=== PATIENT | female | born 1935 | race Caucasian/White ===

== ENCOUNTER 2016-08-11 12:59 | Inpatient (IN) ==
[2016-08-11] MEDS ORDERED: CEFTAROLINE 600 MG in SODIUM CHLORIDE 0.9% 100 ML IV STA (14:16)
--- NOTE | 2016-08-11 14:19 | EKG Report ---
Stationary ECG Study [facility] ER Test Date: 08/11/2016 1:33:33 PM Pat Name: BETTYE SOLOMON Department: Room: Gender: F [employer]: Ping Carlson : 1935 Requested by: John Wilkins Order Number: [id number] Reading MD: SALOMÓN BARNARD Intervals [place] Rate: 73 P: -9 SC: 181 QRS: 42 QRSD: 76 T: 37 QT: 433 QTc: 459 Interpretive Statements SINUS RHYTHM SEPTAL INFARCT, AGE UNDETERMINED Electronically Signed On 08-11-16 17:33:45 CDT by SALOMÓN BARNARD [email or web address]
[2016-08-11 14:42] LABS: Basophils # 0.1 10*3/uL (0.0-0.2); Basophils % 0.7 % (0.0-0.8); Eosinophils # 0.1 10*3/uL (0.0-0.87); Eosinophils % 1.3 % (0.00-10.9); Hematocrit 37.1 VOL% (35.7-47.0); Hemoglobin 12.4 GM/DL (12.0-16.0); Immature Granulocytes % 0.4 %; Immature Granulocytes Absolute 0.03 #; Lymphocytes # 2.4 10*3/uL (1.4-4.0); Lymphocytes % 35.7 % (21.3-54.2); Mean Corpuscular HGB Conc 33.4 GM/DL (32-36); Mean Corpuscular Hemoglobin 29 PG (27-34); Mean Corpuscular Volume 87.1 FL (87-102); Mean Platelet Volume 9.4 FL (9.6-12.0); Monocytes # 0.5 10*3/uL (0.11-0.8); Monocytes % 7.3 % (1.7-12.7); Neutrophils # 3.7 10*3/uL (1.4-7.4); Neutrophils % 54.6 % (38.7-73.9); Platelet Count 164 T/CUMM (130-400); Red Blood Count 4.26 MC/CUMM (3.8-5.5); Red Cell Distribution Width 15.9 % (9.3-17.3); White Blood Count 6.8 T/CUMM (4-12)
--- NOTE | 2016-08-11 14:47 | XRay Report ---
Portable chest Date: 08/11/2016 Clinical history: Shortness of breath Comparison: 07/11/2016 Technique: Portable AP sitting chest Findings: The heart is minimally enlarged with calcification in the aortic knob. Progressive diffuse parenchymal findings with possible small pleural effusions. Increased right hilar density. Osteopenia with degenerative changes. Impression: Cardiomegaly with progressive mild to moderate CHF/pneumonitis with small pleural effusions. Increased right hilar density and follow-up is recommended to document clearing and exclude additional underlying pathology. Osteopenia. PROCEDURE INTERPRETED AT [facility] DEPARTMENT OF RADIOLOGY Final Report Signed by: Dr. Sara Hernandez
[2016-08-11 15:04] LABS: Alanine Aminotransferase 18 U/L (13-56); Alkaline Phosphatase 110 U/L (45-117); Aspartate Amino Transferase 16 U/L (0-37); Blood Urea Nitrogen 27 MG/DL (7-18); Calcium 8.1 MG/DL (8.5-10.1); Glucose 90 MG/DL (74-106); Magnesium 2.1 MG/DL (1.8-2.4); Potassium 4.1 MMOL/L (3.5-5.1); Sodium 143 MMOL/L (136-145); Total Protein 6.2 G/DL (6.4-8.3); Troponin I Only < 0.015 NG/ML (0.00-0.045)
[2016-08-11] MEDS ORDERED: ONDANSETRON 4 MG/2 ML VIAL IV PRN (15:38)
[2016-08-11] MEDS ORDERED: GLUCAGON 1 MG VIAL IM PRN (15:38)
[2016-08-11] MEDS ORDERED: DEXTROSE 50% 25 GM/50 ML VIAL IV PRN (15:38)
[2016-08-11] MEDS ORDERED: MORPHINE 2 MG/1 ML SYRINGE IV PRN (15:38)
--- NOTE | 2016-08-11 15:38 | Emergency Department Note ---
John Paul Arias Brooke, am scribing for, and in the presence of, Edenilson Peck MD 14 :15. Cisco Arias Doug C, MD, personally performed the services described in this documentation, ascribed by Joan Coker in my presence, and it is both accurate and complete 538 . Arrival - Arrival Chief Complaint: Shortness of Breath Stated Complaint: SOB ED Nursing Triage Note: SOB, ONSET YESTERDAY, BILAT LOWER EXT PAIN/SWELLING Mode of Arrival: Wheelchair Limitations: No Limitations Source: Patient, Family, RN Notes Reviewed Time Seen by Provider: 08/11/16 14:10 - History of Present Illness HPI Narrative: Patient's 80-year-old white female presents emergency room complaining of increased pain and swelling of her left lower extremity started 2 days ago. Patient states she has been feeling very tired and weak and having some shortness of breath as well. By states she had some wheezing and cough earlier today. Patient states she has had some chills today but she has not measured any fever. She denies any nausea, vomiting or diarrhea. She has had cellulitis in this lower extremity in the past. This appears to be returning. Onset (ago): day(s) (2) Allergies/Adverse Reactions: Allergies Allergy/AdvReac Type Severity Reaction Status Date / Time ofloxacin [From Floxin] Allergy Unknown/Unable Verified 08/11/16 13:39 to obtain Sulfa (Sulfonamide Allergy ANAPHYLAXIS Verified 08/11/16 13:39 Antibiotics) tape AdvReac Swelling Uncoded 08/11/16 13:39 of Lip/Tongue/Throat Home Medications: Home Medications Medication Instructions Recorded Confirmed Type Allopurinol [Zyloprim] 100 mg PO QAM 07/10/14 08/11/16 History Aspirin EC Tab 81 mg PO QAM 07/10/14 08/11/16 History Insulin Detemir [Levemir FlexPen] 45 unit SUBCUT BEDTIME #0 07/10/14 08/11/16 History Labetalol Tab [Trandate Tab] 100 mg PO BID 07/10/14 08/11/16 History Levothyroxine Tab [Synthroid Tab] 50 mcg PO QAM 07/10/14 08/11/16 History Memantine [Namenda] 10 mg PO BID 07/10/14 08/11/16 History Warfarin Sodium 2.5 mg PO SUTUTH 07/10/14 08/11/16 History Warfarin [Coumadin] 5 mg PO MOWEFRSA 07/10/14 08/11/16 History cloNIDine TAB [Catapres Tab] 0.1 mg PO BID 07/10/14 08/11/16 History Pregabalin [Lyrica] 50 mg PO BEDTIME 03/24/15 08/11/16 History Atorvastatin [Lipitor] 10 mg PO QPM 09/22/15 08/11/16 History Cyanocobalamin Inj [Vitamin B12 1,000 mcg SUBCUT Q30D 09/22/15 08/11/16 History Inj] Furosemide 40 mg PO BID 09/22/15 08/11/16 History Meclizine [Antivert] 25 mg PO QPM PRN 09/22/15 08/11/16 History Omeprazole [Prilosec] 20 mg PO QAM 09/22/15 08/11/16 History Potassium Chloride [K-Tab ER] 20 meq PO BID W/MEALS 09/22/15 08/11/16 History Insulin Aspart [NovoLOG FlexPen] 10 unit SUBCUT TID W/MEALS 10/11/15 08/11/16 History Linagliptin [Tradjenta] 5 mg PO QAM 10/11/15 08/11/16 History Solifenacin Succinate [Vesicare] 10 mg PO QAM 10/11/15 08/11/16 History Methenamine Hippurate 1 gm PO BID 07/01/16 08/11/16 History Montelukast Tab [Singulair Tab] 10 mg PO QPM 07/01/16 08/11/16 History Acetaminophen Tab [Tylenol Tab] 650 mg PO Q6H PRN #0 tablet 07/12/16 08/11/16 Rx Albuterol Neb [Proventil Neb] 2.5 mg RESP TX RT Q4H PRN #0 07/12/16 08/11/16 Rx Alum/Mag/Simeth Max Str Liquid 30 ml PO Q4H PRN #0 07/12/16 08/11/16 Rx [Mylanta Max Strength Liquid] Amoxicillin Cap/Tab 500 mg PO Q8HR #30 capsule 07/12/16 08/11/16 Rx Review of System - Review of System 12 point system: reviewed and no additional remarkable complaints except as stated - Review of System Constitutional: Present: chills. Absent: fever Respiratory: Present: other (shortness of breath). Absent: respiratory distress (shortness of breath. Painful inspirations) Cardiovascular: Present: edema (bilateral lower extremity) Musculoskeletal: Present: leg pain (bilateral) Skin: Present: other (ecchymosis to right 2nd and 3rd toes. Erythematous bilateral lower extremities). Absent: rash Medical,Surgical,& Family Hx - Medical History Cardio: History of: CHF, CAD, Hypertension, PVD (blood clots in legs in past) Psychological: History of: Anxiety Disorders Neurology: History of: Migraine, 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 ) No history of: Seizures HEENT: History of: Eye Problem (PRESCRIPTION), Dental Problems (NO TEETH AND STATES DENTURES DONOT FIT) No history of: Ear Problem, Glaucoma, Oral Cancer Endocrine: History of: Diabetes Mellitus (IDDM), Dyslipidemia, Thyroid Disorder No history of: Diabetes Mellitus (NIDDM), Endocrine Cancer Rheumatology: History of;: Rheumatological Problems (KNEE PAINS,HX RIGHT KNEE REPLACEMENT) Respiratory: History of: Asthma, Bronchitis, COPD, Obstructive Sleep Apnea ( uses cpap at home), Pulmonary Embolism, Pneumonia, Respiratory Problems (uses oxygen at home at night) Renal: History of: Renal (Kidney) Cancer (previous right nephrectomy from cancer ), Renal Failure (stage 3) Genitourinary: History of: Bladder Problem (neurogenic bladder), Problems ( renal cell carcinoma) Gastrointestinal: History of: GERD Musculoskeletal: History of: Osteoporosis, Musculoskeletal Problems (arhtritis) Hematology: History of: Anemia, Blood Transfusion Reaction (chills), Clotting Problems (ON BLOOD THINNERS (HX DVT RLE)) Reproductive: History of: Breast Cancer (14 years ago,PARTIAL RIGHT MASTECTOMY) Other: History of: Anesthesia Reactions (stopped breathing with knee surgery), Cancer (breast and renal cell cancer), Skin Problems (BRUISES EASILY(FROM COUMADIN)) - Surgical History Cardiac Surgeries: Sugical HX of: Cardiac Catheterization Thoracic Surgeries: Surgical HX of;: Kidney (Renal Surgery) (right kidney removal) Patient denies;: Organ Transplant HEENT Surgeries: Surgical HX of: Eye Surgery (cataract removalS) Patient denies: Thyroid Surgery, Tonsilectomy & Adenoidectomy Abdominal Surgeries: Surgical HX of: Abdominal Surgery, Appendectomy, Cholecystectomy, EGD Patient denies: Colonoscopy, Hernia Repair Reproductive Surgeries: Surgical HX of;: Breast Surgery, Gynecologic Surgery, Hysterectomy, Tubal Ligation Orthopedic Surgeries: Surgical HX of;: Total Knee Replacement (right knee replacement) - Family History Family History: Reports;: Family Cancer (daddy), Family Diabetes (MOM,BRO), Family Hypertension (mom and dad,BRO), Family Stroke (dad) Denies;: Family Anesthesia Reaction, Family Heart Disease, Family Psychiatric Problems - Social History Smoking Status: Smoker, status unknown Exam Vital Signs: Vital Signs Temperature 98.1 F 08/11/16 13:36 Pulse Rate 74 08/11/16 13:36 Respiratory Rate 22 08/11/16 14:15 Blood Pressure 171/63 08/11/16 13:36 O2 Sat by Pulse Oximetry 95 08/11/16 13:36 - General General appearance: alert, in no apparent distress, obese - Head Head exam: Present: atraumatic, normocephalic - Eye Eye exam: Present: normal appearance, PERRL, EOMI - ENT ENT exam: Present: normal exam, normal oropharynx - Neck Neck exam: Present: normal inspection - Chest Chest inspection: Present: normal inspection, symmetric chest wall rise - Respiratory Respiratory exam: Present: normal lung sounds bilaterally - Cardiovascular Cardiovascular exam: Present: regular rate, normal rhythm, normal heart sounds - Abdominal Exam Abdominal exam: Present: soft, normal bowel sounds. Absent: distention, tenderness - Extremities Exam Extremities exam: Present: calf tenderness (Please note have painful swelling and erythema to the left anterior calf.). Absent: normal inspection - Back Exam Back exam: Present: normal inspection - Neurological Exam Neurological exam: Present: alert, oriented X3, CN II-XII intact. Absent: motor sensory deficit - Psychiatric Psychiatric exam: Present: normal affect, normal mood - Skin Skin exam: Present: warm, dry, intact, other (Induration and erythema to bilateral lower extremities. Edema to left calf.) Course Course Narrative: Patient's clinical history, laboratory and radiographic findings were discussed with Dr. Hiram Pereyra who will admit the patient for management of her cellulitis. Results - Labs CBC & BMP: 08/11/16 14:27 08/11/16 14:27 Lab Results: I have reviewed the patients labs Labs: Laboratory Tests 08/11/16 14:27 MPV 9.4 L - EKG EKG results: interpreted by ERMD, sinus rhythm (73 bpm), no acute changes - Diagnostic Findings Procedure: Chest x-ray: report reviewed by me (Cardiomegaly with progressive mild to moderate CHF/pneumonitits with small plwural effusions. Increased right hilar density and follow-up is recommended to document clearing and exclude additional underlying pathology. Osteopenia.) Disposition Clinical Impression: Lower extremity cellulitis Case discussed with: patient, patient's family Disposition: Still a Patient Condition: Stable Time of Disposition: 15:38
[2016-08-11 15:40] LABS: Apearance,Urine CLEAR (Clear); Bilirubin,Urine Negative (Negative); Blood, Urine Small mg/dL (Negative); Glucose,Urine (UA) Negative (Negative); Ketones,Urine Negative (Negative); Nitrite,Urine Negative (Negative); Protein,Urine Negative; RBC,Urine 1 /HPF (0-4); Urine Color Straw (Yellow); Urine Specific Gravity 1.008 (1.001-1.035); Urine Urobilinogen < 2.0 EU/DL (0.2-1.0); WBC,Urine 1 /HPF (0-6)
[2016-08-11] MEDS ORDERED: ALBUTEROL 2.5 MG/3 ML NEB RESP TX PRN (15:42)
[2016-08-11] MEDS ORDERED: ALUMINUM/MAGNES/SIMETH MAX STR 30 ML UDCUP PO PRN (15:42)
[2016-08-11] MEDS ORDERED: ACETAMINOPHEN 325 MG TABLET PO PRN (15:42)
[2016-08-11] MEDS ORDERED: MECLIZINE 25 MG TABLET PO PRN (15:42)
[2016-08-11] MEDS ORDERED: CEFTAROLINE 600 MG VIAL IV ONE (15:49)
[2016-08-11] MEDS ORDERED: ENOXAPARIN 40 MG/0.4 ML SYRINGE SUBCUT SCH (16:00)
[2016-08-11] MEDS ORDERED: ACETAMINOPHEN 325 MG TABLET ONE (16:54)
[2016-08-11] MEDS: ACETAMINOPHEN 325 MG TABLET PO PRN (16:55)
[2016-08-11] MEDS: POTASSIUM CHLORIDE 20 MEQ TABLET PO SCH (17:38)
[2016-08-11] MEDS: INSULIN LISPRO 100 UNIT/ML SUBCUT SCH ×3 (17:39→20:17)
[2016-08-11] MEDS: WARFARIN 5 MG TABLET PO SCH (17:39)
[2016-08-11] MEDS: CEFTAROLINE 600 MG in SODIUM CHLORIDE 0.9% 100 ML IV SCH (18:23)
[2016-08-11] MEDS: INSULIN GLARGINE 100 UNIT/ML SUBCUT SCH (20:14)
[2016-08-11] MEDS: DOCUSATE SODIUM 100 MG CAPSULE PO SCH (20:15)
[2016-08-11] MEDS: FUROSEMIDE 40 MG TABLET PO SCH (20:15)
[2016-08-11] MEDS: cloNIDine 0.1 MG TABLET PO SCH (20:15)
[2016-08-11] MEDS: LABETALOL 200 MG TABLET PO SCH (20:15)
[2016-08-11] MEDS: MEMANTINE 10 MG TABLET PO SCH (20:15)
[2016-08-11] MEDS: PREGABALIN 50 MG CAPSULE PO SCH (20:15)
[2016-08-11] MEDS: ATORVASTATIN 20 MG TABLET PO SCH (20:15)
[2016-08-11] MEDS: MONTELUKAST 10 MG TABLET PO SCH (20:15)
[2016-08-11] MEDS: METHENAMINE HIPPURATE 1 GM TABLET PO SCH (20:16)
--- NOTE | 2016-08-11 20:36 | Family Practice History&Phys ---
Assessment and Plan (1) Lower extremity cellulitis Status: Acute Assessment and plan: 519 7: Patient is in bed with antibiotics and place. We are going to consider wound care for tomorrow. Current Visit: Yes (2) Dyspnea Status: Acute Assessment and plan: 08/11/2016: No significant resting dyspnea at this time I will give periodic oxygen and needed Current Visit: No History of Present Illness Chief complaint: Bilateral lower cellulitis History of present illness: Ms. Junior is a 80 year old female With a history of past cellulitis in her legs comes in tonight with redness and swelling in bilateral legs. She has a history of peripheral vascular disease as well as insulin-dependent diabetes mellitus and what appears to be lower extremity erythema/cellulitis. She does also have a history of hypercholesterolemia, hypothyroidism hyper and hypertension. She is alert and oriented but her legs are hurting her significantly. There is 1+ edema bilaterally as well. We are going to admit her put on some antibiotics which is already been done. Monitor closely her kidney function and if necessary will get wound care management. She is not having any fever at this time she admits that she has had chills this past couple of days. She does have chronic mild shortness of breath Home Medications Medication Instructions Recorded Confirmed Type Allopurinol [Zyloprim] 100 mg PO QAM 07/10/14 08/11/16 History Aspirin EC Tab 81 mg PO QAM 07/10/14 08/11/16 History Insulin Detemir [Levemir FlexPen] 45 unit SUBCUT BEDTIME #0 07/10/14 08/11/16 History Labetalol Tab [Trandate Tab] 100 mg PO BID 07/10/14 08/11/16 History Levothyroxine Tab [Synthroid Tab] 50 mcg PO QAM 07/10/14 08/11/16 History Memantine [Namenda] 10 mg PO BID 07/10/14 08/11/16 History Warfarin Sodium 2.5 mg PO SUTUTH 07/10/14 08/11/16 History Warfarin [Coumadin] 5 mg PO MOWEFRSA 07/10/14 08/11/16 History cloNIDine TAB [Catapres Tab] 0.1 mg PO BID 07/10/14 08/11/16 History Pregabalin [Lyrica] 50 mg PO BEDTIME 03/24/15 08/11/16 History Atorvastatin [Lipitor] 10 mg PO QPM 09/22/15 08/11/16 History Cyanocobalamin Inj [Vitamin B12 1,000 mcg SUBCUT Q30D 09/22/15 08/11/16 History Inj] Furosemide 40 mg PO BID 09/22/15 08/11/16 History Meclizine [Antivert] 25 mg PO QPM PRN 09/22/15 08/11/16 History Omeprazole [Prilosec] 20 mg PO QAM 09/22/15 08/11/16 History Potassium Chloride [K-Tab ER] 20 meq PO BID W/MEALS 09/22/15 08/11/16 History Insulin Aspart [NovoLOG FlexPen] 10 unit SUBCUT TID W/MEALS 10/11/15 08/11/16 History Linagliptin [Tradjenta] 5 mg PO QAM 10/11/15 08/11/16 History Solifenacin Succinate [Vesicare] 10 mg PO QAM 10/11/15 08/11/16 History Methenamine Hippurate 1 gm PO BID 07/01/16 08/11/16 History Montelukast Tab [Singulair Tab] 10 mg PO QPM 07/01/16 08/11/16 History Acetaminophen Tab [Tylenol Tab] 650 mg PO Q6H PRN #0 tablet 07/12/16 08/11/16 Rx Albuterol Neb [Proventil Neb] 2.5 mg RESP TX RT Q4H PRN #0 07/12/16 08/11/16 Rx Alum/Mag/Simeth Max Str Liquid 30 ml PO Q4H PRN #0 07/12/16 08/11/16 Rx [Mylanta Max Strength Liquid] Amoxicillin Cap/Tab 500 mg PO Q8HR #30 capsule 07/12/16 08/11/16 Rx Allergies Allergy/AdvReac Type Severity Reaction Status Date / Time ofloxacin [From Floxin] Allergy Unknown/Unable Verified 08/11/16 13:39 to obtain Sulfa (Sulfonamide Allergy ANAPHYLAXIS Verified 08/11/16 13:39 Antibiotics) tape AdvReac Swelling Uncoded 08/11/16 13:39 of Lip/Tongue/Throat 12 point system: reviewed and no additional remarkable complaints except as stated (Except that mentioned in the history and physical.) - EENT Eyes: Absent: blurry vision Ears: Absent: ear pain Nose, mouth and throat: Absent: headache(s) - Cardiovascular Cardiovascular: Present: dyspnea (Very mild/occasional). Absent: chest pain at rest - Respiratory Respiratory: Present: wheezing - Gastrointestinal Gastrointestinal: Absent: constipation - Genitourinary Genitourinary: Absent: difficulty urinating Medical,Surgical,& Family Hx - Medical History Cardio: History of: CHF, CAD, Hypertension, PVD (blood clots in legs in past) Psychological: History of: Anxiety Disorders Neurology: History of: Migraine, 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 ) No history of: Seizures HEENT: History of: Eye Problem, Dental Problems (NO TEETH AND STATES DENTURES DONOT FIT) No history of: Ear Problem, Glaucoma, Oral Cancer Endocrine: History of: Diabetes Mellitus (IDDM), Dyslipidemia, Thyroid Disorder No history of: Diabetes Mellitus (NIDDM), Endocrine Cancer Rheumatology: History of;: Rheumatological Problems (KNEE PAINS,HX RIGHT KNEE REPLACEMENT) Respiratory: History of: Asthma, Bronchitis, COPD, Obstructive Sleep Apnea ( uses cpap at home), Pulmonary Embolism, Pneumonia, Respiratory Problems (uses oxygen at home at night) Renal: History of: Renal (Kidney) Cancer (previous right nephrectomy from cancer ), Renal Failure (stage 3) Genitourinary: History of: Bladder Problem (neurogenic bladder), Problems ( renal cell carcinoma) Gastrointestinal: History of: GERD Musculoskeletal: History of: Osteoporosis, Musculoskeletal Problems (arhtritis) Hematology: History of: Anemia, Blood Transfusion Reaction (chills), Clotting Problems (ON BLOOD THINNERS (HX DVT RLE)) Reproductive: History of: Breast Cancer (14 years ago,PARTIAL RIGHT MASTECTOMY) Other: History of: Anesthesia Reactions (stopped breathing with knee surgery), Cancer (breast and renal cell cancer), Skin Problems (BRUISES EASILY(FROM COUMADIN)) - Surgical History Cardiac Surgeries: Sugical HX of: Cardiac Catheterization Thoracic Surgeries: Surgical HX of;: Kidney (Renal Surgery) (right kidney removal) Patient denies;: Organ Transplant HEENT Surgeries: Surgical HX of: Eye Surgery (cataract removalS) Patient denies: Thyroid Surgery, Tonsilectomy & Adenoidectomy Abdominal Surgeries: Surgical HX of: Abdominal Surgery, Appendectomy, Cholecystectomy, EGD Patient denies: Colonoscopy, Hernia Repair Reproductive Surgeries: Surgical HX of;: Breast Surgery, Gynecologic Surgery, Hysterectomy, Tubal Ligation Orthopedic Surgeries: Surgical HX of;: Total Knee Replacement (right knee replacement) - Family History Family History: Reports;: Family Cancer (daddy), Family Diabetes (MOM,BRO), Family Hypertension (mom and dad,BRO), Family Stroke (dad) Denies;: Family Anesthesia Reaction, Family Heart Disease, Family Psychiatric Problems - Social History Smoking Status: Never smoker Frequency of Alcohol Use: None Exam - Constitutional Vitals: Period Temp Pulse Resp BP Sys/Duffy Pulse Ox Last 24 Hr 96.5 F 74 20 153/72 97 Exam: Generally moderately obese female. She is very alert and oriented answers all questions appropriately is very pleasant HEENT pupils are equally reactive neck is supple trachea midline no appreciated thyromegaly Cardiovascular rate is regular there is 10 systolic ejection murmur Lungs are clear bilaterally except for a few basal rales Abdomen soft nondistended nontender extremities as noted above some cellulitis as well as some mild weeping associated with this. Results - Labs CBC & BMP: 08/11/16 14:27 08/11/16 14:27
[2016-08-12] MEDS: CEFTAROLINE 600 MG in SODIUM CHLORIDE 0.9% 100 ML IV SCH ×2 (03:41→15:44)
[2016-08-12 04:24] LABS: Basophils # 0.1 10*3/uL (0.0-0.2); Basophils % 0.9 % (0.0-0.8); Eosinophils # 0.1 10*3/uL (0.0-0.87); Eosinophils % 2.1 % (0.00-10.9); Hematocrit 37.5 VOL% (35.7-47.0); Hemoglobin 12.2 GM/DL (12.0-16.0); Immature Granulocytes % 0.3 %; Immature Granulocytes Absolute 0.02 #; Lymphocytes # 2.2 10*3/uL (1.4-4.0); Lymphocytes % 34.7 % (21.3-54.2); Mean Corpuscular HGB Conc 32.5 GM/DL (32-36); Mean Corpuscular Hemoglobin 28 PG (27-34); Mean Corpuscular Volume 87.4 FL (87-102); Monocytes # 0.5 10*3/uL (0.11-0.8); Monocytes % 8.4 % (1.7-12.7); Neutrophils # 3.4 10*3/uL (1.4-7.4); Neutrophils % 53.6 % (38.7-73.9); Platelet Count 153 T/CUMM (130-400); Red Blood Count 4.29 MC/CUMM (3.8-5.5); Red Cell Distribution Width 15.8 % (9.3-17.3); White Blood Count 6.3 T/CUMM (4-12)
[2016-08-12 04:53] LABS: Calcium 7.7 MG/DL (8.5-10.1); Osmolality,Calculated 291.7 MOS/KG (273-304)
--- NOTE | 2016-08-12 09:01 | Family Practice Progress Note ---
Family Practice - PN: Subj Interval history: Patient seen this morning. She is doing a little better her legs look a little better. Still complains of them hurting considerably/burning. Patient is already on Lyrica. We will continue to monitor this. No fever chills nausea vomiting diarrhea or other constitutional symptoms at this time Exam (Progress Note) - Constitutional Vitals: Period Temp Pulse Resp BP Sys/Duffy Pulse Ox Last 24 Hr 96.5 F-97.7 F 67-83 18-20 153-167/70-86 93-97 Exam: Generally moderately obese female. She is very alert and oriented answers all questions appropriately is very pleasant HEENT pupils are equally reactive neck is supple trachea midline no appreciated thyromegaly Cardiovascular rate is regular there is 10 systolic ejection murmur Lungs are clear bilaterally except for a few basal rales Abdomen soft nondistended nontender extremities as noted above some cellulitis that seems to be improving some Results - Labs CBC & BMP: 08/12/16 03:45 08/12/16 03:45 Assessment and Plan (1) Lower extremity cellulitis Status: Acute Assessment and plan: 519 7: Patient is in bed with antibiotics and place. We are going to consider wound care for tomorrow. 08/12/2016. She continues on antibiotics and we have her legs elevated. They do seem to be improving some Current Visit: Yes (2) Dyspnea Status: Acute Assessment and plan: 08/11/2016: No significant resting dyspnea at this time I will give periodic oxygen and needed Current Visit: No
[2016-08-12] MEDS: DOCUSATE SODIUM 100 MG CAPSULE PO SCH ×2 (09:49→20:58)
[2016-08-12] MEDS: sitaGLIPtin 25 MG TABLET PO SCH (09:49)
[2016-08-12] MEDS: SOLIFENACIN 5 MG TABLET PO SCH (09:49)
[2016-08-12] MEDS: FUROSEMIDE 40 MG TABLET PO SCH ×2 (09:49→20:57)
[2016-08-12] MEDS: cloNIDine 0.1 MG TABLET PO SCH ×2 (09:49→20:56)
[2016-08-12] MEDS: POTASSIUM CHLORIDE 20 MEQ TABLET PO SCH ×2 (09:50→17:53)
[2016-08-12] MEDS: INSULIN LISPRO 100 UNIT/ML SUBCUT SCH ×7 (09:50→21:03)
[2016-08-12] MEDS: METHENAMINE HIPPURATE 1 GM TABLET PO SCH ×2 (09:50→21:08)
[2016-08-12] MEDS: ALLOPURINOL 100 MG TABLET PO SCH (09:50)
[2016-08-12] MEDS: LABETALOL 200 MG TABLET PO SCH ×2 (09:50→20:56)
[2016-08-12] MEDS: PANTOPRAZOLE 40 MG TABLET PO SCH (09:50)
[2016-08-12] MEDS: LEVOTHYROXINE 50 MCG TABLET PO SCH (09:50)
[2016-08-12] MEDS: MEMANTINE 10 MG TABLET PO SCH ×2 (09:50→20:56)
[2016-08-12] MEDS: ASPIRIN EC 81 MG TABLET PO SCH (09:50)
[2016-08-12 09:52] LABS: INR 1.8; PT Patient Result 20.1 SECS
[2016-08-12] MEDS: WARFARIN 5 MG TABLET PO SCH (17:54)
[2016-08-12] MEDS: ATORVASTATIN 20 MG TABLET PO SCH (20:57)
[2016-08-12] MEDS: PREGABALIN 50 MG CAPSULE PO SCH (20:58)
[2016-08-12] MEDS: MONTELUKAST 10 MG TABLET PO SCH (20:58)
[2016-08-12] MEDS: INSULIN GLARGINE 100 UNIT/ML SUBCUT SCH (21:01)
[2016-08-13] MEDS: CEFTAROLINE 600 MG in SODIUM CHLORIDE 0.9% 100 ML IV SCH ×2 (04:58→16:07)
[2016-08-13] MEDS: INSULIN LISPRO 100 UNIT/ML SUBCUT SCH ×7 (06:38→21:41)
[2016-08-13] MEDS ORDERED: FUROSEMIDE 20 MG TABLET ONE (08:24)
[2016-08-13] MEDS: ACETAMINOPHEN 325 MG TABLET PO PRN (08:41)
[2016-08-13] MEDS: SOLIFENACIN 5 MG TABLET PO SCH (08:41)
[2016-08-13] MEDS: sitaGLIPtin 25 MG TABLET PO SCH (08:42)
[2016-08-13] MEDS: POTASSIUM CHLORIDE 20 MEQ TABLET PO SCH ×2 (08:42→18:53)
[2016-08-13] MEDS: ALLOPURINOL 100 MG TABLET PO SCH (08:43)
[2016-08-13] MEDS: LEVOTHYROXINE 50 MCG TABLET PO SCH (08:43)
[2016-08-13] MEDS: PANTOPRAZOLE 40 MG TABLET PO SCH (08:43)
[2016-08-13] MEDS: LABETALOL 200 MG TABLET PO SCH ×2 (08:43→20:00)
[2016-08-13] MEDS: cloNIDine 0.1 MG TABLET PO SCH ×2 (08:43→20:00)
[2016-08-13] MEDS: ASPIRIN EC 81 MG TABLET PO SCH (08:43)
[2016-08-13] MEDS: DOCUSATE SODIUM 100 MG CAPSULE PO SCH ×2 (08:44→20:00)
[2016-08-13] MEDS: FUROSEMIDE 40 MG TABLET PO SCH ×2 (08:44→20:00)
[2016-08-13] MEDS: MEMANTINE 10 MG TABLET PO SCH ×2 (08:44→20:00)
[2016-08-13] MEDS: METHENAMINE HIPPURATE 1 GM TABLET PO SCH ×2 (08:47→20:00)
--- NOTE | 2016-08-13 09:19 | Family Practice Progress Note ---
Family Practice - PN: Subj Interval history: Patient seen this morning she is up sitting in the bed eating. Still complaining of leg burning and stinging. The cellulitis has improved somewhat there is some still a little bit of weeping and redness and the lower extremities bilaterally however it is worse on the left. She was told to keep them elevated and she is not having any difficulty with breathing at this moment. Exam (Progress Note) - Constitutional Vitals: Period Temp Pulse Resp BP Sys/Duffy Pulse Ox Last 24 Hr 97.4 F-99 F 63-83 18-20 139-172/72-84 93-118 Exam: Generally moderately obese female. She is very alert and oriented answers all questions appropriately is very pleasant HEENT pupils are equally reactive neck is supple trachea midline no appreciated thyromegaly Cardiovascular rate is regular there is 10 systolic ejection murmur Lungs are clear bilaterally except for a few basal rales Abdomen soft nondistended nontender extremities as noted above some cellulitis that seems to be improving some. There is still some slight weeping Results - Labs CBC & BMP: 08/12/16 03:45 08/12/16 03:45 Assessment and Plan (1) Lower extremity cellulitis Status: Acute Assessment and plan: 519 7: Patient is in bed with antibiotics and place. We are going to consider wound care for tomorrow. 08/12/2016. She continues on antibiotics and we have her legs elevated. They do seem to be improving some Current Visit: Yes (2) Dyspnea Status: Acute Assessment and plan: 08/11/2016: No significant resting dyspnea at this time I will give periodic oxygen and needed Current Visit: No
[2016-08-13] MEDS: WARFARIN 2.5 MG TABLET PO SCH (18:53)
[2016-08-13] MEDS: MONTELUKAST 10 MG TABLET PO SCH (20:00)
[2016-08-13] MEDS: PREGABALIN 50 MG CAPSULE PO SCH (20:00)
[2016-08-13] MEDS: ATORVASTATIN 20 MG TABLET PO SCH (20:00)
[2016-08-13] MEDS: INSULIN GLARGINE 100 UNIT/ML SUBCUT SCH (21:40)
[2016-08-14] MEDS: CEFTAROLINE 600 MG in SODIUM CHLORIDE 0.9% 100 ML IV SCH ×2 (03:21→21:11)
--- NOTE | 2016-08-14 07:20 | Family Practice Progress Note ---
Family Practice - PN: Subj Interval history: Patient states she had a good night and her left calf is feeling some better. Certainly the erythema is reduced though it sieve grader tender and warm to the touch. 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 Patient is complaining of some irritation under her abdominal fold. Exam (Progress Note) - Constitutional Vitals: Period Temp Pulse Resp BP Sys/Duffy Pulse Ox Last 24 Hr 97.7 F-98.4 F 61-73 18-20 107-159/58-83 92-96 Exam: Objective well-developed white female is awake alert and able give good history. Cardiovascular: Heart rates regular without murmurs or gallops. Respiratory: The lungs clear to auscultation bilaterally. Abdomen: The abdomen soft and nontender to palpation. Patient is noted to have yeast dermatitis in the fold of her panniculus. Extremities: Erythema of the left anterior calf has improved but is still warm to the touch and tender. Results - Labs CBC & BMP: 08/12/16 03:45 08/12/16 03:45 Lab Results: I have reviewed the past 24 hour labs Assessment and Plan (1) Cellulitis of left lower extremity Status: Acute Assessment and plan: 08/14/2016: I am going to consult Dr. Mike for his thoughts about her recurring cellulitis. Current Visit: Yes
[2016-08-14] MEDS: INSULIN LISPRO 100 UNIT/ML SUBCUT SCH ×7 (10:03→21:58)
[2016-08-14] MEDS: DOCUSATE SODIUM 100 MG CAPSULE PO SCH ×2 (10:30→21:12)
[2016-08-14] MEDS: POTASSIUM CHLORIDE 20 MEQ TABLET PO SCH ×2 (10:30→17:46)
[2016-08-14] MEDS: NYSTATIN POWDER 15 GM BOTTLE TOP SCH ×2 (10:30→21:13)
[2016-08-14] MEDS: sitaGLIPtin 25 MG TABLET PO SCH (10:31)
[2016-08-14] MEDS: METHENAMINE HIPPURATE 1 GM TABLET PO SCH ×2 (10:31→21:12)
[2016-08-14] MEDS: FUROSEMIDE 40 MG TABLET PO SCH ×2 (10:31→21:12)
[2016-08-14] MEDS: MEMANTINE 10 MG TABLET PO SCH ×2 (10:31→21:13)
[2016-08-14] MEDS: PANTOPRAZOLE 40 MG TABLET PO SCH (10:31)
[2016-08-14] MEDS: cloNIDine 0.1 MG TABLET PO SCH ×2 (10:31→21:12)
[2016-08-14] MEDS: ASPIRIN EC 81 MG TABLET PO SCH (10:31)
[2016-08-14] MEDS: SOLIFENACIN 5 MG TABLET PO SCH (10:37)
[2016-08-14] MEDS: LEVOTHYROXINE 50 MCG TABLET PO SCH (10:37)
[2016-08-14] MEDS: ALLOPURINOL 100 MG TABLET PO SCH (10:37)
[2016-08-14] MEDS: LABETALOL 200 MG TABLET PO SCH ×2 (10:38→21:13)
--- NOTE | 2016-08-14 12:23 | General Surgery Consult Note ---
Assessment and Plan - Time spent with patient Time spent with patient: Greater than 30 minutes (1) Chronic venous stasis dermatitis of both lower extremities Status: Acute Assessment and plan: Chronic bilateral lower extremity venous stasis dermatitis. This seems to be responding well to IV antibiotics and bedrest. She needs good skin hygiene, and would likely benefit from some lubrication as well as light compression. However do not think she will tolerate this well especially on the left, as she is recovering from cellulitis & also has Postphlebitic changes and is quite tender there. She needs to avoid sitting with legs in a dependent position, and I discussed all this with the patient in great detail. Current Visit: Yes (2) Cellulitis of left lower extremity Status: Acute Assessment and plan: Cellulitis seems to be responding. Continue antibiotics and bedrest. OK to walk with PT but avoid sitting with legs dependent. We may attempt light compression to see if she will tolerate this. 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 Current Visit: Yes (4) care home (current) use of anticoagulants Status: Acute Current Visit: Yes (5) Morbid obesity Status: Chronic Current Visit: No (6) Postphlebitic syndrome Status: Acute Assessment and plan: Again, she's not likely to tolerate compression well, however this would be first-line therapy for her. We discussed it at length, and if she's willing we could try light wraps while she's here, then progress to Jobst Sensi foot socks to both protect her feet and help control her dependent edema. Current Visit: No (7) Diabetic peripheral neuropathy Status: Acute Assessment and plan: She has bilateral diabetic peripheral neuropathy of the feet with loss of protective sensation and preulcerative callous. She wears shoes that are appropriate for her risk category. She is currently taking Lyrica. Once her legs have been decompressed we could add Jobst Sensi foot socks if she will tolerate them. Current Visit: Yes History of Present Illness Chief complaint: Bilateral lower extremity cellulitis History of present illness: Ms. Junior is a 80 year old female Home Medications Medication Instructions Recorded Confirmed Type Allopurinol [Zyloprim] 100 mg PO QAM 07/10/14 08/11/16 History Aspirin EC Tab 81 mg PO QAM 07/10/14 08/11/16 History Insulin Detemir [Levemir FlexPen] 45 unit SUBCUT BEDTIME #0 07/10/14 08/11/16 History Labetalol Tab [Trandate Tab] 100 mg PO BID 07/10/14 08/11/16 History Levothyroxine Tab [Synthroid Tab] 50 mcg PO QAM 07/10/14 08/11/16 History Memantine [Namenda] 10 mg PO BID 07/10/14 08/11/16 History Warfarin Sodium 2.5 mg PO SUTUTH 07/10/14 08/11/16 History Warfarin [Coumadin] 5 mg PO MOWEFRSA 07/10/14 08/11/16 History cloNIDine TAB [Catapres Tab] 0.1 mg PO BID 07/10/14 08/11/16 History Pregabalin [Lyrica] 50 mg PO BEDTIME 03/24/15 08/11/16 History Atorvastatin [Lipitor] 10 mg PO QPM 09/22/15 08/11/16 History Cyanocobalamin Inj [Vitamin B12 1,000 mcg SUBCUT Q30D 09/22/15 08/11/16 History Inj] Furosemide 40 mg PO BID 09/22/15 08/11/16 History Meclizine [Antivert] 25 mg PO QPM PRN 09/22/15 08/11/16 History Omeprazole [Prilosec] 20 mg PO QAM 09/22/15 08/11/16 History Potassium Chloride [K-Tab ER] 20 meq PO BID W/MEALS 09/22/15 08/11/16 History Insulin Aspart [NovoLOG FlexPen] 10 unit SUBCUT TID W/MEALS 10/11/15 08/11/16 History Linagliptin [Tradjenta] 5 mg PO QAM 10/11/15 08/11/16 History Solifenacin Succinate [Vesicare] 10 mg PO QAM 10/11/15 08/11/16 History Methenamine Hippurate 1 gm PO BID 07/01/16 08/11/16 History Montelukast Tab [Singulair Tab] 10 mg PO QPM 07/01/16 08/11/16 History Acetaminophen Tab [Tylenol Tab] 650 mg PO Q6H PRN #0 tablet 07/12/16 08/11/16 Rx Albuterol Neb [Proventil Neb] 2.5 mg RESP TX RT Q4H PRN #0 07/12/16 08/11/16 Rx Alum/Mag/Simeth Max Str Liquid 30 ml PO Q4H PRN #0 07/12/16 08/11/16 Rx [Mylanta Max Strength Liquid] Amoxicillin Cap/Tab 500 mg PO Q8HR #30 capsule 07/12/16 08/11/16 Rx Allergies Allergy/AdvReac Type Severity Reaction Status Date / Time ofloxacin [From Floxin] Allergy Unknown/Unable Verified 08/11/16 13:39 to obtain Sulfa (Sulfonamide Allergy ANAPHYLAXIS Verified 08/11/16 13:39 Antibiotics) tape AdvReac Swelling Uncoded 08/11/16 13:39 of Lip/Tongue/Throat Medical,Surgical,& Family Hx - Medical History Cardio: History of: CHF, CAD, Hypertension, PVD (blood clots in legs in past) Psychological: History of: Anxiety Disorders Neurology: History of: Migraine, 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 ) No history of: Seizures HEENT: History of: Eye Problem, Dental Problems (NO TEETH AND STATES DENTURES DONOT FIT) No history of: Ear Problem, Glaucoma, Oral Cancer Endocrine: History of: Diabetes Mellitus (IDDM), Dyslipidemia, Thyroid Disorder No history of: Diabetes Mellitus (NIDDM), Endocrine Cancer Rheumatology: History of;: Rheumatological Problems (KNEE PAINS,HX RIGHT KNEE REPLACEMENT) Respiratory: History of: Asthma, Bronchitis, COPD, Obstructive Sleep Apnea ( uses cpap at home), Pulmonary Embolism, Pneumonia, Respiratory Problems (uses oxygen at home at night) Renal: History of: Renal (Kidney) Cancer (previous right nephrectomy from cancer ), Renal Failure (stage 3) Genitourinary: History of: Bladder Problem (neurogenic bladder), Problems ( renal cell carcinoma) Gastrointestinal: History of: GERD Musculoskeletal: History of: Osteoporosis, Musculoskeletal Problems (arhtritis) Hematology: History of: Anemia, Blood Transfusion Reaction (chills), Clotting Problems (ON BLOOD THINNERS (HX DVT RLE)) Reproductive: History of: Breast Cancer (14 years ago,PARTIAL RIGHT MASTECTOMY) Other: History of: Anesthesia Reactions (stopped breathing with knee surgery), Cancer (breast and renal cell cancer), Skin Problems (BRUISES EASILY(FROM COUMADIN)) - Surgical History Cardiac Surgeries: Sugical HX of: Cardiac Catheterization Thoracic Surgeries: Surgical HX of;: Kidney (Renal Surgery) (right kidney removal) Patient denies;: Organ Transplant HEENT Surgeries: Surgical HX of: Eye Surgery (cataract removalS) Patient denies: Thyroid Surgery, Tonsilectomy & Adenoidectomy Abdominal Surgeries: Surgical HX of: Abdominal Surgery, Appendectomy, Cholecystectomy, EGD Patient denies: Colonoscopy, Hernia Repair Reproductive Surgeries: Surgical HX of;: Breast Surgery, Gynecologic Surgery, Hysterectomy, Tubal Ligation Orthopedic Surgeries: Surgical HX of;: Total Knee Replacement (right knee replacement) - Family History Family History: Reports;: Family Cancer (daddy), Family Diabetes (MOM,BRO), Family Hypertension (mom and dad,BRO), Family Stroke (dad) Denies;: Family Anesthesia Reaction, Family Heart Disease, Family Psychiatric Problems - Social History Smoking Status: Never smoker Frequency of Alcohol Use: None Exam - Constitutional Vitals: Period Temp Pulse Resp BP Sys/Duffy Pulse Ox Last 24 Hr 98 F-98.4 F 61-70 18-20 107-151/58-83 92-96 General appearance: no acute distress, morbidly obese, other (Patient alert and oriented; she is cooperative with the exam and complains of minimal discomfort bilateral lower extremities. She says this is much better since admission.) - Head Head exam: Present: normocephalic - Eye Eye exam: Present: EOMI Pupils: Present: TEOFILO - ENT Mouth exam: Present: normal voice, dry mucosa - Neck Neck exam: Present: trachea midline. Absent: lymphadenopathy - Respiratory Respiratory exam: Absent: rales, wheezes - Cardiovascular Cardiovascular exam: Present: RRR - GI/Abdominal GI/Abdominal exam: Present: soft, other (Multiple abdominal wall and right lateral flank incisional hernias present. None of these appear to be incarcerated.). Absent: distended, guarding - Extremities Exam Extremities exam: Present: other (Bilateral lower extremities trace edema left greater than right. Left lower extremity with moderate induration medial aspect , and clearing erythema without focal area of redness. She does have some soft point tenderness with blanching at the mid medial aspect of the left calf, this does not appear to be any localized fluctuance. She has fairly extensive chronic venous stasis changes bilaterally, again left greater than right. She has palpable pulses DP and PT sites. Good capillary refill of the toes and 2 seconds. She has very minimal bilateral fifth metatarsal head calluses, but I see no other lesions, no ulcerations, no ischemic or pressure changes of either foot. ) - Neurological Exam Neurological exam: Present: other (She has decreased sharp/dull sensation and proprioception on right and left feet in all cardinal areas tested. She has mild preulcerative callouses over bilateral 5th metatarsal heads. No history of callous. She wears shoes appropriate for her risk category. ) - Skin Skin exam: Present: other (Excoriative skin changes about the pannus and groin areas.) Results - Labs CBC & BMP: 08/12/16 03:45 08/12/16 03:45
[2016-08-14] MEDS: WARFARIN 5 MG TABLET PO SCH (17:46)
[2016-08-14] MEDS: MONTELUKAST 10 MG TABLET PO SCH (21:12)
[2016-08-14] MEDS: ATORVASTATIN 20 MG TABLET PO SCH (21:12)
[2016-08-14] MEDS: PREGABALIN 50 MG CAPSULE PO SCH (21:12)
[2016-08-14] MEDS: INSULIN GLARGINE 100 UNIT/ML SUBCUT SCH (21:58)
--- NOTE | 2016-08-15 07:24 | Family Practice Progress Note ---
Family Practice - PN: Subj Interval history: Patient states she is doing some better and her left lower extremity is less painful and swollen this morning. She has not had any fever chills her blood sugars are well controlled. Exam (Progress Note) - Constitutional Vitals: Period Temp Pulse Resp BP Sys/Duffy Pulse Ox Last 24 Hr 96 F-98.5 F 62-68 18-20 106-139/53-80 92-96 Exam: Objective well-developed white female is awake alert and able give good history. Cardiovascular: Heart rates regular without murmurs or gallops. Respiratory: The lungs clear to auscultation bilaterally. Abdomen: The abdomen soft and nontender to palpation. Extremities: Patient's edema and erythema are both improved. She still has tenderness. Results - Labs CBC & BMP: 08/12/16 03:45 08/12/16 03:45 Lab Results: I have reviewed the past 24 hour labs Assessment and Plan (1) Cellulitis of left lower extremity Status: Acute Assessment and plan: 08/14/2016: I am going to consult Dr. Mike for his thoughts about her recurring cellulitis. 08/15/2016: Dr. Falcon's been consulted. Current Visit: Yes
[2016-08-15] MEDS: INSULIN LISPRO 100 UNIT/ML SUBCUT SCH ×7 (08:16→21:18)
[2016-08-15] MEDS: SOLIFENACIN 5 MG TABLET PO SCH (08:17)
[2016-08-15] MEDS: ALLOPURINOL 100 MG TABLET PO SCH (08:17)
[2016-08-15] MEDS: LABETALOL 200 MG TABLET PO SCH ×2 (08:17→21:10)
[2016-08-15] MEDS: LEVOTHYROXINE 50 MCG TABLET PO SCH (08:17)
[2016-08-15] MEDS: ASPIRIN EC 81 MG TABLET PO SCH (08:17)
[2016-08-15] MEDS: PANTOPRAZOLE 40 MG TABLET PO SCH (08:17)
[2016-08-15] MEDS: POTASSIUM CHLORIDE 20 MEQ TABLET PO SCH ×2 (08:17→17:21)
[2016-08-15] MEDS: METHENAMINE HIPPURATE 1 GM TABLET PO SCH ×2 (08:17→21:09)
[2016-08-15] MEDS: sitaGLIPtin 25 MG TABLET PO SCH (08:17)
[2016-08-15] MEDS: FUROSEMIDE 40 MG TABLET PO SCH ×2 (08:18→21:10)
[2016-08-15] MEDS: DOCUSATE SODIUM 100 MG CAPSULE PO SCH ×2 (08:18→21:10)
[2016-08-15] MEDS: NYSTATIN POWDER 15 GM BOTTLE TOP SCH ×2 (08:18→21:18)
[2016-08-15] MEDS: cloNIDine 0.1 MG TABLET PO SCH ×2 (08:18→21:09)
[2016-08-15] MEDS: CEFTAROLINE 600 MG in SODIUM CHLORIDE 0.9% 100 ML IV SCH ×2 (08:19→21:09)
[2016-08-15] MEDS: MEMANTINE 10 MG TABLET PO SCH ×2 (08:23→21:10)
[2016-08-15] MEDS ORDERED: SKIN HEALING OINT (AQUAPHOR) 50 GM TUBE TOP PRN (09:26)
--- NOTE | 2016-08-15 09:29 | General Surgery Progress Note ---
Assessment and Plan - Time spent with patient Time spent with patient: Less than 30 minutes (1) Chronic venous stasis dermatitis of both lower extremities Status: Acute Assessment and plan: 08/15/2016 The stasis changes of the lower extremities looking good shape. The left lower extremity has greater stasis changes and on the right and I see no obvious ulcerations or blistering at this time. I have spoken to the patient about the importance of not sitting with legs hanging down for long periods of time and the importance of ambulation and compression. We will try some compression on the legs as light as possible see if we can keep things under control. understand that she may not be very cooperative and in having compression on the legs but this is only way that we can keep her from coming back in the keep things under control. She needs to have continued good moisturizing of the lower extremities in addition to the compression. Current Visit: Yes Subjective Patient reports: Present: feels better, tolerating a regular diet, bowel movement, afebrile Exam - Constitutional Vitals: Period Temp Pulse Resp BP Sys/Duffy Pulse Ox Last 24 Hr 96 F-98.5 F 62-68 18-20 106-136/53-63 92-96 General appearance: no acute distress - Head Head exam: Present: normal inspection - Neck Neck exam: Present: normal inspection - Respiratory Respiratory exam: Present: rales - Cardiovascular Cardiovascular exam: Present: RRR - Extremities Exam Extremities exam: Present: other (The stasis changes of the left lower extremity look a lot better there is no obvious blistering and I see no unusual erythematous changes.) - Back Exam Back exam: Present: normal inspection - Neurological Exam Neurological exam: Present: alert, oriented X3, CN II-XII intact - Skin Skin exam: Present: normal color, warm, dry Results - Labs CBC & BMP: 08/12/16 03:45 08/12/16 03:45 Lab Results: I have reviewed the past 24 hour labs
[2016-08-15] MEDS: WARFARIN 2.5 MG TABLET PO SCH (17:21)
[2016-08-15] MEDS: INSULIN GLARGINE 100 UNIT/ML SUBCUT SCH (21:09)
[2016-08-15] MEDS: ATORVASTATIN 20 MG TABLET PO SCH (21:09)
[2016-08-15] MEDS: PREGABALIN 50 MG CAPSULE PO SCH (21:10)
[2016-08-15] MEDS: MONTELUKAST 10 MG TABLET PO SCH (21:10)
[2016-08-16 06:28] LABS: Basophils # 0.1 10*3/uL (0.0-0.2); Basophils % 0.9 % (0.0-0.8); Eosinophils # 0.2 10*3/uL (0.0-0.87); Eosinophils % 2.5 % (0.00-10.9); Hematocrit 42.2 VOL% (35.7-47.0); Hemoglobin 13.7 GM/DL (12.0-16.0); Immature Granulocytes % 0.6 %; Immature Granulocytes Absolute 0.04 #; Lymphocytes # 1.9 10*3/uL (1.4-4.0); Lymphocytes % 27.6 % (21.3-54.2); Mean Corpuscular HGB Conc 32.5 GM/DL (32-36); Mean Corpuscular Hemoglobin 29 PG (27-34); Mean Corpuscular Volume 88.5 FL (87-102); Monocytes # 0.6 10*3/uL (0.11-0.8); Monocytes % 9.2 % (1.7-12.7); Neutrophils % 59.2 % (38.7-73.9); Platelet Count 172 T/CUMM (130-400); Red Blood Count 4.77 MC/CUMM (3.8-5.5); Red Cell Distribution Width 15.6 % (9.3-17.3); White Blood Count 6.7 T/CUMM (4-12)
[2016-08-16 06:52] LABS: Calcium 8.5 MG/DL (8.5-10.1); Osmolality,Calculated 294.3 MOS/KG (273-304)
--- NOTE | 2016-08-16 07:56 | Family Practice Progress Note ---
Family Practice - PN: Subj Interval history: Patient states her legs are feeling better. She has a compression wrap to both calves and understands these need to be continued. She states her leg pain is certainly improved. Certainly not as tender as she was 2 days ago. I told would probably continue antibiotics another day and she can go home tomorrow. Exam (Progress Note) - Constitutional Vitals: Period Temp Pulse Resp BP Sys/Duffy Pulse Ox Last 24 Hr 97.6 F-98.7 F 63-79 16-20 125-137/59-70 92-95 Exam: Objective well-developed white female is awake alert and able give good history. Cardiovascular: Heart rates regular without murmurs or gallops. Respiratory: The lungs clear to auscultation bilaterally. Abdomen: The abdomen soft and nontender to palpation. Extremities: Patient's edema and erythema are both improved. her tenderness has improved. Results - Labs CBC & BMP: 08/16/16 05:52 08/16/16 05:52 Lab Results: I have reviewed the past 24 hour labs Assessment and Plan (1) Cellulitis of left lower extremity Status: Acute Assessment and plan: 08/14/2016: I am going to consult Dr. Mike for his thoughts about her recurring cellulitis. 08/15/2016: Dr. Falcon's been consulted. 08/16/2016: Patient is improving, probably home tomorrow. Current Visit: Yes
[2016-08-16] MEDS: INSULIN LISPRO 100 UNIT/ML SUBCUT SCH ×7 (08:30→21:11)
--- NOTE | 2016-08-16 09:25 | General Surgery Progress Note ---
Assessment and Plan - Time spent with patient Time spent with patient: Less than 30 minutes (1) Chronic venous stasis dermatitis of both lower extremities Status: Acute Assessment and plan: 08/15/2016 The stasis changes of the lower extremities looking good shape. The left lower extremity has greater stasis changes and on the right and I see no obvious ulcerations or blistering at this time. I have spoken to the patient about the importance of not sitting with legs hanging down for long periods of time and the importance of ambulation and compression. We will try some compression on the legs as light as possible see if we can keep things under control. understand that she may not be very cooperative and in having compression on the legs but this is only way that we can keep her from coming back in the keep things under control. She needs to have continued good moisturizing of the lower extremities in addition to the compression. 08/16/2016. Patient is doing better today we do have a compressive wrap in place that could be easily managed at home. We have encouraged her the importance of not sitting hanging leg stand for long periods of time to be ambulating or keep them elevated as much as possible. I would continue present level of care and using a cotton sock and Stephane wrap to control the edema for now see if this will be the best way to control process. Current Visit: Yes Subjective Patient reports: Present: no new complaints, tolerating a regular diet, afebrile Exam - Constitutional Vitals: Period Temp Pulse Resp BP Sys/Duffy Pulse Ox Last 24 Hr 97.6 F-98.6 F 63-73 16-20 125-134/59-70 92-95 General appearance: mild distress - Head Head exam: Present: normal inspection - ENT ENT exam: Present: normal exam - Neck Neck exam: Present: normal inspection - Respiratory Respiratory exam: Present: rales - Cardiovascular Cardiovascular exam: Present: RRR - GI/Abdominal GI/Abdominal exam: Present: normal bowel sounds, soft - Extremities Exam Extremities exam: Present: other (Dressings are in place and the edema of the lower extremities slightly better at this time.) - Back Exam Back exam: Present: normal inspection - Neurological Exam Neurological exam: Present: alert, oriented X3, CN II-XII intact - Skin Skin exam: Present: normal color, warm, dry Results - Labs CBC & BMP: 08/16/16 05:52 08/16/16 05:52 Lab Results: I have reviewed the past 24 hour labs
[2016-08-16] MEDS: MEMANTINE 10 MG TABLET PO SCH ×2 (11:30→21:09)
[2016-08-16] MEDS: METHENAMINE HIPPURATE 1 GM TABLET PO SCH ×2 (11:30→21:07)
[2016-08-16] MEDS: PANTOPRAZOLE 40 MG TABLET PO SCH (11:30)
[2016-08-16] MEDS: sitaGLIPtin 25 MG TABLET PO SCH (11:30)
[2016-08-16] MEDS: SOLIFENACIN 5 MG TABLET PO SCH (11:30)
[2016-08-16] MEDS: LEVOTHYROXINE 50 MCG TABLET PO SCH (11:30)
[2016-08-16] MEDS: ASPIRIN EC 81 MG TABLET PO SCH (11:30)
[2016-08-16] MEDS: LABETALOL 200 MG TABLET PO SCH ×2 (11:30→21:07)
[2016-08-16] MEDS: ALLOPURINOL 100 MG TABLET PO SCH (11:30)
[2016-08-16] MEDS: cloNIDine 0.1 MG TABLET PO SCH ×2 (11:31→21:08)
[2016-08-16] MEDS: DOCUSATE SODIUM 100 MG CAPSULE PO SCH ×2 (11:31→21:10)
[2016-08-16] MEDS: FUROSEMIDE 40 MG TABLET PO SCH ×2 (11:31→21:10)
[2016-08-16] MEDS: POTASSIUM CHLORIDE 20 MEQ TABLET PO SCH ×2 (11:31→18:06)
[2016-08-16] MEDS: CEFTAROLINE 600 MG in SODIUM CHLORIDE 0.9% 100 ML IV SCH (11:35)
[2016-08-16] MEDS: NYSTATIN POWDER 15 GM BOTTLE TOP SCH ×2 (12:00→21:21)
[2016-08-16] MEDS: WARFARIN 5 MG TABLET PO SCH (18:06)
[2016-08-16] MEDS: PREGABALIN 50 MG CAPSULE PO SCH (21:08)
[2016-08-16] MEDS: ATORVASTATIN 20 MG TABLET PO SCH (21:09)
[2016-08-16] MEDS: MONTELUKAST 10 MG TABLET PO SCH (21:09)
[2016-08-16] MEDS: INSULIN GLARGINE 100 UNIT/ML SUBCUT SCH (21:10)
[2016-08-17] MEDS ORDERED: CEFTAROLINE 300 MG in SODIUM CHLORIDE 0.9% 100 ML IV SCH
[2016-08-17 07:02] LABS: INR 2.9; PT Patient Result 33.2 SECS
[2016-08-17] MEDS ORDERED: sitaGLIPtin 25 MG TABLET PO SCH (09:00)
[2016-08-17] MEDS: INSULIN LISPRO 100 UNIT/ML SUBCUT SCH ×4 (09:27→12:50)
[2016-08-17] MEDS: METHENAMINE HIPPURATE 1 GM TABLET PO SCH (09:30)
[2016-08-17] MEDS: SOLIFENACIN 5 MG TABLET PO SCH (09:30)
[2016-08-17] MEDS: POTASSIUM CHLORIDE 20 MEQ TABLET PO SCH (09:30)
[2016-08-17] MEDS: LABETALOL 200 MG TABLET PO SCH (09:31)
[2016-08-17] MEDS: FUROSEMIDE 40 MG TABLET PO SCH (09:31)
[2016-08-17] MEDS: LEVOTHYROXINE 50 MCG TABLET PO SCH (09:34)
[2016-08-17] MEDS: NYSTATIN POWDER 15 GM BOTTLE TOP SCH (09:34)
[2016-08-17] MEDS: MEMANTINE 10 MG TABLET PO SCH (09:34)
[2016-08-17] MEDS: ALLOPURINOL 100 MG TABLET PO SCH (09:34)
[2016-08-17] MEDS: cloNIDine 0.1 MG TABLET PO SCH (09:34)
[2016-08-17] MEDS: PANTOPRAZOLE 40 MG TABLET PO SCH (09:34)
[2016-08-17] MEDS: DOCUSATE SODIUM 100 MG CAPSULE PO SCH (09:34)
[2016-08-17] MEDS: ASPIRIN EC 81 MG TABLET PO SCH (09:34)
--- NOTE | 2016-08-17 12:15 | Discharge Summary ---
Hospital Course - Hospital Course Hospital Course: Patient's 80-year-old white female was admitted to the emergency room with increased pain and swelling of her left calf. Patient was found to have cellulitis. She has chronic venous stasis dermatitis with certainly provokes exacerbations of cellulitis. Patient was admitted my services and started on Teflaro. Her blood cultures remained negative through 5 days. She was seen in consultation by Dr. Falcon and compression stockings were added. Patient's improved and her pain is markedly improved. She will be discharged home today on oral antibiotics and office follow-up. Diagnosis - Discharge Diagnosis (1) Cellulitis of left lower extremity Status: Acute Discharge Plan - Discharge Data Disposition: Disch To Home/Self Care Condition at Discharge: Stable Discharge Diet: advance to your usual diet Activity: resume usual activities as tolerated Hygiene: no restrictions Weight Bearing at Discharge: full weight bearing Contact your physician if you experience:: fever over 101 - Discharge Medications New Acetaminophen Tab [Tylenol Tab] 650 mg PO Q6H PRN tablet PRN Reason: Fever > 100.4 Or Headache Albuterol Neb [Proventil Neb] 2.5 mg RESP TX RT Q4H PRN PRN Reason: Shortness Of Breath/Wheezing Allopurinol [Zyloprim] 100 mg PO QAM tablet Alum/Mag/Simeth Max Str Liquid [Mylanta Max Strength Liquid] 30 ml PO Q4H PRN PRN Reason: Dyspepsia Atorvastatin [Lipitor] 10 mg PO BEDTIME tablet cephALEXin [Keflex] 500 mg PO Q6HR #40 capsule cloNIDine TAB [Catapres Tab] 0.1 mg PO BID tablet Furosemide Tab [Lasix Tab] 40 mg PO BID tablet Labetalol Tab [Trandate Tab] 100 mg PO BID tablet Levothyroxine Tab [Synthroid Tab] 50 mcg PO QAM tablet Memantine [Namenda] 10 mg PO BID tablet Methenamine Hippurate [Hiprex] 1 gm PO BID tablet Montelukast Tab [Singulair Tab] 10 mg PO BEDTIME tablet Nystatin Powder [Mycostatin Powder] 1 applic TOP BID #100 applic Pregabalin [Lyrica] 50 mg PO BEDTIME capsule sitaGLIPtin [Januvia] 25 mg PO QAM tablet Skin Healing Oint (Aquaphor) [Aquaphor] 1 applic TOP PRN PRN applic PRN Reason: Dry Skin Solifenacin [Vesicare] 10 mg PO QAM tablet Warfarin [Coumadin] 2.5 mg PO SUTUTH tablet Warfarin [Coumadin] 5 mg PO MOWEFRSA tablet Aspirin EC Tab 81 mg PO QAM tablet Meclizine [Antivert] 25 mg PO QPM PRN tablet PRN Reason: Dizziness Potassium Chloride Cap/Tab [K Dur] 20 meq PO BID W/MEALS tablet Continue Insulin Detemir [Levemir FlexPen] 45 unit SUBCUT BEDTIME #0 Cyanocobalamin Inj [Vitamin B12 Inj] 1,000 mcg SUBCUT Q30D Omeprazole [Prilosec] 20 mg PO QAM Insulin Aspart [NovoLOG FlexPen] 10 unit SUBCUT TID W/MEALS Acetaminophen Tab [Tylenol Tab] 650 mg PO Q6H PRN #0 tablet PRN Reason: Fever > 100.4 Or Headache Discontinued cloNIDine TAB [Catapres Tab] 0.1 mg PO BID Warfarin Sodium 2.5 mg PO SUTUTH Warfarin [Coumadin] 5 mg PO MOWEFRSA Memantine [Namenda] 10 mg PO BID Levothyroxine Tab [Synthroid Tab] 50 mcg PO QAM Labetalol Tab [Trandate Tab] 100 mg PO BID Allopurinol [Zyloprim] 100 mg PO QAM Aspirin EC Tab 81 mg PO QAM Pregabalin [Lyrica] 50 mg PO BEDTIME Meclizine [Antivert] 25 mg PO QPM PRN PRN Reason: Dizziness Atorvastatin [Lipitor] 10 mg PO QPM Potassium Chloride [K-Tab ER] 20 meq PO BID W/MEALS Furosemide 40 mg PO BID Linagliptin [Tradjenta] 5 mg PO QAM Solifenacin Succinate [Vesicare] 10 mg PO QAM Methenamine Hippurate 1 gm PO BID Montelukast Tab [Singulair Tab] 10 mg PO QPM Albuterol Neb [Proventil Neb] 2.5 mg RESP TX RT Q4H PRN #0 PRN Reason: Shortness Of Breath/Wheezing Alum/Mag/Simeth Max Str Liquid [Mylanta Max Strength Liquid] 30 ml PO Q4H PRN #0 PRN Reason: Dyspepsia Amoxicillin Cap/Tab 500 mg PO Q8HR #30 capsule - Follow Up or Referral Follow Up: Edenilson Peck MD [Emergency Provider] - 1 Month - Forms/Instructions Exam - Constitutional Vitals: Period Temp Pulse Resp BP Sys/Duffy Pulse Ox Last 24 Hr 97.6 F-98.7 F 62-79 18-20 121-157/56-70 92-99 Exam: Objective well-developed white female is awake alert and able give good history. Cardiovascular: Heart rates regular without murmurs or gallops. Respiratory: The lungs clear to auscultation bilaterally. Abdomen: The abdomen soft and nontender to palpation. Extremities: Patient's edema and erythema are both improved. She is not having any difficulty with her compression bandaging. Discharge Results Labs on day of discharge: Labs from last 24 hours 08/17/16 08/16/16 08/16/16 04:00 19:32 15:42 INR 2.9 PT Patient/Control Mix 33.2 D POC Glucose 190 H 144 H 08/16/16 08/16/16 11:11 07:25 INR PT Patient/Control Mix POC Glucose 255 H 160 H Blood sugars are well controlled. DS: Provider Date of admission: 08/11/16 15:38 Primary care physician: . No PCP Attending physician on admission: Edenilson Peck MD Consults: 08/11/16 15:38 Consult to Case Mgmt/Social Srvs [CONS] Routine Reason for Case Mgmt/Social Srvs: Discharge Planning 08/14/16 07:17 Consult to Physical Therapy [CONS] Routine Reason for Physical Therapy: Evaluate and Treat 08/14/16 07:21 Consult to Physician [CONS] Routine Comment: Consulting Provider: Nemesio Falcon Person Notified: xi Date Notified: 08/14/16 Time Notified: 08:31 Discharging clinician: Edenilson Peck MD Expected date of discharge: 08/17/16
--- NOTE | 2016-08-17 12:28 | General Surgery Progress Note ---
Assessment and Plan (1) Chronic venous stasis dermatitis of both lower extremities Status: Acute Assessment and plan: 08/15/2016 The stasis changes of the lower extremities looking good shape. The left lower extremity has greater stasis changes and on the right and I see no obvious ulcerations or blistering at this time. I have spoken to the patient about the importance of not sitting with legs hanging down for long periods of time and the importance of ambulation and compression. We will try some compression on the legs as light as possible see if we can keep things under control. understand that she may not be very cooperative and in having compression on the legs but this is only way that we can keep her from coming back in the keep things under control. She needs to have continued good moisturizing of the lower extremities in addition to the compression. 08/16/2016. Patient is doing better today we do have a compressive wrap in place that could be easily managed at home. We have encouraged her the importance of not sitting hanging leg stand for long periods of time to be ambulating or keep them elevated as much as possible. I would continue present level of care and using a cotton sock and Stephane wrap to control the edema for now see if this will be the best way to control process. 08/17/2016. Swelling lower extremities much improved and the dermatitis from the stasis disease also is improved. She has her stockings and Stephane in place and I think this will help control the edema if she does not sit for long periods of time pain in the legs down. She is being discharged and will be glad to see her at any time. Current Visit: Yes Subjective Patient reports: Present: feels better, bowel movement, afebrile Exam - Constitutional Vitals: Period Temp Pulse Resp BP Sys/Duffy Pulse Ox Last 24 Hr 97.6 F-98.5 F 61-79 18-20 122-157/54-70 92-95 General appearance: mild distress - Head Head exam: Present: normal inspection - Neck Neck exam: Present: normal inspection - Respiratory Respiratory exam: Present: rales - Cardiovascular Cardiovascular exam: Present: RRR - GI/Abdominal GI/Abdominal exam: Present: normal bowel sounds, soft - Extremities Exam Extremities exam: Present: edema (Swelling is improved) - Back Exam Back exam: Present: normal inspection - Neurological Exam Neurological exam: Present: alert, oriented X3, CN II-XII intact - Skin Skin exam: Present: normal color, warm, dry Results - Labs CBC & BMP: 08/16/16 05:52 08/16/16 05:52 Lab Results: I have reviewed the past 24 hour labs Specialty Discharge - Follow Up or Referrals Follow up with: Edenilson Peck MD [Emergency Provider] - 1 Month
[2016-08-17 20:26] VITALS: BP 132/62
== END 2016-08-17 14:30 | disposition home health service (06) | DRG 603 ==
LOC: N.ED 12:59 → N.EDINP 15:38 → N.2E 16:17
PROVIDERS: ADMIT Family Medicine; ATTEND Family Medicine

== ENCOUNTER 2016-09-11 18:37 | Inpatient (IN) ==
[2016-09-11] MEDS ORDERED: ASPIRIN 325 MG TABLET PO STA (19:15)
[2016-09-11] MEDS ORDERED: ONDANSETRON ODT 4 MG TABLET PO STA (19:15)
[2016-09-11] MEDS ORDERED: methylPREDNISolone SOD SUC 125 MG/2 ML VIAL IV STA (19:15)
[2016-09-11] MEDS ORDERED: FUROSEMIDE 100 MG/10 ML VIAL IV STA (19:15)
--- NOTE | 2016-09-11 19:24 | Emergency Department Note ---
Radha Arias Hilary, am scribing for, and in the presence of, Nemesio Carter MD 19:19. Raul Arias Robert M, MD, personally performed the services described in this documentation, ascribed by Evette Garcia in my presence, and it is both accurate and complete 923 . Arrival - Arrival Chief Complaint: Shortness of Breath Stated Complaint: C/O SOB AND LOW HEART RATE FOR IAN 1.5 WEEKS ED Nursing Triage Note: C/O SOB AND LOW HEART RATE WITH ONSET 1.5 WEEKS AGO Mode of Arrival: Stretcher Limitations: No Limitations Source: Patient, RN Notes Reviewed - History of Present Illness HPI Narrative: Pt is a 80 y/o white female brought into the ED via EMS with c/o SOB which onset 1.5 weeks ago. Pt reports that she has been very SOB that worsens with exertion and today she felt weak like she was going to pass out. She confirms cough, SOB, fever, pain in between her shoulder blades and swollen feet. No other complaints or problems stated in the ED. Onset (ago): week(s) Consistency: constant Severity: moderate Severity scale (1-10): 3 Date of Last Menstrual Period: HYST Allergies/Adverse Reactions: Allergies Allergy/AdvReac Type Severity Reaction Status Date / Time ofloxacin [From Floxin] Allergy Unknown/Unable Verified 08/11/16 13:39 to obtain Sulfa (Sulfonamide Allergy ANAPHYLAXIS Verified 08/11/16 13:39 Antibiotics) tape AdvReac Swelling Uncoded 08/11/16 13:39 of Lip/Tongue/Throat Home Medications: Home Medications Medication Instructions Recorded Confirmed Type Insulin Detemir [Levemir FlexPen] 45 unit SUBCUT BEDTIME #0 07/10/14 08/11/16 History Cyanocobalamin Inj [Vitamin B12 1,000 mcg SUBCUT Q30D 09/22/15 08/11/16 History Inj] Omeprazole [Prilosec] 20 mg PO QAM 09/22/15 08/11/16 History Insulin Aspart [NovoLOG FlexPen] 10 unit SUBCUT TID W/MEALS 10/11/15 08/11/16 History Acetaminophen Tab [Tylenol Tab] 650 mg PO Q6H PRN #0 tablet 07/12/16 08/11/16 Rx Acetaminophen Tab [Tylenol Tab] 650 mg PO Q6H PRN tablet 08/17/16 Rx Albuterol Neb [Proventil Neb] 2.5 mg RESP TX RT Q4H PRN 08/17/16 Rx Allopurinol [Zyloprim] 100 mg PO QAM tablet 08/17/16 Rx Alum/Mag/Simeth Max Str Liquid 30 ml PO Q4H PRN 08/17/16 Rx [Mylanta Max Strength Liquid] Aspirin EC Tab 81 mg PO QAM tablet 08/17/16 Rx Atorvastatin [Lipitor] 10 mg PO BEDTIME tablet 08/17/16 Rx Furosemide Tab [Lasix Tab] 40 mg PO BID tablet 08/17/16 Rx Labetalol Tab [Trandate Tab] 100 mg PO BID tablet 08/17/16 Rx Levothyroxine Tab [Synthroid Tab] 50 mcg PO QAM tablet 08/17/16 Rx Meclizine [Antivert] 25 mg PO QPM PRN tablet 08/17/16 Rx Memantine [Namenda] 10 mg PO BID tablet 08/17/16 Rx Methenamine Hippurate [Hiprex] 1 gm PO BID tablet 08/17/16 Rx Montelukast Tab [Singulair Tab] 10 mg PO BEDTIME tablet 08/17/16 Rx Nystatin Powder [Mycostatin Powder] 1 applic TOP BID #100 applic 08/17/16 Rx Potassium Chloride Cap/Tab [K Dur] 20 meq PO BID W/MEALS tablet 08/17/16 Rx Pregabalin [Lyrica] 50 mg PO BEDTIME capsule 08/17/16 Rx Skin Healing Oint (Aquaphor) 1 applic TOP PRN PRN applic 08/17/16 Rx [Aquaphor] Solifenacin [Vesicare] 10 mg PO QAM tablet 08/17/16 Rx Warfarin [Coumadin] 2.5 mg PO SUTUTH tablet 08/17/16 Rx Warfarin [Coumadin] 5 mg PO MOWEFRSA tablet 08/17/16 Rx cephALEXin [Keflex] 500 mg PO Q6HR #40 capsule 08/17/16 Rx cloNIDine TAB [Catapres Tab] 0.1 mg PO BID tablet 08/17/16 Rx sitaGLIPtin [Januvia] 25 mg PO QAM tablet 08/17/16 Rx Review of System - Review of System 12 point system: reviewed and no additional remarkable complaints except as stated - Review of System Constitutional: Present: fever (subjective), weakness Respiratory: Present: cough, respiratory distress (SOB) Musculoskeletal: Present: other (in between shoulder blade pain) Neurological: Present: weakness Medical,Surgical,& Family Hx - Medical History Cardio: History of: CHF, CAD, Hypertension, PVD (blood clots in legs in past) Psychological: History of: Anxiety Disorders Neurology: History of: Migraine, 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 ) No history of: Seizures HEENT: History of: Eye Problem, Dental Problems (NO TEETH AND STATES DENTURES DONOT FIT) No history of: Ear Problem, Glaucoma, Oral Cancer Endocrine: History of: Diabetes Mellitus (IDDM), Diabetes Mellitus (NIDDM), Dyslipidemia, Thyroid Disorder No history of: Endocrine Cancer Rheumatology: History of;: Rheumatological Problems (KNEE PAINS,HX RIGHT KNEE REPLACEMENT) Respiratory: History of: Asthma, Bronchitis, COPD, Obstructive Sleep Apnea ( uses cpap at home), Pulmonary Embolism, Pneumonia, Respiratory Problems (uses oxygen at home at night) Renal: History of: Renal (Kidney) Cancer (REMISSION), Renal Failure (stage 3) Genitourinary: History of: Bladder Problem (neurogenic bladder), Problems ( renal cell carcinoma) Gastrointestinal: History of: GERD Musculoskeletal: History of: Osteoporosis, Musculoskeletal Problems (arhtritis) Hematology: History of: Anemia, Blood Transfusion Reaction (chills), Clotting Problems (ON BLOOD THINNERS (HX DVT RLE)) Reproductive: History of: Breast Cancer (REMISSION) Other: History of: Anesthesia Reactions (stopped breathing with knee surgery), Cancer (breast and renal cell cancer), Skin Problems (BRUISES EASILY(FROM COUMADIN)) - Surgical History Cardiac Surgeries: Sugical HX of: Cardiac Catheterization Thoracic Surgeries: Surgical HX of;: Kidney (Renal Surgery) (right kidney removal) Patient denies;: Organ Transplant HEENT Surgeries: Surgical HX of: Eye Surgery (cataract removalS) Patient denies: Thyroid Surgery, Tonsilectomy & Adenoidectomy Abdominal Surgeries: Surgical HX of: Abdominal Surgery, Appendectomy, Cholecystectomy, EGD Patient denies: Colonoscopy, Hernia Repair Reproductive Surgeries: Surgical HX of;: Breast Surgery, Gynecologic Surgery, Hysterectomy, Tubal Ligation Orthopedic Surgeries: Surgical HX of;: Total Knee Replacement (right knee replacement) - Family History Family History: Reports;: Family Cancer, Family Diabetes, Family Heart Disease, Family Hypertension, Family Stroke (dad) Denies;: Family Anesthesia Reaction, Family Psychiatric Problems - Social History Smoking Status: Never smoker Frequency of Alcohol Use: None Type of Drug Use: None Exam Vital Signs: Vital Signs Temperature 98.4 F 09/11/16 18:40 Pulse Rate 42 L 09/11/16 20:13 Respiratory Rate 17 09/11/16 20:13 Blood Pressure 196/81 09/11/16 18:40 O2 Sat by Pulse Oximetry 100 09/11/16 20:13 - General General appearance: alert, in no apparent distress - Head Head exam: Present: atraumatic, normocephalic - Eye Eye exam: Present: normal appearance, PERRL, EOMI - ENT ENT exam: Present: mucous membranes moist, TM's normal bilaterally. Absent: mucous membranes dry - Neck Neck exam: Present: full ROM, trachea midline. Absent: tenderness - Chest Chest inspection: Present: symmetric chest wall rise. Absent: tenderness - Respiratory Respiratory exam: Present: rhonchi (bilaterally), wheezes (bilaterally) - Cardiovascular Cardiovascular exam: Present: regular rate, normal rhythm, normal heart sounds. Absent: murmur, rubs, gallop - Abdominal Exam Abdominal exam: Present: soft, normal bowel sounds. Absent: distention, tenderness - Extremities Exam Extremities exam: Present: full ROM. Absent: tenderness - Back Exam Back exam: Present: full ROM. Absent: tenderness - Neurological Exam Neurological exam: Present: alert, oriented X3, CN II-XII intact. Absent: motor sensory deficit - Psychiatric Psychiatric exam: Present: normal affect, normal mood - Skin Skin exam: Present: warm, dry, intact, normal color. Absent: rash Results - Labs CBC & BMP: 09/11/16 18:59 09/11/16 18:59 Lab Results: I have reviewed the patients labs Labs: Lab Results WBC 10.1 T/CUMM (4-12) 09/11/16 18:59 RBC 4.15 MC/CUMM (3.8-5.5) 09/11/16 18:59 Hgb 12.1 GM/DL (12.0-16.0) 09/11/16 18:59 Hct 37.3 VOL% (35.7-47.0) 06/19/17 18:59 MCV 89.9 FL (87-102) 09/11/16 18:59 MCH 29 PG (27-34) 09/11/16 18:59 MCHC 32.4 GM/DL (32-36) 09/11/16 18:59 RDW 15.1 % (9.3-17.3) 09/11/16 18:59 Plt Count 194 T/CUMM (130-400) 09/11/16 18:59 MPV 10.2 FL (9.6-12.0) 09/11/16 18:59 Neut % (Auto) 65.9 % (38.7-73.9) 09/11/16 18:59 Lymph % (Auto) 26.1 % (21.3-54.2) 09/11/16 18:59 Hancock % (Auto) 6.3 % (1.7-12.7) 09/11/16 18:59 Eos % (Auto) 0.7 % (0.00-10.9) 09/11/16 18:59 Baso % (Auto) 0.7 % (0.0-0.8) 09/11/16 18:59 Neut # (Auto) 6.7 10*3/uL (1.4-7.4) 09/11/16 18:59 Lymph # (Auto) 2.6 10*3/uL (1.4-4.0) 09/11/16 18:59 Hancock # (Auto) 0.6 10*3/uL (0.11-0.8) 09/11/16 18:59 Eos # (Auto) 0.1 10*3/uL (0.0-0.87) 09/11/16 18:59 Baso # (Auto) 0.1 10*3/uL (0.0-0.2) 09/11/16 18:59 Immature Gran % 0.3 % 09/11/16 18:59 Nucleated RBC % 0.0 /100WBC 09/11/16 18:59 Immature Gran # 0.03 # 09/11/16 18:59 Nucleated RBCs # 0.00 10*3/uL 09/11/16 18:59 Sodium 139 MMOL/L (136-145) 09/11/16 18:59 Potassium 5.8 MMOL/L (3.5-5.1) H 09/11/16 18:59 Chloride 113 MMOL/L (98-107) H 09/11/16 18:59 Carbon Dioxide 15 MMOL/L (21-32) L 09/11/16 18:59 Anion Gap 16.8 MMOL/L (5.0-15.0) H 09/11/16 18:59 BUN 52 MG/DL (7-18) H 09/11/16 18:59 Creatinine 1.90 MG/DL (0.55-1.02) H 09/11/16 18:59 GFR Calculation 29 ML/MIN 09/11/16 18:59 BUN/Creatinine Ratio 27.00 RATIO (6.00-20.00) H 09/11/16 18:59 Glucose 99 MG/DL (74-106) 09/11/16 18:59 Calculated Osmolality 290.5 MOS/KG (273-304) 09/11/16 18:59 Calcium 7.8 MG/DL (8.5-10.1) L 09/11/16 18:59 Magnesium 2.1 MG/DL (1.8-2.4) 09/11/16 18:59 Total Bilirubin 0.70 MG/DL (0.2-1.0) 09/11/16 18:59 AST 41 U/L (0-37) H 09/11/16 18:59 ALT 29 U/L (13-56) 09/11/16 18:59 Alkaline Phosphatase 147 U/L (45-117) H 09/11/16 18:59 Troponin I < 0.015 NG/ML (0.00-0.045) 09/11/16 18:59 Total Protein 6.3 G/DL (6.4-8.3) L 09/11/16 18:59 Albumin 3.0 G/DL (3.4-5.0) L 09/11/16 18:59 Globulin 3.3 G/DL (2.3-3.5) 09/11/16 18:59 Albumin/Globulin Ratio 0.9 RATIO (1.1-2.2) L 09/11/16 18:59 Urine Color Straw (Yellow) 09/11/16 18:59 Urine Appearance Clear (Clear) 09/11/16 18:59 Urine pH 5.0 (4.5-8.0) 09/11/16 18:59 Ur Specific Morrow 1.005 (1.001-1.035) 09/11/16 18:59 Urine Protein Negative MG/DL 09/11/16 18:59 Urine Glucose (UA) Negative mg/dL (Negative) 09/11/16 18:59 Urine Ketones Negative mg/dL (Negative) 09/11/16 18:59 Urine Blood Negative mg/dL (Negative) 09/11/16 18:59 Urine Nitrate Negative (Negative) 09/11/16 18:59 Urine Bilirubin Negative mg/dL (Negative) 09/11/16 18:59 Urine Urobilinogen < 2.0 EU/DL (0.2-1.0) H 09/11/16 18:59 Urine Leukocytes Negative Bryn/ul (Negative) 09/11/16 18:59 Ur Squamous Epith Cells Occasional /HPF (0-10) 09/11/16 18:59 Urine Mucus Occasional /LPF (Occasional) 09/11/16 18:59 Ur Culture Indicated? Not indicated 09/11/16 18:59 Urine Opiates Screen Negative (Negative) 09/11/16 18:59 Ur Barbiturates Screen Negative (Negative) 09/11/16 18:59 Ur Phencyclidine Scrn Negative (Negative) 09/11/16 18:59 U Amphetamine/Methamph Negative (Negative) 09/11/16 18:59 U Benzodiazepines Scrn Negative (Negative) 09/11/16 18:59 U Cocaine Metab Screen Negative (Negative) 09/11/16 18:59 U Cannabinoids Screen Negative (Negative) 09/11/16 18:59 - EKG EKG results: interpreted by TAJ (Sinus bradycardia) - Diagnostic Findings Procedure: Chest x-ray: report reviewed by me (Uncompensated failure) Disposition Clinical Impression: Congestive heart failure, Weakness, Hypertension, Bradycardia possibly due to Trandate Case discussed with: patient, patient's family Disposition: Still a Patient Condition: Stable Time of Disposition: 21:36
[2016-09-11 19:25] LABS: Basophils # 0.1 10*3/uL (0.0-0.2); Basophils % 0.7 % (0.0-0.8); Eosinophils # 0.1 10*3/uL (0.0-0.87); Eosinophils % 0.7 % (0.00-10.9); Hematocrit 37.3 VOL% (35.7-47.0); Hemoglobin 12.1 GM/DL (12.0-16.0); Immature Granulocytes % 0.3 %; Immature Granulocytes Absolute 0.03 #; Lymphocytes # 2.6 10*3/uL (1.4-4.0); Lymphocytes % 26.1 % (21.3-54.2); Mean Corpuscular HGB Conc 32.4 GM/DL (32-36); Mean Corpuscular Hemoglobin 29 PG (27-34); Mean Corpuscular Volume 89.9 FL (87-102); Mean Platelet Volume 10.2 FL (9.6-12.0); Monocytes # 0.6 10*3/uL (0.11-0.8); Monocytes % 6.3 % (1.7-12.7); Neutrophils # 6.7 10*3/uL (1.4-7.4); Neutrophils % 65.9 % (38.7-73.9); Platelet Count 194 T/CUMM (130-400); Red Blood Count 4.15 MC/CUMM (3.8-5.5); Red Cell Distribution Width 15.1 % (9.3-17.3); White Blood Count 10.1 T/CUMM (4-12)
[2016-09-11] MEDS ORDERED: ONDANSETRON ODT 4 MG TABLET PO ONE (19:27)
[2016-09-11] MEDS ORDERED: ASPIRIN 325 MG TABLET ONE (19:27)
[2016-09-11] MEDS ORDERED: FUROSEMIDE 40 MG/4 ML VIAL ONE (19:27)
[2016-09-11] MEDS ORDERED: methylPREDNISolone SOD SUC 125 MG/2 ML VIAL ONE (19:28)
[2016-09-11] MEDS: ALBUTEROL 2.5 MG/3 ML NEB RESP TX SCH ×2 (19:33→19:35)
--- NOTE | 2016-09-11 19:44 | XRay Report ---
XR chest 1V portable Indication: Shortness of breath. Chest one view: Comparison 08/11/2016. Continued pulmonary vascular congestion noted centrally, with increased reticular markings are in the periphery. All of this is accentuated by morbid obesity. Heart size is upper limits of normal. Mediastinal contours otherwise unremarkable. Impression: CHF decompensation similar to the previous exam. PROCEDURE INTERPRETED AT [facility] DEPARTMENT OF RADIOLOGY Final Report Signed by: Damien Xie M.D.
[2016-09-11 20:04] LABS: Alanine Aminotransferase 29 U/L (13-56); Alkaline Phosphatase 147 U/L (45-117); Aspartate Amino Transferase 41 U/L (0-37); Blood Urea Nitrogen 52 MG/DL (7-18); Calcium 7.8 MG/DL (8.5-10.1); Glucose 99 MG/DL (74-106); Magnesium 2.1 MG/DL (1.8-2.4); Osmolality,Calculated 290.5 MOS/KG (273-304); Potassium 5.8 MMOL/L (3.5-5.1); Sodium 139 MMOL/L (136-145); Total Protein 6.3 G/DL (6.4-8.3); Troponin I Only < 0.015 NG/ML (0.00-0.045)
[2016-09-11 20:20] LABS: Apearance,Urine CLEAR (Clear); Bilirubin,Urine Negative (Negative); Blood, Urine Negative (Negative); Glucose,Urine (UA) Negative (Negative); Ketones,Urine Negative (Negative); Mucus,Urine Occasional /LPF (Occasional); Nitrite,Urine Negative (Negative); Protein,Urine Negative; Squamous Epithelial Cell,Urine Occasional /HPF (0-10); Urine Color Straw (Yellow); Urine Specific Gravity 1.005 (1.001-1.035); Urine Urobilinogen < 2.0 EU/DL (0.2-1.0)
[2016-09-11 20:32] LABS: Barbiturates Screen,Urine Negative (Negative); Benzodiazepines Screen,Urine Negative (Negative); Cannabinoid Screen,Urine Negative (Negative); Opiate Screen,Urine Negative (Negative); Phencyclidine Screen,Urine Negative (Negative)
[2016-09-11] MEDS ORDERED: ACETAMINOPHEN 325 MG TABLET PO PRN (21:39)
[2016-09-11] MEDS ORDERED: MORPHINE 2 MG/1 ML SYRINGE IV PRN (21:39)
[2016-09-11] MEDS ORDERED: ONDANSETRON 4 MG/2 ML VIAL IV PRN (21:39)
[2016-09-12] MEDS: BUMETANIDE 1 MG/4 ML VIAL IV SCH ×3 (00:26→23:55)
--- NOTE | 2016-09-12 04:24 | EKG Report ---
Stationary ECG Study 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
[2016-09-12] MEDS ORDERED: ALBUTEROL 2.5 MG/3 ML NEB RESP TX PRN (07:42)
[2016-09-12] MEDS ORDERED: MECLIZINE 25 MG TABLET PO PRN (07:42)
[2016-09-12] MEDS ORDERED: ALUMINUM/MAGNES/SIMETH MAX STR 30 ML UDCUP PO PRN (07:42)
--- NOTE | 2016-09-12 07:48 | Family Practice History&Phys ---
Assessment and Plan (1) Bradycardia Status: Acute Assessment and plan: 09/12/2016: Cardiology will be consulted. Patient's potassium was 5.8 so her potassium will be held and a repeat BMP is pending for this morning. Current Visit: Yes (2) Mobitz type 2 second degree AV block Status: Acute Assessment and plan: 09/12/2016: Cardiology has been consulted. Current Visit: Yes History of Present Illness Chief complaint: Dyspnea on exertion History of present illness: Ms. Junior is a 80 year old female Patient 80-year-old white female presents emergency room complaining of increasing dyspnea with exertion and fatigue. Patient states just walking across the room makes her terribly winded and she becomes diaphoretic and feels like she may pass out. Patient states she noted some pain between her shoulders when these episodes occur. She has no nausea or vomiting with it but states she gets terribly short of breath. She has no neck shoulder arm discomfort. Patient states this been going on now for the better part of 2 weeks. Home Medications Medication Instructions Recorded Confirmed Type Insulin Detemir [Levemir FlexPen] 45 unit SUBCUT BEDTIME #0 07/10/14 09/11/16 History Cyanocobalamin Inj [Vitamin B12 1,000 mcg SUBCUT Q30D 09/22/15 09/11/16 History Inj] Omeprazole [Prilosec] 20 mg PO QAM 09/22/15 09/11/16 History Insulin Aspart [NovoLOG FlexPen] 10 unit SUBCUT TID W/MEALS 10/11/15 09/11/16 History Albuterol Neb [Proventil Neb] 2.5 mg RESP TX RT Q4H PRN 08/17/16 09/11/16 Rx Allopurinol [Zyloprim] 100 mg PO QAM tablet 08/17/16 09/11/16 Rx Alum/Mag/Simeth Max Str Liquid 30 ml PO Q4H PRN 08/17/16 09/11/16 Rx [Mylanta Max Strength Liquid] Aspirin EC Tab 81 mg PO QAM tablet 08/17/16 09/11/16 Rx Atorvastatin [Lipitor] 10 mg PO BEDTIME tablet 08/17/16 09/11/16 Rx Labetalol Tab [Trandate Tab] 100 mg PO BID tablet 08/17/16 09/11/16 Rx Levothyroxine Tab [Synthroid Tab] 50 mcg PO QAM tablet 08/17/16 09/11/16 Rx Meclizine [Antivert] 25 mg PO QPM PRN tablet 08/17/16 09/11/16 Rx Memantine [Namenda] 10 mg PO BID tablet 08/17/16 09/11/16 Rx Methenamine Hippurate [Hiprex] 1 gm PO BID tablet 08/17/16 09/11/16 Rx Montelukast Tab [Singulair Tab] 10 mg PO BEDTIME tablet 08/17/16 09/11/16 Rx Pregabalin [Lyrica] 50 mg PO BEDTIME capsule 08/17/16 09/11/16 Rx Solifenacin [Vesicare] 10 mg PO QAM tablet 08/17/16 09/11/16 Rx cloNIDine TAB [Catapres Tab] 0.1 mg PO BID tablet 08/17/16 09/11/16 Rx Acetaminophen Tab [Tylenol Tab] 1,000 mg PO Q6H PRN 09/11/16 09/11/16 History Furosemide Tab [Lasix Tab] 80 mg PO BID 09/11/16 09/11/16 History Linagliptin [Tradjenta] 5 mg PO DAILY 09/11/16 09/11/16 History Potassium Chloride Cap/Tab [K Dur] 20 meq PO DAILY 09/11/16 09/11/16 History Warfarin [Coumadin] 2.5 mg PO MOWEFR 09/11/16 09/11/16 History Warfarin [Coumadin] 5 mg PO SUTUTH 09/11/16 09/11/16 History Allergies Allergy/AdvReac Type Severity Reaction Status Date / Time ofloxacin [From Floxin] Allergy Unknown/Unable Verified 08/11/16 13:39 to obtain Sulfa (Sulfonamide Allergy ANAPHYLAXIS Verified 08/11/16 13:39 Antibiotics) tape AdvReac Swelling Uncoded 08/11/16 13:39 of Lip/Tongue/Throat - Constitutional Constitutional: Present: fatigue. Absent: chills, fever(s) - EENT Eyes: Absent: blurry vision, loss of vision Ears: Absent: decreased hearing, ear pain Nose, mouth and throat: Absent: hoarseness, nasal congestion, sinus pressure, sore throat - Cardiovascular Cardiovascular: Present: diaphoresis, dyspnea on exertion, lightheadedness. Absent: chest pain at rest, chest pain with activity, orthopnea, palpitations, PND - Respiratory Respiratory: Present: dyspnea on exertion. Absent: cough, wheezing - Gastrointestinal Gastrointestinal: Absent: abdominal pain, diarrhea, dysphagia, hematochezia, melena, nausea, vomiting - Genitourinary Genitourinary: Absent: difficulty urinating, urinary frequency, urinary hesitancy - Musculoskeletal Musculoskeletal: Absent: arthralgias, back pain - Neurological Neurological: Absent: confusion, focal weakness, numbness, paresthesias - Psychiatric Psychiatric: Absent: anxiety, confusion, depression - Endocrine Endocrine: Absent: fatigue, polydipsia, polyphagia - Hematologic/Lymphatic Hematologic/Lymphatic: Absent: easy bleeding, easy bruising Medical,Surgical,& Family Hx - Medical History Cardio: History of: CHF, CAD, Hypertension, PVD (blood clots in legs in past) Psychological: History of: Anxiety Disorders Neurology: History of: Migraine, 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 ) No history of: Seizures HEENT: History of: Eye Problem, Dental Problems (NO TEETH AND STATES DENTURES DONOT FIT) No history of: Ear Problem, Glaucoma, Oral Cancer Endocrine: History of: Diabetes Mellitus (IDDM), Diabetes Mellitus (NIDDM), Dyslipidemia, Thyroid Disorder No history of: Endocrine Cancer Rheumatology: History of;: Rheumatological Problems (KNEE PAINS,HX RIGHT KNEE REPLACEMENT) Respiratory: History of: Asthma, Bronchitis, COPD, Obstructive Sleep Apnea ( uses cpap at home), Pulmonary Embolism, Pneumonia, Respiratory Problems (uses oxygen at home at night) Renal: History of: Renal (Kidney) Cancer (REMISSION), Renal Failure (stage 3) Genitourinary: History of: Bladder Problem (neurogenic bladder), Problems ( renal cell carcinoma) Gastrointestinal: History of: GERD Musculoskeletal: History of: Osteoporosis, Musculoskeletal Problems (arhtritis) Hematology: History of: Anemia, Blood Transfusion Reaction (chills), Clotting Problems (ON BLOOD THINNERS (HX DVT RLE)) Reproductive: History of: Breast Cancer (REMISSION) Other: History of: Anesthesia Reactions (stopped breathing with knee surgery), Cancer (breast and renal cell cancer), Skin Problems (BRUISES EASILY(FROM COUMADIN)) - Surgical History Cardiac Surgeries: Sugical HX of: Cardiac Catheterization Thoracic Surgeries: Surgical HX of;: Kidney (Renal Surgery) (right kidney removal) Patient denies;: Organ Transplant HEENT Surgeries: Surgical HX of: Eye Surgery (cataract removalS) Patient denies: Thyroid Surgery, Tonsilectomy & Adenoidectomy Abdominal Surgeries: Surgical HX of: Abdominal Surgery, Appendectomy, Cholecystectomy, EGD Patient denies: Colonoscopy, Hernia Repair Reproductive Surgeries: Surgical HX of;: Breast Surgery, Gynecologic Surgery, Hysterectomy, Tubal Ligation Orthopedic Surgeries: Surgical HX of;: Total Knee Replacement (right knee replacement) - Family History Family History: Reports;: Family Cancer, Family Diabetes, Family Heart Disease, Family Hypertension, Family Stroke (dad) Denies;: Family Anesthesia Reaction, Family Psychiatric Problems - Social History Smoking Status: Never smoker Frequency of Alcohol Use: None Type of Drug Use: None Exam - Constitutional Vitals: Period Temp Pulse Resp BP Sys/Duffy Pulse Ox Last 24 Hr 97.4 F-98.4 F 38-46 17-30 106-196/44-107 95-100 Exam: General: Objective patient is a well-developed obese white female in no acute distress. HEENT: Pupils equal and reactive to light. Patent nares and airway Neck: No meningismus, adenopathy, thyromegaly. There are no auscultated carotid bruits. Cardiovascular: Patient is noted to have bradycardic rhythm. No murmurs or gallops Chest: Clear to auscultation without rales rhonchi wheezes. Abdomen: Soft nontender to palpation No masses, rebound, guarding or tenderness. Neuro: Cranial nerves intact and DTRs and strength symmetric in all extremities. Dermatologic: No evidence of abnormal lesions or masses. Musculoskeletal: There is no joint swelling or tenderness or deformity. Extremities: No calf swelling or tenderness. Results - Labs CBC & BMP: 09/11/16 18:59 09/11/16 18:59 Lab Results: I have reviewed the past 24 hour labs - Impressions Type II second-degree AV block is noted - Diagnostic Findings Procedure: Chest x-ray: report reviewed by me (Patient is noted to have cephalization of flow but no cardiomegaly.)
[2016-09-12 07:55] LABS: Calcium 8.1 MG/DL (8.5-10.1); Osmolality,Calculated 305.1 MOS/KG (273-304)
[2016-09-12] MEDS ORDERED: WARFARIN 5 MG TABLET PO SCH ×3 (08:00→18:00)
[2016-09-12] MEDS ORDERED: CYANOCOBALAMIN 1000 MCG/1 ML VIAL SUBCUT SCH (08:00)
[2016-09-12] MEDS: PANTOPRAZOLE 40 MG TABLET PO SCH ×2 (08:41→08:45)
[2016-09-12] MEDS: ASPIRIN EC 81 MG TABLET PO SCH (08:44)
[2016-09-12] MEDS: SOLIFENACIN 5 MG TABLET PO SCH (08:45)
[2016-09-12] MEDS: METHENAMINE HIPPURATE 1 GM TABLET PO SCH ×2 (08:45→21:32)
[2016-09-12] MEDS: DOCUSATE SODIUM 100 MG CAPSULE PO SCH ×2 (08:45→21:32)
[2016-09-12] MEDS: sitaGLIPtin 25 MG TABLET PO SCH (08:45)
[2016-09-12] MEDS: INSULIN LISPRO 100 UNIT/ML SUBCUT SCH ×3 (08:45→18:08)
[2016-09-12] MEDS: MEMANTINE 10 MG TABLET PO SCH ×2 (08:45→21:33)
[2016-09-12] MEDS: ALLOPURINOL 100 MG TABLET PO SCH (08:45)
[2016-09-12] MEDS: LEVOTHYROXINE 50 MCG TABLET PO SCH (08:45)
[2016-09-12 08:50] LABS: INR 2.3
[2016-09-12 08:51] LABS: PT Patient Result 25.2 SECS
[2016-09-12] MEDS ORDERED: cloNIDine 0.1 MG TABLET PO SCH (09:00)
--- NOTE | 2016-09-12 09:02 | Cardiology Consult Note ---
<Madeleine Resendiz E - Last Filed: 09/12/16 09:02> Assessment and Plan - Time spent with patient Time spent with patient: Greater than 30 minutes (Due to assessment, plan, and documentation.) (1) Bradycardia Status: Acute Assessment and plan: hold clonidine and all trixie blocking agents. We will continue to monitor. At some point she may require pacemaker placement if she continues to be symptomatic. Will further discuss with Dr. Duggan and await his recommendations. Current Visit: Yes (2) Dyspnea Status: Acute Assessment and plan: we will check d-dimer. BNP has been ordered. Will recheck an echocardiogram. Current Visit: No (3) Coronary artery disease Status: Chronic Assessment and plan: prior history of mild nonobstructive coronary artery disease. She was previously seen by Dr. Reno and underwent left heart catheterization on April 29, 2008 which revealed elevated left-sided filling pressures with LVEDP 27 mmHg, nonsignificant coronary artery disease including 30-40% smooth discrete ostial left main stenosis, 30% ostial RCA stenosis with 30% mild RCA stenosis. We will continue to cycle cardiac biomarkers and rule out KS. Current Visit: Yes (4) Hypertension Status: Chronic Assessment and plan: currently well controlled. We have held her clonidine to see if her bradycardia will improve. We will continue to monitor and adjust medications accordingly throughout her stay. Current Visit: Yes Qualifiers: Hypertension type: essential hypertension Qualified Code(s): I10 - Essential (primary) hypertension (5) History of DVT (deep vein thrombosis) Status: Chronic Current Visit: No (6) residential (current) use of anticoagulants Status: Chronic Current Visit: No (7) Hyperlipidemia Status: Chronic Current Visit: Yes (8) COPD (chronic obstructive pulmonary disease) Status: Chronic Current Visit: Yes (9) Obstructive sleep apnea Status: Chronic Current Visit: Yes (10) Morbid obesity Status: Chronic Current Visit: No History of Present Illness - Data of Consult Patient: new to practice (remotely seen by Dr. 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 Edenilson Peck Ms. Junior is a 80 year old female with extensive medical history including mild nonobstructive coronary artery disease, hypertension, CHF, peripheral vascular disease, hyperlipidemia, GERD, DVT now on chronic anticoagulation, diabetes, COPD, obstructive sleep apnea, renal and breast cancer. She was previously seen by Dr. Reno and underwent left heart catheterization on April 29, 2008 which revealed elevated left-sided filling pressures with LVEDP 27 mmHg, nonsignificant coronary artery disease including 30-40% smooth discrete ostial left main stenosis, 30% ostial RCA stenosis with 30% mild RCA stenosis. Most recent echocardiogram on file (08/14/14) revealed mild LVH with diastolic dysfunction, EF 65%, mild aortic stenosis, mild to moderate TR, and pulmonary hypertension. Ms. Junior was recently discharged from the hospital on 08/17/2016 after being treated for lower extremity cellulitis. She returned last night with complaints of dyspnea on exertion and easy fatigability for the past 2 weeks. She reports feeling like she could not take a deep breath and can hardly walk due to pain in her lower extremities and dyspnea. She tells me that she was recently at an adult daycare center and had dyspnea on exertion upon walking short distances along with leg pain and 1 of the workers at the center told her that her lips appeared a little blue. Several days after that incident, someone with home health came to her home to provide her with physical therapy and checked her heart rate prior to treatment and noted that it was 38. After waiting 10-15 minutes and recheck in the heart rate it remained around 38 bpm. Ms. Junior was instructed that she needed to go to the emergency room for further evaluation. She also reports symptoms of dizziness and lightheadedness. She is very deconditioned and requires the use of a walker for ambulation. She also reports nighttime dyspnea even when wearing her CPAP. She reports she will occasionally wake up feeling as though she is smothering and aching in between her shoulder blades and have to take off her CPAP. She also reports occasionally having an ache in between her shoulders when she has to use her arms to eat or perform activities such as coloring. She denies chest pain at rest or on exertion or palpitations. INR is therapeutic at 2.3. Her creatinine is elevated at 2.2 with GFR 24. She does have history of a right nephrectomy due to renal carcinoma in the past. Initial troponin was negative. We will continue to cycle cardiac biomarkers to rule out KS. Will check a d-dimer and lower extremity venous Dopplers due to her history of DVT. Will hold off for her clonidine in case it is contributing to her bradycardia. We will check an echocardiogram to see if her heart function or valvular abnormalities have worsened. Assessment/plan: 1. Bradycardia -hold clonidine and all trixie blocking agents. We will continue to monitor. At some point she may require pacemaker placement if she continues to be symptomatic. Will further discuss with Dr. Duggan and await his recommendations. 2. Dyspnea on exertion -we will check d-dimer. BNP has been ordered. Will recheck an echocardiogram. 3. Coronary artery disease -prior history of mild nonobstructive coronary artery disease. She was previously seen by Dr. Reno and underwent left heart catheterization on April 29, 2008 which revealed elevated left-sided filling pressures with LVEDP 27 mmHg, nonsignificant coronary artery disease including 30-40% smooth discrete ostial left main stenosis, 30% ostial RCA stenosis with 30% mild RCA stenosis. We will continue to cycle cardiac biomarkers to rule out KS. 4. Hypertension -currently well controlled. We have held her clonidine to see if her bradycardia will improve. We will continue to monitor and adjust medications accordingly throughout her stay. 5. History of DVT -will check lower extremity venous Dopplers to rule out recurrent DVT. 6. Chronic anticoagulation -continue Coumadin and monitor INR. Currently therapeutic. 7. Hyperlipidemia -continue lipid-lowering agent. 8. COPD -O2 as needed. She has breathing treatments ordered as needed. 9. Obstructive sleep apnea -continue CPAP while sleeping and O2 as needed. 10. Morbid obesity -chronic. CC: Edenilson Peck MD - Home Medications and Allergies Home Medications: Home Medications Medication Instructions Recorded Confirmed Type Insulin Detemir [Levemir FlexPen] 45 unit SUBCUT BEDTIME #0 07/10/14 09/11/16 History Cyanocobalamin Inj [Vitamin B12 1,000 mcg SUBCUT Q30D 09/22/15 09/11/16 History Inj] Omeprazole [Prilosec] 20 mg PO QAM 09/22/15 09/11/16 History Insulin Aspart [NovoLOG FlexPen] 10 unit SUBCUT TID W/MEALS 10/11/15 09/11/16 History Albuterol Neb [Proventil Neb] 2.5 mg RESP TX RT Q4H PRN 08/17/16 09/11/16 Rx Allopurinol [Zyloprim] 100 mg PO QAM tablet 08/17/16 09/11/16 Rx Alum/Mag/Simeth Max Str Liquid 30 ml PO Q4H PRN 08/17/16 09/11/16 Rx [Mylanta Max Strength Liquid] Aspirin EC Tab 81 mg PO QAM tablet 08/17/16 09/11/16 Rx Atorvastatin [Lipitor] 10 mg PO BEDTIME tablet 08/17/16 09/11/16 Rx Labetalol Tab [Trandate Tab] 100 mg PO BID tablet 08/17/16 09/11/16 Rx Levothyroxine Tab [Synthroid Tab] 50 mcg PO QAM tablet 08/17/16 09/11/16 Rx Meclizine [Antivert] 25 mg PO QPM PRN tablet 08/17/16 09/11/16 Rx Memantine [Namenda] 10 mg PO BID tablet 08/17/16 09/11/16 Rx Methenamine Hippurate [Hiprex] 1 gm PO BID tablet 08/17/16 09/11/16 Rx Montelukast Tab [Singulair Tab] 10 mg PO BEDTIME tablet 08/17/16 09/11/16 Rx Pregabalin [Lyrica] 50 mg PO BEDTIME capsule 08/17/16 09/11/16 Rx Solifenacin [Vesicare] 10 mg PO QAM tablet 08/17/16 09/11/16 Rx cloNIDine TAB [Catapres Tab] 0.1 mg PO BID tablet 08/17/16 09/11/16 Rx Acetaminophen Tab [Tylenol Tab] 1,000 mg PO Q6H PRN 09/11/16 09/11/16 History Furosemide Tab [Lasix Tab] 80 mg PO BID 09/11/16 09/11/16 History Linagliptin [Tradjenta] 5 mg PO DAILY 09/11/16 09/11/16 History Potassium Chloride Cap/Tab [K Dur] 20 meq PO DAILY 09/11/16 09/11/16 History Warfarin [Coumadin] 2.5 mg PO MOWEFR 09/11/16 09/11/16 History Warfarin [Coumadin] 5 mg PO SUTUTH 09/11/16 09/11/16 History Allergies/Adverse Reactions: Allergies Allergy/AdvReac Type Severity Reaction Status Date / Time ofloxacin [From Floxin] Allergy Unknown/Unable Verified 08/11/16 13:39 to obtain Sulfa (Sulfonamide Allergy ANAPHYLAXIS Verified 08/11/16 13:39 Antibiotics) tape AdvReac Swelling Uncoded 08/11/16 13:39 of Lip/Tongue/Throat Review of systems: - Constitutional: Present: Fatigue, as per HPI. Absent: anorexia, chills, daytime sleepiness, excessive sweating, fever(s), frequent falls, headache(s), increased appetite, lethargy, malaise, night sweats, stops breathing during sleep, weakness, weight gain, weight loss. - EENT Eyes: Present: As per HPI. Absent: blurry vision, diplopia, loss of vision Ears: Present: As per HPI. Absent: decreased hearing, ear discharge, ear pain Nose, mouth and throat: Present: Dysphagia often requiring esophageal dilation, as per HPI. Absent: epistaxis, headache(s), hoarseness, lip swelling, nasal congestion, neck mass, neck pain, sinus pressure, sore throat, throat swelling, tongue swelling, vertigo - Cardiovascular: Present: Upper back pain, dyspnea, dyspnea on exertion, edema , lightheadedness, as per HPI. Absent: chest pain at rest, chest pain with activity, claudication, diaphoresis, radiating jaw, neck or arm pain, orthopnea , palpitations, PND - Respiratory: Present: dyspnea, dyspnea on exertion, as per HPI. Absent: cough , hemoptysis, wheezing, snoring, pain on inspiration - Gastrointestinal: Present: As per HPI. Absent: abdominal pain, bloating, change in bowel habits, constipation, diarrhea, heartburn, hematemesis, loose stools, nausea, vomiting - Genitourinary: Present: Neurogenic bladder, urinary incontinence, as per HPI. Absent: difficulty urinating, dysuria, flank pain, hematuria, nocturia, urinary frequency, - Musculoskeletal: Present: back pain, As per HPI. Absent: arthralgias, joint swelling, limited range of motion, muscle cramps, muscle weakness, myalgias - Neurological: Present: abnormal gait, dizziness, As per HPI. Absent: abnormal speech, behavioral changes, confusion, convulsions, disequilibrium, focal weakness, frequent falls, headache(s), memory loss, numbness, paresthesias , radicular pain, syncope, tremor(s) - Psychiatric: Present: As per HPI. Absent: anxiety, confusion, depression, panic attacks - Endocrine: Present: fatigue, As per HPI. Absent: cold intolerance, heat intolerance, polydipsia, polyphagia - Hematologic/Lymphatic: Present: easy bleeding, easy bruising, As per HPI. Absent: lymphadenopathy Medical,Surgical,& Family Hx - Medical History Cardio: History of: CHF, CAD, Hypertension, PVD (blood clots in legs in past) Psychological: History of: Anxiety Disorders Neurology: History of: Migraine, 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 ) No history of: Seizures HEENT: History of: Eye Problem, Dental Problems (NO TEETH AND STATES DENTURES DONOT FIT) No history of: Ear Problem, Glaucoma, Oral Cancer Endocrine: History of: Diabetes Mellitus (IDDM), Diabetes Mellitus (NIDDM), Dyslipidemia, Thyroid Disorder No history of: Endocrine Cancer Rheumatology: History of;: Rheumatological Problems (KNEE PAINS,HX RIGHT KNEE REPLACEMENT) Respiratory: History of: Asthma, Bronchitis, COPD, Obstructive Sleep Apnea ( uses cpap at home), Pulmonary Embolism, Pneumonia, Respiratory Problems (uses oxygen at home at night) Renal: History of: Renal (Kidney) Cancer (REMISSION), Renal Failure (stage 3) Genitourinary: History of: Bladder Problem (neurogenic bladder), Problems ( renal cell carcinoma) Gastrointestinal: History of: GERD Musculoskeletal: History of: Osteoporosis, Musculoskeletal Problems (arhtritis) Hematology: History of: Anemia, Blood Transfusion Reaction (chills), Clotting Problems (ON BLOOD THINNERS (HX DVT RLE)) Reproductive: History of: Breast Cancer (REMISSION) Other: History of: Anesthesia Reactions (stopped breathing with knee surgery), Cancer (breast and renal cell cancer), Skin Problems (BRUISES EASILY(FROM COUMADIN)) - Surgical History Cardiac Surgeries: Sugical HX of: Cardiac Catheterization Thoracic Surgeries: Surgical HX of;: Kidney (Renal Surgery) (right kidney removal) Patient denies;: Organ Transplant HEENT Surgeries: Surgical HX of: Eye Surgery (cataract removalS) Patient denies: Thyroid Surgery, Tonsilectomy & Adenoidectomy Abdominal Surgeries: Surgical HX of: Abdominal Surgery, Appendectomy, Cholecystectomy, EGD Patient denies: Colonoscopy, Hernia Repair Reproductive Surgeries: Surgical HX of;: Breast Surgery, Gynecologic Surgery, Hysterectomy, Tubal Ligation Orthopedic Surgeries: Surgical HX of;: Total Knee Replacement (right knee replacement) - Family History Family History: Reports;: Family Cancer, Family Diabetes, Family Heart Disease, Family Hypertension, Family Stroke (dad) Denies;: Family Anesthesia Reaction, Family Psychiatric Problems - Social History Smoking Status: Never smoker Frequency of Alcohol Use: None Type of Drug Use: None Marital Status: Functional capacity: uses cane/walker Physical Examination Vital Signs Temp Pulse Resp BP Pulse Ox 98.4 F 41 L 24 196/81 96 09/11/16 18:40 09/11/16 18:40 09/11/16 18:40 09/11/16 18:40 09/11/16 18:40 Other: General appearance: Pleasant and cooperative. Normal weight, mild conversational dyspnea. - Head Head exam: Present: normal inspection, normocephalic, atraumatic. Absent: hematoma, laceration - Eye Eye exam: Present: EOMI. Absent: conjunctival injection, nystagmus, periorbital swelling, scleral icterus, laceration to eyelids Pupils: Present: PERRL. Absent: constricted, dilated, fixed, irregular, unequal - ENT ENT exam: Present: Edentulous, normal external ear exam - Neck Neck exam: Present: normal inspection. Absent: lymphadenopathy, meningismus, tenderness, thyromegaly - Respiratory Respiratory exam: Present: clear to auscultation bilaterally. Absent: accessory muscle use, chest wall tenderness - Cardiovascular Cardiovascular exam: Present: regular rate and rhythm. Systolic murmur. Absent : rubs - GI/Abdominal GI/Abdominal exam: Present: normal bowel sounds, soft. Absent: distended, firm , guarding, hernia, mass, tenderness, rebound. - Extremities Exam Extremities exam: Present: normal inspection, normal capillary refill. Upper extremity pulses 2+. Lower extremity pulses present but diminished. Trace pretibial edema. Absent: calf tenderness, -Musculoskeletal Exam Musculoskeletal: Present: No Fluid Collection, No Pain, Normal Range of Motion - Back Exam Back exam: Present: normal inspection. Absent: muscle spasm, vertebral tenderness - Neurological Exam Neurological exam: Present: alert, oriented X3, grossly intact without resting or essential tremor - Psychiatric Psychiatric exam: Present: normal affect, normal mood - Skin Skin exam: Present: normal color, warm, dry, intact. Absent: cyanosis, diaphoretic, rash, urticaria Result/EKG - Labs CBC & BMP: 09/11/16 18:59 09/12/16 07:21 Lab Results: I have reviewed the past 24 hour labs Labs: Laboratory Results - last 24 hr 09/11/16 09/11/16 09/11/16 18:59 18:59 18:59 WBC 10.1 RBC 4.15 Hgb 12.1 Hct 37.3 MCV 89.9 MCH 29 MCHC 32.4 RDW 15.1 Plt Count 194 MPV 10.2 Neut % (Auto) 65.9 Lymph % (Auto) 26.1 [place] % (Auto) 6.3 Eos % (Auto) 0.7 Baso % (Auto) 0.7 Neut # (Auto) 6.7 Lymph # (Auto) 2.6 [place] # (Auto) 0.6 Eos # (Auto) 0.1 Baso # (Auto) 0.1 Immature Gran % 0.3 Nucleated RBC % 0.0 Immature Gran # 0.03 Nucleated RBCs # 0.00 Sodium 139 Potassium 5.8 H Chloride 113 H Carbon Dioxide 15 L Anion Gap 16.8 H BUN 52 H Creatinine 1.90 H GFR Calculation 29 BUN/Creatinine Ratio 27.00 H Glucose 99 POC Glucose Calculated Osmolality 290.5 Calcium 7.8 L Magnesium 2.1 Total Bilirubin 0.70 AST 41 H ALT 29 Alkaline Phosphatase 147 H Troponin I < 0.015 Total Protein 6.3 L Albumin 3.0 L Globulin 3.3 Albumin/Globulin Ratio 0.9 L Urine Color Straw Urine Appearance Clear Urine pH 5.0 Ur Specific [place] 1.005 Urine Protein Negative Urine Glucose (UA) Negative Urine Ketones Negative Urine Blood Negative Urine Nitrate Negative Urine Bilirubin Negative Urine Urobilinogen < 2.0 H Urine Leukocytes Negative Ur Squamous Epith Cells Occasional Urine Mucus Occasional Ur Culture Indicated? Not indicated Urine Opiates Screen Ur Barbiturates Screen Ur Phencyclidine Scrn U Amphetamine/Methamph U Benzodiazepines Scrn U Cocaine Metab Screen U Cannabinoids Screen 09/11/16 09/12/16 09/12/16 18:59 07:21 08:04 WBC RBC Hgb Hct MCV MCH MCHC RDW Plt Count MPV Neut % (Auto) Lymph % (Auto) [place] % (Auto) Eos % (Auto) Baso % (Auto) Neut # (Auto) Lymph # (Auto) [place] # (Auto) Eos # (Auto) Baso # (Auto) Immature Gran % Nucleated RBC % Immature Gran # Nucleated RBCs # Sodium 142 Potassium 5.0 Chloride 108 H Carbon Dioxide 25 Anion Gap 14.0 BUN 57 H Creatinine 2.20 H GFR Calculation 24 BUN/Creatinine Ratio 25.00 H Glucose 216 H POC Glucose 218 H Calculated Osmolality 305.1 H Calcium 8.1 L Magnesium Total Bilirubin AST ALT Alkaline Phosphatase Troponin I Total Protein Albumin Globulin Albumin/Globulin Ratio Urine Color Urine Appearance Urine pH Ur Specific [place] Urine Protein Urine Glucose (UA) Urine Ketones Urine Blood Urine Nitrate Urine Bilirubin Urine Urobilinogen Urine Leukocytes Ur Squamous Epith Cells Urine Mucus Ur Culture Indicated? Urine Opiates Screen Negative Ur Barbiturates Screen Negative Ur Phencyclidine Scrn Negative U Amphetamine/Methamph Negative U Benzodiazepines Scrn Negative U Cocaine Metab Screen Negative U Cannabinoids Screen Negative - EKG EKG results: interpreted by me EKG shows: bradycardia (With first-degree AV block), sinus rhythm <Staci Duggan - Last Filed: 09/12/16 16:59> Assessment and Plan (1) Hypertension Status: Chronic Current Visit: Yes Qualifiers: Hypertension type: essential hypertension Qualified Code(s): I10 - Essential (primary) hypertension (2) residential (current) use of anticoagulants Status: Chronic Current Visit: No (3) Diabetic peripheral neuropathy Status: Acute Current Visit: No (4) Mobitz type 2 second degree AV block Status: Acute Assessment and plan: Plan for permanent dual-chamber pacemaker if AV block is not resolved with cessation of clonidine and labetalol. She has renal insufficiency and has been on significant doses of these 2 medications. I discussed with the patient will recommend left subclavian approach. Current Visit: Yes (5) Coronary artery disease Status: Chronic Current Visit: Yes (6) Hyperlipidemia Status: Chronic Current Visit: Yes (7) COPD (chronic obstructive pulmonary disease) Status: Chronic Current Visit: Yes (8) Obstructive sleep apnea Status: Chronic Current Visit: Yes History of Present Illness - Consult Narrative History of present illness: Ms. Junior is a 80 year old female who presents with the above history. She is on a significant dose of labetalol twice a day but has 2-1 AV block. I recommended that we hold her beta-luciana and clonidine If she does not have rather significant improvement in the short-term she likely benefit from dual- chamber pacemaker. She has been cath in the past by Dr. Reno with the findings as above. She denies any chest pain at this time. I discussed with Ms. Resendiz. I will hold the patient n.p.o. tonight and see if she has resolution of her AV block if not I think by tomorrow morning we should proceed with pacemaker placement after these medications have had time to wear off. I discussed this with the patient and her daughter at the bedside. I do not think she needs her has an indication at this time for left heart catheterization. She is very limited in her exercise tolerance she had a spell at the daycare while walking with a walker. I think bradycardia is symptomatic. CC: Edenilson Peck MD Review of systems: Single episode of near syncope as described above in the HPI. She is also been generally fatigued which may represent bradycardia. She does not routinely check her blood pressure and heart rate at home. Mender the above review of systems as documented by Ms. Resendiz Medical,Surgical,& Family Hx - Medical History Respiratory: History of: Respiratory Problems (uses oxygen at home at night. Recurrent DVTs) Hematology: History of: Clotting Problems - Social History Lives With:: Children Physical Examination Vital Signs Temp Pulse Resp BP Pulse Ox 98.4 F 41 L 24 196/81 96 09/11/16 18:40 09/11/16 18:40 09/11/16 18:40 09/11/16 18:40 09/11/16 18:40 Other: The patient is morbidly obese and appears chronically ill largely sedentary. She has a slight pallor cardiovascular exam is significant for prominent bradycardia with distant tones no rub or gallop can be heard she has a murmur of aortic sclerosis. PMI is not well localized. She has doughy edema in her lower extremities she has no lymphedema in her upper extremities. She states that she is ambidextrous but primarily uses her right hand to wreit but she equally uses her left hand. Result/EKG - Labs CBC & BMP: 09/11/16 18:59 09/12/16 07:21 Labs: Laboratory Results - last 24 hr 09/11/16 09/11/16 09/11/16 18:59 18:59 18:59 WBC 10.1 RBC 4.15 Hgb 12.1 Hct 37.3 MCV 89.9 MCH 29 MCHC 32.4 RDW 15.1 Plt Count 194 MPV 10.2 Neut % (Auto) 65.9 Lymph % (Auto) 26.1 [place] % (Auto) 6.3 Eos % (Auto) 0.7 Baso % (Auto) 0.7 Neut # (Auto) 6.7 Lymph # (Auto) 2.6 [place] # (Auto) 0.6 Eos # (Auto) 0.1 Baso # (Auto) 0.1 Immature Gran % 0.3 Nucleated RBC % 0.0 Immature Gran # 0.03 Nucleated RBCs # 0.00 INR PT Patient/Control Mix D-Dimer, Quantitative Sodium 139 Potassium 5.8 H Chloride 113 H Carbon Dioxide 15 L Anion Gap 16.8 H BUN 52 H Creatinine 1.90 H GFR Calculation 29 BUN/Creatinine Ratio 27.00 H Glucose 99 POC Glucose Calculated Osmolality 290.5 Calcium 7.8 L Magnesium 2.1 Total Bilirubin 0.70 AST 41 H ALT 29 Alkaline Phosphatase 147 H Total Creatine Kinase CK-MB (CK-2) Troponin I < 0.015 B-Natriuretic Peptide Total Protein 6.3 L Albumin 3.0 L Globulin 3.3 Albumin/Globulin Ratio 0.9 L Urine Color Straw Urine Appearance Clear Urine pH 5.0 Ur Specific [place] 1.005 Urine Protein Negative Urine Glucose (UA) Negative Urine Ketones Negative Urine Blood Negative Urine Nitrate Negative Urine Bilirubin Negative Urine Urobilinogen < 2.0 H Urine Leukocytes Negative Ur Squamous Epith Cells Occasional Urine Mucus Occasional Ur Culture Indicated? Not indicated Urine Opiates Screen Ur Barbiturates Screen Ur Phencyclidine Scrn U Amphetamine/Methamph U Benzodiazepines Scrn U Cocaine Metab Screen U Cannabinoids Screen 09/11/16 09/12/16 09/12/16 18:59 07:21 08:04 WBC RBC Hgb Hct MCV MCH MCHC RDW Plt Count MPV Neut % (Auto) Lymph % (Auto) [place] % (Auto) Eos % (Auto) Baso % (Auto) Neut # (Auto) Lymph # (Auto) [place] # (Auto) Eos # (Auto) Baso # (Auto) Immature Gran % Nucleated RBC % Immature Gran # Nucleated RBCs # INR PT Patient/Control Mix D-Dimer, Quantitative Sodium 142 Potassium 5.0 Chloride 108 H Carbon Dioxide 25 Anion Gap 14.0 BUN 57 H Creatinine 2.20 H GFR Calculation 24 BUN/Creatinine Ratio 25.00 H Glucose 216 H POC Glucose 218 H Calculated Osmolality 305.1 H Calcium 8.1 L Magnesium Total Bilirubin AST ALT Alkaline Phosphatase Total Creatine Kinase CK-MB (CK-2) Troponin I B-Natriuretic Peptide Total Protein Albumin Globulin Albumin/Globulin Ratio Urine Color Urine Appearance Urine pH Ur Specific [place] Urine Protein Urine Glucose (UA) Urine Ketones Urine Blood Urine Nitrate Urine Bilirubin Urine Urobilinogen Urine Leukocytes Ur Squamous Epith Cells Urine Mucus Ur Culture Indicated? Urine Opiates Screen Negative Ur Barbiturates Screen Negative Ur Phencyclidine Scrn Negative U Amphetamine/Methamph Negative U Benzodiazepines Scrn Negative U Cocaine Metab Screen Negative U Cannabinoids Screen Negative 09/12/16 09/12/16 09/12/16 08:10 08:10 08:10 WBC RBC Hgb Hct MCV MCH MCHC RDW Plt Count MPV Neut % (Auto) Lymph % (Auto) [place] % (Auto) Eos % (Auto) Baso % (Auto) Neut # (Auto) Lymph # (Auto) [place] # (Auto) Eos # (Auto) Baso # (Auto) Immature Gran % Nucleated RBC % Immature Gran # Nucleated RBCs # INR 2.3 PT Patient/Control Mix 25.2 D D-Dimer, Quantitative Sodium Potassium Chloride Carbon Dioxide Anion Gap BUN Creatinine GFR Calculation BUN/Creatinine Ratio Glucose POC Glucose Calculated Osmolality Calcium Magnesium Total Bilirubin AST ALT Alkaline Phosphatase Total Creatine Kinase 117 CK-MB (CK-2) 2.4 Troponin I < 0.015 B-Natriuretic Peptide 856 H Total Protein Albumin Globulin Albumin/Globulin Ratio Urine Color Urine Appearance Urine pH Ur Specific [place] Urine Protein Urine Glucose (UA) Urine Ketones Urine Blood Urine Nitrate Urine Bilirubin Urine Urobilinogen Urine Leukocytes Ur Squamous Epith Cells Urine Mucus Ur Culture Indicated? Urine Opiates Screen Ur Barbiturates Screen Ur Phencyclidine Scrn U Amphetamine/Methamph U Benzodiazepines Scrn U Cocaine Metab Screen U Cannabinoids Screen 09/12/16 09/12/16 09/12/16 08:10 11:33 14:18 WBC RBC Hgb Hct MCV MCH MCHC RDW Plt Count MPV Neut % (Auto) Lymph % (Auto) [place] % (Auto) Eos % (Auto) Baso % (Auto) Neut # (Auto) Lymph # (Auto) [place] # (Auto) Eos # (Auto) Baso # (Auto) Immature Gran % Nucleated RBC % Immature Gran # Nucleated RBCs # INR PT Patient/Control Mix D-Dimer, Quantitative <= 0.5 Sodium Potassium Chloride Carbon Dioxide Anion Gap BUN Creatinine GFR Calculation BUN/Creatinine Ratio Glucose POC Glucose 258 H Calculated Osmolality Calcium Magnesium Total Bilirubin AST ALT Alkaline Phosphatase Total Creatine Kinase 101 CK-MB (CK-2) 2.3 Troponin I < 0.015 B-Natriuretic Peptide Total Protein Albumin Globulin Albumin/Globulin Ratio Urine Color Urine Appearance Urine pH Ur Specific [place] Urine Protein Urine Glucose (UA) Urine Ketones Urine Blood Urine Nitrate Urine Bilirubin Urine Urobilinogen Urine Leukocytes Ur Squamous Epith Cells Urine Mucus Ur Culture Indicated? Urine Opiates Screen Ur Barbiturates Screen Ur Phencyclidine Scrn U Amphetamine/Methamph U Benzodiazepines Scrn U Cocaine Metab Screen U Cannabinoids Screen 09/12/16 15:59 WBC RBC Hgb Hct MCV MCH MCHC RDW Plt Count MPV Neut % (Auto) Lymph % (Auto) [place] % (Auto) Eos % (Auto) Baso % (Auto) Neut # (Auto) Lymph # (Auto) [place] # (Auto) Eos # (Auto) Baso # (Auto) Immature Gran % Nucleated RBC % Immature Gran # Nucleated RBCs # INR PT Patient/Control Mix D-Dimer, Quantitative Sodium Potassium Chloride Carbon Dioxide Anion Gap BUN Creatinine GFR Calculation BUN/Creatinine Ratio Glucose POC Glucose 190 H Calculated Osmolality Calcium Magnesium Total Bilirubin AST ALT Alkaline Phosphatase Total Creatine Kinase CK-MB (CK-2) Troponin I B-Natriuretic Peptide Total Protein Albumin Globulin Albumin/Globulin Ratio Urine Color Urine Appearance Urine pH Ur Specific [place] Urine Protein Urine Glucose (UA) Urine Ketones Urine Blood Urine Nitrate Urine Bilirubin Urine Urobilinogen Urine Leukocytes Ur Squamous Epith Cells Urine Mucus Ur Culture Indicated? Urine Opiates Screen Ur Barbiturates Screen Ur Phencyclidine Scrn U Amphetamine/Methamph U Benzodiazepines Scrn U Cocaine Metab Screen U Cannabinoids Screen - EKG EKG results: interpreted by me (Sinus rhythm with 2-1 AV block.)
[2016-09-12 09:06] LABS: Troponin I Only < 0.015 NG/ML (0.00-0.045)
--- NOTE | 2016-09-12 10:43 | Ultrasound Report ---
Venous Doppler ultrasound bilateral lower extremities Indication: Shortness of breath Comparison: None available Findings: No evidence of echogenic, noncompressible thrombus seen in the visualized veins of the extremities. Color Doppler venous waveform pattern is within normal limits. Impression: No evidence of deep venous thrombosis. Ultrasound images stored and captured. PROCEDURE INTERPRETED AT [facility] DEPARTMENT OF RADIOLOGY Final Report Signed by: Dr. Juan Nettles
[2016-09-12 15:10] LABS: Troponin I Only < 0.015 NG/ML (0.00-0.045)
--- NOTE | 2016-09-12 17:27 | ECHO Report ---
Nay Junior Exam Date: 09/12/2016 14:59 Referring Physician: Technologist: Carline Nicole Age: 80 Ht (in): 65 Wt (lb): 208 Gender: F Exam Location: [facility] Echo Indications: bradycardia, dyspnea, HTN, CAD, COPD, MAHAD, Hx.DVT, hyperlipidemia BP: 121 / 50 HR: 41 Rhythm: bradycardia Technical Quality: average IMPRESSIONS Ejection fraction 55% with no regional wall motion abnormality. Normal diastolic parameters Tricuspid regurgitation velocities suggest a RVSP of 59 mmHg plus the right atrial pressure. Mild mitral regurgitation with moderate mitral annular calcification. Mild aortic stenosis with a mean gradient of 19 and area estimated 1.5 cm MEASUREMENTS (Male / Female) Normal Values 2D ECHO LV Diastolic Diameter PLAX 3.8 cm 4.2 - 5.9 / 3.9 - 5.3 cm LV Systolic Diameter PLAX 2.5 cm LV Fractional Shortening PLAX 33.4 % IVS Diastolic Thickness 1.2 cm 0.6 - 1.0 / 0.6 - 0.9 cm LVPW Diastolic Thickness 1.5 cm 0.6 - 1.0 / 0.6 - 0.9 cm RV Internal Dim ED PLAX 3.5 cm Aortic Root Diameter 2.4 cm LA Systolic Diameter LX 3.9 cm 3.0 - 4.0 / 2.7 - 3.8 cm DOPPLER TR Peak Velocity 385.0 cm/s TR Peak Gradient 59.3 mmHg FINDINGS Left Ventricle Normal left ventricular cavity size. Mild concentric left ventricular hypertrophy with normal diastolic parameters. Left ventricular ejection fraction is estimated at 55 %. Right Ventricle Normal right ventricular size. Right Atrium Normal right atrial size. Left Atrium Normal left atrial size. Mitral Valve Mild mitral regurgitation with moderate mitral annular calcification Aortic Valve Mild aortic valve stenosis, mean gradient 19 mmHg, MUNA 1.5 cm. Peak velocity across the valve is 2.8 cm per sec which corresponds a peak gradient of 33 and a mean gradient of 19. VTI 69.7 LVOT VTI is 34.1 Tricuspid Valve Morphologically normal tricuspid valve. Moderate tricuspid valve regurgitation. Tricuspid regurgitation velocities suggest a RVSP of 59 mmHg plus the right atrial pressure. Pulmonic Valve Morphologically normal pulmonic valve. Trace - mild pulmonary valve regurgitation. Pericardium No pericardial effusion. Aorta Normal size aortic root and proximal ascending aorta. Staci Duggan (Electronically Signed) Final Date: 12 September 2016 17:26
[2016-09-12] MEDS: PREGABALIN 50 MG CAPSULE PO SCH (21:33)
[2016-09-12] MEDS: INSULIN GLARGINE 100 UNIT/ML SUBCUT SCH (21:33)
[2016-09-12] MEDS: ATORVASTATIN 20 MG TABLET PO SCH (21:33)
[2016-09-12] MEDS: MONTELUKAST 10 MG TABLET PO SCH (21:33)
[2016-09-12 21:49] LABS: Troponin I Only < 0.015 NG/ML (0.00-0.045)
[2016-09-13 04:14] LABS: Basophils % 0.1 % (0.0-0.8); Hematocrit 35.4 VOL% (35.7-47.0); Hemoglobin 11.4 GM/DL (12.0-16.0); Immature Granulocytes % 0.6 %; Immature Granulocytes Absolute 0.08 #; Lymphocytes # 1.8 10*3/uL (1.4-4.0); Lymphocytes % 13.1 % (21.3-54.2); Mean Corpuscular HGB Conc 32.2 GM/DL (32-36); Mean Corpuscular Hemoglobin 28 PG (27-34); Mean Corpuscular Volume 88.3 FL (87-102); Mean Platelet Volume 10.5 FL (9.6-12.0); Monocytes # 0.8 10*3/uL (0.11-0.8); Monocytes % 5.4 % (1.7-12.7); Neutrophils # 11.2 10*3/uL (1.4-7.4); Neutrophils % 80.8 % (38.7-73.9); Platelet Count 200 T/CUMM (130-400); Red Blood Count 4.01 MC/CUMM (3.8-5.5); White Blood Count 13.8 T/CUMM (4-12)
[2016-09-13 04:28] LABS: INR 2.3
[2016-09-13 04:40] LABS: PT Patient Result 25.2 SECS
[2016-09-13 04:45] LABS: Calcium 8.1 MG/DL (8.5-10.1); Magnesium 2.3 MG/DL (1.8-2.4); Osmolality,Calculated 305.3 MOS/KG (273-304); Potassium 4.6 MMOL/L (3.5-5.1)
--- NOTE | 2016-09-13 07:36 | Cardiology Progress Note ---
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 Current Visit: Yes (5) Coronary artery disease Status: Chronic Current Visit: Yes (6) Hyperlipidemia Status: Chronic Current Visit: Yes (7) COPD (chronic obstructive pulmonary disease) Status: Chronic Current Visit: Yes (8) Obstructive sleep apnea Status: Chronic Current Visit: Yes (9) Pulmonary hypertension Status: Acute Current Visit: Yes (10) Aortic stenosis Status: Acute Current Visit: Yes (11) Obesity Status: Chronic Current Visit: Yes (12) Osteoarthritis Status: Chronic Current Visit: Yes Cardiology - PN: Subj Interval history: Ms. Junior has an increased improvement in her heart rate. Her 2-1 AV block has temporarily at least resolved. She is asking about cough and what is causing her cough. She has had some scant sputum production that she states is intermittently bloody. She says sometimes is bright red and sometimes it is dark. She continues to be short of breath. She has pulmonary hypertension mild aortic stenosis with a right ventricular systolic pressure estimated be 59 mmHg plus the right atrial pressure. She has renal insufficiency and her AV trixie blocking agents have been stopped her heart rate has come up. She still has bradycardia that may be contributing to her shortness of breath but I think this is primarily her pulmonary hypertension. I think given her renal insufficiency we should be patient and wait to see if her heart rate improves before proceeding with pacemaker. I discussed this with her. Continue to monitor on telemetry. I will repeat her chest x-ray I suspect her sputum production due to the chronicity of it is not an acute process. She is appropriately anticoagulated with an INR of 2.3 which may be contributing. I will repeat her chest x-ray. Exam (Progress Note) - Constitutional Vitals: Period Temp Pulse Resp BP Sys/Duffy Pulse Ox Last 24 Hr 96.9 F-98.0 F 41-57 18-22 121-164/50-71 94-99 General appearance: morbidly obese - Eye Eye exam: Present: EOMI Pupils: Present: TEOFILO - Respiratory Respiratory exam: Present: clear to auscultation bilaterally (Very poor inspiratory effort) - Cardiovascular Cardiovascular exam: Present: regular rate and rhythm (She has a 2/6 murmur of aortic stenosis that appears to be mild with preserved second heart sound and a 3/6 murmur of tricuspid regurgitation. Has bradycardia at about 55 bpm. Telemetry shows no AV block) - GI/Abdominal GI/Abdominal exam: Present: normal bowel sounds - Neurological Exam Neurological exam: Present: alert, oriented X3 - Psychiatric Psychiatric exam: Present: normal affect, normal mood - Skin Skin exam: Present: normal color, warm, dry Result/EKG - Labs CBC & BMP: 09/13/16 04:07 09/13/16 04:07 Labs: Laboratory Results - last 24 hr 09/12/16 09/12/16 09/12/16 07:21 08:04 08:10 WBC RBC Hgb Hct MCV MCH MCHC RDW Plt Count MPV Neut % (Auto) Lymph % (Auto) [place] % (Auto) Eos % (Auto) Baso % (Auto) Neut # (Auto) Lymph # (Auto) [place] # (Auto) Eos # (Auto) Baso # (Auto) Immature Gran % Nucleated RBC % Immature Gran # Nucleated RBCs # INR PT Patient/Control Mix D-Dimer, Quantitative Sodium 142 Potassium 5.0 Chloride 108 H Carbon Dioxide 25 Anion Gap 14.0 BUN 57 H Creatinine 2.20 H GFR Calculation 24 BUN/Creatinine Ratio 25.00 H Glucose 216 H POC Glucose 218 H Calculated Osmolality 305.1 H Calcium 8.1 L Magnesium Total Creatine Kinase CK-MB (CK-2) Troponin I B-Natriuretic Peptide 856 H 09/12/16 09/12/16 09/12/16 08:10 08:10 08:10 WBC RBC Hgb Hct MCV MCH MCHC RDW Plt Count MPV Neut % (Auto) Lymph % (Auto) [place] % (Auto) Eos % (Auto) Baso % (Auto) Neut # (Auto) Lymph # (Auto) [place] # (Auto) Eos # (Auto) Baso # (Auto) Immature Gran % Nucleated RBC % Immature Gran # Nucleated RBCs # INR 2.3 PT Patient/Control Mix 25.2 D D-Dimer, Quantitative <= 0.5 Sodium Potassium Chloride Carbon Dioxide Anion Gap BUN Creatinine GFR Calculation BUN/Creatinine Ratio Glucose POC Glucose Calculated Osmolality Calcium Magnesium Total Creatine Kinase 117 CK-MB (CK-2) 2.4 Troponin I < 0.015 B-Natriuretic Peptide 09/12/16 09/12/16 09/12/16 11:33 14:18 15:59 WBC RBC Hgb Hct MCV MCH MCHC RDW Plt Count MPV Neut % (Auto) Lymph % (Auto) [place] % (Auto) Eos % (Auto) Baso % (Auto) Neut # (Auto) Lymph # (Auto) [place] # (Auto) Eos # (Auto) Baso # (Auto) Immature Gran % Nucleated RBC % Immature Gran # Nucleated RBCs # INR PT Patient/Control Mix D-Dimer, Quantitative Sodium Potassium Chloride Carbon Dioxide Anion Gap BUN Creatinine GFR Calculation BUN/Creatinine Ratio Glucose POC Glucose 258 H 190 H Calculated Osmolality Calcium Magnesium Total Creatine Kinase 101 CK-MB (CK-2) 2.3 Troponin I < 0.015 B-Natriuretic Peptide 09/12/16 09/12/16 09/13/16 20:08 21:06 04:07 WBC 13.8 H D RBC 4.01 Hgb 11.4 L Hct 35.4 L MCV 88.3 MCH 28 MCHC 32.2 RDW 15.0 Plt Count 200 MPV 10.5 Neut % (Auto) 80.8 H Lymph % (Auto) 13.1 L [place] % (Auto) 5.4 Eos % (Auto) 0.0 Baso % (Auto) 0.1 Neut # (Auto) 11.2 H Lymph # (Auto) 1.8 [place] # (Auto) 0.8 Eos # (Auto) 0.0 Baso # (Auto) 0.0 Immature Gran % 0.6 Nucleated RBC % 0.0 Immature Gran # 0.08 Nucleated RBCs # 0.00 INR PT Patient/Control Mix D-Dimer, Quantitative Sodium Potassium Chloride Carbon Dioxide Anion Gap BUN Creatinine GFR Calculation BUN/Creatinine Ratio Glucose POC Glucose 247 H Calculated Osmolality Calcium Magnesium Total Creatine Kinase 102 CK-MB (CK-2) 2.3 Troponin I < 0.015 B-Natriuretic Peptide 09/13/16 09/13/16 04:07 04:07 WBC RBC Hgb Hct MCV MCH MCHC RDW Plt Count MPV Neut % (Auto) Lymph % (Auto) [place] % (Auto) Eos % (Auto) Baso % (Auto) Neut # (Auto) Lymph # (Auto) [place] # (Auto) Eos # (Auto) Baso # (Auto) Immature Gran % Nucleated RBC % Immature Gran # Nucleated RBCs # INR 2.3 PT Patient/Control Mix 25.2 D-Dimer, Quantitative Sodium 141 Potassium 4.6 Chloride 108 H Carbon Dioxide 25 Anion Gap 12.6 BUN 69 H D Creatinine 2.30 H GFR Calculation 22 BUN/Creatinine Ratio 30.00 H Glucose 181 H POC Glucose Calculated Osmolality 305.3 H Calcium 8.1 L Magnesium 2.3 Total Creatine Kinase CK-MB (CK-2) Troponin I B-Natriuretic Peptide
[2016-09-13] MEDS ORDERED: WARFARIN 2.5 MG TABLET PO SCH ×2 (07:42→18:00)
--- NOTE | 2016-09-13 07:45 | Family Practice Progress Note ---
Family Practice - PN: Subj Interval history: Patient states she is feeling some better this morning but still has persistent cough. Her heart rate has come up and I do not see type II second-degree AV block on the monitor this morning. Dr. Cross has already ordered repeat chest x -ray on her this morning. Exam (Progress Note) - Constitutional Vitals: Period Temp Pulse Resp BP Sys/Duffy Pulse Ox Last 24 Hr 96.9 F-98.0 F 41-72 18-22 116-164/50-75 94-99 Exam: Objectively well-developed obese white female no acute distress. She is able to give good history. Cardiovascular: Heart rates regular silhouette is still bit bradycardic. There is no murmurs or gallops. Respiratory: Lungs clear to auscultation bilaterally. Abdomen: Abdomen soft and nontender to palpation. Results - Labs CBC & BMP: 09/13/16 04:07 09/13/16 04:07 Lab Results: I have reviewed the past 24 hour labs Assessment and Plan (1) Bradycardia Status: Acute Assessment and plan: 09/12/2016: Cardiology will be consulted. Patient's potassium was 5.8 so her potassium will be held and a repeat BMP is pending for this morning. 09/13/2016: Patient's heart rate has improved. Current Visit: Yes (2) Mobitz type 2 second degree AV block Status: Resolved Assessment and plan: 09/12/2016: Cardiology has been consulted. 09/13/2016: This has resolved. Current Visit: Yes
--- NOTE | 2016-09-13 07:45 | EKG Report ---
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
--- NOTE | 2016-09-13 08:26 | XRay Report ---
XR chest 2V Indication: Hemoptysis Comparison: Chest x-ray dated September 11, 2016 Technique: Frontal and lateral views of the chest. Findings: Continued mild cardiomegaly. Mildly improved bilateral pulmonary opacification with mild residual remaining within the bilateral perihilar regions suggesting improved pulmonary edema or pneumonia. There is continued prominence of pulmonary interstitial markings . There is small bilateral pleural fluid. Visualized osseous and surrounding soft tissue structures appear grossly unchanged. IMPRESSION: As above. PROCEDURE INTERPRETED AT [facility] DEPARTMENT OF RADIOLOGY Final Report Signed by: Dr Yogi Sanford
[2016-09-13] MEDS: LEVOTHYROXINE 50 MCG TABLET PO SCH (09:19)
[2016-09-13] MEDS: PANTOPRAZOLE 40 MG TABLET PO SCH ×2 (09:19→09:36)
[2016-09-13] MEDS: ALLOPURINOL 100 MG TABLET PO SCH (09:19)
[2016-09-13] MEDS: SOLIFENACIN 5 MG TABLET PO SCH (09:19)
[2016-09-13] MEDS: METHENAMINE HIPPURATE 1 GM TABLET PO SCH ×2 (09:19→21:26)
[2016-09-13] MEDS: DOCUSATE SODIUM 100 MG CAPSULE PO SCH ×2 (09:19→21:26)
[2016-09-13] MEDS: sitaGLIPtin 25 MG TABLET PO SCH (09:19)
[2016-09-13] MEDS: ASPIRIN EC 81 MG TABLET PO SCH (09:20)
[2016-09-13] MEDS: MEMANTINE 10 MG TABLET PO SCH ×2 (09:20→21:26)
[2016-09-13] MEDS: INSULIN LISPRO 100 UNIT/ML SUBCUT SCH ×3 (09:21→17:30)
[2016-09-13] MEDS: BUMETANIDE 1 MG/4 ML VIAL IV SCH (12:26)
--- NOTE | 2016-09-13 12:30 | Physician Query Form ---
CLICK EDIT DOCUMENT TO SELECT QUERY ANSWER --> OK --> SIGN Chelo Hess RN Clinical Range Manager W) [phone] (f) [phone] [email or web address] PROVIDERS: Make your selection(s) from the choices in EACH section by typing an "x" and enter comments in the comment section. Please use your independent medical judgment in providing your response. This request does not imply that any particular answer is desired or expected. CLINICAL INDICATORS: (Providers should not edit this section) Based on documentation of "renal insufficiency", creatinine on admission of 1.90 and increased to 2.30 with a GFR of 22.Pt. has documented chronic renal failure stage 3. Creatinine level monitored with daily lab. Clarify which of the following most accurately represents the patient's renal status: ( ) Acute kidney injury (non-traumatic) ( ) Acute renal failure ( ) Acute renal failure with underlying Chronic Kidney Disease (CKD) - please provide stage below ( x) CKD - please provide stage below ( ) Other, please specify: ( ) Clinically unable to determine Chronic Kidney Disease Stages Source: National Kidney Disease Foundation ( ) Stage I (eGFR > or = 90) ( ) Stage II (eGFR 60 - 89) (x ) Stage III (eGFR 30 - 59) ( ) Stage IV (eGFR 15 - 29) ( ) Stage V (eGFR < 15 or dialysis) COMMENTS: PLEASE ALSO DOCUMENT RESPONSE IN PROGRESS NOTES AND/OR DISCHARGE SUMMARY Use of terms such as suspected, likely, or probable (associated with a specific diagnosis that is being evaluated, monitored, or treated as if it exists) are acceptable and can be restated in the discharge summary if not ruled out. MTDD
[2016-09-13] MEDS: MONTELUKAST 10 MG TABLET PO SCH (21:26)
[2016-09-13] MEDS: INSULIN GLARGINE 100 UNIT/ML SUBCUT SCH (21:26)
[2016-09-13] MEDS: ATORVASTATIN 20 MG TABLET PO SCH (21:26)
[2016-09-13] MEDS: PREGABALIN 50 MG CAPSULE PO SCH (21:26)
[2016-09-14] MEDS: BUMETANIDE 1 MG/4 ML VIAL IV SCH ×3 (00:27→23:50)
[2016-09-14 05:39] LABS: Basophils # 0.1 10*3/uL (0.0-0.2); Basophils % 0.5 % (0.0-0.8); Eosinophils # 0.1 10*3/uL (0.0-0.87); Hemoglobin 13.2 GM/DL (12.0-16.0); Immature Granulocytes % 0.3 %; Immature Granulocytes Absolute 0.03 #; Lymphocytes # 2.7 10*3/uL (1.4-4.0); Lymphocytes % 25.2 % (21.3-54.2); Mean Corpuscular Hemoglobin 29 PG (27-34); Mean Corpuscular Volume 87.5 FL (87-102); Mean Platelet Volume 10.1 FL (9.6-12.0); Monocytes # 0.9 10*3/uL (0.11-0.8); Monocytes % 8.8 % (1.7-12.7); Neutrophils # 6.7 10*3/uL (1.4-7.4); Neutrophils % 64.2 % (38.7-73.9); Platelet Count 243 T/CUMM (130-400); Red Blood Count 4.57 MC/CUMM (3.8-5.5); Red Cell Distribution Width 15.3 % (9.3-17.3); White Blood Count 10.5 T/CUMM (4-12)
[2016-09-14 05:57] LABS: Calcium 8.5 MG/DL (8.5-10.1); Magnesium 2.3 MG/DL (1.8-2.4); Osmolality,Calculated 306.7 MOS/KG (273-304)
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
[2016-09-14] MEDS: sitaGLIPtin 25 MG TABLET PO SCH (08:27)
[2016-09-14] MEDS: DOCUSATE SODIUM 100 MG CAPSULE PO SCH ×2 (08:27→20:51)
[2016-09-14] MEDS: ALLOPURINOL 100 MG TABLET PO SCH (08:27)
[2016-09-14] MEDS: METHENAMINE HIPPURATE 1 GM TABLET PO SCH ×2 (08:27→20:51)
[2016-09-14] MEDS: SOLIFENACIN 5 MG TABLET PO SCH (08:27)
[2016-09-14] MEDS: MEMANTINE 10 MG TABLET PO SCH ×2 (08:27→20:51)
[2016-09-14] MEDS: PANTOPRAZOLE 40 MG TABLET PO SCH (08:28)
[2016-09-14] MEDS: LEVOTHYROXINE 50 MCG TABLET PO SCH (08:28)
[2016-09-14] MEDS: ASPIRIN EC 81 MG TABLET PO SCH (08:28)
[2016-09-14] MEDS: INSULIN LISPRO 100 UNIT/ML SUBCUT SCH ×3 (08:45→16:01)
[2016-09-14] MEDS ORDERED: amLODIPine 5 MG TABLET PO SCH (09:00)
--- NOTE | 2016-09-14 09:03 | Pulmonology Consult Note ---
Assessment and Plan (1) Morbid obesity Status: Chronic Assessment and plan: Lumbar obesity may be playing a part in her pulmonary hypertension. She may have obesity hypoventilation syndrome. Will check ABGs. Current Visit: No (2) Postphlebitic syndrome Status: Acute Assessment and plan: She is on long-term anticoagulants with Coumadin. INR was 2.3 during this admission. This may add to her risk of hemoptysis Current Visit: No (3) Hemoptysis Status: Acute Assessment and plan: Likely multifactorial but she is on anticoagulants. 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 She is coughing up some sticky sputum and probably has at least a superimposed bronchitis which may be hemorrhagic. I will obtain a noncontrast chest CT and plan bronchoscopy. Current Visit: No (4) Obstructive sleep apnea Status: Chronic Assessment and plan: Patient to use CPAP at night. Current Visit: Yes (5) Pulmonary hypertension Status: Acute Assessment and plan: Her pulmonary hypertension is a little worse now than it was last year. Estimated peak pulmonary artery pressure on echocardiogram went from 42-55 and a little over a year. This may be due to obesity, sleep apnea, left-sided heart disease although it does not appear to be severe. Certainly could have primary pulmonary hypertension. Will consider adding Revatio. Current Visit: Yes (6) Aortic stenosis Status: Acute Assessment and plan: This appears to be relatively mild. Current Visit: Yes History of Present Illness Chief complaint: Hemoptysis History of present illness: Ms. Junior is a 80 year old female was admitted a couple of days ago for cough congestion shortness of breath. She has had persistent hemoptysis off and on for about 9 months. A bronchoscope her last year with findings of a gram- negative pneumonia. She has had several admissions for pneumonia. She said she only had fever 1 of those times. She has a history of a previous lumpectomy from the right breast with radiation therapy. 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 She has never been a smoker. She has been told once in her life that she had asthma. She is on albuterol nebulizer at. She has been treated for congestive heart failure. She has pulmonary hypertension noted on her echo. Estimated peak pulmonary artery pressure is 55. An echo done about a year ago showed it to be 42 so it is a little worse. She is on long-term anticoagulants because of deep vein thrombosis several years back. She is also had a right nephrectomy for renal cell carcinoma. Home Medications Medication Instructions Recorded Confirmed Type Insulin Detemir [Levemir FlexPen] 45 unit SUBCUT BEDTIME #0 07/10/14 09/11/16 History Cyanocobalamin Inj [Vitamin B12 1,000 mcg SUBCUT Q30D 09/22/15 09/11/16 History Inj] Omeprazole [Prilosec] 20 mg PO QAM 09/22/15 09/11/16 History Insulin Aspart [NovoLOG FlexPen] 10 unit SUBCUT TID W/MEALS 10/11/15 09/11/16 History Albuterol Neb [Proventil Neb] 2.5 mg RESP TX RT Q4H PRN 08/17/16 09/11/16 Rx Allopurinol [Zyloprim] 100 mg PO QAM tablet 08/17/16 09/11/16 Rx Alum/Mag/Simeth Max Str Liquid 30 ml PO Q4H PRN 08/17/16 09/11/16 Rx [Mylanta Max Strength Liquid] Aspirin EC Tab 81 mg PO QAM tablet 08/17/16 09/11/16 Rx Atorvastatin [Lipitor] 10 mg PO BEDTIME tablet 08/17/16 09/11/16 Rx Labetalol Tab [Trandate Tab] 100 mg PO BID tablet 08/17/16 09/11/16 Rx Levothyroxine Tab [Synthroid Tab] 50 mcg PO QAM tablet 08/17/16 09/11/16 Rx Meclizine [Antivert] 25 mg PO QPM PRN tablet 08/17/16 09/11/16 Rx Memantine [Namenda] 10 mg PO BID tablet 08/17/16 09/11/16 Rx Methenamine Hippurate [Hiprex] 1 gm PO BID tablet 08/17/16 09/11/16 Rx Montelukast Tab [Singulair Tab] 10 mg PO BEDTIME tablet 08/17/16 09/11/16 Rx Pregabalin [Lyrica] 50 mg PO BEDTIME capsule 08/17/16 09/11/16 Rx Solifenacin [Vesicare] 10 mg PO QAM tablet 08/17/16 09/11/16 Rx cloNIDine TAB [Catapres Tab] 0.1 mg PO BID tablet 08/17/16 09/11/16 Rx Acetaminophen Tab [Tylenol Tab] 1,000 mg PO Q6H PRN 09/11/16 09/11/16 History Furosemide Tab [Lasix Tab] 80 mg PO BID 09/11/16 09/11/16 History Linagliptin [Tradjenta] 5 mg PO DAILY 09/11/16 09/11/16 History Potassium Chloride Cap/Tab [K Dur] 20 meq PO DAILY 09/11/16 09/11/16 History Warfarin [Coumadin] 2.5 mg PO MOWEFR 09/11/16 09/11/16 History Warfarin [Coumadin] 5 mg PO SUTUTH 09/11/16 09/11/16 History Allergies Allergy/AdvReac Type Severity Reaction Status Date / Time ofloxacin [From Floxin] Allergy Unknown/Unable Verified 08/11/16 13:39 to obtain Sulfa (Sulfonamide Allergy ANAPHYLAXIS Verified 08/11/16 13:39 Antibiotics) tape AdvReac Swelling Uncoded 08/11/16 13:39 of Lip/Tongue/Throat 12 point system: reviewed and no additional remarkable complaints except as stated - Constitutional Constitutional: Present: fatigue - Cardiovascular Cardiovascular: Present: diaphoresis, dyspnea, dyspnea on exertion, lightheadedness - Respiratory Respiratory: Present: cough, dyspnea, hemoptysis, dyspnea on exertion - Hematologic/Lymphatic Hematologic/Lymphatic: Present: easy bleeding (Chronically on Coumadin) Exam (Pulmonay) H&P - Constitutional Vitals: Period Temp Pulse Resp BP Sys/Duffy Pulse Ox Last 24 Hr 97.2 F-98.2 F 57-91 16-20 134-184/59-83 95-98 Exam: Vital signs are normal. Patient alert and oriented. Pupils react to light. Throat is clear. Neck supple no bruits. Chest reveals some scattered expiratory rhonchi and some basilar crackles. Heart is of normal rate and rhythm. Abdomen soft nontender no masses. Bowel sounds present. Remedies she has a trace of edema calves nontender. Medical,Surgical,& Family Hx - Medical History Cardio: History of: CHF, CAD, Hypertension, PVD (blood clots in legs in past) Psychological: History of: Anxiety Disorders Neurology: History of: Migraine, 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 ) No history of: Seizures HEENT: History of: Eye Problem, Dental Problems (NO TEETH AND STATES DENTURES DONOT FIT) No history of: Ear Problem, Glaucoma, Oral Cancer Endocrine: History of: Diabetes Mellitus (IDDM), Diabetes Mellitus (NIDDM), Dyslipidemia, Thyroid Disorder No history of: Endocrine Cancer Rheumatology: History of;: Rheumatological Problems (KNEE PAINS,HX RIGHT KNEE REPLACEMENT) Respiratory: History of: Asthma, Bronchitis, COPD, Obstructive Sleep Apnea ( uses cpap at home), Pulmonary Embolism, Pneumonia, Respiratory Problems (uses oxygen at home at night. Recurrent DVTs) Renal: History of: Renal (Kidney) Cancer (REMISSION), Renal Failure (stage 3) Genitourinary: History of: Bladder Problem (neurogenic bladder), Problems ( renal cell carcinoma) Gastrointestinal: History of: GERD Musculoskeletal: History of: Osteoporosis, Musculoskeletal Problems (arhtritis) Hematology: History of: Anemia, Blood Transfusion Reaction (chills), Clotting Problems Reproductive: History of: Breast Cancer (REMISSION) Other: History of: Anesthesia Reactions (stopped breathing with knee surgery), Cancer (breast and renal cell cancer), Skin Problems (BRUISES EASILY(FROM COUMADIN)) - Surgical History Cardiac Surgeries: Sugical HX of: Cardiac Catheterization Thoracic Surgeries: Surgical HX of;: Kidney (Renal Surgery) (right kidney removal) Patient denies;: Organ Transplant HEENT Surgeries: Surgical HX of: Eye Surgery (cataract removalS) Patient denies: Thyroid Surgery, Tonsilectomy & Adenoidectomy Abdominal Surgeries: Surgical HX of: Abdominal Surgery, Appendectomy, Cholecystectomy, EGD Patient denies: Colonoscopy, Hernia Repair Reproductive Surgeries: Surgical HX of;: Breast Surgery, Gynecologic Surgery, Hysterectomy, Tubal Ligation Orthopedic Surgeries: Surgical HX of;: Total Knee Replacement (right knee replacement) - Family History Family History: Reports;: Family Cancer, Family Diabetes, Family Heart Disease, Family Hypertension, Family Stroke (dad) Denies;: Family Anesthesia Reaction, Family Psychiatric Problems - Social History Smoking Status: Never smoker Frequency of Alcohol Use: None Type of Drug Use: None Results - Labs CBC & BMP: 09/14/16 05:03 09/14/16 05:03 Lab Results: I have reviewed the past 24 hour labs - Diagnostic Findings Procedure: Chest x-ray: image reviewed by me (Patchy infiltrate at the right base. Much of this is chronic and probably due to radiation fibrosis. Heart shadow slightly enlarged.)
[2016-09-14 09:46] LABS: Apearance,Urine CLEAR (Clear); Bilirubin,Urine Negative (Negative); Blood, Urine Negative (Negative); Glucose,Urine (UA) Negative (Negative); Ketones,Urine Negative (Negative); Nitrite,Urine Negative (Negative); Protein,Urine Negative; RBC,Urine <1 /HPF (0-4); Squamous Epithelial Cell,Urine Occasional /HPF (0-10); Urine Color Straw (Yellow); Urine Specific Gravity 1.006 (1.001-1.035); Urine Urobilinogen < 2.0 EU/DL (0.2-1.0); WBC,Urine 1 /HPF (0-6)
--- NOTE | 2016-09-14 10:06 | Cardiology Progress Note ---
<Madeleine Resendiz E - Last Filed: 09/14/16 10:07> Assessment and Plan - Time spent with patient Time spent with patient: Less than 30 minutes (1) Bradycardia Status: Acute Assessment and plan: See plan of care listed below. Current Visit: Yes (2) Dyspnea Status: Acute Assessment and plan: See plan of care listed below. Current Visit: No (3) Coronary artery disease Status: Chronic Assessment and plan: See plan of care listed below. Current Visit: Yes (4) Hypertension Status: Chronic Assessment and plan: See plan of care listed below. Current Visit: Yes Qualifiers: Hypertension type: essential hypertension Qualified Code(s): I10 - Essential (primary) hypertension (5) History of DVT (deep vein thrombosis) Status: Chronic Assessment and plan: See plan of care listed below. 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 Current Visit: No (7) Hyperlipidemia Status: Chronic Assessment and plan: See plan of care listed below. Current Visit: Yes (8) COPD (chronic obstructive pulmonary disease) Status: Chronic Assessment and plan: See plan of care listed below. Current Visit: Yes (9) Obstructive sleep apnea Status: Chronic Assessment and plan: See plan of care listed below. Current Visit: Yes (10) Morbid obesity Status: Chronic Assessment and plan: See plan of care listed below. Current Visit: No Cardiology - PN: Subj Interval history: Cel[place]: seen in the remote past by Dr. 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 Edenilson Peck SUMMARY: Ms. Junior is a 80 year old female with extensive medical history including mild nonobstructive coronary artery disease, hypertension, CHF , peripheral vascular disease, hyperlipidemia, GERD, DVT now on chronic anticoagulation, diabetes, COPD, obstructive sleep apnea, renal and breast cancer who presented to the hospital with complaints of dyspnea on exertion and easy fatigability for the past 2 weeks. She was on a significant dose of labetalol twice a day but has 2-1 AV block. It was recommended that we hold her beta-luciana and clonidine. If she does not have rather significant improvement in the short-term she likely benefit from dual-chamber pacemaker. Assessment/plan: 1. Bradycardia -hold clonidine and all trixie blocking agents. We will continue to monitor. At some point she may require pacemaker placement if she continues to be symptomatic. 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 Will further discuss with Dr. Duggan and await his recommendations. 2. Dyspnea on exertion - Likely related to her pulmonary hypertension. She has been concerned with a cough and sputum production. She has had recurrent pneumonia in the past. Pulmonology has been consulted to see her. 3. Coronary artery disease - prior history of mild nonobstructive coronary artery disease. She was previously seen by Dr. Reno and underwent left heart catheterization on April 29, 2008 which revealed elevated left-sided filling pressures with LVEDP 27 mmHg, nonsignificant coronary artery disease including 30-40% smooth discrete ostial left main stenosis, 30% ostial RCA stenosis with 30% mild RCA stenosis. She was ruled out for PA. 4. Hypertension - We will continue to monitor and adjust medications accordingly throughout her stay. 5. History of DVT - will check lower extremity venous Dopplers to rule out recurrent DVT. 6. Chronic anticoagulation - continue Coumadin and monitor INR. Currently therapeutic. 7. Hyperlipidemia - continue lipid-lowering agent. 8. COPD - O2 as needed. She has breathing treatments ordered as needed. 9. Obstructive sleep apnea - continue CPAP while sleeping and O2 as needed. 10. Morbid obesity - chronic. Exam (Progress Note) - Constitutional Vitals: Period Temp Pulse Resp BP Sys/Duffy Pulse Ox Last 24 Hr 97.2 F-98.2 F 57-91 16-20 134-184/59-83 95-98 Exam: General appearance: Pleasant and cooperative. Normal weight, mild conversational dyspnea. - Head Head exam: Present: normal inspection, normocephalic, atraumatic. Absent: hematoma, laceration - Eye Eye exam: Present: EOMI. Absent: conjunctival injection, nystagmus, periorbital swelling, scleral icterus, laceration to eyelids Pupils: Present: PERRL. Absent: constricted, dilated, fixed, irregular, unequal - ENT ENT exam: Present: Edentulous, normal external ear exam - Neck Neck exam: Present: normal inspection. Absent: lymphadenopathy, meningismus, tenderness, thyromegaly - Respiratory Respiratory exam: Present: clear to auscultation bilaterally with poor inspiratory effort. Absent: accessory muscle use, chest wall tenderness - Cardiovascular Cardiovascular exam: Present: regular rate and rhythm. Systolic murmur consistent with aortic stenosis. Absent: rubs - GI/Abdominal GI/Abdominal exam: Present: normal bowel sounds, soft. Absent: distended, firm , guarding, hernia, mass, tenderness, rebound. - Extremities Exam Extremities exam: Present: normal inspection, normal capillary refill. Upper extremity pulses 2+. Lower extremity pulses present but diminished. Trace pretibial edema. Absent: calf tenderness -Musculoskeletal Exam Musculoskeletal: Present: No Fluid Collection, No Pain, Normal Range of Motion - Back Exam Back exam: Present: normal inspection. Absent: muscle spasm, vertebral tenderness - Neurological Exam Neurological exam: Present: alert, oriented X3, grossly intact without resting or essential tremor - Psychiatric Psychiatric exam: Present: normal affect, normal mood - Skin Skin exam: Present: normal color, warm, dry, intact. Absent: cyanosis, diaphoretic, rash, urticaria Result/EKG - Labs CBC & BMP: 09/14/16 05:03 09/14/16 05:03 Lab Results: I have reviewed the past 24 hour labs Labs: Laboratory Results - last 24 hr 09/13/16 09/13/16 09/13/16 11:19 16:49 21:07 WBC RBC Hgb Hct MCV MCH MCHC RDW Plt Count MPV Neut % (Auto) Lymph % (Auto) [place] % (Auto) Eos % (Auto) Baso % (Auto) Neut # (Auto) Lymph # (Auto) [place] # (Auto) Eos # (Auto) Baso # (Auto) Immature Gran % Nucleated RBC % Immature Gran # Nucleated RBCs # Sodium Potassium Chloride Carbon Dioxide Anion Gap BUN Creatinine GFR Calculation BUN/Creatinine Ratio Glucose POC Glucose 169 H 74 167 H Calculated Osmolality Calcium Magnesium Urine Color Urine Appearance Urine pH Ur Specific [place] Urine Protein Urine Glucose (UA) Urine Ketones Urine Blood Urine Nitrate Urine Bilirubin Urine Urobilinogen Urine Leukocytes Urine RBC Urine WBC Ur Squamous Epith Cells Ur Culture Indicated? 09/14/16 09/14/16 09/14/16 05:03 05:03 07:29 WBC 10.5 RBC 4.57 Hgb 13.2 Hct 40.0 MCV 87.5 MCH 29 MCHC 33.0 RDW 15.3 Plt Count 243 D MPV 10.1 Neut % (Auto) 64.2 Lymph % (Auto) 25.2 [place] % (Auto) 8.8 Eos % (Auto) 1.0 Baso % (Auto) 0.5 Neut # (Auto) 6.7 Lymph # (Auto) 2.7 [place] # (Auto) 0.9 H Eos # (Auto) 0.1 Baso # (Auto) 0.1 Immature Gran % 0.3 Nucleated RBC % 0.0 Immature Gran # 0.03 Nucleated RBCs # 0.00 Sodium 145 Potassium 4.0 Chloride 108 H Carbon Dioxide 28 Anion Gap 13.0 BUN 64 H Creatinine 2.00 H GFR Calculation 28 BUN/Creatinine Ratio 32.00 H Glucose 120 H POC Glucose 113 H Calculated Osmolality 306.7 H Calcium 8.5 Magnesium 2.3 Urine Color Urine Appearance Urine pH Ur Specific [place] Urine Protein Urine Glucose (UA) Urine Ketones Urine Blood Urine Nitrate Urine Bilirubin Urine Urobilinogen Urine Leukocytes Urine RBC Urine WBC Ur Squamous Epith Cells Ur Culture Indicated? 09/14/16 09:10 WBC RBC Hgb Hct MCV MCH MCHC RDW Plt Count MPV Neut % (Auto) Lymph % (Auto) [place] % (Auto) Eos % (Auto) Baso % (Auto) Neut # (Auto) Lymph # (Auto) [place] # (Auto) Eos # (Auto) Baso # (Auto) Immature Gran % Nucleated RBC % Immature Gran # Nucleated RBCs # Sodium Potassium Chloride Carbon Dioxide Anion Gap BUN Creatinine GFR Calculation BUN/Creatinine Ratio Glucose POC Glucose Calculated Osmolality Calcium Magnesium Urine Color Straw Urine Appearance Clear Urine pH 6.0 Ur Specific [place] 1.006 Urine Protein Negative Urine Glucose (UA) Negative Urine Ketones Negative Urine Blood Negative Urine Nitrate Negative Urine Bilirubin Negative Urine Urobilinogen < 2.0 H Urine Leukocytes Negative Urine RBC <1 Urine WBC 1 Ur Squamous Epith Cells Occasional Ur Culture Indicated? 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: Chronic Current Visit: No (3) Diabetic peripheral neuropathy Status: Acute Current Visit: No (4) Mobitz type 2 second degree AV block Status: Resolved Assessment and plan: No more high degree AV block Current Visit: Yes (5) Coronary artery disease Status: Chronic Current Visit: Yes (6) Hyperlipidemia Status: Chronic Current Visit: Yes (7) COPD (chronic obstructive pulmonary disease) Status: Chronic Current Visit: Yes (8) Obstructive sleep apnea Status: Chronic Current Visit: Yes (9) Pulmonary hypertension Status: Acute Current Visit: Yes (10) Aortic stenosis Status: Chronic Current Visit: Yes Qualifiers: Cardiac valve disease etiology: nonrheumatic Qualified Code(s): I35.0 - Nonrheumatic aortic (valve) stenosis (11) Obesity Status: Chronic Current Visit: Yes (12) Osteoarthritis Status: Chronic Current Visit: Yes Cardiology - PN: Subj Interval history: Ms. Lee still complains of shortness of breath. This is been a chronic problem is not acute. She has had improvement in her heart rate. She continues to have first-degree AV block and occasionally has an APC but heart rates up in the 60s. CT scan of the chest today shows bilateral pleural effusion is slightly worse on the right. Formal report is pending. Her blood pressure remains extremely elevated and I have discontinued her labetalol and will continue to increase her amlodipine. She may need an additional agent if she cannot be control of these. I think her dyspnea is multifactorial but increase her heart rate does not seem to have changed much. She is extremely sedentary she is morbidly obese with a BMI of 41 she has some pulmonary hypertension had a left ventricular end-diastolic pressure of 27 mmHg. Exam (Progress Note) - Constitutional Vitals: Period Temp Pulse Resp BP Sys/Duffy Pulse Ox Last 24 Hr 97.4 F-98.2 F 60-91 16-20 134-185/59-83 95-98 Exam: Morbidly obese. Her lungs are clear with poor inspiratory effort I cannot appreciate any dullness at the bases but her exam is suboptimal cardiovascular is regular without gallop or rub she has a soft murmur of aortic sclerosis it is a 3 out of 6 second heart sound is preserved. Abdominal exam is obese extremities have trivial if any edema. She is alert and oriented. Result/EKG - Labs CBC & BMP: 09/14/16 05:03 09/14/16 05:03 Labs: Laboratory Results - last 24 hr 09/13/16 09/13/16 09/14/16 16:49 21:07 05:03 WBC 10.5 RBC 4.57 Hgb 13.2 Hct 40.0 MCV 87.5 MCH 29 MCHC 33.0 RDW 15.3 Plt Count 243 D MPV 10.1 Neut % (Auto) 64.2 Lymph % (Auto) 25.2 [place] % (Auto) 8.8 Eos % (Auto) 1.0 Baso % (Auto) 0.5 Neut # (Auto) 6.7 Lymph # (Auto) 2.7 [place] # (Auto) 0.9 H Eos # (Auto) 0.1 Baso # (Auto) 0.1 Immature Gran % 0.3 Nucleated RBC % 0.0 Immature Gran # 0.03 Nucleated RBCs # 0.00 INR PT Patient/Control Mix Circ Anticoag PTT ABG pH ABG pCO2 ABG pO2 ABG HCO3 ABG Total CO2 ABG O2 Saturation ABG Base Excess FiO2 Sodium Potassium Chloride Carbon Dioxide Anion Gap BUN Creatinine GFR Calculation BUN/Creatinine Ratio Glucose POC Glucose 74 167 H Calculated Osmolality Calcium Magnesium Urine Color Urine Appearance Urine pH Ur Specific [place] Urine Protein Urine Glucose (UA) Urine Ketones Urine Blood Urine Nitrate Urine Bilirubin Urine Urobilinogen Urine Leukocytes Urine RBC Urine WBC Ur Squamous Epith Cells Ur Culture Indicated? 09/14/16 09/14/16 09/14/16 05:03 07:29 09:10 WBC RBC Hgb Hct MCV MCH MCHC RDW Plt Count MPV Neut % (Auto) Lymph % (Auto) [place] % (Auto) Eos % (Auto) Baso % (Auto) Neut # (Auto) Lymph # (Auto) [place] # (Auto) Eos # (Auto) Baso # (Auto) Immature Gran % Nucleated RBC % Immature Gran # Nucleated RBCs # INR PT Patient/Control Mix Circ Anticoag PTT ABG pH ABG pCO2 ABG pO2 ABG HCO3 ABG Total CO2 ABG O2 Saturation ABG Base Excess FiO2 Sodium 145 Potassium 4.0 Chloride 108 H Carbon Dioxide 28 Anion Gap 13.0 BUN 64 H Creatinine 2.00 H GFR Calculation 28 BUN/Creatinine Ratio 32.00 H Glucose 120 H POC Glucose 113 H Calculated Osmolality 306.7 H Calcium 8.5 Magnesium 2.3 Urine Color Straw Urine Appearance Clear Urine pH 6.0 Ur Specific [place] 1.006 Urine Protein Negative Urine Glucose (UA) Negative Urine Ketones Negative Urine Blood Negative Urine Nitrate Negative Urine Bilirubin Negative Urine Urobilinogen < 2.0 H Urine Leukocytes Negative Urine RBC <1 Urine WBC 1 Ur Squamous Epith Cells Occasional Ur Culture Indicated? Not indicated 09/14/16 09/14/16 09/14/16 10:11 11:15 12:02 WBC RBC Hgb Hct MCV MCH MCHC RDW Plt Count MPV Neut % (Auto) Lymph % (Auto) [place] % (Auto) Eos % (Auto) Baso % (Auto) Neut # (Auto) Lymph # (Auto) [place] # (Auto) Eos # (Auto) Baso # (Auto) Immature Gran % Nucleated RBC % Immature Gran # Nucleated RBCs # INR 2.9 PT Patient/Control Mix 32.5 D Circ Anticoag PTT 36.8 ABG pH 7.427 ABG pCO2 43.5 ABG pO2 82.3 ABG HCO3 27.8 H ABG Total CO2 25.1 ABG O2 Saturation 96.1 ABG Base Excess 3.8 H FiO2 21.00 Sodium Potassium Chloride Carbon Dioxide Anion Gap BUN Creatinine GFR Calculation BUN/Creatinine Ratio Glucose POC Glucose 122 H Calculated Osmolality Calcium Magnesium Urine Color Urine Appearance Urine pH Ur Specific [place] Urine Protein Urine Glucose (UA) Urine Ketones Urine Blood Urine Nitrate Urine Bilirubin Urine Urobilinogen Urine Leukocytes Urine RBC Urine WBC Ur Squamous Epith Cells Ur Culture Indicated? - EKG EKG results: interpreted by me, sinus rhythm
[2016-09-14 10:29] LABS: INR 2.9; Partial Thromboplastin Time 36.8 SECS (0-40)
[2016-09-14 11:09] LABS: PT Patient Result 32.5 SECS
[2016-09-14 12:20] LABS: ABG Base Excess 3.8 MMOL/L (-2.5-2.5); ABG HCO3 27.8 MMOL/L (20-26); ABG Oxygen Saturation 96.1 % (95-100); ABG PCO2 43.5 MM HG (35-48); ABG PH 7.427 (7.35-7.45); ABG PO2 82.3 MM HG (80-95); ABG TCO2 25.1 MMOL/L (23-27); Allen Test Positive
[2016-09-14] MEDS ORDERED: amLODIPine 5 MG TABLET PO ONE (14:08)
--- NOTE | 2016-09-14 14:33 | CT Report ---
CT chest wo con Indication: Hemoptysis. Recurrent pneumonia. History of breast and kidney cancer. CT CHEST WITHOUT CONTRAST DLP: 557 mGy*cm. One or more of the following dose reduction techniques was used: Automated exposure control, adjustment of the mA and/or kV according the patient size, or use of iterative reconstruction techniques. Comparison: 07/13/2014 Technique: Axial noncontrast CT images of the chest were obtained. Findings: Normal heart size. Severe mitral and aortic valve calcifications noted. Diffuse calcified atheromatous disease is present. Bovine arch. Subcentimeter mediastinal lymph nodes are not pathologically enlarged. No axillary or bulky hilar lymphadenopathy identified, although lack of IV contrast limits evaluation of hilar structures significantly. Small right and tiny left pleural effusions are present. There are some degree of atelectasis. Pleural-based thickening at the lateral left lung base noted. There is some pleural scarring with traction bronchiectasis anterior right upper lobe in a pattern of fibrosis suggesting prior radiation therapy. Elsewhere the lungs, patchy areas of groundglass opacity are present, but no focal mass or significant consolidation is shown. No cavitary lesions demonstrated. The central airways widely patent. Patient is osteoporotic with degenerative changes of the thoracic spine throughout. No acute compression fractures demonstrated. T11 is slightly flattened with an anterior configuration. Unenhanced views of the upper abdomen show calcified atheromatous disease and a calcified granuloma in the liver. Upper abdomen is otherwise unremarkable. Impression: 1. Small right and tiny left pleural effusions with atelectasis. Areas of interstitial scarring of the lungs, especially right upper lobe with fibrotic change, likely post ration therapy. Nonspecific areas of groundglass opacity noted as well. No focal mass or consolidation. 2. Severe calcifications of the mitral and aortic valves. Calcified atheromatous disease and bovine arch. 3. Anterior compression fracture of T11, chronic and mild. PROCEDURE INTERPRETED AT [facility] DEPARTMENT OF RADIOLOGY Final Report Signed by: Damien Xie M.D.
--- NOTE | 2016-09-14 15:07 | EKG Report ---
Stationary ECG Study [facility] Test Date: 09/14/2016 3:06:48 PM Pat Name: BETTYE SOLOMON Department: Room: 275 Gender: F Hog Ribber: : 1935 Requested by: Guzman Castorena Order Number: [id number] Reading MD: REKHA JARRETT Intervals [place] Rate: 58 P: 999 MS: 0 QRS: 69 QRSD: 84 T: 53 QT: 372 QTc: 368 Interpretive Statements SINUS RHYTHM WITH 2ND DEGREE AV BLOCK, MOBITZ TYPE I Electronically Signed On 09-14-16 15:48:53 CDT by REKHA JARRETT [email or web address]
[2016-09-14] MEDS: MONTELUKAST 10 MG TABLET PO SCH (20:51)
[2016-09-14] MEDS: INSULIN GLARGINE 100 UNIT/ML SUBCUT SCH (20:51)
[2016-09-14] MEDS: PREGABALIN 50 MG CAPSULE PO SCH (20:51)
[2016-09-14] MEDS: ATORVASTATIN 20 MG TABLET PO SCH (20:51)
[2016-09-15 05:31] LABS: Basophils # 0.1 10*3/uL (0.0-0.2); Basophils % 0.5 % (0.0-0.8); Eosinophils # 0.1 10*3/uL (0.0-0.87); Eosinophils % 1.2 % (0.00-10.9); Hematocrit 40.4 VOL% (35.7-47.0); Hemoglobin 13.2 GM/DL (12.0-16.0); Immature Granulocytes % 0.5 %; Immature Granulocytes Absolute 0.05 #; Lymphocytes # 2.7 10*3/uL (1.4-4.0); Lymphocytes % 26.9 % (21.3-54.2); Mean Corpuscular HGB Conc 32.7 GM/DL (32-36); Mean Corpuscular Hemoglobin 29 PG (27-34); Mean Corpuscular Volume 87.3 FL (87-102); Mean Platelet Volume 9.8 FL (9.6-12.0); Monocytes # 0.9 10*3/uL (0.11-0.8); Monocytes % 9.2 % (1.7-12.7); Neutrophils # 6.3 10*3/uL (1.4-7.4); Neutrophils % 61.7 % (38.7-73.9); Platelet Count 232 T/CUMM (130-400); Red Blood Count 4.63 MC/CUMM (3.8-5.5); Red Cell Distribution Width 14.8 % (9.3-17.3); White Blood Count 10.1 T/CUMM (4-12)
[2016-09-15 06:00] LABS: Calcium 8.6 MG/DL (8.5-10.1); Osmolality,Calculated 297.8 MOS/KG (273-304); Potassium 3.7 MMOL/L (3.5-5.1)
[2016-09-15] MEDS ORDERED: MIDAZOLAM 2 MG/2 ML VIAL ONE (06:58)
[2016-09-15] MEDS ORDERED: PROMETHAZINE 25 MG/1 ML VIAL IM ONE (07:00)
--- NOTE | 2016-09-15 07:11 | Pulmonology Progress Note ---
Pulmonary - PN: Subj Interval history: This 80-year-old white female has shortness of breath. She has had persistent hemoptysis over several months. She takes anticoagulants. She has had previous radiation to the right chest wall for breast cancer. CT scan yesterday shows modest pleural effusions bilaterally. There are some groundglass changes in the left upper lobe that would be most consistent with pulmonary edema but could be some hemorrhage. There is scarring in the right upper lobe that certainly does not appear to be severe but is probably due to previous radiation. Patient is set up for bronchoscopy today. Need to find the site of the bleeding. It may be just a combination of congestive heart failure and anticoagulants. Exam (Progress Note) - Constitutional Vitals: Period Temp Pulse Resp BP Sys/Duffy Pulse Ox Last 24 Hr 96.1 F-98.7 F 60-74 16-20 105-190/51-83 90-97 Exam: Patient is obese. Vital signs normal. Pupils react to light. Throat is clear. Neck supple no bruits. Chest shows some dullness in the bases and minimal crackles at the right base. Heart normal rate and rhythm grade 1/6 systolic murmur at right base. Abdomen soft obese unable to palpate abdominal organs. Extremities no clubbing cyanosis , trace edema. Calves nontender. Results - Labs CBC & BMP: 09/15/16 04:57 09/15/16 04:57 Lab Results: I have reviewed the past 24 hour labs - Diagnostic Findings Procedure: CT - chest: image reviewed by me (Bilateral pleural effusions. Scarring right upper lobe. Groundglass changes left upper lobe) Assessment and Plan (1) Morbid obesity Status: Chronic Assessment and plan: Morbid obesity may be playing a part in her pulmonary hypertension. She may have obesity hypoventilation syndrome. Will check ABGs. 09/15/2016 again needs to work on weight loss. Her PCO2 is only 43 so she does not frankly fit the mold for obesity hypoventilation syndrome. However she does have morbid obesity Current Visit: No (2) Postphlebitic syndrome Status: Acute Assessment and plan: She is on long-term anticoagulants with Coumadin. INR was 2.3 during this admission. This may add to her risk of hemoptysis 09/15/2016 on long-term anticoagulants. After bronchoscopy may want to change her anticoagulants. Would suggest Eliquis 2.5 mg twice daily long-term. Current Visit: No (3) Hemoptysis Status: Acute Assessment and plan: Likely multifactorial but she is on anticoagulants. 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 She is coughing up some sticky sputum and probably has at least a superimposed bronchitis which may be hemorrhagic. I will obtain a noncontrast chest CT and plan bronchoscopy. 09/15/2016 for bronchoscopy today. She reports on CT scan. Current Visit: No (4) Obstructive sleep apnea Status: Chronic Assessment and plan: Patient to use CPAP at night. Current Visit: Yes (5) Pulmonary hypertension Status: Acute Assessment and plan: Her pulmonary hypertension is a little worse now than it was last year. Estimated peak pulmonary artery pressure on echocardiogram went from 42-55 and a little over a year. This may be due to obesity, sleep apnea, left-sided heart disease although it does not appear to be severe. Certainly could have primary pulmonary hypertension. Will consider adding Revatio. 09/15/2016 likely multifactorial. Current Visit: Yes (6) Aortic stenosis Status: Chronic Assessment and plan: This appears to be relatively mild. Current Visit: Yes Qualifiers: Cardiac valve disease etiology: nonrheumatic Qualified Code(s): I35.0 - Nonrheumatic aortic (valve) stenosis
--- NOTE | 2016-09-15 07:24 | Family Practice Progress Note ---
Family Practice - PN: Subj Interval history: Patient states she had a decent night and she has not perceived any palpitations. She states her left chest is not hurting much when she is having more hemoptysis. She is scheduled for a FOB this morning. Her urinalysis came back negative and she states she did not have any urinary incontinence last night. Her blood pressures up since stopping her clonidine. Creatinine is down to 1.5 this morning. Exam (Progress Note) - Constitutional Vitals: Period Temp Pulse Resp BP Sys/Duffy Pulse Ox Last 24 Hr 96.1 F-98.7 F 60-74 15-20 105-190/51-85 90-100 Exam: Objectively well-developed obese white female no acute distress. She is able to give good history. Cardiovascular: Heart rates regular silhouette is still bit bradycardic. There is no murmurs or gallops. Respiratory: Lungs clear to auscultation bilaterally. Abdomen: Abdomen soft and nontender to palpation. Results - Labs CBC & BMP: 09/15/16 04:57 09/15/16 04:57 Lab Results: I have reviewed the past 24 hour labs Assessment and Plan (1) Bradycardia Status: Acute Assessment and plan: 09/12/2016: Cardiology will be consulted. Patient's potassium was 5.8 so her potassium will be held and a repeat BMP is pending for this morning. 09/13/2016: Patient's heart rate has improved. 09/14/2016: Heart rates improved with second-degree AV block persist. 09/14/2016: Type I second-degree AV block persists. Patient's heart rate is much improved. Current Visit: Yes (2) Mobitz type 2 second degree AV block Status: Resolved Assessment and plan: 09/12/2016: Cardiology has been consulted. 09/13/2016: This has resolved. 09/14/2016: There is some persistence 09/15/2016: This appears to have resolved Current Visit: Yes (3) Hemoptysis Status: Acute Assessment and plan: 09/14/2016: Will consult pulmonary. 09/15/2016: Patient scheduled for bronchoscopy this morning. Current Visit: No
[2016-09-15] MEDS ORDERED: LIDOCAINE 1% 20 ML VIAL MISC INJ ONE (07:30)
[2016-09-15] MEDS ORDERED: MIDAZOLAM 2 MG/2 ML VIAL IV ONE (07:30)
--- NOTE | 2016-09-15 07:53 | Operative Note ---
Date of procedure: 09/15/16 (Fiberoptic bronchoscopy with bronchial washing) Pre-op diagnosis: Hemoptysis Post-op diagnosis: same (Chronic bronchitis, increased submucosal vascularity due to congestive heart failure) Procedure: The patient was given intramuscular preoperative medication on the silva. She was transported to bronchoscopy suite. After an appropriate timeout to be sure we were dealing with Nay Junior, the patient was given 2 mg of Versed intravenously after having nebulized Xylocaine. 3 L of nasal oxygen was placed in the right naris. The fiberoptic bronchoscope was introduced via the left naris. The vocal cords were identified and noted to function normally with phonation. There was some mild laryngeal edema. There were increased secretions in the hypopharynx. After further topical anesthesia the trachea was entered and was free of lesions. The emi was slightly widened. There were increased secretions bilaterally. The distal mainstem bronchi on both sides were erythematous and showed increased submucosal vascularity consistent with congestive heart failure. This was relatively mild however. There were no abnormalities noted otherwise. There were no endobronchial lesions. There was no active bleeding. Saline irrigation was undertaken bilaterally. Cultures and cytology were requested. The fiberoptic bronchoscope was removed. Basically her hemoptysis appears to be due to chronic bronchitis and congestive heart failure in a patient on anticoagulants. I would recommend changing from Coumadin to half dose Eliquis. That would be 2.5 mg twice daily. Anesthesia: conscious sedation Surgeon / Physician: Milo Astudillo Estimated blood loss: none Specimens: other (Bronchial washings for cultures and cytology) Condition: stable Disposition: floor Results - Labs CBC & BMP: 09/15/16 04:57 09/15/16 04:57 Discharge Plan - Discharge Medications No Action Insulin Detemir [Levemir FlexPen] 45 unit SUBCUT BEDTIME #0 Cyanocobalamin Inj [Vitamin B12 Inj] 1,000 mcg SUBCUT Q30D Omeprazole [Prilosec] 20 mg PO QAM Insulin Aspart [NovoLOG FlexPen] 10 unit SUBCUT TID W/MEALS Albuterol Neb [Proventil Neb] 2.5 mg RESP TX RT Q4H PRN PRN Reason: Shortness Of Breath/Wheezing Allopurinol [Zyloprim] 100 mg PO QAM tablet Alum/Mag/Simeth Max Str Liquid [Mylanta Max Strength Liquid] 30 ml PO Q4H PRN PRN Reason: Dyspepsia Atorvastatin [Lipitor] 10 mg PO BEDTIME tablet cloNIDine TAB [Catapres Tab] 0.1 mg PO BID tablet Labetalol Tab [Trandate Tab] 100 mg PO BID tablet Levothyroxine Tab [Synthroid Tab] 50 mcg PO QAM tablet Memantine [Namenda] 10 mg PO BID tablet Methenamine Hippurate [Hiprex] 1 gm PO BID tablet Montelukast Tab [Singulair Tab] 10 mg PO BEDTIME tablet Pregabalin [Lyrica] 50 mg PO BEDTIME capsule Solifenacin [Vesicare] 10 mg PO QAM tablet Warfarin [Coumadin] 2.5 mg PO MOWEFR Warfarin [Coumadin] 5 mg PO SUTUTH Potassium Chloride Cap/Tab [K Dur] 20 meq PO DAILY Furosemide Tab [Lasix Tab] 80 mg PO BID Aspirin EC Tab 81 mg PO QAM tablet Meclizine [Antivert] 25 mg PO QPM PRN tablet PRN Reason: Dizziness Acetaminophen Tab [Tylenol Tab] 1,000 mg PO Q6H PRN PRN Reason: Fever > 100.4 Or Headache Linagliptin [Tradjenta] 5 mg PO DAILY - Follow Up or Referral - Forms/Instructions
[2016-09-15] MEDS: INSULIN LISPRO 100 UNIT/ML SUBCUT SCH ×3 (08:22→17:09)
--- NOTE | 2016-09-15 09:32 | Cardiology Progress Note ---
Assessment and Plan - Time spent with patient Time spent with patient: Less than 30 minutes (1) Bradycardia Status: Acute Assessment and plan: See plan of care listed below. Current Visit: Yes (2) Dyspnea Status: Acute Assessment and plan: See plan of care listed below. Current Visit: No (3) Coronary artery disease Status: Chronic Assessment and plan: See plan of care listed below. Current Visit: Yes (4) Hypertension Status: Chronic Assessment and plan: See plan of care listed below. Current Visit: Yes Qualifiers: Hypertension type: essential hypertension Qualified Code(s): I10 - Essential (primary) hypertension (5) History of DVT (deep vein thrombosis) Status: Chronic Assessment and plan: See plan of care listed below. Current Visit: No (6) [facility] (current) use of anticoagulants Status: Chronic Assessment and plan: See plan of care listed below. Current Visit: No (7) Hyperlipidemia Status: Chronic Assessment and plan: See plan of care listed below. Current Visit: Yes (8) COPD (chronic obstructive pulmonary disease) Status: Chronic Assessment and plan: See plan of care listed below. Current Visit: Yes (9) Obstructive sleep apnea Status: Chronic Assessment and plan: See plan of care listed below. Current Visit: Yes (10) Morbid obesity Status: Chronic Assessment and plan: See plan of care listed below. 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 Edenilson Peck SUMMARY: Ms. Junior is a 80 year old female with extensive medical history including mild nonobstructive coronary artery disease, hypertension, CHF , peripheral vascular disease, hyperlipidemia, GERD, DVT now on chronic anticoagulation, diabetes, COPD, obstructive sleep apnea, renal and breast cancer who presented to the hospital with complaints of dyspnea on exertion and easy fatigability for the past 2 weeks. She was on a significant dose of labetalol twice a day but has 2-1 AV block. It was recommended that we hold her beta-luciana and clonidine. If she does not have rather significant improvement in the short-term she likely benefit from dual-chamber pacemaker. She underwent fiberoptic bronchoscopy with bronchial washing by Dr. Astudillo this morning. It is felt her hemoptysis is due to chronic bronchitis and congestive heart failure. It was recommended her Coumadin be changed to half dose Eliquis. Will further discuss with Dr. Duggan and await his recommendations prior to changing this medication. Ms. Junior is fairly drowsy upon exam and has not long been returned to her room. Her blood pressure was a little elevated this morning but she has not yet received her morning dose of blood pressure medications. Her Norvasc was increased to 10mg and she has also been started on Diovan. Creatinine is down to 1.5 today. Assessment/plan: 1. Bradycardia -hold clonidine and all trixie blocking agents. We will continue to monitor. At some point she may require pacemaker placement if she continues to be symptomatic. Her heart rate has improved with cessation of trixie blocking agents but she continues to have some second-degree AV block per food tester. Will further discuss with Dr. Duggan and await his recommendations. 2. Dyspnea on exertion - Likely related to her pulmonary hypertension. We appreciate pulmonology's assistance. She undwerwent fiberoptic bronchoscopy with Dr. Astudillo this morning. 3. Coronary artery disease - prior history of mild nonobstructive coronary artery disease. She was previously seen by Dr. Reno and underwent left heart catheterization on April 29, 2008 which revealed elevated left-sided filling pressures with LVEDP 27 mmHg, nonsignificant coronary artery disease including 30-40% smooth discrete ostial left main stenosis, 30% ostial RCA stenosis with 30% mild RCA stenosis. She was ruled out for [place]. 4. Hypertension - We will continue to monitor and adjust medications accordingly throughout her stay. 5. History of DVT - will check lower extremity venous Dopplers to rule out recurrent DVT. 6. Chronic anticoagulation - Pulmonology recommends changing her to low dose Eliquis. Will further discuss with Dr. Duggan and await his recommendations. 7. Hyperlipidemia - continue lipid-lowering agent. 8. COPD - O2 as needed. She has breathing treatments ordered as needed. 9. Obstructive sleep apnea - continue CPAP while sleeping and O2 as needed. 10. Morbid obesity - chronic. Exam (Progress Note) - Constitutional Vitals: Period Temp Pulse Resp BP Sys/Duffy Pulse Ox Last 24 Hr 96.1 F-98.7 F 60-89 12-20 105-190/51-110 90-100 Exam: General appearance: Pleasant and cooperative. Obese, mild conversational dyspnea. - Head Head exam: Present: normal inspection, normocephalic, atraumatic. Absent: hematoma, laceration - Eye Eye exam: Present: EOMI. Absent: conjunctival injection, nystagmus, periorbital swelling, scleral icterus, laceration to eyelids Pupils: Present: PERRL. Absent: constricted, dilated, fixed, irregular, unequal - ENT ENT exam: Present: Edentulous, normal external ear exam - Neck Neck exam: Present: normal inspection. Absent: lymphadenopathy, meningismus, tenderness, thyromegaly - Respiratory Respiratory exam: Present: clear to auscultation bilaterally with poor inspiratory effort. Absent: accessory muscle use, chest wall tenderness - Cardiovascular Cardiovascular exam: Present: regular rate and rhythm. Systolic murmur consistent with aortic sclerosis. Absent: rubs - GI/Abdominal GI/Abdominal exam: Present: normal bowel sounds, soft. Absent: distended, firm , guarding, hernia, mass, tenderness, rebound. - Extremities Exam Extremities exam: Present: normal inspection, normal capillary refill. Upper extremity pulses 2+. Lower extremity pulses present but diminished. Trace pretibial edema. Absent: calf tenderness -Musculoskeletal Exam Musculoskeletal: Present: No Fluid Collection, No Pain, Normal Range of Motion - Neurological Exam Neurological exam: Present: drowsy but easily arousable to verbal stimuli, oriented X3, grossly intact without resting or essential tremor - Psychiatric Psychiatric exam: Present: normal affect, normal mood - Skin Skin exam: Present: normal color, warm, dry, intact. Absent: cyanosis, diaphoretic, rash, urticaria Result/EKG - Labs CBC & BMP: 09/15/16 04:57 09/15/16 04:57 Lab Results: I have reviewed the past 24 hour labs Labs: Laboratory Results - last 24 hr 09/14/16 09/14/16 09/14/16 09:10 10:11 11:15 WBC RBC Hgb Hct MCV MCH MCHC RDW Plt Count MPV Neut % (Auto) Lymph % (Auto) [place] % (Auto) Eos % (Auto) Baso % (Auto) Neut # (Auto) Lymph # (Auto) [place] # (Auto) Eos # (Auto) Baso # (Auto) Immature Gran % Nucleated RBC % Immature Gran # Nucleated RBCs # INR 2.9 PT Patient/Control Mix 32.5 D Circ Anticoag PTT 36.8 ABG pH ABG pCO2 ABG pO2 ABG HCO3 ABG Total CO2 ABG O2 Saturation ABG Base Excess FiO2 Sodium Potassium Chloride Carbon Dioxide Anion Gap BUN Creatinine GFR Calculation BUN/Creatinine Ratio Glucose POC Glucose 122 H Calculated Osmolality Calcium Magnesium Urine Color Straw Urine Appearance Clear Urine pH 6.0 Ur Specific [place] 1.006 Urine Protein Negative Urine Glucose (UA) Negative Urine Ketones Negative Urine Blood Negative Urine Nitrate Negative Urine Bilirubin Negative Urine Urobilinogen < 2.0 H Urine Leukocytes Negative Urine RBC <1 Urine WBC 1 Ur Squamous Epith Cells Occasional Ur Culture Indicated? Not indicated 09/14/16 09/14/16 09/14/16 12:02 15:54 19:58 WBC RBC Hgb Hct MCV MCH MCHC RDW Plt Count MPV Neut % (Auto) Lymph % (Auto) [place] % (Auto) Eos % (Auto) Baso % (Auto) Neut # (Auto) Lymph # (Auto) [place] # (Auto) Eos # (Auto) Baso # (Auto) Immature Gran % Nucleated RBC % Immature Gran # Nucleated RBCs # INR PT Patient/Control Mix Circ Anticoag PTT ABG pH 7.427 ABG pCO2 43.5 ABG pO2 82.3 ABG HCO3 27.8 H ABG Total CO2 25.1 ABG O2 Saturation 96.1 ABG Base Excess 3.8 H FiO2 21.00 Sodium Potassium Chloride Carbon Dioxide Anion Gap BUN Creatinine GFR Calculation BUN/Creatinine Ratio Glucose POC Glucose 89 221 H Calculated Osmolality Calcium Magnesium Urine Color Urine Appearance Urine pH Ur Specific [place] Urine Protein Urine Glucose (UA) Urine Ketones Urine Blood Urine Nitrate Urine Bilirubin Urine Urobilinogen Urine Leukocytes Urine RBC Urine WBC Ur Squamous Epith Cells Ur Culture Indicated? 09/15/16 09/15/16 09/15/16 04:57 04:57 08:07 WBC 10.1 RBC 4.63 Hgb 13.2 Hct 40.4 MCV 87.3 MCH 29 MCHC 32.7 RDW 14.8 Plt Count 232 MPV 9.8 Neut % (Auto) 61.7 Lymph % (Auto) 26.9 [place] % (Auto) 9.2 Eos % (Auto) 1.2 Baso % (Auto) 0.5 Neut # (Auto) 6.3 Lymph # (Auto) 2.7 [place] # (Auto) 0.9 H Eos # (Auto) 0.1 Baso # (Auto) 0.1 Immature Gran % 0.5 Nucleated RBC % 0.0 Immature Gran # 0.05 Nucleated RBCs # 0.00 INR PT Patient/Control Mix Circ Anticoag PTT ABG pH ABG pCO2 ABG pO2 ABG HCO3 ABG Total CO2 ABG O2 Saturation ABG Base Excess FiO2 Sodium 144 Potassium 3.7 Chloride 105 Carbon Dioxide 31 Anion Gap 11.7 BUN 42 H D Creatinine 1.50 H GFR Calculation 40 BUN/Creatinine Ratio 28.00 H Glucose 113 H POC Glucose 186 H Calculated Osmolality 297.8 Calcium 8.6 Magnesium 2.0 Urine Color Urine Appearance Urine pH Ur Specific [place] Urine Protein Urine Glucose (UA) Urine Ketones Urine Blood Urine Nitrate Urine Bilirubin Urine Urobilinogen Urine Leukocytes Urine RBC Urine WBC Ur Squamous Epith Cells Ur Culture Indicated? - EKG EKG results: interpreted by me, sinus rhythm
[2016-09-15] MEDS: MEMANTINE 10 MG TABLET PO SCH ×2 (10:24→20:52)
[2016-09-15] MEDS: sitaGLIPtin 25 MG TABLET PO SCH (10:24)
[2016-09-15] MEDS: METHENAMINE HIPPURATE 1 GM TABLET PO SCH ×2 (10:24→20:52)
[2016-09-15] MEDS: DOCUSATE SODIUM 100 MG CAPSULE PO SCH ×2 (10:24→20:51)
[2016-09-15] MEDS: VALSARTAN 160 MG TABLET PO SCH (10:24)
[2016-09-15] MEDS: ASPIRIN EC 81 MG TABLET PO SCH (10:24)
[2016-09-15] MEDS: ALLOPURINOL 100 MG TABLET PO SCH (10:25)
[2016-09-15] MEDS: LEVOTHYROXINE 50 MCG TABLET PO SCH (10:25)
[2016-09-15] MEDS: SOLIFENACIN 5 MG TABLET PO SCH (10:25)
[2016-09-15] MEDS: PANTOPRAZOLE 40 MG TABLET PO SCH (10:25)
[2016-09-15] MEDS: amLODIPine 10 MG TABLET PO SCH (10:25)
[2016-09-15] MEDS: DESITIN 4OZ/NYSTATIN 15 GRAM MIXTURE PASTE TOP SCH ×2 (10:25→20:54)
--- NOTE | 2016-09-15 11:42 | Physician Query Form ---
CLICK EDIT DOCUMENT TO SELECT QUERY ANSWER --> OK --> SIGN Chelo Hess RN Clinical Waybill Clerk W) [phone] (f) [phone] [email or web address] PROVIDERS: Make your selection(s) from the choices in EACH section by typing an "x" and enter comments in the comment section. Please use your independent medical judgment in providing your response. This request does not imply that any particular answer is desired or expected. CLINICAL INDICATORS: (Providers should not edit this section) Based on documentation of "CHF", [id number], Echo showed EF of 55%. Pt. treated with IV Bumex. Please provide further specificity regarding CHF. ACUITY: ( ) Acute x ) Chronic ( ) Acute on Chronic ( ) Clinicallly unable to determine TYPE: ( ) Systolic (HFrEF - heart failure with reduced systolic function/EF) ( x) Diastolic (HFpEF - heart failure with preserved systolic function/EF) ( ) Combined Systolic/Diastolic ( ) Other, please specify: ( ) Clinically unable to determine ( ) The patient does NOT have CHF COMMENTS: PLEASE ALSO DOCUMENT RESPONSE IN PROGRESS NOTES AND/OR DISCHARGE SUMMARY Use of terms such as suspected, likely, or probable (associated with a specific diagnosis that is being evaluated, monitored, or treated as if it exists) are acceptable and can be restated in the discharge summary if not ruled out. MTDD
--- NOTE | 2016-09-15 11:46 | EKG Report ---
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
[2016-09-15] MEDS: BUMETANIDE 1 MG/4 ML VIAL IV SCH ×2 (13:52→23:34)
[2016-09-15] MEDS: APIXABAN 2.5 MG TABLET PO SCH ×2 (13:53→20:51)
[2016-09-15] MEDS ORDERED: TUBERCULIN SKIN TEST 0.1 ML SYRINGE INTRADERM ONE (15:30)
[2016-09-15] MEDS: ATORVASTATIN 20 MG TABLET PO SCH (20:51)
[2016-09-15] MEDS: PREGABALIN 50 MG CAPSULE PO SCH (20:52)
[2016-09-15] MEDS: INSULIN GLARGINE 100 UNIT/ML SUBCUT SCH (20:52)
[2016-09-15] MEDS: MONTELUKAST 10 MG TABLET PO SCH (20:52)
[2016-09-16 04:54] LABS: Basophils # 0.1 10*3/uL (0.0-0.2); Basophils % 0.5 % (0.0-0.8); Eosinophils # 0.2 10*3/uL (0.0-0.87); Eosinophils % 2.2 % (0.00-10.9); Hematocrit 41.3 VOL% (35.7-47.0); Hemoglobin 13.6 GM/DL (12.0-16.0); Immature Granulocytes % 0.6 %; Immature Granulocytes Absolute 0.06 #; Lymphocytes % 28.3 % (21.3-54.2); Mean Corpuscular HGB Conc 32.9 GM/DL (32-36); Mean Corpuscular Hemoglobin 29 PG (27-34); Mean Corpuscular Volume 87.1 FL (87-102); Monocytes # 0.8 10*3/uL (0.11-0.8); Neutrophils # 6.3 10*3/uL (1.4-7.4); Neutrophils % 60.4 % (38.7-73.9); Platelet Count 239 T/CUMM (130-400); Red Blood Count 4.74 MC/CUMM (3.8-5.5); Red Cell Distribution Width 14.5 % (9.3-17.3); White Blood Count 10.4 T/CUMM (4-12)
[2016-09-16 05:20] LABS: Magnesium 1.9 MG/DL (1.8-2.4); Osmolality,Calculated 299.8 MOS/KG (273-304); Potassium 3.8 MMOL/L (3.5-5.1)
--- NOTE | 2016-09-16 07:18 | Family Practice Progress Note ---
Family Practice - PN: Subj Interval history: Patient states she had a fairly good night and she denies any chest pain or abdominal pain this morning. Patient states she has not coughed up any blood this morning. Fiberoptic bronchoscopy yesterday showed some changes of bronchitis between that and her blood thinners and pulmonary hypertension is probably because of her hemoptysis. Patient states she is very upset this morning because they are going to take away her Medicaid because she has a $ 8000 burial policy that is considered an asset. She can barely squeaked by with the money she is getting now and I do not know how she would make it without it. Her heart rate is running around 70 bpm and I think she can probably do without a pacemaker at this time. Her blood pressure is presently well controlled. Will continue to see if we can find her swing bed. Exam (Progress Note) - Constitutional Vitals: Period Temp Pulse Resp BP Sys/Duffy Pulse Ox Last 24 Hr 97.0 F-98.7 F 54-89 12-20 108-189/60-110 93-100 Exam: Objectively well-developed obese white female no acute distress. She is able to give good history and is obviously upset this morning Cardiovascular: Heart rates is irregular but she is less bradycardic. There is no murmurs or gallops. Respiratory: Lungs clear to auscultation bilaterally. Abdomen: Abdomen soft and nontender to palpation. Results - Labs CBC & BMP: 09/16/16 04:05 09/16/16 04:05 Lab Results: I have reviewed the past 24 hour labs Assessment and Plan (1) Bradycardia Status: Acute Assessment and plan: 09/12/2016: Cardiology will be consulted. Patient's potassium was 5.8 so her potassium will be held and a repeat BMP is pending for this morning. 09/13/2016: Patient's heart rate has improved. 09/14/2016: Heart rates improved with second-degree AV block persist. 09/15/2016: Type I second-degree AV block persists. Patient's heart rate is much improved. 09/16/2016: Patient's heart rate is much improved. Current Visit: Yes (2) Mobitz type 2 second degree AV block Status: Resolved Assessment and plan: 09/12/2016: Cardiology has been consulted. 09/13/2016: This has resolved. 09/14/2016: There is some persistence 09/15/2016: This appears to have resolved 09/16/2016: This has resolved Current Visit: Yes (3) Hemoptysis Status: Acute Assessment and plan: 09/14/2016: Will consult pulmonary. 09/15/2016: Patient scheduled for bronchoscopy this morning. 09/16/2016: FOB showed no endobronchial lesion. Patient has been switched to Eliquis but she is worried about being able to afford it Current Visit: No
[2016-09-16] MEDS: METHENAMINE HIPPURATE 1 GM TABLET PO SCH ×2 (08:13→20:55)
[2016-09-16] MEDS: INSULIN LISPRO 100 UNIT/ML SUBCUT SCH ×3 (08:13→16:17)
[2016-09-16] MEDS: ALLOPURINOL 100 MG TABLET PO SCH (08:13)
[2016-09-16] MEDS: VALSARTAN 160 MG TABLET PO SCH (08:13)
[2016-09-16] MEDS: SOLIFENACIN 5 MG TABLET PO SCH (08:13)
[2016-09-16] MEDS: DOCUSATE SODIUM 100 MG CAPSULE PO SCH ×2 (08:14→20:56)
[2016-09-16] MEDS: sitaGLIPtin 25 MG TABLET PO SCH (08:14)
[2016-09-16] MEDS: DESITIN 4OZ/NYSTATIN 15 GRAM MIXTURE PASTE TOP SCH ×2 (08:14→20:56)
[2016-09-16] MEDS: ASPIRIN EC 81 MG TABLET PO SCH (08:14)
[2016-09-16] MEDS: APIXABAN 2.5 MG TABLET PO SCH ×2 (08:14→20:55)
[2016-09-16] MEDS: MEMANTINE 10 MG TABLET PO SCH ×2 (08:14→20:56)
[2016-09-16] MEDS: PANTOPRAZOLE 40 MG TABLET PO SCH (08:14)
[2016-09-16] MEDS: LEVOTHYROXINE 50 MCG TABLET PO SCH (08:14)
[2016-09-16] MEDS: amLODIPine 10 MG TABLET PO SCH (08:15)
--- NOTE | 2016-09-16 09:38 | Cardiology Progress Note ---
Assessment and Plan (1) Hypertension Status: Chronic Assessment and plan: as per HPI Current Visit: Yes Qualifiers: Hypertension type: essential hypertension Qualified Code(s): I10 - Essential (primary) hypertension (2) long-term (current) use of anticoagulants Status: Chronic Current Visit: No (3) Diabetic peripheral neuropathy Status: Acute Current Visit: No (4) Mobitz type 2 second degree AV block Status: Resolved Assessment and plan: No more high degree AV block Current Visit: Yes (5) Coronary artery disease Status: Chronic Current Visit: Yes (6) Hyperlipidemia Status: Chronic Current Visit: Yes (7) COPD (chronic obstructive pulmonary disease) Status: Chronic Current Visit: Yes (8) Obstructive sleep apnea Status: Chronic Current Visit: Yes (9) Pulmonary hypertension Status: Acute Current Visit: Yes (10) Aortic stenosis Status: Chronic Current Visit: Yes Qualifiers: Cardiac valve disease etiology: nonrheumatic Qualified Code(s): I35.0 - Nonrheumatic aortic (valve) stenosis (11) Obesity Status: Chronic Current Visit: Yes (12) Osteoarthritis Status: Chronic Current Visit: Yes Cardiology - PN: Subj Interval history: Patient states that she is feeling much better. Her breathing is better her cough is less. She has had no more high degree AV block. Her blood pressure is uncontrolled I will increase her ARB. She is making slow but sure progress. Exam (Progress Note) - Constitutional Vitals: Period Temp Pulse Resp BP Sys/Duffy Pulse Ox Last 24 Hr 97.0 F-98.7 F 54-74 16-20 145-189/60-78 94-99 General appearance: morbidly obese - Eye Eye exam: Present: EOMI Pupils: Present: TEOFILO - Respiratory Respiratory exam: Present: clear to auscultation bilaterally. Absent: wheezes - Cardiovascular Cardiovascular exam: Present: regular rate and rhythm - GI/Abdominal GI/Abdominal exam: Present: normal bowel sounds - Extremities Exam Extremities exam: Present: normal inspection - Neurological Exam Neurological exam: Present: alert, oriented X3 - Psychiatric Psychiatric exam: Present: normal affect, normal mood - Skin Skin exam: Present: normal color, warm, dry Result/EKG - Labs CBC & BMP: 09/16/16 04:05 09/16/16 04:05 Labs: Laboratory Results - last 24 hr 09/15/16 09/15/16 09/15/16 11:05 16:43 19:24 WBC RBC Hgb Hct MCV MCH MCHC RDW Plt Count MPV Neut % (Auto) Lymph % (Auto) [place] % (Auto) Eos % (Auto) Baso % (Auto) Neut # (Auto) Lymph # (Auto) [place] # (Auto) Eos # (Auto) Baso # (Auto) Immature Gran % Nucleated RBC % Immature Gran # Nucleated RBCs # Sodium Potassium Chloride Carbon Dioxide Anion Gap BUN Creatinine GFR Calculation BUN/Creatinine Ratio Glucose POC Glucose 65 L 214 H 216 H Calculated Osmolality Calcium Magnesium 09/16/16 09/16/16 09/16/16 04:05 04:05 07:10 WBC 10.4 RBC 4.74 Hgb 13.6 Hct 41.3 MCV 87.1 MCH 29 MCHC 32.9 RDW 14.5 Plt Count 239 MPV 10.0 Neut % (Auto) 60.4 Lymph % (Auto) 28.3 [place] % (Auto) 8.0 Eos % (Auto) 2.2 Baso % (Auto) 0.5 Neut # (Auto) 6.3 Lymph # (Auto) 3.0 [place] # (Auto) 0.8 Eos # (Auto) 0.2 Baso # (Auto) 0.1 Immature Gran % 0.6 Nucleated RBC % 0.0 Immature Gran # 0.06 Nucleated RBCs # 0.00 Sodium 144 Potassium 3.8 Chloride 104 Carbon Dioxide 31 Anion Gap 12.8 BUN 40 H Creatinine 1.70 H GFR Calculation 35 BUN/Creatinine Ratio 23.00 H Glucose 163 H POC Glucose 175 H Calculated Osmolality 299.8 Calcium 8.0 L Magnesium 1.9
[2016-09-16] MEDS ORDERED: VALSARTAN 160 MG TABLET PO ONE (10:00)
--- NOTE | 2016-09-16 10:32 | Pulmonology Progress Note ---
Pulmonary - PN: Subj Interval history: Patient is an 80-year-old white lady that came in with shortness of breath and hemoptysis. 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 Patient is also been treated for mild heart failure. She did have a negative bronchoscope. She does have gram- negative rods growing on her washings. She says she is feeling better with less shortness of breath. She says her hemoptysis has cleared and her cough is better. Overall she says she is doing better. Exam (Progress Note) - Constitutional Vitals: Period Temp Pulse Resp BP Sys/Duffy Pulse Ox Last 24 Hr 97.0 F-98.7 F 54-74 16-20 145-189/60-78 94-99 General appearance: no acute distress (She looks comfortable sitting up in a chair), over weight - Head Head exam: Present: normal inspection, normocephalic - Eye Eye exam: Present: EOMI. Absent: scleral icterus - ENT ENT exam: Present: normal exam - Neck Neck exam: Present: normal inspection. Absent: lymphadenopathy, thyromegaly - Respiratory Respiratory exam: Present: decreased breath sounds (She has some mild dullness in the bases.), rales (She does have some crackles in the bases.). Absent: accessory muscle use, wheezes - Cardiovascular Cardiovascular exam: Present: regular rate and rhythm, systolic murmur (She does have a soft systolic murmur.). Absent: carotid bruit, gallop, JVD - GI/Abdominal GI/Abdominal exam: Present: normal bowel sounds, soft. Absent: distended, organomegaly, tenderness - Extremities Exam Extremities exam: Absent: calf tenderness, edema - Neurological Exam Neurological exam: Present: alert, oriented X3, CN II-XII intact. Absent: motor sensory deficit - Psychiatric Psychiatric exam: Present: normal affect - Skin Skin exam: Present: warm, dry Results - Labs CBC & BMP: 09/16/16 04:05 09/16/16 04:05 Assessment and Plan (1) Morbid obesity Status: Chronic Assessment and plan: The patient is overweight with a BMI of 40. She seems to be breathing okay at present. Current Visit: No (2) Postphlebitic syndrome Status: Acute Assessment and plan: The patient is chronically on anticoagulation. Current Visit: No (3) Hemoptysis Status: Acute Assessment and plan: Her hemoptysis is better and she feels like her breathing is better. Current Visit: No (4) Right lower lobe pneumonia Status: Acute Assessment and plan: The patient has gram-negative rods growing from the washings and will continue antibiotics. Current Visit: No (5) Diabetes Status: Chronic Assessment and plan: Her glucose is 175 today. Current Visit: No Qualifiers: Diabetes mellitus type: type 2 Diabetes mellitus complication status: with kidney complications Diabetes mellitus complication detail: with chronic kidney disease Diabetes mellitus long term care administrator insulin use: with long term care administrator use Chronic kidney disease stage: stage 3 (moderate) Qualified Code(s): E11.22 - Type 2 diabetes mellitus with diabetic chronic kidney disease; N18.3 - Chronic kidney disease, stage 3 (moderate); Z79.4 - skilled nursing (current) use of insulin (6) Obstructive sleep apnea Status: Chronic Assessment and plan: The patient is using CPAP at night. Current Visit: Yes (7) Pulmonary hypertension Status: Acute Assessment and plan: The patient has moderate pulmonary hypertension which is probably secondary pulmonary hypertension. Current Visit: Yes (8) Aortic stenosis Status: Chronic Assessment and plan: The patient has had some mild heart failure that is better. Current Visit: Yes Qualifiers: Cardiac valve disease etiology: nonrheumatic Qualified Code(s): I35.0 - Nonrheumatic aortic (valve) stenosis
[2016-09-16] MEDS: BUMETANIDE 1 MG/4 ML VIAL IV SCH ×2 (12:18→23:51)
[2016-09-16] MEDS: cefTRIAXone 1,000 MG in SODIUM CHLORIDE 0.9% 100 ML IV SCH (12:18)
[2016-09-16] MEDS: INSULIN GLARGINE 100 UNIT/ML SUBCUT SCH (20:54)
[2016-09-16] MEDS: ATORVASTATIN 20 MG TABLET PO SCH (20:55)
[2016-09-16] MEDS: PREGABALIN 50 MG CAPSULE PO SCH (20:55)
[2016-09-16] MEDS: MONTELUKAST 10 MG TABLET PO SCH (20:55)
[2016-09-17 03:30] LABS: Basophils # 0.1 10*3/uL (0.0-0.2); Basophils % 0.5 % (0.0-0.8); Eosinophils # 0.3 10*3/uL (0.0-0.87); Eosinophils % 2.1 % (0.00-10.9); Hematocrit 40.3 VOL% (35.7-47.0); Hemoglobin 13.2 GM/DL (12.0-16.0); Immature Granulocytes % 0.5 %; Immature Granulocytes Absolute 0.07 #; Lymphocytes # 3.4 10*3/uL (1.4-4.0); Lymphocytes % 26.5 % (21.3-54.2); Mean Corpuscular HGB Conc 32.8 GM/DL (32-36); Mean Corpuscular Hemoglobin 29 PG (27-34); Mean Corpuscular Volume 87.4 FL (87-102); Monocytes # 1.1 10*3/uL (0.11-0.8); Monocytes % 8.6 % (1.7-12.7); Neutrophils # 7.9 10*3/uL (1.4-7.4); Neutrophils % 61.8 % (38.7-73.9); Platelet Count 240 T/CUMM (130-400); Red Blood Count 4.61 MC/CUMM (3.8-5.5); Red Cell Distribution Width 14.6 % (9.3-17.3); White Blood Count 12.7 T/CUMM (4-12)
[2016-09-17 04:07] LABS: Calcium 8.2 MG/DL (8.5-10.1); Magnesium 1.9 MG/DL (1.8-2.4); Potassium 3.4 MMOL/L (3.5-5.1)
--- NOTE | 2016-09-17 07:38 | Family Practice Progress Note ---
Family Practice - PN: Subj Interval history: Patient states she is doing fairly well this morning and not having any chest pain. He still has cough with states she has not coughed up any blood this morning. She did have gram-negative rods on her bronchial washing. ID and sensitivity of this is yet pending. She told me she sat up in the chair most all day yesterday and is slowly regaining her strength. She is bradycardic this morning. Exam (Progress Note) - Constitutional Vitals: Period Temp Pulse Resp BP Sys/Duffy Pulse Ox Last 24 Hr 98 F-98.7 F 45-55 16-20 134-170/55-72 92-97 Exam: Objectively well-developed obese white female no acute distress. She is able to give good history and states she had a good night. Cardiovascular: Heart rates is irregular but she is less bradycardic. There is no murmurs or gallops. Respiratory: Lungs clear to auscultation bilaterally. Abdomen: Abdomen soft and nontender to palpation. Results - Labs CBC & BMP: 09/17/16 03:06 09/17/16 03:06 Lab Results: I have reviewed the past 24 hour labs Assessment and Plan (1) Bradycardia Status: Acute Assessment and plan: 09/12/2016: Cardiology will be consulted. Patient's potassium was 5.8 so her potassium will be held and a repeat BMP is pending for this morning. 09/13/2016: Patient's heart rate has improved. 09/14/2016: Heart rates improved with second-degree AV block persist. 09/15/2016: Type I second-degree AV block persists. Patient's heart rate is much improved. 09/16/2016: Patient's heart rate is much improved. 09/17/2016: Type II second-degree AV block has resolved. Current Visit: Yes (2) Mobitz type 2 second degree AV block Status: Resolved Assessment and plan: 09/12/2016: Cardiology has been consulted. 09/13/2016: This has resolved. 09/14/2016: There is some persistence 09/15/2016: This appears to have resolved 09/16/2016: This has resolved 09/17/2016: This has resolved Current Visit: Yes (3) Hemoptysis Status: Acute Assessment and plan: 09/14/2016: Will consult pulmonary. 09/15/2016: Patient scheduled for bronchoscopy this morning. 09/16/2016: FOB showed no endobronchial lesion. Patient has been switched to Eliquis but she is worried about being able to afford it 09/17/2016: Patient states she has not had any further hemoptysis Current Visit: No
[2016-09-17] MEDS ORDERED: POTASSIUM CHLORIDE 20 MEQ TABLET PO ONE (07:42)
--- NOTE | 2016-09-17 07:55 | EKG Report ---
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
[2016-09-17] MEDS: amLODIPine 10 MG TABLET PO SCH (08:48)
[2016-09-17] MEDS: MEMANTINE 10 MG TABLET PO SCH ×2 (08:48→20:34)
[2016-09-17] MEDS: SOLIFENACIN 5 MG TABLET PO SCH (08:48)
[2016-09-17] MEDS: DOCUSATE SODIUM 100 MG CAPSULE PO SCH ×2 (08:48→20:34)
[2016-09-17] MEDS: METHENAMINE HIPPURATE 1 GM TABLET PO SCH ×2 (08:48→20:34)
[2016-09-17] MEDS: sitaGLIPtin 25 MG TABLET PO SCH (08:48)
[2016-09-17] MEDS: LEVOTHYROXINE 50 MCG TABLET PO SCH (08:48)
[2016-09-17] MEDS: ASPIRIN EC 81 MG TABLET PO SCH (08:48)
[2016-09-17] MEDS: MAGNESIUM OXIDE 400 MG TABLET PO SCH ×2 (08:48→20:34)
[2016-09-17] MEDS: VALSARTAN 160 MG TABLET PO SCH (08:49)
[2016-09-17] MEDS: ALLOPURINOL 100 MG TABLET PO SCH (08:49)
[2016-09-17] MEDS: INSULIN LISPRO 100 UNIT/ML SUBCUT SCH ×3 (08:49→16:41)
[2016-09-17] MEDS: PANTOPRAZOLE 40 MG TABLET PO SCH (08:49)
[2016-09-17] MEDS: DESITIN 4OZ/NYSTATIN 15 GRAM MIXTURE PASTE TOP SCH ×2 (08:49→20:35)
[2016-09-17] MEDS: POTASSIUM CHLORIDE 20 MEQ TABLET PO SCH ×2 (08:49→20:34)
--- NOTE | 2016-09-17 09:10 | Pulmonology Progress Note ---
Pulmonary - PN: Subj Interval history: Patient is an 80-year-old white lady that came in with shortness of breath and hemoptysis. 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 Patient is also been treated for mild heart failure. She did have a negative bronchoscope. She does have gram- negative rods growing on her washings. She says she did not sleep that well but her breathing is doing okay. She still has some cough but no hemoptysis. She is not complaining of more shortness of breath. She does have a bradycardia and is looking at getting a pacemaker soon. Otherwise she seems to be tolerating everything fairly well. Exam (Progress Note) - Constitutional Vitals: Period Temp Pulse Resp BP Sys/Duffy Pulse Ox Last 24 Hr 98 F-98.7 F 45-55 16-20 134-190/55-79 92-98 Exam: General appearance: no acute distress (She looks comfortable lying in bed.), over weight - Head Head exam: Present: normal inspection, normocephalic - Eye Eye exam: Present: EOMI. Absent: scleral icterus - ENT ENT exam: Present: normal exam - Neck Neck exam: Present: normal inspection. Absent: lymphadenopathy, thyromegaly - Respiratory Respiratory exam: Present: The patient has fairly good breath sounds bilaterally but does have some crackles in the bases. She is not wheezing any now. - Cardiovascular Cardiovascular exam: Present: She has a fairly slow regular rhythm with a soft murmur. - GI/Abdominal GI/Abdominal exam: Present: normal bowel sounds, soft. Absent: distended, organomegaly, tenderness - Extremities Exam Extremities exam: Her legs have some chronic swelling but are nontender. - Neurological Exam Neurological exam: Present: alert, oriented X3, CN II-XII intact. Absent: motor sensory deficit - Psychiatric Psychiatric exam: Present: normal affect - Skin Skin exam: Present: warm, dry Results - Labs CBC & BMP: 09/17/16 03:06 09/17/16 03:06 Assessment and Plan (1) Morbid obesity Status: Chronic Assessment and plan: The patient is overweight with a BMI of 40. She seems to be breathing okay at present. Current Visit: No (2) Postphlebitic syndrome Status: Acute Assessment and plan: The patient is chronically on anticoagulation. Current Visit: No (3) Hemoptysis Status: Acute Assessment and plan: Her hemoptysis is better and she feels like her breathing is better. She still has some cough but no blood now. Current Visit: No (4) Right lower lobe pneumonia Status: Acute Assessment and plan: The patient has gram-negative rods growing from the washings and will continue antibiotics. The sensitivities are still pending. Current Visit: No (5) Diabetes Status: Chronic Assessment and plan: Her glucose is 197 today. Current Visit: No Qualifiers: Diabetes mellitus type: type 2 Diabetes mellitus complication status: with kidney complications Diabetes mellitus complication detail: with chronic kidney disease Diabetes mellitus assisted insulin use: with terminal operations supervisor use Chronic kidney disease stage: stage 3 (moderate) Qualified Code(s): E11.22 - Type 2 diabetes mellitus with diabetic chronic kidney disease; N18.3 - Chronic kidney disease, stage 3 (moderate); Z79.4 - group home (current) use of insulin (6) Obstructive sleep apnea Status: Chronic Assessment and plan: The patient is using CPAP at night. Current Visit: Yes (7) Pulmonary hypertension Status: Acute Assessment and plan: The patient has moderate pulmonary hypertension which is probably secondary pulmonary hypertension. Current Visit: Yes (8) Aortic stenosis Status: Chronic Assessment and plan: The patient has had some mild heart failure that is better. Current Visit: Yes Qualifiers: Cardiac valve disease etiology: nonrheumatic Qualified Code(s): I35.0 - Nonrheumatic aortic (valve) stenosis (9) Bradycardia Status: Acute Assessment and plan: The patient's heart rate is on the slow side and she may ultimately need a pacemaker. Current Visit: Yes
--- NOTE | 2016-09-17 09:54 | Cardiology Progress Note ---
Assessment and Plan - Time spent with patient Time spent with patient: Greater than 30 minutes (Examination discussion of procedure chart review and orders) (1) Hypertension Status: Chronic Assessment and plan: as per HPI Current Visit: Yes Qualifiers: Hypertension type: essential hypertension Qualified Code(s): I10 - Essential (primary) hypertension (2) [facility] (current) use of anticoagulants Status: Chronic Current Visit: No (3) Diabetic peripheral neuropathy Status: Acute Current Visit: No (4) Mobitz type 2 second degree AV block Status: Resolved Assessment and plan: As per HPI. Proceed with dual-chamber pacemaker placement tomorrow. Culture positive sputum is noted. Current Visit: Yes (5) Coronary artery disease Status: Chronic Current Visit: Yes (6) Hyperlipidemia Status: Chronic Current Visit: Yes (7) COPD (chronic obstructive pulmonary disease) Status: Chronic Current Visit: Yes (8) Obstructive sleep apnea Status: Chronic Current Visit: Yes (9) Pulmonary hypertension Status: Acute Current Visit: Yes (10) Aortic stenosis Status: Chronic Current Visit: Yes Qualifiers: Cardiac valve disease etiology: nonrheumatic Qualified Code(s): I35.0 - Nonrheumatic aortic (valve) stenosis (11) Obesity Status: Chronic Current Visit: Yes (12) Osteoarthritis Status: Chronic Current Visit: Yes (13) Hypokalemia Status: Acute Assessment and plan: Oral repletion Current Visit: Yes Cardiology - PN: Subj Interval history: The patient complains of being extremely weak this morning. She went back into Mobitz type II second-degree heart block or 2-1 AV block. Her blood pressure is good. We have given her ample opportunity to be off AV trixie blocking agents and I think this is not a reversible cause. She had syncope 2 I discussed with her about risk benefits and options I recommended dual-chamber pacemaker placement. She has been hemodynamically stable at this time I recommended we proceed in the morning and she is agreeable. If she is posted for 9:00 tomorrow morning. Orders have been put in the computer. Exam (Progress Note) - Constitutional Vitals: Period Temp Pulse Resp BP Sys/Duffy Pulse Ox Last 24 Hr 98 F-98.7 F 45-55 16-20 134-190/55-79 92-98 General appearance: morbidly obese - Head Head exam: Present: normal inspection - Eye Eye exam: Present: EOMI Pupils: Present: TEOFILO - Respiratory Respiratory exam: Present: clear to auscultation bilaterally - Cardiovascular Cardiovascular exam: Present: bradycardia (Heart rates about 50 when I listen to her.) - GI/Abdominal GI/Abdominal exam: Present: normal bowel sounds - Extremities Exam Extremities exam: Present: normal inspection - Back Exam Back exam: Present: normal inspection - Neurological Exam Neurological exam: Present: alert, oriented X3 - Psychiatric Psychiatric exam: Present: depressed, flat affect - Skin Skin exam: Present: normal color, warm, dry Result/EKG - Labs CBC & BMP: 09/17/16 03:06 09/17/16 03:06 Labs: Laboratory Results - last 24 hr 09/16/16 09/16/16 09/16/16 11:15 15:37 19:45 WBC RBC Hgb Hct MCV MCH MCHC RDW Plt Count MPV Neut % (Auto) Lymph % (Auto) [place] % (Auto) Eos % (Auto) Baso % (Auto) Neut # (Auto) Lymph # (Auto) [place] # (Auto) Eos # (Auto) Baso # (Auto) Immature Gran % Nucleated RBC % Immature Gran # Nucleated RBCs # Sodium Potassium Chloride Carbon Dioxide Anion Gap BUN Creatinine GFR Calculation BUN/Creatinine Ratio Glucose POC Glucose 163 H 227 H 138 H Calculated Osmolality Calcium Magnesium 09/17/16 09/17/16 09/17/16 03:06 03:06 07:16 WBC 12.7 H RBC 4.61 Hgb 13.2 Hct 40.3 MCV 87.4 MCH 29 MCHC 32.8 RDW 14.6 Plt Count 240 MPV 10.0 Neut % (Auto) 61.8 Lymph % (Auto) 26.5 [place] % (Auto) 8.6 Eos % (Auto) 2.1 Baso % (Auto) 0.5 Neut # (Auto) 7.9 H Lymph # (Auto) 3.4 [place] # (Auto) 1.1 H Eos # (Auto) 0.3 Baso # (Auto) 0.1 Immature Gran % 0.5 Nucleated RBC % 0.0 Immature Gran # 0.07 Nucleated RBCs # 0.00 Sodium 143 Potassium 3.4 L Chloride 104 Carbon Dioxide 31 Anion Gap 11.4 BUN 52 H D Creatinine 2.00 H GFR Calculation 28 BUN/Creatinine Ratio 26.00 H Glucose 197 H POC Glucose 224 H Calculated Osmolality 303.0 Calcium 8.2 L Magnesium 1.9 - EKG EKG results: interpreted by me (Sinus rhythm with 2 1 AV block)
[2016-09-17] MEDS: cefTRIAXone 1,000 MG in SODIUM CHLORIDE 0.9% 100 ML IV SCH (11:59)
[2016-09-17] MEDS: BUMETANIDE 1 MG/4 ML VIAL IV SCH ×2 (11:59→23:47)
[2016-09-17] MEDS ORDERED: POLYETHYLENE GLYCOL POWDER 17 GM PACK PO PRN (12:59)
[2016-09-17] MEDS: INSULIN GLARGINE 100 UNIT/ML SUBCUT SCH (20:32)
[2016-09-17] MEDS: PREGABALIN 50 MG CAPSULE PO SCH (20:34)
[2016-09-17] MEDS: ATORVASTATIN 20 MG TABLET PO SCH (20:34)
[2016-09-17] MEDS: MONTELUKAST 10 MG TABLET PO SCH (20:38)
[2016-09-18] MEDS ORDERED: SODIUM CHLORIDE 0.9% 1,000 ML IV SCH (04:00)
[2016-09-18 05:18] LABS: Basophils # 0.1 10*3/uL (0.0-0.2); Basophils % 0.6 % (0.0-0.8); Eosinophils # 0.3 10*3/uL (0.0-0.87); Eosinophils % 2.4 % (0.00-10.9); Hematocrit 40.2 VOL% (35.7-47.0); Hemoglobin 13.2 GM/DL (12.0-16.0); Immature Granulocytes % 0.6 %; Immature Granulocytes Absolute 0.07 #; Lymphocytes # 3.2 10*3/uL (1.4-4.0); Lymphocytes % 29.8 % (21.3-54.2); Mean Corpuscular HGB Conc 32.8 GM/DL (32-36); Mean Corpuscular Hemoglobin 29 PG (27-34); Mean Corpuscular Volume 87.4 FL (87-102); Monocytes % 9.1 % (1.7-12.7); Neutrophils # 6.2 10*3/uL (1.4-7.4); Neutrophils % 57.5 % (38.7-73.9); Platelet Count 213 T/CUMM (130-400); Red Cell Distribution Width 14.4 % (9.3-17.3); White Blood Count 10.8 T/CUMM (4-12)
[2016-09-18 05:48] LABS: Calcium 8.2 MG/DL (8.5-10.1); Magnesium 2.2 MG/DL (1.8-2.4); Potassium 4.1 MMOL/L (3.5-5.1)
[2016-09-18 05:49] LABS: Calcium 8.3 MG/DL (8.5-10.1); Osmolality,Calculated 302.8 MOS/KG (273-304); Potassium 4.2 MMOL/L (3.5-5.1)
--- NOTE | 2016-09-18 06:41 | History and Physical Update ---
Sedation H&P Update - Dictation Physical: refer to scanned H&P - Physical Exam Mental Status: alert and oriented Heart: other (severe bradycardia) Lung: clear to auscultation Abdomen: within normal limits Vitals: other (bradycardia and hypertension) - Sedation Plan for Sedation: minimal Patient Consent: Procedure disscussed with patient and patinet has consented., Risks and benefits were discussed with patient,including infection,, bleeding, injury to surrounding structures, seizure, temporary nerve, Patient understands and accepts potential risks/benefits and agrees to, proceed. ASA Class: III Airway Assessment: Class IV: Only hard palate visible
--- NOTE | 2016-09-18 06:57 | EKG Report ---
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
[2016-09-18] MEDS ORDERED: diphenhydrAMINE CAP 25 MG CAPSULE PO ONE (07:30)
[2016-09-18] MEDS ORDERED: DIAZEPAM 5 MG TABLET PO ONE (07:30)
[2016-09-18] MEDS: amLODIPine 10 MG TABLET PO SCH ×2 (07:39→10:59)
[2016-09-18] MEDS: VALSARTAN 160 MG TABLET PO SCH ×2 (07:39→10:57)
--- NOTE | 2016-09-18 07:40 | Family Practice Progress Note ---
Family Practice - PN: Subj Interval history: Patient states she is still feeling very weak and her heart rates been dropping into the 40s. She is scheduled for pacemaker today. She did not have any chest pain this morning states she did not cough up any blood last night. Patient did have gram-negative bacteria in her bronchial washings and is on appropriate antibiotic therapy for this. Exam (Progress Note) - Constitutional Vitals: Period Temp Pulse Resp BP Sys/Duffy Pulse Ox Last 24 Hr 98 F-98.7 F 44-52 18-24 135-190/56-79 94-98 Exam: Objectively well-developed obese white female no acute distress. She is able to give good history and states she had a good night. Cardiovascular: Heart rates is irregular but she is still bradycardic. There is no murmurs or gallops. Respiratory: Lungs clear to auscultation bilaterally. Abdomen: Abdomen soft and nontender to palpation. Results - Labs CBC & BMP: 09/18/16 04:28 09/18/16 04:28 Lab Results: I have reviewed the past 24 hour labs Assessment and Plan (1) Bradycardia Status: Acute Assessment and plan: 09/12/2016: Cardiology will be consulted. Patient's potassium was 5.8 so her potassium will be held and a repeat BMP is pending for this morning. 09/13/2016: Patient's heart rate has improved. 09/14/2016: Heart rates improved with second-degree AV block persist. 09/15/2016: Type I second-degree AV block persists. Patient's heart rate is much improved. 09/16/2016: Patient's heart rate is much improved. 09/17/2016: Type II second-degree AV block has resolved. 09/18/2016: Type II second-degree AV block has resolved but she continues to be bradycardic. She is scheduled for permanent pacemaker placed Current Visit: Yes (2) Mobitz type 2 second degree AV block Status: Resolved Assessment and plan: 09/12/2016: Cardiology has been consulted. 09/13/2016: This has resolved. 09/14/2016: There is some persistence 09/15/2016: This appears to have resolved 09/16/2016: This has resolved 09/17/2016: This has resolved Current Visit: Yes (3) Hemoptysis Status: Resolved Assessment and plan: 09/14/2016: Will consult pulmonary. 09/15/2016: Patient scheduled for bronchoscopy this morning. 09/16/2016: FOB showed no endobronchial lesion. Patient has been switched to Eliquis but she is worried about being able to afford it 09/17/2016: Patient states she has not had any further hemoptysis Current Visit: No
--- NOTE | 2016-09-18 07:44 | Pulmonology Progress Note ---
Pulmonary - PN: Subj Interval history: This 80-year-old white female has shortness of breath. She has had persistent hemoptysis over several months. She takes anticoagulants. She has had previous radiation to the right chest wall for breast cancer. CT scan yesterday shows modest pleural effusions bilaterally. There are some groundglass changes in the left upper lobe that would be most consistent with pulmonary edema but could be some hemorrhage. There is scarring in the right upper lobe that certainly does not appear to be severe but is probably due to previous radiation. Patient is set up for bronchoscopy today. Need to find the site of the bleeding. It may be just a combination of congestive heart failure and anticoagulants. 09/18/2016 patient has not had any more hemoptysis since bronchoscopy Sunday. She grew out Serratia from bronchial washings. It is sensitive to Rocephin. Her anticoagulants have been changed to Eliquis 2.5 mg twice daily. She is getting a pacemaker today. I think her wheezing is multifactorial. She has had recurrent bronchitis. Also has some congestive heart failure and has pulmonary hypertension. Exam (Progress Note) - Constitutional Vitals: Period Temp Pulse Resp BP Sys/Duffy Pulse Ox Last 24 Hr 98 F-98.7 F 44-52 18-24 135-190/56-79 94-98 Exam: Patient is obese. Vital signs normal. Pupils react to light. Throat is clear. Neck supple no bruits. Chest shows some dullness in the bases and minimal crackles at the right base. I do not hear any wheezing. Heart normal rate and rhythm grade 1/6 systolic murmur at right base. Abdomen soft obese unable to palpate abdominal organs. Extremities no clubbing cyanosis , trace edema. Calves nontender. Results - Labs CBC & BMP: 09/18/16 04:28 09/18/16 04:28 Lab Results: I have reviewed the past 24 hour labs Assessment and Plan (1) Morbid obesity Status: Chronic Assessment and plan: Morbid obesity may be playing a part in her pulmonary hypertension. She may have obesity hypoventilation syndrome. Will check ABGs. 09/15/2016 again needs to work on weight loss. Her PCO2 is only 43 so she does not frankly fit the mold for obesity hypoventilation syndrome. However she does have morbid obesity 09/18/2016 this is a big part of her dyspnea on exertion. Current Visit: No (2) Postphlebitic syndrome Status: Acute Assessment and plan: She is on long-term anticoagulants with Coumadin. INR was 2.3 during this admission. This may add to her risk of hemoptysis 09/15/2016 on long-term anticoagulants. After bronchoscopy may want to change her anticoagulants. Would suggest Eliquis 2.5 mg twice daily long-term. 09/18/2016 patient now on low-dose Eliquis. Current Visit: No (3) Hemoptysis Status: Resolved Assessment and plan: Likely multifactorial but she is on anticoagulants. 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 She is coughing up some sticky sputum and probably has at least a superimposed bronchitis which may be hemorrhagic. I will obtain a noncontrast chest CT and plan bronchoscopy. 09/15/2016 for bronchoscopy today. She reports on CT scan. 09/18/2016 this has resolved. I think she had hemorrhagic bronchitis associated with the Serratia. Also pulmonary venous hypertension leading to increased risk of bleeding. Current Visit: No (4) Obstructive sleep apnea Status: Chronic Assessment and plan: Patient to use CPAP at night. Current Visit: Yes (5) Pulmonary hypertension Status: Acute Assessment and plan: Her pulmonary hypertension is a little worse now than it was last year. Estimated peak pulmonary artery pressure on echocardiogram went from 42-55 and a little over a year. This may be due to obesity, sleep apnea, left-sided heart disease although it does not appear to be severe. Certainly could have primary pulmonary hypertension. Will consider adding Revatio. 09/15/2016 likely multifactorial. 09/18/2016 continuing current combination therapy. Current Visit: Yes (6) Aortic stenosis Status: Chronic Assessment and plan: This appears to be relatively mild. Current Visit: Yes Qualifiers: Cardiac valve disease etiology: nonrheumatic Qualified Code(s): I35.0 - Nonrheumatic aortic (valve) stenosis
[2016-09-18] MEDS ORDERED: HEPARIN/NACL 0.9% 2 UNITS/ML 500 ML IV ONE (07:48)
[2016-09-18] MEDS ORDERED: LIDOCAINE 1% 20 ML VIAL ONE (07:48)
[2016-09-18] MEDS ORDERED: MIDAZOLAM 2 MG/2 ML VIAL ONE (07:54)
[2016-09-18] MEDS ORDERED: fentaNYL 100 MCG/2 ML VIAL ONE (07:55)
[2016-09-18] MEDS ORDERED: ceFAZolin 1,000 MG VIAL ONE (07:55)
[2016-09-18] MEDS ORDERED: ceFAZolin 1,000 MG VIAL IRRIG ONE (08:00)
[2016-09-18] MEDS ORDERED: TISSUE ADHESIVE 1 EACH APPLICATOR TOP ONE (09:04)
--- NOTE | 2016-09-18 09:20 | Cardiology Progress Note ---
Cardiology - PN: Subj Interval history: Cardiology note 80-year-old woman with bronchitis and intermittent Mobitz type II heart block. No temperature. Bronchial washings grew out Serratia last week. Blood pressure 146/76. O2 sat 94% Regular rhythm with systolic ejection upper right sternal border. Decreased breath sounds few basilar rhonchi Mild leg edema Impression Mild CAD by heart cath Morbid obesity Obstructive sleep apnea Chronic anticoagulation History DVT Lower extremity cellulitis August 17, 2016 Hypertension Intermittent Mobitz type II heart block History of breast cancer status post recent therapy Serratia on bronchial washings Echo Doppler showed ejection fraction 55% with mild aortic stenosis mean gradient 19, 1+ MR, and severe TR, PA pressure 60 Plan Dual-chamber pacemaker today Pulmonary toilet Exam (Progress Note) - Constitutional Vitals: Period Temp Pulse Resp BP Sys/Duffy Pulse Ox Last 24 Hr 98 F-98.7 F 44-52 18-24 135-179/56-75 94-98 Result/EKG - Labs CBC & BMP: 09/18/16 04:28 09/18/16 04:28 Labs: Laboratory Results - last 24 hr 09/17/16 09/17/16 09/17/16 11:41 16:04 19:58 WBC RBC Hgb Hct MCV MCH MCHC RDW Plt Count MPV Neut % (Auto) Lymph % (Auto) [place]roy[place] % (Auto) Eos % (Auto) Baso % (Auto) Neut # (Auto) Lymph # (Auto) [place] # (Auto) Eos # (Auto) Baso # (Auto) Immature Gran % Nucleated RBC % Immature Gran # Nucleated RBCs # Sodium Potassium Chloride Carbon Dioxide Anion Gap BUN Creatinine GFR Calculation BUN/Creatinine Ratio Glucose POC Glucose 118 H 165 H 201 H Calculated Osmolality Calcium Magnesium 09/18/16 09/18/16 09/18/16 04:28 04:28 04:28 WBC 10.8 RBC 4.60 Hgb 13.2 Hct 40.2 MCV 87.4 MCH 29 MCHC 32.8 RDW 14.4 Plt Count 213 MPV 10.0 Neut % (Auto) 57.5 Lymph % (Auto) 29.8 Arroyo % (Auto) 9.1 Eos % (Auto) 2.4 Baso % (Auto) 0.6 Neut # (Auto) 6.2 Lymph # (Auto) 3.2 [place]royo # (Auto) 1.0 H Eos # (Auto) 0.3 Baso # (Auto) 0.1 Immature Gran % 0.6 Nucleated RBC % 0.0 Immature Gran # 0.07 Nucleated RBCs # 0.00 Sodium 143 144 Potassium 4.1 4.2 Chloride 104 105 Carbon Dioxide 29 30 Anion Gap 14.1 13.2 BUN 49 H 51 H Creatinine 1.90 H 1.90 H GFR Calculation 30 30 BUN/Creatinine Ratio 25.00 H 26.00 H Glucose 146 H 147 H POC Glucose Calculated Osmolality 300.0 302.8 Calcium 8.2 L 8.3 L Magnesium 2.2 09/18/16 07:07 WBC RBC Hgb Hct MCV MCH MCHC RDW Plt Count MPV Neut % (Auto) Lymph % (Auto) Arroyo % (Auto) Eos % (Auto) Baso % (Auto) Neut # (Auto) Lymph # (Auto) [place]royo # (Auto) Eos # (Auto) Baso # (Auto) Immature Gran % Nucleated RBC % Immature Gran # Nucleated RBCs # Sodium Potassium Chloride Carbon Dioxide Anion Gap BUN Creatinine GFR Calculation BUN/Creatinine Ratio Glucose POC Glucose 173 H Calculated Osmolality Calcium Magnesium
--- NOTE | 2016-09-18 09:21 | Cardiology Operative Report ---
Date of Procedure:: 09/18/16 Pre-op diagnosis: Symptomatic Mobitz type II second-degree heart block, nonreversible Post-op diagnosis: same Procedure: Procedures: 1. Dual-chamber pacemaker placement for Mobitz type II second-degree AV block, symptomatic with no identifiable reversible cause After signed informed consent was taken from the patient and antibiotics given timeout recorded in the patient was prepped and draped in a: 1% lidocaine was infiltrated in the skin and subcutaneous tissue overlying the left subclavian vein. A venogram was performed. Seldinger technique was utilized with a micropuncture needle to obtain access to the left subclavian vein. The micropuncture wire then through the micropuncture sheath was upsized to an 035 J -wire. Additional lidocaine was given and a #11 blade was used to make the pocket. Electrocautery was used for hemostasis and dissection to the pectoralis fascial. Once the pectoralis fascial was reached blunt dissection inferiorly was used to make a pocket. Anabolic sponge was placed in the pocket. At this time blunt dissection superiorly to pull the 035 J-wire back into the pocket was performed. Now a second access more laterally was obtained with Seldinger technique from the pocket utilizing the micropuncture wire sheath and 035 J-wire as described above. At this time a 7 Albanian peel-away sheath was placed over the more medial wire and the ventricular lead was advanced through this sheath into the apex of the right ventricle and actively fixed. The lead was interrogated and tested for 10 V output to ensure no diaphragmatic stimulation. Slack was good and the sheath was peeled away. At this time an 2-0 Ethibond was used to secure the lead to the pectoralis fascial over the anchor sleeve. The stylette was removed and slight was demonstrated to be good. At this time attention was turned to the atrial lead. A 7 Albanian sheath was placed over the remaining 035 J-wire and the atrial lead was advanced into the inferior vena cava straight stylet was exchanged for a J stylette and the right reach with a J stylette it was actively fixed the stylette was removed. The lead was connected for interrogation. Numbers were all acceptable there was no diaphragmatic stimulation with 10 V. Sheath was peeled away the lead was then sewn to the pectoralis fascia over the suture sleeve in the same fashion. Finally a pursestring suture was placed around both leads. The anabolic sponge that had been previously placed in the pocket was removed. The rocket was flushed with antibiotics solution ensure hemostasis. The ventricular and atrial leads were then attached to the generator device as the serial numbers were called to the [employer] quality assurance representative. Sponge and instrument count were demonstrated to be correct AV sequential pacing was noted on the monitor the and at the device was placed in the pocket and sewn to the pectoralis fascial with 2-0 Ethibond. The sponge and instrument count were again verified to be correct the deep tissue layers were closed with 3-0 Vicryl followed by running 4-0 Vicryl in a subcuticular stitch. Dermabond was applied followed by a row of Steri-Strips and Mepilex dressing. The patient awakened from conscious sedation administered during the case without difficulty. Total IV conscious sedation: Versed: 2 mg Fentanyl: 50 mcg Implants: Device: [employer] advisory MRI DR HENRY [id number] serial number [id number] Right Atrial lead: [employer] model #5076-52 Serial number [id number] Impedance: 689 ohms P waves: 4.9 mV Threshold: 0.3 V Right Ventricular lead: [employer] model #5076-58 serial number [id number] Impedance 1311 ohms R waves 15.2 mV Threshold: 0.9 v Surgeon / Physician: Staci Duggan Estimated blood loss: none Specimens: other (Bronchial washings for cultures and cytology) Condition: stable Disposition: floor
--- NOTE | 2016-09-18 09:50 | XRay Report ---
Exam: XR chest 1V portable Date: 09/18/2016 9:18 AM Indication: Cardiac leads placement Comparison: 09/13/2016 Technical: AP portable Findings: Cardiac pacing device and placement left-sided approach with atrial ventricular leads present. No pneumothorax. ASVD is present. Underlying mild scarring present in the perihilar regions. Mediastinum is otherwise intact. Arthritic changes of the shoulders present. Impression: 1. Interval placement of a left-sided cardiac pacing device with atrial ventricular leads without pneumothorax. 2. Improved aeration in the basilar regions bilaterally with decreased fluid and some underlying mild scarring in the perihilar regions. PROCEDURE INTERPRETED AT [facility] DEPARTMENT OF RADIOLOGY Final Report Signed by: Dr. Wang Houser
[2016-09-18] MEDS: SOLIFENACIN 5 MG TABLET PO SCH (10:55)
[2016-09-18] MEDS: METHENAMINE HIPPURATE 1 GM TABLET PO SCH ×2 (10:55→21:57)
[2016-09-18] MEDS: LEVOTHYROXINE 50 MCG TABLET PO SCH (10:56)
[2016-09-18] MEDS: POTASSIUM CHLORIDE 20 MEQ TABLET PO SCH ×2 (10:56→21:55)
[2016-09-18] MEDS: ASPIRIN EC 81 MG TABLET PO SCH (10:56)
[2016-09-18] MEDS: ALLOPURINOL 100 MG TABLET PO SCH (10:56)
[2016-09-18] MEDS: DOCUSATE SODIUM 100 MG CAPSULE PO SCH ×2 (10:56→21:56)
[2016-09-18] MEDS: MAGNESIUM OXIDE 400 MG TABLET PO SCH ×2 (10:56→21:56)
[2016-09-18] MEDS: PANTOPRAZOLE 40 MG TABLET PO SCH (10:56)
[2016-09-18] MEDS: sitaGLIPtin 25 MG TABLET PO SCH (10:56)
[2016-09-18] MEDS: INSULIN LISPRO 100 UNIT/ML SUBCUT SCH ×3 (10:57→17:06)
[2016-09-18] MEDS: MEMANTINE 10 MG TABLET PO SCH ×2 (11:00→21:55)
--- NOTE | 2016-09-18 11:30 | Case Mgmt Physician Query Form ---
TB Signs and Symptoms Screening ([place]) INSTRUCTIONS: To be completed annually on residents/staff with a significant Tuberculin Skin Test (TST) upon admission/hire or a prior significant TST. To be completed on all staff at hire. Please respond to each listed symptom with an (X) in either the "YES" or "NO" box. Do you currently have any of the following symptoms: YES NO (x ) ( ) A cough If yes, is it: ( ) Productive ( ) Non- productive (x ) ( ) Hemoptysis (spitting up blood) (x ) ( ) Chest pains ( ) (x ) Weight Loss ( ) (x ) Fever ( ) ( x) Night Sweats ( ) (x ) Weakness ( ) (x ) Loss of Appetite ( ) (x ) Difficulty Breathing If you answered YES" to any of the above questions, how long have symptoms been present? Comments: If you have any questions, please contact me. thank you, John Maloney RN Case Manager O:[phone] P: [phone] F: [phone] [email or web address]
[2016-09-18] MEDS: BUMETANIDE 1 MG/4 ML VIAL IV SCH (12:02)
[2016-09-18] MEDS: DESITIN 4OZ/NYSTATIN 15 GRAM MIXTURE PASTE TOP SCH ×2 (12:02→21:57)
[2016-09-18] MEDS: cefTRIAXone 1,000 MG in SODIUM CHLORIDE 0.9% 100 ML IV SCH (12:02)
--- NOTE | 2016-09-18 12:15 | Pathology Report from [facility] ---
[facility] ACCESSION # : [id number] PATIENT NAME : Nay Junior ORDERING DR : KELLEY SIMONS MD CLINICAL HX: Shortness of Breath, Hemoptysis POST-OP DX: Same SPECIMEN INFO: Washing,Bronchial,RODNEY - 10 mls greyish white, cloudy CLASS: II CLASS COMMENTS: Reactive pulmonary cells, inflammationCELL BLOCK: Same CLASS LEGEND: CLASS 0 Material inadequate for diagnosis because of (see comment) CLASS I Absence of atypical or abnormal cells CLASS II Atypical Cytology but no evidence of malignancy CLASS III Cytology suggestive of but not conclusive for malignancy CLASS IV Cytology strongly suggestive of malignancy CLASS V Cytology conclusive for malignancy COLLECTED DATE: 09/15/2016 [facility] REPORT DATE: 09/18/2016 ELECTRONICALLY SIGNED BY: Kailyn Almeida M.D. 09/18/2016 - 9:22:55 MTDD
[2016-09-18] MEDS: PREGABALIN 50 MG CAPSULE PO SCH (21:56)
[2016-09-18] MEDS: INSULIN GLARGINE 100 UNIT/ML SUBCUT SCH (21:56)
[2016-09-18] MEDS: MONTELUKAST 10 MG TABLET PO SCH (21:56)
[2016-09-18] MEDS: ATORVASTATIN 20 MG TABLET PO SCH (22:00)
[2016-09-19] MEDS: BUMETANIDE 1 MG/4 ML VIAL IV SCH ×2 (01:14→11:24)
[2016-09-19 05:49] LABS: Basophils # 0.1 10*3/uL (0.0-0.2); Basophils % 0.7 % (0.0-0.8); Eosinophils # 0.4 10*3/uL (0.0-0.87); Hematocrit 40.8 VOL% (35.7-47.0); Hemoglobin 13.4 GM/DL (12.0-16.0); Immature Granulocytes % 0.6 %; Immature Granulocytes Absolute 0.07 #; Lymphocytes % 25.7 % (21.3-54.2); Mean Corpuscular HGB Conc 32.8 GM/DL (32-36); Mean Corpuscular Hemoglobin 29 PG (27-34); Monocytes # 1.1 10*3/uL (0.11-0.8); Monocytes % 9.3 % (1.7-12.7); Neutrophils % 60.7 % (38.7-73.9); Platelet Count 224 T/CUMM (130-400); Red Blood Count 4.69 MC/CUMM (3.8-5.5); Red Cell Distribution Width 14.5 % (9.3-17.3); White Blood Count 11.6 T/CUMM (4-12)
[2016-09-19 06:20] LABS: Calcium 8.4 MG/DL (8.5-10.1); Magnesium 2.3 MG/DL (1.8-2.4); Osmolality,Calculated 294.4 MOS/KG (273-304); Potassium 4.5 MMOL/L (3.5-5.1)
--- NOTE | 2016-09-19 06:45 | Event Note ---
The patient complains of pain at her pacemaker access site. She has a mild area of ecchymosis at the edge of her dressing her dressing is dry and in place I do not appreciate a hematoma. She is exquisitely tender to touch. Her chest x-ray and interrogation are pending this morning however she is atrially paced in the 8090 range. Her heart rate is still up I will resume her home dose of labetalol. If her interrogation and chest x-ray are acceptable this morning she is probably ready for discharge from a cardiology standpoint. She can follow-up with me on SundayOctober 02 for pacer interrogation and wound check. If there are problems with her leads we will reevaluate and address appropriately.
--- NOTE | 2016-09-19 07:32 | Family Practice Progress Note ---
Family Practice - PN: Subj Interval history: Patient states she had a decent night but is she is having some soreness in the side of her pacer pouch. She does not have any fever or chills. Patient states she has not had any further hemoptysis. Exam (Progress Note) - Constitutional Vitals: Period Temp Pulse Resp BP Sys/Duffy Pulse Ox Last 24 Hr 97.7 F-99.1 F 52-91 16-20 102-159/54-77 91-98 Exam: Objectively well-developed obese white female no acute distress. She is having pain in her pacer pouch. Cardiovascular: Heart rates is regular and has a paced rhythm. There is no murmurs or gallops. Respiratory: Lungs clear to auscultation bilaterally. Abdomen: Abdomen soft and nontender to palpation. Results - Labs CBC & BMP: 09/19/16 05:06 09/19/16 05:06 Lab Results: I have reviewed the past 24 hour labs Assessment and Plan (1) Bradycardia Status: Acute Assessment and plan: 09/12/2016: Cardiology will be consulted. Patient's potassium was 5.8 so her potassium will be held and a repeat BMP is pending for this morning. 09/13/2016: Patient's heart rate has improved. 09/14/2016: Heart rates improved with second-degree AV block persist. 09/15/2016: Type I second-degree AV block persists. Patient's heart rate is much improved. 09/16/2016: Patient's heart rate is much improved. 09/17/2016: Type II second-degree AV block has resolved. 09/18/2016: Type II second-degree AV block has resolved but she continues to be bradycardic. She is scheduled for permanent pacemaker placed 09/19/2016: Patient's doing well after pertinent pacemaker placement Current Visit: Yes (2) Mobitz type 2 second degree AV block Status: Resolved Assessment and plan: 09/12/2016: Cardiology has been consulted. 09/13/2016: This has resolved. 09/14/2016: There is some persistence 09/15/2016: This appears to have resolved 09/16/2016: This has resolved 09/17/2016: This has resolved Current Visit: Yes (3) Hemoptysis Status: Resolved Assessment and plan: 09/14/2016: Will consult pulmonary. 09/15/2016: Patient scheduled for bronchoscopy this morning. 09/16/2016: FOB showed no endobronchial lesion. Patient has been switched to Eliquis but she is worried about being able to afford it 09/17/2016: Patient states she has not had any further hemoptysis Current Visit: No Quality Measures - VTE Contraindication to Pharmacological VTE Prophylaxis: High Risk of Bleeding
--- NOTE | 2016-09-19 08:09 | Pulmonology Progress Note ---
Pulmonary - PN: Subj Interval history: This 80-year-old white female has shortness of breath. She has had persistent hemoptysis over several months. She takes anticoagulants. She has had previous radiation to the right chest wall for breast cancer. CT scan yesterday shows modest pleural effusions bilaterally. There are some groundglass changes in the left upper lobe that would be most consistent with pulmonary edema but could be some hemorrhage. There is scarring in the right upper lobe that certainly does not appear to be severe but is probably due to previous radiation. Patient is set up for bronchoscopy today. Need to find the site of the bleeding. It may be just a combination of congestive heart failure and anticoagulants. 09/18/2016 patient has not had any more hemoptysis since bronchoscopy Sunday. She grew out Serratia from bronchial washings. It is sensitive to Rocephin. Her anticoagulants have been changed to Eliquis 2.5 mg twice daily. She is getting a pacemaker today. I think her wheezing is multifactorial. She has had recurrent bronchitis. Also has some congestive heart failure and has pulmonary hypertension. 09/19/2016 no further hemoptysis. She remains weak and needs more physical therapy but may be able to be discharged soon. If she is discharged, I would suggest about 5 more days of oral Omnicef. She is allergic to sulfa and Floxin' s. Exam (Progress Note) - Constitutional Vitals: Period Temp Pulse Resp BP Sys/Duffy Pulse Ox Last 24 Hr 97.7 F-99.1 F 87-91 16-20 102-159/54-77 91-98 Exam: Patient is obese. Vital signs normal. Pupils react to light. Throat is clear. Neck supple no bruits. Chest shows some dullness in the bases and minimal crackles at the right base. I do not hear any wheezing. Heart normal rate and rhythm grade 1/6 systolic murmur at right base. Abdomen soft obese unable to palpate abdominal organs. Extremities no clubbing cyanosis , trace edema. Calves nontender. Little change from yesterday. Results - Labs CBC & BMP: 09/19/16 05:06 09/19/16 05:06 Lab Results: I have reviewed the past 24 hour labs Assessment and Plan (1) Morbid obesity Status: Chronic Assessment and plan: Morbid obesity may be playing a part in her pulmonary hypertension. She may have obesity hypoventilation syndrome. Will check ABGs. 09/15/2016 again needs to work on weight loss. Her PCO2 is only 43 so she does not frankly fit the mold for obesity hypoventilation syndrome. However she does have morbid obesity 09/18/2016 this is a big part of her dyspnea on exertion. 09/19/2016 again long-term needs weight loss. Current Visit: No (2) Postphlebitic syndrome Status: Acute Assessment and plan: She is on long-term anticoagulants with Coumadin. INR was 2.3 during this admission. This may add to her risk of hemoptysis 09/15/2016 on long-term anticoagulants. After bronchoscopy may want to change her anticoagulants. Would suggest Eliquis 2.5 mg twice daily long-term. 09/18/2016 patient now on low-dose Eliquis. Current Visit: Yes (3) Hemoptysis Status: Ruled-out Assessment and plan: Likely multifactorial but she is on anticoagulants. 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 She is coughing up some sticky sputum and probably has at least a superimposed bronchitis which may be hemorrhagic. I will obtain a noncontrast chest CT and plan bronchoscopy. 09/15/2016 for bronchoscopy today. She reports on CT scan. 09/18/2016 this has resolved. I think she had hemorrhagic bronchitis associated with the Serratia. Also pulmonary venous hypertension leading to increased risk of bleeding. 09/19/2016 no further hemoptysis. Likely due to acute bronchitis, increased submucosal vascularity from congestive heart failure, and anticoagulants. Current Visit: Yes (4) Obstructive sleep apnea Status: Chronic Assessment and plan: Patient to use CPAP at night. Current Visit: Yes (5) Pulmonary hypertension Status: Acute Assessment and plan: Her pulmonary hypertension is a little worse now than it was last year. Estimated peak pulmonary artery pressure on echocardiogram went from 42-55 and a little over a year. This may be due to obesity, sleep apnea, left-sided heart disease although it does not appear to be severe. Certainly could have primary pulmonary hypertension. Will consider adding Revatio. 09/15/2016 likely multifactorial. 09/18/2016 continuing current combination therapy. 09/19/2016 multifactorial causes for pulmonary hypertension. Continue current treatment. Probably should repeat an echo after stable on current medications Current Visit: Yes (6) Aortic stenosis Status: Chronic Assessment and plan: This appears to be relatively mild. Current Visit: Yes Qualifiers: Cardiac valve disease etiology: nonrheumatic Qualified Code(s): I35.0 - Nonrheumatic aortic (valve) stenosis
--- NOTE | 2016-09-19 08:28 | Cardiology Progress Note ---
<Madeleine Resendiz E - Last Filed: 09/19/16 08:22> Assessment and Plan - Time spent with patient Time spent with patient: Less than 30 minutes (1) Mobitz type 2 second degree AV block Status: Resolved Assessment and plan: See plan of care listed below. Current Visit: Yes (2) Dyspnea Status: Acute Assessment and plan: See plan of care listed below. Current Visit: No (3) Coronary artery disease Status: Chronic Assessment and plan: See plan of care listed below. Current Visit: Yes (4) Hypertension Status: Chronic Assessment and plan: See plan of care listed below. Current Visit: Yes Qualifiers: Hypertension type: essential hypertension Qualified Code(s): I10 - Essential (primary) hypertension (5) History of DVT (deep vein thrombosis) Status: Chronic Assessment and plan: See plan of care listed below. 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 Current Visit: No (7) Hyperlipidemia Status: Chronic Assessment and plan: See plan of care listed below. Current Visit: Yes (8) COPD (chronic obstructive pulmonary disease) Status: Chronic Assessment and plan: See plan of care listed below. Current Visit: Yes (9) Obstructive sleep apnea Status: Chronic Assessment and plan: See plan of care listed below. Current Visit: Yes (10) Morbid obesity Status: Chronic Assessment and plan: See plan of care listed below. 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 Edenilson Peck SUMMARY: Ms. Junior is a 80 year old female with extensive medical history including mild nonobstructive coronary artery disease, hypertension, CHF , peripheral vascular disease, hyperlipidemia, GERD, DVT now on chronic anticoagulation, diabetes, COPD, obstructive sleep apnea, renal and breast cancer who presented to the hospital with complaints of dyspnea on exertion and easy fatigability for the past 2 weeks. She was on a significant dose of labetalol twice a day but has 2-1 AV block. She was given ample opportunity to be off AV trixie blocking agents and this was not felt to be a reversible cause. She underwent dual chamber pacemaker implantation for symptomatic Mobitz type II second-degree AV block, nonreversible. She underwent fiberoptic bronchoscopy with bronchial washing by Dr. Astudillo and it was felt her hemoptysis was due to chronic bronchitis and congestive heart failure. It was recommended her Coumadin be changed to half dose Eliquis. Patient's only complaint this morning is discomfort at her pacer site. Interrogation was good. We are awaiting chest x-ray. If this looks good, she could be discharged from cardiology standpoint. Assessment/plan: 1. Symptomatic Mobitz Type II Second Degree Block - s/p dual chamber pacemaker implantation. Device has been interrogated this morning and found to be working appropriately. We are awaiting chest x-ray to confirm appropriate lead placement. 2. Dyspnea on exertion - Likely related to her pulmonary hypertension. Pulmonology has been following. 3. Coronary artery disease - prior history of mild nonobstructive coronary artery disease. She was previously seen by Dr. Reno and underwent left heart catheterization on April 29, 2008 which revealed elevated left-sided filling pressures with LVEDP 27 mmHg, nonsignificant coronary artery disease including 30-40% smooth discrete ostial left main stenosis, 30% ostial RCA stenosis with 30% mild RCA stenosis. She was ruled out for [place]. 4. Hypertension - We will continue to monitor and adjust medications accordingly throughout her stay. 5. History of DVT - Venous dopplers negative for BLE DVT. 6. Chronic anticoagulation - Following bronchoscopy, she has been changed to low-dose Eliquis. H&H stable. 7. Hyperlipidemia - continue lipid-lowering agent. 8. COPD - O2 as needed. She has breathing treatments ordered as needed. 9. Obstructive sleep apnea - continue CPAP while sleeping and O2 as needed. 10. Morbid obesity - chronic. Exam (Progress Note) - Constitutional Vitals: Period Temp Pulse Resp BP Sys/Duffy Pulse Ox Last 24 Hr 97.7 F-99.1 F 87-91 16-20 102-159/54-77 91-98 Exam: General appearance: Pleasant and cooperative. Obese, mild conversational dyspnea. - Head Head exam: Present: normal inspection, normocephalic, atraumatic. Absent: hematoma, laceration - Eye Eye exam: Present: EOMI. Absent: conjunctival injection, nystagmus, periorbital swelling, scleral icterus, laceration to eyelids Pupils: Present: PERRL. Absent: constricted, dilated, fixed, irregular, unequal - ENT ENT exam: Present: Edentulous, normal external ear exam - Neck Neck exam: Present: normal inspection. Absent: lymphadenopathy, meningismus, tenderness, thyromegaly - Respiratory Respiratory exam: Present: clear to auscultation bilaterally with poor inspiratory effort. Absent: accessory muscle use, chest wall tenderness - Cardiovascular Cardiovascular exam: Present: regular rate and rhythm. Systolic murmur consistent with aortic sclerosis. Absent: rubs - GI/Abdominal GI/Abdominal exam: Present: normal bowel sounds, soft. Absent: distended, firm , guarding, hernia, mass, tenderness, rebound. - Extremities Exam Extremities exam: Present: normal inspection, normal capillary refill. Upper extremity pulses 2+. Lower extremity pulses present but diminished. Trace pretibial edema. Absent: calf tenderness -Musculoskeletal Exam Musculoskeletal: Present: No Fluid Collection, No Pain, Normal Range of Motion - Neurological Exam Neurological exam: Present: drowsy but easily arousable to verbal stimuli, oriented X3, grossly intact without resting or essential tremor - Psychiatric Psychiatric exam: Present: normal affect, normal mood - Skin Skin exam: Present: normal color, warm, dry, intact. Absent: cyanosis, diaphoretic, rash, urticaria Result/EKG - Labs CBC & BMP: 09/19/16 05:06 09/19/16 05:06 Lab Results: I have reviewed the past 24 hour labs Labs: Laboratory Results - last 24 hr 09/18/16 09/18/16 09/18/16 11:28 16:52 20:23 WBC RBC Hgb Hct MCV MCH MCHC RDW Plt Count MPV Neut % (Auto) Lymph % (Auto) Spencer % (Auto) Eos % (Auto) Baso % (Auto) Neut # (Auto) Lymph # (Auto) Spencer # (Auto) Eos # (Auto) Baso # (Auto) Immature Gran % Nucleated RBC % Immature Gran # Nucleated RBCs # Sodium Potassium Chloride Carbon Dioxide Anion Gap BUN Creatinine GFR Calculation BUN/Creatinine Ratio Glucose POC Glucose 327 H 265 H 171 H Calculated Osmolality Calcium Magnesium 09/19/16 09/19/16 09/19/16 05:06 05:06 07:06 WBC 11.6 RBC 4.69 Hgb 13.4 Hct 40.8 MCV 87.0 MCH 29 MCHC 32.8 RDW 14.5 Plt Count 224 MPV 10.0 Neut % (Auto) 60.7 Lymph % (Auto) 25.7 Spencer % (Auto) 9.3 Eos % (Auto) 3.0 Baso % (Auto) 0.7 Neut # (Auto) 7.0 Lymph # (Auto) 3.0 Spencer # (Auto) 1.1 H Eos # (Auto) 0.4 Baso # (Auto) 0.1 Immature Gran % 0.6 Nucleated RBC % 0.0 Immature Gran # 0.07 Nucleated RBCs # 0.00 Sodium 140 Potassium 4.5 Chloride 102 Carbon Dioxide 28 Anion Gap 14.5 BUN 41 H Creatinine 1.70 H GFR Calculation 34 BUN/Creatinine Ratio 24.00 H Glucose 207 H POC Glucose 241 H Calculated Osmolality 294.4 Calcium 8.4 L Magnesium 2.3 - EKG EKG results: interpreted by me (v-pacing) Quality Measures - VTE Contraindication to Pharmacological VTE Prophylaxis: High Risk of Bleeding <Ethan Lindquist - Last Filed: 09/19/16 09:26> Cardiology - PN: Subj Interval history: Cardiology addendum Patient examined chart reviewed and discussed with nurse Madeleine Resendiz NP. Day 1 status post Medtronic advisory dual-chamber pacemaker. No temperature. Telemetry shows normal pacing and sensing. Pacemaker interrogation shows good thresholds and is normal. Recent echo showed ejection fraction of 55% with mild a.s., mean gradient 19 with severe TR, PA pressure 60 Mild CAD by cath chronic hypertension Serratia on bronchial washings Lower extremity cellulitis August 17, 2016 History of breast cancer with radiation therapy. Plan Chest x-ray pending. I believe patient will benefit from swing bed and she is willing to go. Antibiotics Wound check/pacemaker interrogation with Dr. Cross in 2 weeks scheduled Exam (Progress Note) - Constitutional Vitals: Period Temp Pulse Resp BP Sys/Duffy Pulse Ox Last 24 Hr 97.7 F-99.1 F 87-91 16-20 102-159/54-77 91-98 Result/EKG - Labs CBC & BMP: 09/19/16 05:06 09/19/16 05:06 Labs: Laboratory Results - last 24 hr 09/18/16 09/18/16 09/18/16 11:28 16:52 20:23 WBC RBC Hgb Hct MCV MCH MCHC RDW Plt Count MPV Neut % (Auto) Lymph % (Auto) [place] % (Auto) Eos % (Auto) Baso % (Auto) Neut # (Auto) Lymph # (Auto) Spencer # (Auto) Eos # (Auto) Baso # (Auto) Immature Gran % Nucleated RBC % Immature Gran # Nucleated RBCs # Sodium Potassium Chloride Carbon Dioxide Anion Gap BUN Creatinine GFR Calculation BUN/Creatinine Ratio Glucose POC Glucose 327 H 265 H 171 H Calculated Osmolality Calcium Magnesium 09/19/16 09/19/16 09/19/16 05:06 05:06 07:06 WBC 11.6 RBC 4.69 Hgb 13.4 Hct 40.8 MCV 87.0 MCH 29 MCHC 32.8 RDW 14.5 Plt Count 224 MPV 10.0 Neut % (Auto) 60.7 Lymph % (Auto) 25.7 Spencer % (Auto) 9.3 Eos % (Auto) 3.0 Baso % (Auto) 0.7 Neut # (Auto) 7.0 Lymph # (Auto) 3.0 Spencer # (Auto) 1.1 H Eos # (Auto) 0.4 Baso # (Auto) 0.1 Immature Gran % 0.6 Nucleated RBC % 0.0 Immature Gran # 0.07 Nucleated RBCs # 0.00 Sodium 140 Potassium 4.5 Chloride 102 Carbon Dioxide 28 Anion Gap 14.5 BUN 41 H Creatinine 1.70 H GFR Calculation 34 BUN/Creatinine Ratio 24.00 H Glucose 207 H POC Glucose 241 H Calculated Osmolality 294.4 Calcium 8.4 L Magnesium 2.3
[2016-09-19] MEDS: SOLIFENACIN 5 MG TABLET PO SCH (09:08)
[2016-09-19] MEDS: METHENAMINE HIPPURATE 1 GM TABLET PO SCH ×2 (09:08→22:01)
[2016-09-19] MEDS: MEMANTINE 10 MG TABLET PO SCH ×2 (09:08→22:00)
[2016-09-19] MEDS: sitaGLIPtin 25 MG TABLET PO SCH (09:08)
[2016-09-19] MEDS: VALSARTAN 160 MG TABLET PO SCH (09:08)
[2016-09-19] MEDS: DOCUSATE SODIUM 100 MG CAPSULE PO SCH ×2 (09:09→22:01)
[2016-09-19] MEDS: POTASSIUM CHLORIDE 20 MEQ TABLET PO SCH ×2 (09:09→22:00)
[2016-09-19] MEDS: ASPIRIN EC 81 MG TABLET PO SCH (09:09)
[2016-09-19] MEDS: LABETALOL 100 MG TABLET PO SCH ×2 (09:09→22:00)
[2016-09-19] MEDS: amLODIPine 10 MG TABLET PO SCH (09:09)
[2016-09-19] MEDS: MAGNESIUM OXIDE 400 MG TABLET PO SCH ×2 (09:09→22:00)
[2016-09-19] MEDS: PANTOPRAZOLE 40 MG TABLET PO SCH (09:09)
[2016-09-19] MEDS: LEVOTHYROXINE 50 MCG TABLET PO SCH (09:09)
[2016-09-19] MEDS: ALLOPURINOL 100 MG TABLET PO SCH (09:09)
[2016-09-19] MEDS: INSULIN LISPRO 100 UNIT/ML SUBCUT SCH ×3 (09:10→16:54)
[2016-09-19] MEDS: DESITIN 4OZ/NYSTATIN 15 GRAM MIXTURE PASTE TOP SCH ×2 (09:13→22:01)
--- NOTE | 2016-09-19 09:49 | XRay Report ---
XR chest 2V Indication: Lead placement Comparison: Chest x-ray dated September 18, 2016 Technique: Frontal and lateral views of the chest. Findings: Continued mild cardiomegaly. Pacemaker apparatus again demonstrated. Right infrahilar opacification suspicious for asymmetric pulmonary edema or pneumonia. Small right pleural effusion. Visualized osseous and surrounding soft tissue structures appear grossly unchanged. IMPRESSION: As above. PROCEDURE INTERPRETED AT [facility] DEPARTMENT OF RADIOLOGY Final Report Signed by: Dr Yogi Sanford
[2016-09-19] MEDS: cefTRIAXone 1,000 MG in SODIUM CHLORIDE 0.9% 100 ML IV SCH (11:27)
[2016-09-19] MEDS: ATORVASTATIN 20 MG TABLET PO SCH (22:00)
[2016-09-19] MEDS: MONTELUKAST 10 MG TABLET PO SCH (22:00)
[2016-09-19] MEDS: INSULIN GLARGINE 100 UNIT/ML SUBCUT SCH (22:01)
[2016-09-19] MEDS: PREGABALIN 50 MG CAPSULE PO SCH (22:01)
[2016-09-20] MEDS: BUMETANIDE 1 MG/4 ML VIAL IV SCH ×2 (04:02→17:11)
[2016-09-20 04:26] LABS: Basophils # 0.1 10*3/uL (0.0-0.2); Basophils % 0.6 % (0.0-0.8); Eosinophils # 0.2 10*3/uL (0.0-0.87); Eosinophils % 1.8 % (0.00-10.9); Hematocrit 39.2 VOL% (35.7-47.0); Hemoglobin 12.8 GM/DL (12.0-16.0); Immature Granulocytes % 0.8 %; Immature Granulocytes Absolute 0.09 #; Lymphocytes % 25.8 % (21.3-54.2); Mean Corpuscular HGB Conc 32.7 GM/DL (32-36); Mean Corpuscular Hemoglobin 29 PG (27-34); Mean Corpuscular Volume 87.7 FL (87-102); Mean Platelet Volume 10.3 FL (9.6-12.0); Monocytes # 1.1 10*3/uL (0.11-0.8); Monocytes % 9.4 % (1.7-12.7); Neutrophils # 7.2 10*3/uL (1.4-7.4); Neutrophils % 61.6 % (38.7-73.9); Platelet Count 205 T/CUMM (130-400); Red Blood Count 4.47 MC/CUMM (3.8-5.5); Red Cell Distribution Width 14.2 % (9.3-17.3); White Blood Count 11.7 T/CUMM (4-12)
[2016-09-20 04:53] LABS: Calcium 8.7 MG/DL (8.5-10.1); Magnesium 2.4 MG/DL (1.8-2.4); Osmolality,Calculated 296.3 MOS/KG (273-304); Potassium 4.1 MMOL/L (3.5-5.1)
--- NOTE | 2016-09-20 07:29 | Family Practice Progress Note ---
Family Practice - PN: Subj Interval history: Patient states she had a good night and she is feeling well and her only complaint is a little soreness in her pacemaker pouch area. She is not having more urinary symptoms and she is not coughing up any blood. Her sputum culture was positive for Serratia marcescens. I will continue her on cephalosporin for 7 more days after discharge. Were trying to find her a swing bed and she wanted to go to [facility]. Exam (Progress Note) - Constitutional Vitals: Period Temp Pulse Resp BP Sys/Duffy Pulse Ox Last 24 Hr 97.9 F-99.4 F 86-89 16-20 127-151/60-97 90-95 Exam: Objectively well-developed obese white female no acute distress. She is having soreness in her pacer pouch. Cardiovascular: Heart rates is regular and has a paced rhythm. There is no murmurs or gallops. Respiratory: Lungs clear to auscultation bilaterally. Abdomen: Abdomen soft and nontender to palpation. Results - Labs CBC & BMP: 09/20/16 02:52 09/20/16 02:52 Lab Results: I have reviewed the past 24 hour labs Assessment and Plan (1) Bradycardia Status: Acute Assessment and plan: 09/12/2016: Cardiology will be consulted. Patient's potassium was 5.8 so her potassium will be held and a repeat BMP is pending for this morning. 09/13/2016: Patient's heart rate has improved. 09/14/2016: Heart rates improved with second-degree AV block persist. 09/15/2016: Type I second-degree AV block persists. Patient's heart rate is much improved. 09/16/2016: Patient's heart rate is much improved. 09/17/2016: Type II second-degree AV block has resolved. 09/18/2016: Type II second-degree AV block has resolved but she continues to be bradycardic. She is scheduled for permanent pacemaker placed 09/19/2016: Patient's doing well after pertinent pacemaker placement 09/12/2016: Patient is doing well since her permanent pacemaker placement. She is maintaining paced rhythm on monitor Current Visit: Yes (2) Mobitz type 2 second degree AV block Status: Resolved Assessment and plan: 09/12/2016: Cardiology has been consulted. 09/13/2016: This has resolved. 09/14/2016: There is some persistence 09/15/2016: This appears to have resolved 09/16/2016: This has resolved 09/17/2016: This has resolved Current Visit: Yes (3) Hemoptysis Status: Ruled-out Assessment and plan: 09/14/2016: Will consult pulmonary. 09/15/2016: Patient scheduled for bronchoscopy this morning. 09/16/2016: FOB showed no endobronchial lesion. Patient has been switched to Eliquis but she is worried about being able to afford it 09/17/2016: Patient states she has not had any further hemoptysis Current Visit: Yes Quality Measures - VTE Contraindication to Pharmacological VTE Prophylaxis: High Risk of Bleeding
--- NOTE | 2016-09-20 07:51 | Pulmonology Progress Note ---
Pulmonary - PN: Subj Interval history: This 80-year-old white female has shortness of breath. She has had persistent hemoptysis over several months. She takes anticoagulants. She has had previous radiation to the right chest wall for breast cancer. CT scan yesterday shows modest pleural effusions bilaterally. There are some groundglass changes in the left upper lobe that would be most consistent with pulmonary edema but could be some hemorrhage. There is scarring in the right upper lobe that certainly does not appear to be severe but is probably due to previous radiation. Patient is set up for bronchoscopy today. Need to find the site of the bleeding. It may be just a combination of congestive heart failure and anticoagulants. 09/18/2016 patient has not had any more hemoptysis since bronchoscopy Sunday. She grew out Serratia from bronchial washings. It is sensitive to Rocephin. Her anticoagulants have been changed to Eliquis 2.5 mg twice daily. She is getting a pacemaker today. I think her wheezing is multifactorial. She has had recurrent bronchitis. Also has some congestive heart failure and has pulmonary hypertension. 09/19/2016 no further hemoptysis. She remains weak and needs more physical therapy but may be able to be discharged soon. If she is discharged, I would suggest about 5 more days of oral Omnicef. She is allergic to sulfa and Floxin' s. 09/20/2016 patient feeling much better. No further hemoptysis. Looking for swing bed. Again would finish treatment with Omnicef at this point for just 4 more days. Exam (Progress Note) - Constitutional Vitals: Period Temp Pulse Resp BP Sys/Duffy Pulse Ox Last 24 Hr 97.6 F-99.4 F 86-93 16-20 127-151/60-97 90-95 Exam: Patient is obese. Vital signs normal. Pupils react to light. Throat is clear. Neck supple no bruits. Chest shows some minimal crackles at the right base. I do not hear any wheezing. Heart normal rate and rhythm grade 1/6 systolic murmur at right base. Abdomen soft obese unable to palpate abdominal organs. Extremities no clubbing cyanosis , trace edema. Calves nontender. Results - Labs CBC & BMP: 09/20/16 02:52 09/20/16 02:52 Lab Results: I have reviewed the past 24 hour labs Assessment and Plan (1) Morbid obesity Status: Chronic Assessment and plan: Morbid obesity may be playing a part in her pulmonary hypertension. She may have obesity hypoventilation syndrome. Will check ABGs. 09/15/2016 again needs to work on weight loss. Her PCO2 is only 43 so she does not frankly fit the mold for obesity hypoventilation syndrome. However she does have morbid obesity 09/18/2016 this is a big part of her dyspnea on exertion. 09/19/2016 again long-term needs weight loss. Current Visit: No (2) Postphlebitic syndrome Status: Acute Assessment and plan: She is on long-term anticoagulants with Coumadin. INR was 2.3 during this admission. This may add to her risk of hemoptysis 09/15/2016 on long-term anticoagulants. After bronchoscopy may want to change her anticoagulants. Would suggest Eliquis 2.5 mg twice daily long-term. 09/18/2016 patient now on low-dose Eliquis. 09/20/2016 low-dose Eliquis. No further hemoptysis. Current Visit: Yes (3) Hemoptysis Status: Resolved Assessment and plan: Likely multifactorial but she is on anticoagulants. 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 She is coughing up some sticky sputum and probably has at least a superimposed bronchitis which may be hemorrhagic. I will obtain a noncontrast chest CT and plan bronchoscopy. 09/15/2016 for bronchoscopy today. She reports on CT scan. 09/18/2016 this has resolved. I think she had hemorrhagic bronchitis associated with the Serratia. Also pulmonary venous hypertension leading to increased risk of bleeding. 09/19/2016 no further hemoptysis. Likely due to acute bronchitis, increased submucosal vascularity from congestive heart failure, and anticoagulants. 09/20/2016 hemoptysis is subsided. The acute bronchitis and anticoagulation along with underlying congestive heart failure remaining causes. Current Visit: Yes (4) Obstructive sleep apnea Status: Chronic Assessment and plan: Patient to use CPAP at night. Current Visit: Yes (5) Pulmonary hypertension Status: Acute Assessment and plan: Her pulmonary hypertension is a little worse now than it was last year. Estimated peak pulmonary artery pressure on echocardiogram went from 42-55 and a little over a year. This may be due to obesity, sleep apnea, left-sided heart disease although it does not appear to be severe. Certainly could have primary pulmonary hypertension. Will consider adding Revatio. 09/15/2016 likely multifactorial. 09/18/2016 continuing current combination therapy. 09/19/2016 multifactorial causes for pulmonary hypertension. Continue current treatment. Probably should repeat an echo after stable on current medications Current Visit: Yes (6) Aortic stenosis Status: Chronic Assessment and plan: This appears to be relatively mild. Current Visit: Yes Qualifiers: Cardiac valve disease etiology: nonrheumatic Qualified Code(s): I35.0 - Nonrheumatic aortic (valve) stenosis
[2016-09-20] MEDS: METHENAMINE HIPPURATE 1 GM TABLET PO SCH ×2 (08:42→21:50)
[2016-09-20] MEDS: SOLIFENACIN 5 MG TABLET PO SCH (08:42)
[2016-09-20] MEDS: ASPIRIN EC 81 MG TABLET PO SCH (08:42)
[2016-09-20] MEDS: VALSARTAN 160 MG TABLET PO SCH (08:42)
[2016-09-20] MEDS: MAGNESIUM OXIDE 400 MG TABLET PO SCH ×2 (08:42→21:51)
[2016-09-20] MEDS: amLODIPine 10 MG TABLET PO SCH (08:42)
[2016-09-20] MEDS: LABETALOL 100 MG TABLET PO SCH ×2 (08:43→21:50)
[2016-09-20] MEDS: MEMANTINE 10 MG TABLET PO SCH ×2 (08:43→21:51)
[2016-09-20] MEDS: POTASSIUM CHLORIDE 20 MEQ TABLET PO SCH ×2 (08:43→21:50)
[2016-09-20] MEDS: ALLOPURINOL 100 MG TABLET PO SCH (08:43)
[2016-09-20] MEDS: PANTOPRAZOLE 40 MG TABLET PO SCH (08:43)
[2016-09-20] MEDS: sitaGLIPtin 25 MG TABLET PO SCH (08:43)
[2016-09-20] MEDS: DOCUSATE SODIUM 100 MG CAPSULE PO SCH ×2 (08:43→21:50)
[2016-09-20] MEDS: LEVOTHYROXINE 50 MCG TABLET PO SCH (08:43)
[2016-09-20] MEDS: INSULIN LISPRO 100 UNIT/ML SUBCUT SCH ×3 (08:44→17:11)
[2016-09-20] MEDS: DESITIN 4OZ/NYSTATIN 15 GRAM MIXTURE PASTE TOP SCH ×2 (08:47→21:51)
--- NOTE | 2016-09-20 10:11 | Cardiology Progress Note ---
Cardiology - PN: Subj Interval history: Cardiology note Day 2 Medtronic advisory dual-chamber pacemaker A little tender at the pacemaker site and small ecchymotic bruise but no hematoma. No temperature Telemetry shows normal pacing and sensing Decreased breath sounds but clear Regular rhythm no gallop Abdomen benign Lab data today white count 11.7 hemoglobin 12.8 hematocrit 39.2 Sodium 141 potassium 4.1 chloride 103 CO2 29 BUN 30 creatinine 1.60 glucose 233 Impression Postop Day #2 Medtronic advisory dual-chamber pacemaker for Mobitz type II block Mild CAD by recent cath Chronic hypertension Serratia on bronchial washings Lower extremity cellulitis August 17, 2016 Obstructive sleep apnea Morbid obesity History of breast cancer with radiation therapy Plan Awaiting swing bed Wound check/pacemaker interrogation with Dr. Cross scheduled for 2 weeks Exam (Progress Note) - Constitutional Vitals: Period Temp Pulse Resp BP Sys/Duffy Pulse Ox Last 24 Hr 97.6 F-99.4 F 86-93 16-20 127-151/60-97 90-95 Result/EKG - Labs CBC & BMP: 09/20/16 02:52 09/20/16 02:52 Labs: Laboratory Results - last 24 hr 09/19/16 09/19/16 09/19/16 11:07 15:38 21:22 WBC RBC Hgb Hct MCV MCH MCHC RDW Plt Count MPV Neut % (Auto) Lymph % (Auto) [place] % (Auto) Eos % (Auto) Baso % (Auto) Neut # (Auto) Lymph # (Auto) [place] # (Auto) Eos # (Auto) Baso # (Auto) Immature Gran % Nucleated RBC % Immature Gran # Nucleated RBCs # Sodium Potassium Chloride Carbon Dioxide Anion Gap BUN Creatinine GFR Calculation BUN/Creatinine Ratio Glucose POC Glucose 259 H 250 H 262 H Calculated Osmolality Calcium Magnesium 09/20/16 09/20/16 09/20/16 02:52 02:52 07:16 WBC 11.7 RBC 4.47 Hgb 12.8 Hct 39.2 MCV 87.7 MCH 29 MCHC 32.7 RDW 14.2 Plt Count 205 MPV 10.3 Neut % (Auto) 61.6 Lymph % (Auto) 25.8 [place] % (Auto) 9.4 Eos % (Auto) 1.8 Baso % (Auto) 0.6 Neut # (Auto) 7.2 Lymph # (Auto) 3.0 [place] # (Auto) 1.1 H Eos # (Auto) 0.2 Baso # (Auto) 0.1 Immature Gran % 0.8 Nucleated RBC % 0.0 Immature Gran # 0.09 Nucleated RBCs # 0.00 Sodium 141 Potassium 4.1 Chloride 103 Carbon Dioxide 29 Anion Gap 13.1 BUN 38 H Creatinine 1.60 H GFR Calculation 37 BUN/Creatinine Ratio 23.00 H Glucose 233 H POC Glucose 187 H Calculated Osmolality 296.3 Calcium 8.7 Magnesium 2.4 Quality Measures - VTE Contraindication to Pharmacological VTE Prophylaxis: High Risk of Bleeding
[2016-09-20] MEDS: cefTRIAXone 1,000 MG in SODIUM CHLORIDE 0.9% 100 ML IV SCH (13:23)
[2016-09-20] MEDS: ATORVASTATIN 20 MG TABLET PO SCH (21:51)
[2016-09-20] MEDS: MONTELUKAST 10 MG TABLET PO SCH (21:51)
[2016-09-20] MEDS: INSULIN GLARGINE 100 UNIT/ML SUBCUT SCH (21:52)
[2016-09-21] MEDS: BUMETANIDE 1 MG/4 ML VIAL IV SCH (05:50)
--- NOTE | 2016-09-21 06:52 | Pulmonology Progress Note ---
Pulmonary - PN: Subj Interval history: This 80-year-old white female has shortness of breath. She has had persistent hemoptysis over several months. She takes anticoagulants. She has had previous radiation to the right chest wall for breast cancer. CT scan yesterday shows modest pleural effusions bilaterally. There are some groundglass changes in the left upper lobe that would be most consistent with pulmonary edema but could be some hemorrhage. There is scarring in the right upper lobe that certainly does not appear to be severe but is probably due to previous radiation. Patient is set up for bronchoscopy today. Need to find the site of the bleeding. It may be just a combination of congestive heart failure and anticoagulants. 09/18/2016 patient has not had any more hemoptysis since bronchoscopy Sunday. She grew out Serratia from bronchial washings. It is sensitive to Rocephin. Her anticoagulants have been changed to Eliquis 2.5 mg twice daily. She is getting a pacemaker today. I think her wheezing is multifactorial. She has had recurrent bronchitis. Also has some congestive heart failure and has pulmonary hypertension. 09/19/2016 no further hemoptysis. She remains weak and needs more physical therapy but may be able to be discharged soon. If she is discharged, I would suggest about 5 more days of oral Omnicef. She is allergic to sulfa and Floxin' s. 09/20/2016 patient feeling much better. No further hemoptysis. Looking for swing bed. Again would finish treatment with Omnicef at this point for just 4 more days. 09/21/2016 no further hemoptysis. Patient awaiting swing bed. I will sign off. Please call if needed Exam (Progress Note) - Constitutional Vitals: Period Temp Pulse Resp BP Sys/Duffy Pulse Ox Last 24 Hr 97.6 F-98.7 F 78-93 16-20 108-154/51-68 94-97 General appearance: no severe distress Exam: Patient is obese. Vital signs normal. Pupils react to light. Throat is clear. Neck supple no bruits. Chest shows some minimal crackles at the right base. I do not hear any wheezing. Heart normal rate and rhythm grade 1/6 systolic murmur at right base. Abdomen soft obese unable to palpate abdominal organs. Extremities no clubbing cyanosis , trace edema. Calves nontender. Little change from yesterday. Results - Labs CBC & BMP: 09/20/16 02:52 09/20/16 02:52 Lab Results: I have reviewed the past 24 hour labs Assessment and Plan (1) Morbid obesity Status: Chronic Assessment and plan: Morbid obesity may be playing a part in her pulmonary hypertension. She may have obesity hypoventilation syndrome. Will check ABGs. 09/15/2016 again needs to work on weight loss. Her PCO2 is only 43 so she does not frankly fit the mold for obesity hypoventilation syndrome. However she does have morbid obesity 09/18/2016 this is a big part of her dyspnea on exertion. 09/19/2016 again long-term needs weight loss. 09/21/2016 needs physical therapy, weight loss with diet control. Current Visit: No (2) Postphlebitic syndrome Status: Acute Assessment and plan: She is on long-term anticoagulants with Coumadin. INR was 2.3 during this admission. This may add to her risk of hemoptysis 09/15/2016 on long-term anticoagulants. After bronchoscopy may want to change her anticoagulants. Would suggest Eliquis 2.5 mg twice daily long-term. 09/18/2016 patient now on low-dose Eliquis. 09/20/2016 low-dose Eliquis. No further hemoptysis. Current Visit: Yes (3) Hemoptysis Status: Resolved Assessment and plan: Likely multifactorial but she is on anticoagulants. 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 She is coughing up some sticky sputum and probably has at least a superimposed bronchitis which may be hemorrhagic. I will obtain a noncontrast chest CT and plan bronchoscopy. 09/15/2016 for bronchoscopy today. She reports on CT scan. 09/18/2016 this has resolved. I think she had hemorrhagic bronchitis associated with the Serratia. Also pulmonary venous hypertension leading to increased risk of bleeding. 09/19/2016 no further hemoptysis. Likely due to acute bronchitis, increased submucosal vascularity from congestive heart failure, and anticoagulants. 09/20/2016 hemoptysis is subsided. The acute bronchitis and anticoagulation along with underlying congestive heart failure remaining causes. Current Visit: Yes (4) Obstructive sleep apnea Status: Chronic Assessment and plan: Patient to use CPAP at night. 09/21/2016 should continue with CPAP at night Current Visit: Yes (5) Pulmonary hypertension Status: Acute Assessment and plan: Her pulmonary hypertension is a little worse now than it was last year. Estimated peak pulmonary artery pressure on echocardiogram went from 42-55 and a little over a year. This may be due to obesity, sleep apnea, left-sided heart disease although it does not appear to be severe. Certainly could have primary pulmonary hypertension. Will consider adding Revatio. 09/15/2016 likely multifactorial. 09/18/2016 continuing current combination therapy. 09/19/2016 multifactorial causes for pulmonary hypertension. Continue current treatment. Probably should repeat an echo after stable on current medications 09/21/2016 multifactorial. Keep on anticoagulants. Work on weight loss. Repeat echo in about a month. Current Visit: Yes (6) Aortic stenosis Status: Chronic Assessment and plan: This appears to be relatively mild. Current Visit: Yes Qualifiers: Cardiac valve disease etiology: nonrheumatic Qualified Code(s): I35.0 - Nonrheumatic aortic (valve) stenosis Specialty Discharge - Follow Up or Referrals Follow up with: Staci Duggan DO [Physician] - 2 Weeks
--- NOTE | 2016-09-21 08:25 | Cardiology Progress Note ---
Cardiology - PN: Subj Interval history: Cardiology note Day 3 Medtronic advisory dual-chamber pacemaker. Little tender at the pacemaker site but no hematoma or discharge. Telemetry shows predominantly sinus rhythm with ventricular pacing No temperature Appetite good. Regular rhythm no gallop Decreased breath sounds but clear Abdomen benign Impression Day 3 Medtronic advisory dual-chamber pacemaker for Mobitz type II block Mild CAD by recent cath Chronic hypertension Serratia on bronchial washings Lower extremity cellulitis August 17, 2016 Obstructive sleep apnea Morbid obesity History of breast cancer with radiation therapy Plan Awaiting swing bed transfer Wound check/pacemaker interrogation with Dr. Cross has been scheduled 2 weeks Exam (Progress Note) - Constitutional Vitals: Period Temp Pulse Resp BP Sys/Duffy Pulse Ox Last 24 Hr 97.2 F-98.7 F 76-91 16-20 108-154/51-68 94-97 Result/EKG - Labs CBC & BMP: 09/20/16 02:52 09/20/16 02:52 Quality Measures - VTE Contraindication to Pharmacological VTE Prophylaxis: High Risk of Bleeding Specialty Discharge - Follow Up or Referrals Follow up with: Staci Duggan DO [Physician] - 2 Weeks
[2016-09-21] MEDS: METHENAMINE HIPPURATE 1 GM TABLET PO SCH (09:12)
[2016-09-21] MEDS: VALSARTAN 160 MG TABLET PO SCH (09:12)
[2016-09-21] MEDS: SOLIFENACIN 5 MG TABLET PO SCH (09:12)
[2016-09-21] MEDS: MAGNESIUM OXIDE 400 MG TABLET PO SCH (09:13)
[2016-09-21] MEDS: DOCUSATE SODIUM 100 MG CAPSULE PO SCH (09:13)
[2016-09-21] MEDS: MEMANTINE 10 MG TABLET PO SCH (09:13)
[2016-09-21] MEDS: sitaGLIPtin 25 MG TABLET PO SCH (09:13)
[2016-09-21] MEDS: LABETALOL 100 MG TABLET PO SCH (09:13)
[2016-09-21] MEDS: ALLOPURINOL 100 MG TABLET PO SCH (09:13)
[2016-09-21] MEDS: amLODIPine 10 MG TABLET PO SCH (09:13)
[2016-09-21] MEDS: ASPIRIN EC 81 MG TABLET PO SCH (09:13)
[2016-09-21] MEDS: PANTOPRAZOLE 40 MG TABLET PO SCH (09:14)
[2016-09-21] MEDS: POTASSIUM CHLORIDE 20 MEQ TABLET PO SCH (09:14)
[2016-09-21] MEDS: LEVOTHYROXINE 50 MCG TABLET PO SCH (09:14)
[2016-09-21] MEDS: INSULIN LISPRO 100 UNIT/ML SUBCUT SCH ×2 (09:14→13:30)
[2016-09-21] MEDS: DESITIN 4OZ/NYSTATIN 15 GRAM MIXTURE PASTE TOP SCH (09:15)
[2016-09-21] MEDS: cefTRIAXone 1,000 MG in SODIUM CHLORIDE 0.9% 100 ML IV SCH (11:10)
--- NOTE | 2016-09-21 11:19 | Discharge Summary ---
Hospital Course - Hospital Course Hospital Course: This is an 80 year old female patient of Dr. Edenilson Peck with history of mild CAD, CHF, pulmonary hypertension, aortic stenosis, obstructive sleep apnea, HTN , DM, peripheral neuropathy, dyslipidemia, COPD, history of breast cancer, who presented to ER with worsening dyspnea and syncopal episodes over a two-three week period. She had hemoptysis. Also, she was found to have Mobitz II AV block and symptomatic bradycardia. Pacemaker was placed by Dr. Duggan during course of hospitalization. Also, she was found to have acute bronchitis ( history of recurrent bronchitis) and had Serratia pneumonia verified by bronchoscopy per Dr. Astudillo. She was treated with Rocephin. She has responded well and is now ready to go to [facility] for rehab. She will follow up with Dr. Peck both in [facility] and in clinic. She will also follow up with Dr. Duggan. Diagnosis - Discharge Diagnosis (1) Bradycardia Status: Resolved (2) Congestive heart failure Status: Resolved (3) Pulmonary hypertension Status: Chronic (4) Aortic stenosis Status: Chronic (5) COPD (chronic obstructive pulmonary disease) Status: Chronic (6) Coronary artery disease Status: Chronic (7) Hyperlipidemia Status: Chronic (8) Hypertension Status: Chronic (9) Obesity Status: Chronic (10) Obstructive sleep apnea Status: Chronic (11) Osteoarthritis Status: Chronic (12) Weakness Status: Chronic (13) Hemoptysis Status: Resolved (14) Mobitz type 2 second degree AV block Status: Resolved (15) Community acquired pneumonia Status: Acute (16) Diabetes Status: Chronic Specialty Discharge - Follow Up or Referrals Follow up with: Staci Duggan DO [Physician] - 2 Weeks Discharge Plan - Discharge Data Disposition: Disch/Xfer to Snf Condition at Discharge: Stable Discharge Diet: diabetic diet, low fat, low cholesterol Activity: as per physical therapy, increase activity as tolerated - Discharge Medications New amLODIPine [Norvasc] 10 mg PO DAILY tablet Apixaban [Eliquis] 2.5 mg PO BID #60 tablet Cefuroxime Tab [Ceftin] 250 mg PO BID #30 tablet Docusate Sodium Cap [Colace Cap] 100 mg PO BID capsule Polyethylene Glycol Powder [Miralax] 17 gm PO DAILY PRN PRN Reason: Constipation Valsartan [Diovan] 320 mg PO DAILY tablet Acetaminophen Tab [Tylenol Tab] 650 mg PO Q6H PRN tablet PRN Reason: Fever > 100.4 Or Headache Bumetanide Tab [Bumex Tab] 1 mg PO BID DIURETIC #60 tablet Potassium Chloride Cap/Tab [K Dur] 20 meq PO BID tablet Continue Insulin Detemir [Levemir FlexPen] 45 unit SUBCUT BEDTIME #0 Cyanocobalamin Inj [Vitamin B12 Inj] 1,000 mcg SUBCUT Q30D Omeprazole [Prilosec] 20 mg PO QAM Insulin Aspart [NovoLOG FlexPen] 10 unit SUBCUT TID W/MEALS Albuterol Neb [Proventil Neb] 2.5 mg RESP TX RT Q4H PRN PRN Reason: Shortness Of Breath/Wheezing Allopurinol [Zyloprim] 100 mg PO QAM tablet Alum/Mag/Simeth Max Str Liquid [Mylanta Max Strength Liquid] 30 ml PO Q4H PRN PRN Reason: Dyspepsia Atorvastatin [Lipitor] 10 mg PO BEDTIME tablet cloNIDine TAB [Catapres Tab] 0.1 mg PO BID tablet Labetalol Tab [Trandate Tab] 100 mg PO BID tablet Levothyroxine Tab [Synthroid Tab] 50 mcg PO QAM tablet Memantine [Namenda] 10 mg PO BID tablet Methenamine Hippurate [Hiprex] 1 gm PO BID tablet Montelukast Tab [Singulair Tab] 10 mg PO BEDTIME tablet Solifenacin [Vesicare] 10 mg PO QAM tablet Aspirin EC Tab 81 mg PO QAM tablet Meclizine [Antivert] 25 mg PO QPM PRN tablet PRN Reason: Dizziness Linagliptin [Tradjenta] 5 mg PO DAILY Discontinued Pregabalin [Lyrica] 50 mg PO BEDTIME capsule Warfarin [Coumadin] 2.5 mg PO MOWEFR Warfarin [Coumadin] 5 mg PO SUTUTH Potassium Chloride Cap/Tab [K Dur] 20 meq PO DAILY Furosemide Tab [Lasix Tab] 80 mg PO BID Acetaminophen Tab [Tylenol Tab] 1,000 mg PO Q6H PRN PRN Reason: Fever > 100.4 Or Headache - Follow Up or Referral Follow Up: Staci Duggan DO [Physician] - 2 Weeks Edenilson Peck MD [Physician] - - Forms/Instructions Additional Discharge Instructions: Upon discharge from [facility], her new and changed meds will need to be called in to pharmacy. Exam - Constitutional Vitals: Period Temp Pulse Resp BP Sys/Duffy Pulse Ox Last 24 Hr 97.2 F-98.7 F 76-91 16-20 108-154/51-68 94-97 General appearance: no acute distress - Head Head exam: Present: normocephalic - Eye Eye exam: Present: EOMI - Respiratory Respiratory exam: Present: clear to auscultation bilaterally. Absent: rhonchi, wheezes - Cardiovascular Cardiovascular exam: Present: regular rate and rhythm (new pacemaker) - GI/Abdominal GI/Abdominal exam: Present: normal bowel sounds, soft. Absent: tenderness - Extremities Exam Extremities exam: Absent: edema - Neurological Exam Neurological exam: Present: alert, oriented X3 - Psychiatric Psychiatric exam: Present: normal mood - Skin Skin exam: Present: warm, dry Discharge Results Procedures and tests throughout hospitalization: Pending Orders 09/15/16 AFB Culture/Smears Routine Fungal Culture w/ Prep Routine 09/15/16 07:53 Cytology Request Routine Labs on day of discharge: Labs from last 24 hours 09/21/16 09/20/16 09/20/16 06:56 19:33 15:50 POC Glucose 211 H 234 H 257 H 09/20/16 11:43 POC Glucose 208 H Preliminary micro results at discharge 09/15/16 Unknown Mycobacterial Culture - Preliminary Bronchial Washings No AFB isolated at 1 week DS: Provider Date of admission: 09/11/16 21:39 Primary care physician: . No PCP Attending physician on admission: Edenilson Peck MD Consults: 09/11/16 21:39 Consult to Case Mgmt/Social Srvs [CONS] Routine Reason for Case Mgmt/Social Srvs: Discharge Planning 09/12/16 00:06 Consult to Pastoral Services [CONS] Routine Comment: Pastoral Screen: Request Manager Of Purchasing Visit Pastoral Screen Source of Request: Patient 09/12/16 07:45 Consult to Physician [CONS] Routine Comment: Consulting Provider: Cardiology - [facility] Person Notified: Ricardo Date Notified: 09/12/16 Time Notified: 08:15 09/14/16 07:37 Consult to Physician [CONS] Routine Comment: Consulting Provider: Milo Astudillo Person Notified: Peace Date Notified: 09/14/16 Time Notified: 10:55 09/15/16 14:25 Consult to Physical Therapy [CONS] Routine Reason for Physical Therapy: Evaluate and Treat Weakness 09/16/16 07:15 Consult to Physical Therapy [CONS] Routine Reason for Physical Therapy: Gait Training 09/19/16 07:29 Consult to Case Mgmt/Social Srvs [CONS] Routine Reason for Case Mgmt/Social Srvs: Swingbed/SNF/Long-Term Consult Comment: [facility] please Discharging clinician: Ursula Rodriguez DO Expected date of discharge: 09/21/16
[2016-09-21 11:56] VITALS: BP 118/52
== END 2016-09-21 13:43 | DRG 242 ==
LOC: EDUNIT# → EDBD → N.ED 18:37 → N.EDINP 21:39 → N.TELES 22:57
PROVIDERS: ADMIT Family Medicine; ATTEND Family Medicine

== ENCOUNTER 2016-11-17 19:06 | Inpatient (IN) ==
--- NOTE | 2016-11-17 20:42 | Emergency Department Note ---
Arrival - Arrival Chief Complaint: GI Bleed/Rectal Stated Complaint: Gi bleed ED Nursing Triage Note: Pt brought in by EMS with c/o GI Bleed that started today. EMS states per nurse pt passed a large amout of blood [employer]. PT was recently dx with VRE, but completed her last does of antibiotics today. BP has been running 70's/40's per EMS. Pt rec'd approx 450L of NS. Mode of Arrival: Stretcher Time Seen by Provider: 11/17/16 20:20 - History of Present Illness HPI Narrative: This is a 80-year-old white female with a history of coronary artery disease, congestive heart failure, pulmonary hypertension, aortic stenosis which was not repaired, obstructive sleep apnea, hypertension, type 2 diabetes, peripheral neuropathy, hyperlipidemia, COPD, breast cancer, pacemaker insertion August 2016 for Mobitz 2 block serration pneumonia documented by bronchoscopy recurrent deep venous thrombosis on Eliquis who presents with bright red blood per rectum which started today associated with a systolic blood pressure of 70. Patient says that she had a large bloody bowel movement approximately 15 days ago when she was staying in the rehab facility where she is to learn how to walk again so that she can go home after her pacer was placed. The bleeding stopped until today when she had a very large bloody bowel movement associated with abdominal pain. When EMS arrived her blood pressure was 70/40 and she was given a bolus of 500 ml of normal saline. Her blood pressure is now normal in the recumbent position. Rectal examination reveals no gross blood. The stool is however guaiac positive. Allergies/Adverse Reactions: Allergies Allergy/AdvReac Type Severity Reaction Status Date / Time ofloxacin [From Floxin] Allergy Unknown/Unable Verified 08/11/16 13:39 to obtain Sulfa (Sulfonamide Allergy ANAPHYLAXIS Verified 08/11/16 13:39 Antibiotics) tape AdvReac Swelling Uncoded 08/11/16 13:39 of Lip/Tongue/Throat Home Medications: Home Medications Medication Instructions Recorded Confirmed Type Insulin Detemir [Levemir FlexPen] 45 unit SUBCUT BEDTIME #0 07/10/14 11/17/16 History Cyanocobalamin Inj [Vitamin B12 1,000 mcg SUBCUT Q30D 09/22/15 11/17/16 History Inj] Omeprazole [Prilosec] 20 mg PO QAM 09/22/15 11/17/16 History Insulin Aspart [NovoLOG FlexPen] 10 unit SUBCUT TID W/MEALS 10/11/15 11/17/16 History Albuterol Neb [Proventil Neb] 2.5 mg RESP TX RT Q4H PRN 08/17/16 11/17/16 Rx Alum/Mag/Simeth Max Str Liquid 30 ml PO Q4H PRN 08/17/16 11/17/16 Rx [Mylanta Max Strength Liquid] Aspirin EC Tab 81 mg PO QAM tablet 08/17/16 11/17/16 Rx Atorvastatin [Lipitor] 10 mg PO BEDTIME tablet 08/17/16 11/17/16 Rx Labetalol Tab [Trandate Tab] 100 mg PO BID tablet 08/17/16 11/17/16 Rx Levothyroxine Tab [Synthroid Tab] 50 mcg PO QAM tablet 08/17/16 11/17/16 Rx Meclizine [Antivert] 25 mg PO QPM PRN tablet 08/17/16 11/17/16 Rx Memantine [Namenda] 10 mg PO BID tablet 08/17/16 11/17/16 Rx Methenamine Hippurate [Hiprex] 1 gm PO BID tablet 08/17/16 11/17/16 Rx Montelukast Tab [Singulair Tab] 10 mg PO BEDTIME tablet 08/17/16 11/17/16 Rx Solifenacin [Vesicare] 10 mg PO QAM tablet 08/17/16 11/17/16 Rx Linagliptin [Tradjenta] 5 mg PO DAILY 09/11/16 11/17/16 History Acetaminophen Tab [Tylenol Tab] 650 mg PO Q6H PRN tablet 09/21/16 11/17/16 Rx Apixaban [Eliquis] 2.5 mg PO BID #60 tablet 09/21/16 11/17/16 Rx Bumetanide Tab [Bumex Tab] 1 mg PO BID DIURETIC #60 tablet 09/21/16 11/17/16 Rx Docusate Sodium Cap [Colace Cap] 100 mg PO BID capsule 09/21/16 11/17/16 Rx Potassium Chloride Cap/Tab [K Dur] 20 meq PO BID tablet 09/21/16 11/17/16 Rx Valsartan [Diovan] 320 mg PO DAILY tablet 09/21/16 11/17/16 Rx Amlodipine Besylate 5 mg PO DAILY 11/17/16 11/17/16 History Escitalopram Oxalate [Lexapro] 5 mg PO DAILY 11/17/16 11/17/16 History Febuxostat [Uloric] 40 mg PO DAILY 11/17/16 11/17/16 History Polyethylene Glycol Powder 17 gm PO Q24H PRN 11/17/16 11/17/16 History [Miralax] Review of System - Review of System Constitutional: Absent: fever, night sweats Eyes: Absent: redness, vision change Head/Ears/Nose/Throat: Absent: epistaxis, nasal drainage Respiratory: Absent: respiratory distress, wheezing Cardiovascular: Absent: dyspnea on exertion, orthopnea Gastrointestinal: Present: abdominal pain, melena. Absent: constipation Genitourinary female: Absent: dyspareunia, frequency Musculoskeletal: Absent: joint swelling, lower back pain Skin: Absent: change in color, change in hair/nails Neurological: Absent: numbness, paresthesias Psychiatric: Absent: suicidal thoughts, homicidal thoughts Endocrine: Absent: heat intolerance, polydipsia Hematological/Lymphatic: Absent: easy bruising, lymphadenopathy Allergic/Immunologic: Absent: urticaria, itchy eyes Medical,Surgical,& Family Hx - Medical History Cardio: History of: CHF, CAD, Hypertension, PVD (blood clots in legs in past) Psychological: History of: Anxiety Disorders Neurology: History of: Migraine, 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 Recurrent DVTs) Renal: History of: Renal (Kidney) Cancer (previous right nephrectomy from cancer ), Renal Failure (stage 3) Genitourinary: History of: Bladder Problem (neurogenic bladder), Problems ( renal cell carcinoma) Gastrointestinal: History of: GERD Musculoskeletal: History of: Osteoporosis, Musculoskeletal Problems (arhtritis) Hematology: History of: Anemia, Blood Transfusion Reaction (chills), Clotting Problems Reproductive: History of: Breast Cancer (14 years ago,PARTIAL RIGHT MASTECTOMY) Other: History of: Anesthesia Reactions (stopped breathing with knee surgery), Cancer (breast and renal cell cancer), Skin Problems (BRUISES EASILY(FROM COUMADIN)) - Surgical History Cardiac Surgeries: Sugical HX of: Cardiac Catheterization Thoracic Surgeries: Surgical HX of;: Kidney (Renal Surgery) (right kidney removal) Patient denies;: Organ Transplant HEENT Surgeries: Surgical HX of: Eye Surgery (cataract removalS) Patient denies: Thyroid Surgery, Tonsilectomy & Adenoidectomy Abdominal Surgeries: Surgical HX of: Abdominal Surgery, Appendectomy, Cholecystectomy, EGD Patient denies: Colonoscopy, Hernia Repair Reproductive Surgeries: Surgical HX of;: Breast Surgery, Gynecologic Surgery, Hysterectomy, Tubal Ligation Orthopedic Surgeries: Surgical HX of;: Total Knee Replacement (right knee replacement) - Family History Family History: Reports;: Family Cancer (daddy), Family Diabetes (MOM,BRO), Family Hypertension (mom and dad,BRO), Family Stroke (dad) Denies;: Family Anesthesia Reaction, Family Heart Disease, Family Psychiatric Problems - Social History Smoking Status: Never smoker Frequency of Alcohol Use: None Type of Drug Use: None Exam Vital Signs: Vital Signs Temperature 98.3 F 11/17/16 19:12 Pulse Rate 89 11/17/16 19:12 Respiratory Rate 18 11/17/16 19:12 Blood Pressure 109/65 11/17/16 19:12 O2 Sat by Pulse Oximetry 100 11/17/16 19:12 - General Exam limited due to: ALOC General appearance: alert - Head Head exam: Present: atraumatic - Eye Eye exam: Present: PERRL, EOMI - ENT ENT exam: Present: normal exam - Neck Neck exam: Present: normal inspection - Chest Chest inspection: Present: normal inspection - Respiratory Respiratory exam: Present: normal lung sounds bilaterally - Cardiovascular Cardiovascular exam: Present: regular rate, normal rhythm - Abdominal Exam Abdominal exam: Present: soft, normal bowel sounds - Rectal Exam Rectal exam: Present: other (Rectal exam revealed no gross blood and was guaiac positive) - Extremities Exam Extremities exam: Present: normal inspection, full ROM - Back Exam Back exam: Present: normal inspection, full ROM - Neurological Exam Neurological exam: Present: alert, oriented X3 - Psychiatric Psychiatric exam: Present: normal affect, normal mood - Skin Skin exam: Present: warm, dry
--- NOTE | 2016-11-17 21:00 | EKG Report ---
Stationary ECG Study [facility] ER Test Date: 11/17/2016 8:58:32 PM Pat Name: BETTYE SOLOMON Department: Room: Gender: F [employer]: ALEXIS : 1935 Requested by: Amando Galicia Order Number: [id number] Reading MD: COLT BRODERICK Intervals [place] Rate: 84 P: 15 LA: 190 QRS: 37 QRSD: 81 T: 49 QT: 411 QTc: 452 Interpretive Statements ELECTRONIC VENTRICULAR PACEMAKER ABNORMAL RHYTHM ECG Electronically Signed On 11-20-16 10:51:08 CDT by COLT BRODERICK [email or web address]
[2016-11-17 21:47] LABS: Apearance,Urine CLEAR (Clear); Bacteria,Urine Many /HPF (Few); Bilirubin,Urine Negative (Negative); Blood, Urine Negative (Negative); Glucose,Urine (UA) Negative (Negative); Hyaline Casts,Urine 1 /LPF (0-3); Ketones,Urine Negative (Negative); Mucus,Urine Occasional /LPF (Occasional); Nitrite,Urine Negative (Negative); Protein,Urine Negative; RBC,Urine <1 /HPF (0-4); Urine Color Straw (Yellow); Urine Urobilinogen < 2.0 EU/DL (0.2-1.0); WBC,Urine 3 /HPF (0-6)
[2016-11-17 22:05] LABS: Basophils % 0.4 % (0.0-0.8); Eosinophils % 0.5 % (0.00-10.9); Hematocrit 26.1 VOL% (35.7-47.0); Hemoglobin 8.6 GM/DL (12.0-16.0); Immature Granulocytes % 0.6 %; Immature Granulocytes Absolute 0.05 #; Lymphocytes # 1.4 10*3/uL (1.4-4.0); Mean Corpuscular Hemoglobin 30 PG (27-34); Mean Corpuscular Volume 89.4 FL (87-102); Mean Platelet Volume 9.8 FL (9.6-12.0); Monocytes # 0.3 10*3/uL (0.11-0.8); Neutrophils # 6.1 10*3/uL (1.4-7.4); Neutrophils % 76.5 % (38.7-73.9); Platelet Count 109 T/CUMM (130-400); Red Blood Count 2.92 MC/CUMM (3.8-5.5); Red Cell Distribution Width 14.4 % (9.3-17.3); White Blood Count 7.9 T/CUMM (4-12)
[2016-11-17 22:17] LABS: Potassium 4.5 MMOL/L (3.5-5.1)
[2016-11-17 22:18] LABS: INR 1.1; PT Patient Result 11.4 SECS; Partial Thromboplastin Time 26.2 SECS (0-40)
[2016-11-17 22:19] LABS: Calcium 7.6 MG/DL (8.5-10.1)
[2016-11-17 22:20] LABS: Albumin 2.9 G/DL (3.4-5.0); Osmolality,Calculated 314.8 MOS/KG (273-304)
[2016-11-17 22:23] LABS: Troponin I Only < 0.015 NG/ML (0.00-0.045)
[2016-11-17 22:25] LABS: Bilirubin,Total 0.4 MG/DL (0.2-1.0); Total Protein 5.7 G/DL (6.4-8.3)
[2016-11-17] MEDS ORDERED: ONDANSETRON 4 MG/2 ML VIAL IV PRN (22:32)
[2016-11-17] MEDS ORDERED: SODIUM CHLORIDE 0.9% 250 ML IV PRN (22:49)
--- NOTE | 2016-11-18 07:08 | XRay Report ---
Exam: XR chest 1V portable Date: 11/17/2016 8:37 PM Indication: GI bleeding Comparison: 09/19/2016 Technical: AP portable Findings: Cardiac pacing device is present from a left-sided approach with atrial ventricular leads. Mild cardiomegaly and ASVD is present. Mild interstitial thickening and a few scattered reticular nodular densities are present. Lateral marginal osteophytes are present. External cardiac leads are present. No pneumothorax or effusions. Previous cholecystectomy prior exams suspected Impression: 1. Scarring in the lung briones with mild interstitial thickening and granuloma changes 2. Cardiomegaly stable position cardiac pacing device PROCEDURE INTERPRETED AT [facility] DEPARTMENT OF RADIOLOGY Final Report Signed by: Dr. Wang Houser
[2016-11-18] MEDS ORDERED: PANTOPRAZOLE 40 MG TABLET PO SCH (09:00)
--- NOTE | 2016-11-18 09:07 | Internal Med History&Physical ---
Assessment and Plan (1) Rectal bleeding Status: Acute Assessment and plan: 80-year-old female admitted to acute care * Rectal bleeding. Patient's hematocrit was much lower than the last noted hematocrit. She has been started on transfusion. This is most likely a painless diverticular bleed. Her BUN and creatinine are elevated from her baseline. Will consult GI to evaluate. Appears to be a brisk bleeding but she is hemodynamically stable and would like to stay on a monitored bed rather than going to the intensive care unit. It was discussed with patient and her daughter. * Status post recent pacemaker placement. Patient has been on Eliquis which is of course being held * Hypertension. Continue current blood pressure medication * Hyperlipidemia. Continue current treatment * Hypothyroidism. Patient will be continued on present medications * Diabetes. She will be kept on a sliding scale. * Will do serial hematocrits and transfuse if hematocrit is below 28 * Patient admitted to Dr. Peck service Current Visit: Yes (2) COPD (chronic obstructive pulmonary disease) Status: Chronic Current Visit: No (3) Coronary artery disease Status: Chronic Current Visit: No (4) Diabetes Status: Chronic Current Visit: No Qualifiers: Diabetes mellitus type: type 2 Diabetes mellitus complication status: with kidney complications Diabetes mellitus complication detail: with chronic kidney disease Diabetes mellitus jail guard insulin use: with jail guard use Chronic kidney disease stage: stage 3 (moderate) Qualified Code(s): E11.22 - Type 2 diabetes mellitus with diabetic chronic kidney disease; N18.3 - Chronic kidney disease, stage 3 (moderate); 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 Junior is a 80 year old female with history of coronary artery disease, congestive heart failure, pulmonary hypertension, aortic stenosis, obstructive sleep apnea, hypertension, type 2 diabetes, peripheral neuropathy, hyperlipidemia, COPD who presented to the emergency room with rectal bleeding. 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 She has been on Eliquis. She had several bowel movements at [facility] which were bloody. In the emergency room she was found to have low hematocrit. Patient was started on transfusion. She has slowly felt better this morning. She still has generalized weakness. She is having ongoing rectal bleeding. She denies any chest pain or shortness of breath. She denies any nausea vomiting or abdominal pain. She denies any diarrhea. Patient denies any history of smoking or alcohol use. Home Medications Medication Instructions Recorded Confirmed Type Insulin Detemir [Levemir FlexPen] 45 unit SUBCUT BEDTIME #0 07/10/14 11/17/16 History Cyanocobalamin Inj [Vitamin B12 1,000 mcg SUBCUT Q30D 09/22/15 11/17/16 History Inj] Omeprazole [Prilosec] 20 mg PO QAM 09/22/15 11/17/16 History Insulin Aspart [NovoLOG FlexPen] 10 unit SUBCUT TID W/MEALS 10/11/15 11/17/16 History Albuterol Neb [Proventil Neb] 2.5 mg RESP TX RT Q4H PRN 08/17/16 11/17/16 Rx Alum/Mag/Simeth Max Str Liquid 30 ml PO Q4H PRN 08/17/16 11/17/16 Rx [Mylanta Max Strength Liquid] Aspirin EC Tab 81 mg PO QAM tablet 08/17/16 11/17/16 Rx Atorvastatin [Lipitor] 10 mg PO BEDTIME tablet 08/17/16 11/17/16 Rx Labetalol Tab [Trandate Tab] 100 mg PO BID tablet 08/17/16 11/17/16 Rx Levothyroxine Tab [Synthroid Tab] 50 mcg PO QAM tablet 08/17/16 11/17/16 Rx Meclizine [Antivert] 25 mg PO QPM PRN tablet 08/17/16 11/17/16 Rx Memantine [Namenda] 10 mg PO BID tablet 08/17/16 11/17/16 Rx Methenamine Hippurate [Hiprex] 1 gm PO BID tablet 08/17/16 11/17/16 Rx Montelukast Tab [Singulair Tab] 10 mg PO BEDTIME tablet 08/17/16 11/17/16 Rx Solifenacin [Vesicare] 10 mg PO QAM tablet 08/17/16 11/17/16 Rx Linagliptin [Tradjenta] 5 mg PO DAILY 09/11/16 11/17/16 History Acetaminophen Tab [Tylenol Tab] 650 mg PO Q6H PRN tablet 09/21/16 11/17/16 Rx Apixaban [Eliquis] 2.5 mg PO BID #60 tablet 09/21/16 11/17/16 Rx Bumetanide Tab [Bumex Tab] 1 mg PO BID DIURETIC #60 tablet 09/21/16 11/17/16 Rx Docusate Sodium Cap [Colace Cap] 100 mg PO BID capsule 09/21/16 11/17/16 Rx Potassium Chloride Cap/Tab [K Dur] 20 meq PO BID tablet 09/21/16 11/17/16 Rx Valsartan [Diovan] 320 mg PO DAILY tablet 09/21/16 11/17/16 Rx Amlodipine Besylate 5 mg PO DAILY 11/17/16 11/17/16 History Escitalopram Oxalate [Lexapro] 5 mg PO DAILY 11/17/16 11/17/16 History Febuxostat [Uloric] 40 mg PO DAILY 11/17/16 11/17/16 History Polyethylene Glycol Powder 17 gm PO Q24H PRN 11/17/16 11/17/16 History [Miralax] Allergies Allergy/AdvReac Type Severity Reaction Status Date / Time ofloxacin [From Floxin] Allergy Unknown/Unable Verified 08/11/16 13:39 to obtain Sulfa (Sulfonamide Allergy ANAPHYLAXIS Verified 08/11/16 13:39 Antibiotics) tape AdvReac Swelling Uncoded 08/11/16 13:39 of Lip/Tongue/Throat Medical,Surgical,& Family Hx - Medical History Cardio: History of: Cardiac Dysrhythmia (Mobitz 2 block), CHF, CAD, Hypertension , Pacemaker (August 2016), PVD (blood clots in legs in past) Psychological: History of: Anxiety Disorders Neurology: History of: Migraine, 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 Recurrent DVTs) Renal: History of: Renal (Kidney) Cancer (previous right nephrectomy from cancer ), Renal Failure (stage 3) Genitourinary: History of: Bladder Problem (neurogenic bladder), Problems ( renal cell carcinoma) Gastrointestinal: History of: GERD Musculoskeletal: History of: Osteoporosis, Musculoskeletal Problems (arhtritis) Hematology: History of: Anemia, Blood Transfusion Reaction (chills), Clotting Problems Reproductive: History of: Breast Cancer (14 years ago,PARTIAL RIGHT MASTECTOMY) Other: History of: Anesthesia Reactions (stopped breathing with knee surgery), Cancer (breast and renal cell cancer), Skin Problems (BRUISES EASILY(FROM COUMADIN)) - Surgical History Cardiac Surgeries: Sugical HX of: Cardiac Catheterization Thoracic Surgeries: Surgical HX of;: Kidney (Renal Surgery) (right kidney removal) Patient denies;: Organ Transplant HEENT Surgeries: Surgical HX of: Eye Surgery (cataract removalS) Patient denies: Thyroid Surgery, Tonsilectomy & Adenoidectomy Abdominal Surgeries: Surgical HX of: Abdominal Surgery, Appendectomy, Cholecystectomy, EGD Patient denies: Colonoscopy, Hernia Repair Reproductive Surgeries: Surgical HX of;: Breast Surgery, Gynecologic Surgery, Hysterectomy, Tubal Ligation Orthopedic Surgeries: Surgical HX of;: Total Knee Replacement (right knee replacement) - Family History Family History: Reports;: Family Cancer (daddy), Family Diabetes (MOM,BRO), Family Hypertension (mom and dad,BRO), Family Stroke (dad) Denies;: Family Anesthesia Reaction, Family Heart Disease, Family Psychiatric Problems - Social History Smoking Status: Never smoker Frequency of Alcohol Use: None Type of Drug Use: None Marital Status: Single Lives With:: Swing bed Functional capacity: uses cane/walker 12 point system: reviewed and no additional remarkable complaints except as stated (As mentioned in HPI) Exam - Constitutional Vitals: Period Temp Pulse Resp BP Sys/Duffy Pulse Ox Last 24 Hr 97.2 F-98.4 F 86-96 18-20 107-159/42-95 93-100 Exam: Examination: GENERAL: Morbidly obese white female who is in no acute distress HEENT: PERRLA. EOMI. Mucous membranes are moist. NECK: Neck is supple. No JVD. No carotid bruit. No thyromegaly. CVS: Regular rate and rhythm. S1 and S2 are normal. RESPIRATORY: Lungs are clear. No rales or rhonchi. ABDOMEN: Soft and nontender. Bowel sounds are present. No hepatosplenomegaly. EXT: No edema. Peripheral pulses are present. INTERNATIONAL FREIGHT FORWARDER: Patient is awake, alert and oriented to time place and person. Cranial nerves II through XII are grossly intact. Motor strength is 3-4/5 SKIN: Warm and dry. MSK: No obvious deformity. Results - Labs CBC & BMP: 11/17/16 21:30 11/17/16 19:44 Lab Results: I have reviewed the past 24 hour labs Quality Measures - VTE Contraindication to Pharmacological VTE Prophylaxis: Active Bleeding
--- NOTE | 2016-11-18 09:13 | Gastrointestinal Consult Note ---
Assessment and Plan - Time spent with patient Time spent with patient: Greater than 30 minutes (1) Bright red blood per rectum Status: Acute Current Visit: Yes (2) Abdominal pain Status: Acute Current Visit: No (3) Symptomatic anemia Status: Acute Current Visit: Yes (4) Other specified counseling Status: Acute Current Visit: Yes History of Present Illness History of present illness: Ms. Junior is a 80 year old female Home Medications Medication Instructions Recorded Confirmed Type Insulin Detemir [Levemir FlexPen] 45 unit SUBCUT BEDTIME #0 07/10/14 11/17/16 History Cyanocobalamin Inj [Vitamin B12 1,000 mcg SUBCUT Q30D 09/22/15 11/17/16 History Inj] Omeprazole [Prilosec] 20 mg PO QAM 09/22/15 11/17/16 History Insulin Aspart [NovoLOG FlexPen] 10 unit SUBCUT TID W/MEALS 10/11/15 11/17/16 History Albuterol Neb [Proventil Neb] 2.5 mg RESP TX RT Q4H PRN 08/17/16 11/17/16 Rx Alum/Mag/Simeth Max Str Liquid 30 ml PO Q4H PRN 08/17/16 11/17/16 Rx [Mylanta Max Strength Liquid] Aspirin EC Tab 81 mg PO QAM tablet 08/17/16 11/17/16 Rx Atorvastatin [Lipitor] 10 mg PO BEDTIME tablet 08/17/16 11/17/16 Rx Labetalol Tab [Trandate Tab] 100 mg PO BID tablet 08/17/16 11/17/16 Rx Levothyroxine Tab [Synthroid Tab] 50 mcg PO QAM tablet 08/17/16 11/17/16 Rx Meclizine [Antivert] 25 mg PO QPM PRN tablet 08/17/16 11/17/16 Rx Memantine [Namenda] 10 mg PO BID tablet 08/17/16 11/17/16 Rx Methenamine Hippurate [Hiprex] 1 gm PO BID tablet 08/17/16 11/17/16 Rx Montelukast Tab [Singulair Tab] 10 mg PO BEDTIME tablet 08/17/16 11/17/16 Rx Solifenacin [Vesicare] 10 mg PO QAM tablet 08/17/16 11/17/16 Rx Linagliptin [Tradjenta] 5 mg PO DAILY 09/11/16 11/17/16 History Acetaminophen Tab [Tylenol Tab] 650 mg PO Q6H PRN tablet 09/21/16 11/17/16 Rx Apixaban [Eliquis] 2.5 mg PO BID #60 tablet 09/21/16 11/17/16 Rx Bumetanide Tab [Bumex Tab] 1 mg PO BID DIURETIC #60 tablet 09/21/16 11/17/16 Rx Docusate Sodium Cap [Colace Cap] 100 mg PO BID capsule 09/21/16 11/17/16 Rx Potassium Chloride Cap/Tab [K Dur] 20 meq PO BID tablet 09/21/16 11/17/16 Rx Valsartan [Diovan] 320 mg PO DAILY tablet 09/21/16 11/17/16 Rx Amlodipine Besylate 5 mg PO DAILY 11/17/16 11/17/16 History Escitalopram Oxalate [Lexapro] 5 mg PO DAILY 11/17/16 11/17/16 History Febuxostat [Uloric] 40 mg PO DAILY 11/17/16 11/17/16 History Polyethylene Glycol Powder 17 gm PO Q24H PRN 11/17/16 11/17/16 History [Miralax] Allergies Allergy/AdvReac Type Severity Reaction Status Date / Time ofloxacin [From Floxin] Allergy Unknown/Unable Verified 08/11/16 13:39 to obtain Sulfa (Sulfonamide Allergy ANAPHYLAXIS Verified 08/11/16 13:39 Antibiotics) tape AdvReac Swelling Uncoded 08/11/16 13:39 of Lip/Tongue/Throat Medical,Surgical,& Family Hx - Medical History Cardio: History of: CHF, CAD, Hypertension, PVD (blood clots in legs in past) Psychological: History of: Anxiety Disorders Neurology: History of: Migraine, 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 Recurrent DVTs) Renal: History of: Renal (Kidney) Cancer (previous right nephrectomy from cancer ), Renal Failure (stage 3) Genitourinary: History of: Bladder Problem (neurogenic bladder), Problems ( renal cell carcinoma) Gastrointestinal: History of: GERD Musculoskeletal: History of: Osteoporosis, Musculoskeletal Problems (arhtritis) Hematology: History of: Anemia, Blood Transfusion Reaction (chills), Clotting Problems Reproductive: History of: Breast Cancer (14 years ago,PARTIAL RIGHT MASTECTOMY) Other: History of: Anesthesia Reactions (stopped breathing with knee surgery), Cancer (breast and renal cell cancer), Skin Problems (BRUISES EASILY(FROM COUMADIN)) - Surgical History Cardiac Surgeries: Sugical HX of: Cardiac Catheterization Thoracic Surgeries: Surgical HX of;: Kidney (Renal Surgery) (right kidney removal) Patient denies;: Organ Transplant HEENT Surgeries: Surgical HX of: Eye Surgery (cataract removalS) Patient denies: Thyroid Surgery, Tonsilectomy & Adenoidectomy Abdominal Surgeries: Surgical HX of: Abdominal Surgery, Appendectomy, Cholecystectomy, EGD Patient denies: Colonoscopy, Hernia Repair Reproductive Surgeries: Surgical HX of;: Breast Surgery, Gynecologic Surgery, Hysterectomy, Tubal Ligation Orthopedic Surgeries: Surgical HX of;: Total Knee Replacement (right knee replacement) - Family History Family History: Reports;: Family Cancer (daddy), Family Diabetes (MOM,BRO), Family Hypertension (mom and dad,BRO), Family Stroke (dad) Denies;: Family Anesthesia Reaction, Family Heart Disease, Family Psychiatric Problems - Social History Smoking Status: Never smoker Frequency of Alcohol Use: None Type of Drug Use: None Exam - Constitutional Vitals: Period Temp Pulse Resp BP Sys/Duffy Pulse Ox Last 24 Hr 97.2 F-98.4 F 86-96 18-20 107-159/42-95 93-100 Results - Labs CBC & BMP: 11/17/16 21:30 11/17/16 19:44 Quality Measures - VTE Contraindication to Pharmacological VTE Prophylaxis: Active Bleeding Note Addendum: PLEASE NOTE -- automatic citation of patient information is unavoidable in this electronic note. I have made a reasonable effort to review the information cited , but it is not a part of my evaluation, impression, or recommendation unless specifically discussed in the dictated text that follows. As well, voice recognition software was used in the creation of this clinical note. Reasonable effort was made to identify and correct gross errors. Despite proofreading, errors in senior energy consultant may be present, including nonsense verbiage at times. If you encounter such an error, please contact me at for discussion and correction. -- Rizwana Chief complaint: bright red blood per rectum History of present illness: This is a new patient, a 80-year-old female seen by consultation for evaluation of bright red blood per rectum with symptomatic anemia. The patient is admitted to the telemetry floor under the care of Dr. Reagan with a primary diagnosis of gastrointestinal bleeding. The patient was admitted through the emergency department with primary complaint of bright red blood per rectum. Evaluation at that time revealed hypotension and anemia with hemoglobin less than 9 g/dL. since her admission the patient got both crystalloid and colloid resuscitation and hemodynamics have stabilized. The patient notes that she initially had blood in stool about two weeks ago, while in a rehabilitative care facility,. She was evaluated at that time and found to be positive for vancomycin-resistant enterococcus. She was treated with a two week regimen of antibiotic and had significant improvement but, on finishing antibiotic yesterday, she began having blood in stool again. In fact, she reports nothing by blind with very little stool over the past 48 hours and at least 10 movements. This was also accompanied by waxing and waning cramping middle abdominal pain that has now settled out. Her last bowel movement was about two hours ago and contained blood but perhaps lesser volume. She has been NPO since admission and would like something to drink. She reports a history of upper endoscopy with Dr. Linares about six months ago at which time she was found to have a hiatus hernia. She has never had colonoscopy. She has never had blood in stool in the past. She has been experiencing dizziness and lightheadedness throughout this event. She has not experienced altered mental status for loss of consciousness.. Patient denies fever, chills, night sweats, rigors, headache, neck pain, visual changes, redness of the eyes, odynophagia, difficulty chewing, chest pain, shortness of breath, weight loss, vomiting, regurgitation, hematemesis, dysuria , skin changes, temperature regulation issues, flushing, easy bleeding/bruising , mental status change, numbness/weakness in the extremities, yellowing of the eyes/skin, cutaneous eruptions, family history of gastrointestinal cancer and colon polyps, and other complaints in general. Review of systems: 12 point review of systems was negative except as documented above. Outpatient medications: insulin, vitamin B12, Prilosec, albuterol, Mylanta, aspirin, Lipitor, labetalol, Synthroid, magazine, Namenda, Hiprex, Singulair, Vesicare, Tradjenta, Tylenol, Eliquis, BMX, Colace, potassium chloride, Valsartan, amlodipine, Lexapro, Uloric, MiraLAX Inpatient medications: Colace, Zofran, Protonix, normal saline infusion Past Medical History: congestive heart failure, coronary artery disease, hypertension, peripheral vascular disease, anxiety disorder, migraine, transient ischemic attack, diabetes, dyslipidemia, thyroid disorder, rheumatologic problems, asthma, bronchitis, chronic obstructive pulmonary disease, obstructive sleep apnea, pulmonary embolism, pneumonia, deep venous thrombosis, kidney cancer, chronic kidney disease, neurogenic bladder, gastroesophageal reflux, osteoporosis, osteoarthritis, anemia, transfusion reaction, breast cancer, severe valvular heart disease Social history: negative tobacco. Negative alcohol Family history: no gastrointestinal cancers Physical examination: Vital Signs: Current vital signs reviewed and documented above. General Appearance: lying in bed. Comfortable. Conversant. Accompanied by family member. Head: Normocephalic. Neck: Palpation of the neck revealed no abnormalities. Eyes: No scleral icterus. No scleral injection. Equivocal conjunctival pallor. Oral Cavity: Odor of breath was normal. No drooling was observed. Lips showed no abnormalities. Floor of the mouth showed no abnormalities. Pharynx: Oropharynx was normal. Lungs: Respiration rhythm and depth was normal. Cardiovascular: Heart rate and rhythm were normal. Abdomen: abdomen was not distended. Abdominal palpation revealed minimal diffuse tenderness and no hepatosplenomegaly. Ascites was not discovered. Abdominal auscultation revealed positive bowel sounds. Musculoskeletal System: Musculoskeletal system was grossly normal. Neurological: level of consciousness was normal. Speech was normal. Skin: General appearance was normal. Color and pigmentation were normal. No skin lesions. Laboratory: hemoglobin 8.6, hematocrit 26.1, MCV 89, platelets 109, INR 1.1, PT 11.4, ALT 19, AST 13, total bilirubin 0.4, alkaline phosphatase 73 Radiology: -- CT of the abdomen and pelvis, September 2015: bilateral pleural effusion; multiple abdominal wall hernias; upper dense lesion of the left kidney; dilated venous structures over the suprapubic region Impressions: #1. Hematochezia -- the differential diagnosis includes diverticular bleeding, infectious/inflammatory enterocolitis, arteriovenous malformation, hemorrhoidal bleeding, colon polyps (including cancer), and upper gastrointestinal bleeding. With recent diagnosis of vancomycin-resistant enterococcus, infectious enterocolitis is higher on the list (discussed below). I recommend serial hemoglobin and hematocrit monitoring with transfusion as indicated. I recommend aggressive crystalloid resuscitation as indicated. I recommend intravenous proton pump inhibitor. Patient will need colonoscopy with timing dependent on clinical progress. If bleeding continues, this will likely need to be done during this admission. If not, we could consider outpatient colonoscopy once patient is adequately resuscitated and transfused. #2. Abdominal pain with reported history of vancomycin-resistant enterococcus, infectious enterocolitis has to remain high on power differential. Selection of empiric antibiotic is difficult, particularly in the setting of severe valvular heart disease. Enterococci bacteremia does have the potential to seed heart valves and this should also be considered, particularly if the patient begins to experience chest pain or other signs/symptoms of endocarditis. In the interim, linezolid may be a reasonable empiric Antibiotic choice. As well, ischemic colitis and mesenteric ischemia are on the differential with bloody diarrhea in the setting of abdominal pain. The patient has history of deep venous thrombosis and a reported history of "blockage of the intestines" but I have no specifics in this regard. I recommend aggressive volume management, consideration of a cardiogram, stool studies and cultures, and some consideration of CT angiography of the mesentery if conditions allow. I also recommend a low threshold for surgical consultation should her abdominal pain return or worse. #3. Symptomatic anemia likely related to acute blood loss. Continue to monitor with further transfusion as indicated. #4. Other specified counseling -- The patient was seen for greater than 60 minutes. The patient was counseled for greater than 50% of this time regarding differential diagnosis, likely diagnosis, diagnostic and therapeutic alternatives, risks/benefits/alternatives of medications and procedures, and plan of care generally. The patient expressed understanding and wishes to proceed. Recommendations: -- aggressive volume management -- consider echocardiogram -- monitor blood counts and transfuse as indicated -- permissive mild/mod hypertension -- stool studies, cultures, ova and parasites, biofire stool assay if available -- consider empiric antibiotic such as linezolid -- [place] contact precautions until VRE can be ruled out -- continue proton pump inhibitor -- colonoscopy with timing based on clinical progress, likely during convalescence -- low threshold for surgical consultation should abdominal pain return -- thank you for this consultation. We will follow with you
[2016-11-18] MEDS ORDERED: ALBUTEROL 2.5 MG/3 ML NEB RESP TX PRN (09:21)
[2016-11-18] MEDS ORDERED: POLYETHYLENE GLYCOL POWDER 17 GM PACK PO PRN (09:21)
[2016-11-18] MEDS ORDERED: ALUMINUM/MAGNES/SIMETH MAX STR 30 ML UDCUP PO PRN (09:21)
[2016-11-18] MEDS ORDERED: ACETAMINOPHEN 325 MG TABLET PO PRN (11:27)
[2016-11-18] MEDS ORDERED: CYANOCOBALAMIN 1000 MCG/1 ML VIAL SUBCUT SCH (11:30)
--- NOTE | 2016-11-18 11:32 | Cardiology Consult Note ---
Assessment and Plan - Time spent with patient Time spent with patient: Greater than 30 minutes (Chart review examination discussion with the patient in order) (1) Morbid obesity Status: Chronic Current Visit: No (2) Postphlebitic syndrome Status: Acute Current Visit: No (3) History of DVT (deep vein thrombosis) Status: Chronic Assessment and plan: Hold anticoagulation and maximally mechanically treat for minimization of opportunities for DVT. Discussed with the patient. Hopefully once the source of bleeding can be stopped and resume anticoagulants. Consider decreasing dose. 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 Status: Acute Current Visit: No (5) Congestive heart failure Status: Chronic Current Visit: No Qualifiers: Congestive heart failure type: diastolic Congestive heart failure chronicity: chronic Qualified Code(s): I50.32 - Chronic diastolic (congestive ) heart failure (6) Bradycardia Status: Resolved Assessment and plan: Status post dual-chamber pacemaker placement August 2016 Current Visit: No (7) Mobitz type 2 second degree AV block Status: Resolved Current Visit: No (8) Coronary artery disease Status: Chronic Current Visit: No Qualifiers: Coronary Disease-Associated Artery/Lesion type: [place] artery [place] vs. transplanted heart: [place] heart Associated angina: without angina Qualified Code(s): I25.10 - Atherosclerotic heart disease of [place] coronary artery without angina pectoris (9) Aortic stenosis Status: Chronic Current Visit: No Qualifiers: Cardiac valve disease etiology: nonrheumatic Qualified Code(s): I35.0 - Nonrheumatic aortic (valve) stenosis (10) Obesity Status: Chronic Current Visit: No Qualifiers: Body mass index: BMI 45.0-49.9 (11) Rectal bleeding Status: Acute Assessment and plan: Try to hold anticoagulants hopefully only temporarily. GI has seen await their recommendations. Hopefully this will not be an untreatable source because of her need for chronic anticoagulation with recurrent DVT. Current Visit: Yes History of Present Illness - Data of Consult Patient: known to practice within the last 3 years Consult date: 11/18/16 Requesting Physician: Manohar Reagan Primary care physician: Edenilson Peck ([facility]) - Consult Narrative Reason for consult: Known to cardiology History of present illness: Ms. Junior is a 80 year old female patient of Dr. Jon Mullins. The patient has a history of DVT 2. She had an additional DVT was started on warfarin it was discontinued for surgical procedure and she had a second DVT she has been on anticoagulation for life. The patient was recently admitted to the hospital for symptomatic Mobitz type II second degree heart block in August of this year when I saw the patient and placed a dual-chamber pacemaker. She states that she feels overall much better she had severely uncontrolled hypertension as result of her bradycardia got dramatically better once her bradycardia was treated she also had some Serratia in her lungs at that time that was treated and this got better as well. She has been residing at [facility] and doing well with therapy she states her heart is doing well but approximately 3 weeks ago she developed bright red blood per rectum is had several episodes she reports a very large bowel movement with bright red blood per rectum and lots of clots yesterday and again this morning her baseline hemoglobin normally runs about 12-13 is down to 8.6 and she has had an additional large bowel movement since that time. It was bloody. She states that it was full of clots. She also has received packed red blood cells. She certainly has pallor but is resting comfortably. I discussed with her about the risk benefits and options in this setting of a potentially life-threatening bleed with history of DVT I recommended that we hold her Eliquis and place sequential compression devices. Hopefully once the source of her bleeding is identified and stopped we can resume his anticoagulation for potentially life- threatening problem. She and her daughter voiced understanding. CC: Manohar Reagan MD - Home Medications and Allergies Home Medications: Home Medications Medication Instructions Recorded Confirmed Type Insulin Detemir [Levemir FlexPen] 45 unit SUBCUT BEDTIME #0 07/10/14 11/17/16 History Cyanocobalamin Inj [Vitamin B12 1,000 mcg SUBCUT Q30D 09/22/15 11/17/16 History Inj] Omeprazole [Prilosec] 20 mg PO QAM 09/22/15 11/17/16 History Insulin Aspart [NovoLOG FlexPen] 10 unit SUBCUT TID W/MEALS 10/11/15 11/17/16 History Albuterol Neb [Proventil Neb] 2.5 mg RESP TX RT Q4H PRN 08/17/16 11/17/16 Rx Alum/Mag/Simeth Max Str Liquid 30 ml PO Q4H PRN 08/17/16 11/17/16 Rx [Mylanta Max Strength Liquid] Aspirin EC Tab 81 mg PO QAM tablet 08/17/16 11/17/16 Rx Atorvastatin [Lipitor] 10 mg PO BEDTIME tablet 08/17/16 11/17/16 Rx Labetalol Tab [Trandate Tab] 100 mg PO BID tablet 08/17/16 11/17/16 Rx Levothyroxine Tab [Synthroid Tab] 50 mcg PO QAM tablet 08/17/16 11/17/16 Rx Meclizine [Antivert] 25 mg PO QPM PRN tablet 08/17/16 11/17/16 Rx Memantine [Namenda] 10 mg PO BID tablet 08/17/16 11/17/16 Rx Methenamine Hippurate [Hiprex] 1 gm PO BID tablet 08/17/16 11/17/16 Rx Montelukast Tab [Singulair Tab] 10 mg PO BEDTIME tablet 08/17/16 11/17/16 Rx Solifenacin [Vesicare] 10 mg PO QAM tablet 08/17/16 11/17/16 Rx Linagliptin [Tradjenta] 5 mg PO DAILY 09/11/16 11/17/16 History Acetaminophen Tab [Tylenol Tab] 650 mg PO Q6H PRN tablet 09/21/16 11/17/16 Rx Apixaban [Eliquis] 2.5 mg PO BID #60 tablet 09/21/16 11/17/16 Rx Bumetanide Tab [Bumex Tab] 1 mg PO BID DIURETIC #60 tablet 09/21/16 11/17/16 Rx Docusate Sodium Cap [Colace Cap] 100 mg PO BID capsule 09/21/16 11/17/16 Rx Potassium Chloride Cap/Tab [K Dur] 20 meq PO BID tablet 09/21/16 11/17/16 Rx Valsartan [Diovan] 320 mg PO DAILY tablet 09/21/16 11/17/16 Rx Amlodipine Besylate 5 mg PO DAILY 11/17/16 11/17/16 History Escitalopram Oxalate [Lexapro] 5 mg PO DAILY 11/17/16 11/17/16 History Febuxostat [Uloric] 40 mg PO DAILY 11/17/16 11/17/16 History Polyethylene Glycol Powder 17 gm PO Q24H PRN 11/17/16 11/17/16 History [Miralax] Allergies/Adverse Reactions: Allergies Allergy/AdvReac Type Severity Reaction Status Date / Time ofloxacin [From Floxin] Allergy Unknown/Unable Verified 08/11/16 13:39 to obtain Sulfa (Sulfonamide Allergy ANAPHYLAXIS Verified 08/11/16 13:39 Antibiotics) tape AdvReac Swelling Uncoded 08/11/16 13:39 of Lip/Tongue/Throat - Constitutional Constitutional: Absent: anorexia, weight gain, weight loss - EENT Ears: Present: decreased hearing Nose, mouth and throat: Absent: dysphagia, lip swelling - Cardiovascular Cardiovascular: Present: dyspnea on exertion, edema (This is improved). Absent : chest pain at rest, chest pain with activity, diaphoresis, dyspnea, radiating jaw, neck or arm pain, lightheadedness, orthopnea, palpitations, PND - Respiratory Respiratory: Present: dyspnea. Absent: cough - Gastrointestinal Gastrointestinal: Present: hematochezia. Absent: abdominal pain, constipation, diarrhea, dyspepsia, heartburn - Genitourinary Genitourinary: Absent: abnormal vaginal bleeding - Musculoskeletal Musculoskeletal: Present: arthralgias, back pain - Neurological Neurological: Present: abnormal gait - Psychiatric Psychiatric: Absent: anxiety, depression - Endocrine Endocrine: Absent: cold intolerance, heat intolerance - Hematologic/Lymphatic Hematologic/Lymphatic: Absent: easy bleeding, easy bruising Medical,Surgical,& Family Hx - Medical History Cardio: History of: Cardiac Dysrhythmia (Mobitz 2 block), CHF, CAD, Hypertension , Pacemaker (August 2016 - dual chamber), PVD (blood clots in legs in past) Psychological: History of: Anxiety Disorders Neurology: History of: Migraine, 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 Recurrent DVTs) Renal: History of: Renal (Kidney) Cancer (previous right nephrectomy from cancer ), Renal Failure (stage 3) Genitourinary: History of: Bladder Problem (neurogenic bladder), Problems ( renal cell carcinoma) Gastrointestinal: History of: GERD Musculoskeletal: History of: Osteoporosis, Musculoskeletal Problems (arhtritis) Hematology: History of: Anemia, Blood Transfusion Reaction (chills), Clotting Problems Reproductive: History of: Breast Cancer (14 years ago,PARTIAL RIGHT MASTECTOMY) Other: History of: Anesthesia Reactions (stopped breathing with knee surgery), Cancer (breast and renal cell cancer), Skin Problems (BRUISES EASILY(FROM COUMADIN)) - Surgical History Cardiac Surgeries: Sugical HX of: Cardiac Catheterization Thoracic Surgeries: Surgical HX of;: Kidney (Renal Surgery) (right kidney removal) Patient denies;: Organ Transplant HEENT Surgeries: Surgical HX of: Eye Surgery (cataract removalS) Patient denies: Thyroid Surgery, Tonsilectomy & Adenoidectomy Abdominal Surgeries: Surgical HX of: Abdominal Surgery, Appendectomy, Cholecystectomy, EGD Patient denies: Colonoscopy, Hernia Repair Reproductive Surgeries: Surgical HX of;: Breast Surgery, Gynecologic Surgery, Hysterectomy, Tubal Ligation Orthopedic Surgeries: Surgical HX of;: Total Knee Replacement (right knee replacement) - Family History Family History: Reports;: Family Cancer (daddy), Family Diabetes (MOM,BRO), Family Hypertension (mom and dad,BRO), Family Stroke (dad) Denies;: Family Anesthesia Reaction, Family Heart Disease, Family Psychiatric Problems - Social History Smoking Status: Never smoker Frequency of Alcohol Use: None Type of Drug Use: None Marital Status: Lives With:: [facility] Functional capacity: uses cane/walker Physical Examination Vital Signs Temp Pulse Resp BP Pulse Ox 98.3 F 89 18 109/65 100 11/17/16 19:12 11/17/16 19:12 11/17/16 19:12 11/17/16 19:12 11/17/16 19:12 General: Present: Other (Pallor) HEENT: Absent: Jaundice Neck: Present: Supple Neck Cardiac: Present: Reg Rate and Rhythm, S1/S2, Systolic Murmur (3/6 murmur of mild to moderate aortic stenosis) Lungs: Present: Normal Exam Neuro: Present: Cranial Nerve 2-12 Intact Abdomen: Present: Soft, Active Bowel Sounds Skin: Present: Clear. Absent: Rash Extremities: Present: No Clubbing, No Cyanosis, Edema (trace edema) Result/EKG - Labs CBC & BMP: 11/17/16 21:30 11/17/16 19:44 Labs: Laboratory Results - last 24 hr 11/17/16 11/17/16 11/17/16 19:44 19:44 19:44 WBC RBC Hgb Hct MCV MCH MCHC RDW Plt Count MPV Neut % (Auto) Lymph % (Auto) [place] % (Auto) Eos % (Auto) Baso % (Auto) Neut # (Auto) Lymph # (Auto) [place] # (Auto) Eos # (Auto) Baso # (Auto) Immature Gran % Nucleated RBC % Immature Gran # Nucleated RBCs # Immature Plt Fraction INR 1.1 PT Patient/Control Mix 11.4 D Circ Anticoag PTT 26.2 D Sodium Potassium Chloride Carbon Dioxide Anion Gap BUN Creatinine GFR Calculation BUN/Creatinine Ratio Glucose POC Glucose Calculated Osmolality Calcium Total Bilirubin AST ALT Alkaline Phosphatase Troponin I < 0.015 Total Protein Albumin Globulin Albumin/Globulin Ratio Lipase 151.0 Urine Color Urine Appearance Urine pH Ur Specific [place] Urine Protein Urine Glucose (UA) Urine Ketones Urine Blood Urine Nitrate Urine Bilirubin Urine Urobilinogen Urine Leukocytes Urine RBC Urine WBC Urine Bacteria Hyaline Casts Urine Mucus Ur Culture Indicated? Blood Type A POSITIVE Antibody Screen Negative Crossmatch Blood Bank Comment 11/17/16 11/17/16 11/17/16 19:44 20:37 21:30 WBC 7.9 RBC 2.92 L Hgb 8.6 L Hct 26.1 L MCV 89.4 MCH 30 MCHC 33.0 RDW 14.4 Plt Count 109 L MPV 9.8 Neut % (Auto) 76.5 H Lymph % (Auto) 18.0 L [place] % (Auto) 4.0 Eos % (Auto) 0.5 Baso % (Auto) 0.4 Neut # (Auto) 6.1 Lymph # (Auto) 1.4 [place] # (Auto) 0.3 Eos # (Auto) 0.0 Baso # (Auto) 0.0 Immature Gran % 0.6 Nucleated RBC % 0.0 Immature Gran # 0.05 Nucleated RBCs # 0.00 Immature Plt Fraction 0.0 INR PT Patient/Control Mix Circ Anticoag PTT Sodium 144 Potassium 4.5 Chloride 111 H Carbon Dioxide 22 Anion Gap 15.5 H BUN 96 H Creatinine 2.80 H GFR Calculation 18 BUN/Creatinine Ratio 34.00 H Glucose 79 POC Glucose Calculated Osmolality 314.8 H Calcium 7.6 L Total Bilirubin 0.40 AST 13 ALT 19 Alkaline Phosphatase 73 Troponin I Total Protein 5.7 L Albumin 2.9 L Globulin 2.8 Albumin/Globulin Ratio 1.0 L Lipase Urine Color Straw Urine Appearance Clear Urine pH 5.0 Ur Specific [place] 1.010 Urine Protein Negative Urine Glucose (UA) Negative Urine Ketones Negative Urine Blood Negative Urine Nitrate Negative Urine Bilirubin Negative Urine Urobilinogen < 2.0 H Urine Leukocytes Negative Urine RBC <1 Urine WBC 3 Urine Bacteria Many Hyaline Casts 1 Urine Mucus Occasional Ur Culture Indicated? Not indicated Blood Type Antibody Screen Crossmatch Blood Bank Comment 11/17/16 11/18/16 11/18/16 Unknown 00:53 07:32 WBC RBC Hgb Hct MCV MCH MCHC RDW Plt Count MPV Neut % (Auto) Lymph % (Auto) [place] % (Auto) Eos % (Auto) Baso % (Auto) Neut # (Auto) Lymph # (Auto) [place] # (Auto) Eos # (Auto) Baso # (Auto) Immature Gran % Nucleated RBC % Immature Gran # Nucleated RBCs # Immature Plt Fraction INR PT Patient/Control Mix Circ Anticoag PTT Sodium Potassium Chloride Carbon Dioxide Anion Gap BUN Creatinine GFR Calculation BUN/Creatinine Ratio Glucose POC Glucose 219 H 143 H Calculated Osmolality Calcium Total Bilirubin AST ALT Alkaline Phosphatase Troponin I Total Protein Albumin Globulin Albumin/Globulin Ratio Lipase Urine Color Urine Appearance Urine pH Ur Specific [place] Urine Protein Urine Glucose (UA) Urine Ketones Urine Blood Urine Nitrate Urine Bilirubin Urine Urobilinogen Urine Leukocytes Urine RBC Urine WBC Urine Bacteria Hyaline Casts Urine Mucus Ur Culture Indicated? Blood Type A POSITIVE Antibody Screen Cancelled Crossmatch See Detail Blood Bank Comment Cancelled - EKG EKG results: interpreted by me (ventricular paced rhythm) Quality Measures - VTE Contraindication to Pharmacological VTE Prophylaxis: Active Bleeding
[2016-11-18] MEDS: SOLIFENACIN 5 MG TABLET PO SCH (12:09)
[2016-11-18] MEDS: PANTOPRAZOLE 40 MG VIAL IV SCH ×2 (12:10→22:15)
[2016-11-18] MEDS: POTASSIUM CHLORIDE 20 MEQ TABLET PO SCH ×2 (12:10→22:19)
[2016-11-18] MEDS: DOCUSATE SODIUM 100 MG CAPSULE PO SCH ×3 (12:35→22:18)
[2016-11-18 12:51] LABS: Hemoglobin 10.1 GM/DL (12.0-16.0)
[2016-11-18] MEDS: SODIUM CHLORIDE 0.9% 1,000 ML IV SCH ×3 (13:25→18:46)
[2016-11-18 21:19] LABS: Hematocrit 28.6 VOL% (35.7-47.0); Hemoglobin 9.5 GM/DL (12.0-16.0)
[2016-11-18] MEDS: METHENAMINE HIPPURATE 1 GM TABLET PO SCH (22:16)
[2016-11-18] MEDS: MONTELUKAST 10 MG TABLET PO SCH (22:16)
[2016-11-18] MEDS: LABETALOL 100 MG TABLET PO SCH (22:16)
[2016-11-18] MEDS: ATORVASTATIN 10 MG TABLET PO SCH (22:17)
[2016-11-19] MEDS ORDERED: GLUCAGON 1 MG VIAL IM PRN (00:35)
[2016-11-19] MEDS ORDERED: DEXTROSE 50% 25 GM/50 ML SYRINGE IV PRN (00:35)
[2016-11-19 01:41] LABS: Basophils # 0.1 10*3/uL (0.0-0.2); Basophils % 0.8 % (0.0-0.8); Eosinophils # 0.1 10*3/uL (0.0-0.87); Eosinophils % 0.7 % (0.00-10.9); Hematocrit 27.7 VOL% (35.7-47.0); Hemoglobin 9.3 GM/DL (12.0-16.0); Immature Granulocytes % 0.3 %; Immature Granulocytes Absolute 0.02 #; Lymphocytes # 2.5 10*3/uL (1.4-4.0); Lymphocytes % 35.1 % (21.3-54.2); Mean Corpuscular HGB Conc 33.6 GM/DL (32-36); Mean Corpuscular Hemoglobin 30 PG (27-34); Mean Corpuscular Volume 89.6 FL (87-102); Mean Platelet Volume 9.5 FL (9.6-12.0); Monocytes # 0.3 10*3/uL (0.11-0.8); Monocytes % 4.2 % (1.7-12.7); Neutrophils # 4.2 10*3/uL (1.4-7.4); Neutrophils % 58.9 % (38.7-73.9); Red Blood Count 3.09 MC/CUMM (3.8-5.5); Red Cell Distribution Width 14.4 % (9.3-17.3); White Blood Count 7.2 T/CUMM (4-12)
[2016-11-19 01:45] LABS: Platelet Count 77 T/CUMM (130-400)
[2016-11-19 02:10] LABS: Calcium 8.2 MG/DL (8.5-10.1); Osmolality,Calculated 313.6 MOS/KG (273-304); Potassium 4.3 MMOL/L (3.5-5.1)
[2016-11-19 02:20] LABS: Free T4 (Free Thyroxine) 1.21 NG/DL (0.76-1.46); Thyroid Stimulating Hormone 2.73 uIU/ml (0.358-3.74)
[2016-11-19 02:43] LABS: Ovalocytes 1+; Platelet Estimate Adequate
[2016-11-19 02:44] LABS: Hypochromasia Slight
[2016-11-19] MEDS: INSULIN REGULAR 100 UNIT/ML SUBCUT SCH ×3 (06:57→17:24)
[2016-11-19] MEDS: SODIUM CHLORIDE 0.9% 1,000 ML IV SCH ×3 (08:27→21:00)
[2016-11-19] MEDS ORDERED: NON-FORMULARY MEDICATION (Omeprazole [Prilosec] 20 MG) PO SCH (09:00)
--- NOTE | 2016-11-19 10:15 | Family Practice Progress Note ---
Family Practice - PN: Subj Interval history: PCP: Dr. 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 lying in bed, getting blood transfusion currently feeling better, than yesterday on IVF , NPO, no fever , nausea, vomiting , chest pain , SOB , headaches or dizziness, No bowel movement since yesterday a.m., no blood noted. Is passing flatus, No overnight events reported by the nurse, Exam (Progress Note) - Constitutional Vitals: Period Temp Pulse Resp BP Sys/Duffy Pulse Ox Last 24 Hr 97.2 F-98.7 F 75-97 16-20 107-146/34-93 90-100 Exam: Examination: GENERAL: Alert, oriented, in no acute distress , morbidly obese female pt, lying in the bed, currently getting blood transfusion. HEENT: normal, hearing,PERRLA. EOMI. Mucous membranes are moist. NECK: Neck is supple. No JVD. No carotid bruit. No thyromegaly. CVS: Regular rate and rhythm. S1 and S2 are normal. RESPIRATORY: Clear to ausculation bilaterally , No wheezes, rales or rhonchi. ABDOMEN: Soft and nontender. Has a ventral hernia, at upper midline abdominal , nontender, bowel sounds are present. No hepatosplenomegaly. EXT: No edema. LEAK DETECTOR: Patient is awake, alert and oriented, Cranial nerves 2-12 grossly intact. Results - Labs CBC & BMP: 11/19/16 12:00 11/19/16 01:33 Lab Results: I have reviewed the past 24 hour labs Labs: TSH 2.7, free T4 1.1 Stool occult blood positive4+ from 11/18/2016 - Impressions Chest x-ray from 11/17/2016 Impression: 1. Scarring in the lung briones with mild interstitial thickening and granuloma changes 2. Cardiomegaly stable position cardiac pacing device Assessment and Plan (1) Rectal bleeding Status: Acute Assessment and plan: We will get serial H&H, on IV Protonix, currently on blood transfusion, n.p.o., with IV fluids follow GI recommendations. 2. CAD, CHF, stable, continue current management.,,History of DVT currently the blood thinners are held 3. COPD, stable on inhalers, 4. DM , stable , continue current treatment 5.HTN , continue current antihypertensives, 6. Hyperlipidemia continue Lipitor 7. Hypothyroidism continue Synthroid Current Visit: Yes (2) COPD (chronic obstructive pulmonary disease) Status: Chronic Current Visit: Yes (3) Coronary artery disease Status: Chronic Current Visit: Yes Qualifiers: Coronary Disease-Associated Artery/Lesion type: [place] artery [place] vs. transplanted heart: [place] heart Associated angina: without angina Qualified Code(s): I25.10 - Atherosclerotic heart disease of [place] coronary artery without angina pectoris (4) History of DVT (deep vein thrombosis) Status: Chronic Current Visit: Yes (5) Hyperlipidemia Status: Chronic Current Visit: Yes (6) Hypertension Status: Chronic Current Visit: Yes Qualifiers: Hypertension type: essential hypertension Qualified Code(s): I10 - Essential (primary) hypertension (7) Obstructive sleep apnea Status: Chronic Current Visit: No (8) Congestive heart failure Status: Chronic Current Visit: Yes Qualifiers: Congestive heart failure type: diastolic Congestive heart failure chronicity: chronic Qualified Code(s): I50.32 - Chronic diastolic (congestive ) heart failure (9) Hypothyroidism Status: Chronic Current Visit: Yes Quality Measures - VTE Contraindication to Pharmacological VTE Prophylaxis: Active Bleeding
[2016-11-19] MEDS: VALSARTAN 160 MG TABLET PO SCH (10:36)
[2016-11-19] MEDS: DOCUSATE SODIUM 100 MG CAPSULE PO SCH ×4 (10:36→21:52)
[2016-11-19] MEDS: ESCITALOPRAM 10 MG TABLET PO SCH (10:37)
[2016-11-19] MEDS: PANTOPRAZOLE 40 MG VIAL IV SCH ×2 (10:37→21:49)
[2016-11-19] MEDS: LABETALOL 100 MG TABLET PO SCH ×2 (10:37→21:52)
[2016-11-19] MEDS: LEVOTHYROXINE 50 MCG TABLET PO SCH (10:37)
[2016-11-19] MEDS: amLODIPine 5 MG TABLET PO SCH (10:37)
[2016-11-19] MEDS: METHENAMINE HIPPURATE 1 GM TABLET PO SCH ×2 (10:37→21:49)
[2016-11-19] MEDS: SOLIFENACIN 5 MG TABLET PO SCH (10:37)
[2016-11-19] MEDS: POTASSIUM CHLORIDE 20 MEQ TABLET PO SCH ×2 (10:37→21:51)
[2016-11-19] MEDS: FEBUXOSTAT 80 MG TABLET PO SCH (10:37)
[2016-11-19 12:18] LABS: Hematocrit 33.1 VOL% (35.7-47.0); Hemoglobin 11.4 GM/DL (12.0-16.0)
--- NOTE | 2016-11-19 14:08 | Cardiology Progress Note ---
Assessment and Plan (1) Morbid obesity Status: Chronic Current Visit: No (2) Postphlebitic syndrome Status: Acute Current Visit: No (3) History of DVT (deep vein thrombosis) Status: Chronic Assessment and plan: Hold anticoagulation and maximally mechanically treat for minimization of opportunities for DVT. Discussed with the patient. Hopefully once the source of bleeding can be stopped and resume anticoagulants. Consider decreasing dose. Again order sequential compression devices. 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 transplanted heart: [place] heart Associated angina: without angina Qualified Code(s): I25.10 - Atherosclerotic heart disease of [place] coronary artery without angina pectoris (7) Aortic stenosis Status: Chronic Current Visit: No Qualifiers: Cardiac valve disease etiology: nonrheumatic Qualified Code(s): I35.0 - Nonrheumatic aortic (valve) stenosis (8) Obesity Status: Chronic Current Visit: No Qualifiers: Body mass index: BMI 45.0-49.9 (9) Rectal bleeding Status: Acute Assessment and plan: Try to hold anticoagulants hopefully only temporarily. Hopefully this is stopped. No bleeding now for several hours. Current Visit: Yes (10) Blood loss anemia Status: Acute Current Visit: Yes Cardiology - PN: Subj Interval history: Ms. Junior complains that her stomach is "rumbling" but she has not had any more bright red blood per rectum. She is received a total of 4 units of blood at this time. Yesterday I ordered the patient have sequential compression devices when her anticoagulation was held because of life-threatening bleeding. They have not been placed and I have discussed with nursing services to please place this to mitigate recurrent DVT. The patient has no other complaints at this time. She is paced on telemetry. Exam (Progress Note) - Constitutional Vitals: Period Temp Pulse Resp BP Sys/Duffy Pulse Ox Last 24 Hr 97.2 F-98.5 F 58-97 16-20 110-146/34-93 90-100 General appearance: morbidly obese - Head Head exam: Present: normal inspection - Eye Eye exam: Present: EOMI, other (She has conjunctival pallor) Pupils: Present: TEOFILO - Neck Neck exam: Present: normal inspection - Respiratory Respiratory exam: Present: clear to auscultation bilaterally - Cardiovascular Cardiovascular exam: Present: regular rate and rhythm (She is paced on telemetry ) - GI/Abdominal GI/Abdominal exam: Present: hyperactive bowel sounds - Extremities Exam Extremities exam: Present: normal inspection - Back Exam Back exam: Present: normal inspection - Neurological Exam Neurological exam: Present: alert, oriented X3 - Psychiatric Psychiatric exam: Present: normal affect, normal mood - Skin Skin exam: Present: normal color Result/EKG - Labs CBC & BMP: 11/19/16 12:00 11/19/16 01:33 Labs: Laboratory Results - last 24 hr 11/18/16 11/18/16 11/18/16 11:53 16:03 20:54 WBC RBC Hgb 9.5 L Hct 28.6 L MCV MCH MCHC RDW Plt Count MPV Neut % (Auto) Lymph % (Auto) [place] % (Auto) Eos % (Auto) Baso % (Auto) Neut # (Auto) Lymph # (Auto) [place] # (Auto) Eos # (Auto) Baso # (Auto) Immature Gran % Nucleated RBC % Immature Gran # Nucleated RBCs # Platelet Estimate Immature Plt Fraction Hypochromasia Anisocytosis Ovalocytes Sodium Potassium Chloride Carbon Dioxide Anion Gap BUN Creatinine GFR Calculation BUN/Creatinine Ratio Glucose POC Glucose 146 H Calculated Osmolality Calcium Free T4 TSH 3rd Generation Blood Type A POSITIVE Antibody Screen Negative Crossmatch See Detail 11/19/16 11/19/16 11/19/16 01:33 01:33 01:33 WBC 7.2 RBC 3.09 L Hgb 9.3 L Hct 27.7 L MCV 89.6 MCH 30 MCHC 33.6 RDW 14.4 Plt Count 77 L D MPV 9.5 L Neut % (Auto) 58.9 Lymph % (Auto) 35.1 [place] % (Auto) 4.2 Eos % (Auto) 0.7 Baso % (Auto) 0.8 Neut # (Auto) 4.2 Lymph # (Auto) 2.5 [place] # (Auto) 0.3 Eos # (Auto) 0.1 Baso # (Auto) 0.1 Immature Gran % 0.3 Nucleated RBC % 0.0 Immature Gran # 0.02 Nucleated RBCs # 0.00 Platelet Estimate Adequate Immature Plt Fraction 0.0 Hypochromasia Slight Anisocytosis Ovalocytes 1+ Sodium 146 H Potassium 4.3 Chloride 115 H Carbon Dioxide 21 Anion Gap 14.3 BUN 76 H Creatinine 2.10 H GFR Calculation 25 BUN/Creatinine Ratio 36.00 H Glucose 118 H POC Glucose Calculated Osmolality 313.6 H Calcium 8.2 L Free T4 1.21 TSH 3rd Generation 2.730 Blood Type Antibody Screen Crossmatch 11/19/16 11/19/16 11/19/16 07:30 11:35 12:00 WBC RBC Hgb 11.4 L D Hct 33.1 L MCV MCH MCHC RDW Plt Count MPV Neut % (Auto) Lymph % (Auto) [place] % (Auto) Eos % (Auto) Baso % (Auto) Neut # (Auto) Lymph # (Auto) [place] # (Auto) Eos # (Auto) Baso # (Auto) Immature Gran % Nucleated RBC % Immature Gran # Nucleated RBCs # Platelet Estimate Immature Plt Fraction Hypochromasia Anisocytosis Ovalocytes Sodium Potassium Chloride Carbon Dioxide Anion Gap BUN Creatinine GFR Calculation BUN/Creatinine Ratio Glucose POC Glucose 117 H 134 H Calculated Osmolality Calcium Free T4 TSH 3rd Generation Blood Type Antibody Screen Crossmatch Quality Measures - VTE Contraindication to Pharmacological VTE Prophylaxis: Active Bleeding
--- NOTE | 2016-11-19 14:21 | Gastrointestinal Progress Note ---
Assessment and Plan (1) Bright red blood per rectum Status: Acute Current Visit: Yes (2) Abdominal pain Status: Acute Current Visit: No (3) Symptomatic anemia Status: Acute Current Visit: Yes (4) Other specified counseling Status: Acute Current Visit: Yes Exam (Progress Note) - Constitutional Vitals: Period Temp Pulse Resp BP Sys/Duffy Pulse Ox Last 24 Hr 97.2 F-98.5 F 58-97 16-20 110-146/34-93 90-100 Results - Labs CBC & BMP: 11/19/16 12:00 11/19/16 01:33 Note Addendum: PLEASE NOTE -- automatic citation of patient information is unavoidable in this electronic note. I have made a reasonable effort to review the information cited , but it is not a part of my evaluation, impression, or recommendation unless specifically discussed in the dictated text that follows. As well, voice recognition software was used in the creation of this clinical note. Reasonable effort was made to identify and correct gross errors. Despite proofreading, errors in neon glass blower may be present, including nonsense verbiage at times. If you encounter such an error, please contact me at for discussion and correction. -- Rizwana Chief complaint: bright red blood per rectum History of present illness: This is a 80-year-old female seen for follow-up of bright red blood per rectum with symptomatic anemia. She has minimal oral intake. She has one bowel movement noted today with no obvious blood but black color. She reports abdominal pain began again last evening, the all and aching, and has become more prominent through the course of the day today and, for the past hour or so, has been hurting badly. She has received a total of four units of packed red blood cells with current hemoglobin of 11.4 g/dL. Review of systems: 12 point review of systems was negative except as documented above. Inpatient medications: Tylenol, Mylanta, albuterol, Norvasc, Lipitor, Colace, Lexapro, [place], Humulin, labetalol, Synthroid, Singulair, Zofran, Protonix, MiraLAX, potassium chloride, normal saline, vesicare Physical examination: Vital Signs: Current vital signs reviewed and documented above. General Appearance: lying in bed. Apparently comfortable. Conversant. Accompanied by family member. Head: Normocephalic. Neck: Palpation of the neck revealed no abnormalities. Eyes: No scleral icterus. No scleral injection. Negative conjunctival pallor. Oral Cavity: Odor of breath was normal. No drooling was observed. Lips showed no abnormalities. Floor of the mouth showed no abnormalities. Pharynx: Oropharynx was normal. Lungs: Respiration rhythm and depth was normal. Cardiovascular: Heart rate and rhythm were normal. Abdomen: abdomen was not distended. Abdominal palpation revealed moderate tenderness, worse at the suprapubic region with voluntary guarding. Ascites was not discovered. Abdominal auscultation revealed positive bowel sounds. Musculoskeletal System: Musculoskeletal system was grossly normal. Neurological: level of consciousness was normal. Speech was normal. Skin: General appearance was normal. Color and pigmentation were normal. No skin lesions. Laboratory: white blood count 7.2, hemoglobin 11.4, MCV 89.6, platelets 77 Radiology: -- CT of the abdomen and pelvis, September 2015: bilateral pleural effusion; multiple abdominal wall hernias; upper dense lesion of the left kidney; dilated venous structures over the suprapubic region Impressions: #1. Hematochezia -- hematochezia has tapered to almost nothing with minimal bowel output in the past 24 hours. The patient's blood counts responded appropriately to transfusion of four units. I recommend continued volume management and monitoring of blood counts. #2. Abdominal pain -- patient is experiencing progressive abdominal pain through the evening last night and more acutely now. I have discussed the case with general surgeon, Dr. Viveros, who has agreed to see the patient this afternoon to ensure she does not have surgical disease. We will get a noncontrast CT in the interim. #3. Symptomatic anemia likely related to acute blood loss. Continue to monitor with further transfusion as indicated. #4. Other specified counseling -- The patient was seen for greater than 30 minutes. The patient was counseled for greater than 50% of this time regarding differential diagnosis, likely diagnosis, diagnostic and therapeutic alternatives, risks/benefits/alternatives of medications and procedures, and plan of care generally. The patient expressed understanding and wishes to proceed. Recommendations: -- aggressive volume management -- noncontrast CT -- Dr. Viveros will see the patient this afternoon -- consider echocardiogram -- monitor blood counts -- stool studies, cultures, ova and parasites -- consider empirical antibiotic -- [place] contact precautions until VRE can be ruled out -- continue proton pump inhibitor -- colonoscopy with timing based on clinical progress, likely during convalescence -- thank you for this consultation. Dr. Linares will resume G.I. care for this patient tomorrow
--- NOTE | 2016-11-19 16:57 | CT Report ---
Exam: CT abdomen pelvis wo con Date: 11/19/2016 3:49 PM Comparison: None Indication: Coronary artery disease. The abdominal pain GI bleeding Total DLP: 1281.4 mGy*cm Technical: Images were obtained from the lung bases to the iliac crest continuation through the pelvis without use of intravenous oral contrast with axial sagittal coronal imaging available for review. Dose reduction was performed with decreasing kv and mA and automated exposure Findings: Lung bases: There is calcification in tracheobronchial tree. Low volume right effusion is present. Tiny left effusion is present. Small blebs are present and scarring present in both lung bases. Vascular calcification carotid artery disease present with cardiac pacing leads present. Liver and Spleen: Some hepatic granuloma changes are present. The spleen is intact. Gallbladder and Pancreas: Previous cholecystectomy suspected with surgical clips. The pancreas reveals fatty infiltration. Adrenals: Unremarkable Kidneys: Previous resection of the right kidney surgical clips present. The left kidney is demonstrated with small hyperdense area measuring 3.2 mm in the left kidney. A cyst is also present measuring approximately 1.9 cm. This is located on the lower pole Stomach: Incomplete distended with air fluid and debris Retroperitoneum: No enlarged lymph nodes. Aorta and IVC: Vascular plaque in aorta iliac vessels. Aorta and IVC without contrast not otherwise evaluated. Bowel and Mesentery: A ventral hernia is present. Hernia along the right lateral abdominal wall also present. Bowel extends into the hernia segments without strangulation. Surgical clips in the right lower quadrant present. No obvious diverticulitis with diverticulosis present. Pelvis: Bladder: Incompletely distended with fluid Fluid: No free fluid identified. Lymph nodes: No enlarged lymph nodes. Enlarged vessels over the pannus region of the lower abdomen Pelvic organs: Prior hysterectomy and oophorectomy suspected Osseous structures: Degenerative changes thoracolumbar spine. The bony pelvis reveals no acute findings. Facet arthropathy is present. Impression: 1. Large ventral hernia present containing bowel. Hernia along the right lateral abdominal wall also noted 2. Previous right nephrectomy 3. Hyperdense lesion in the left kidney could represent a hemorrhagic cyst or solid mass similar to prior study. Simple cyst is also present left kidney. 4. Extensive vascular calcinosis 6. Prior cholecystectomy and hysterectomy and probable previous appendectomy 7. Diverticulosis without diverticulitis 8. Enlarged draining veins over the anterior abdominal wall 9. Bilateral basal effusions 10. The exam is fairly similar to the previous study from 2016 PROCEDURE INTERPRETED AT [facility] DEPARTMENT OF RADIOLOGY Final Report Signed by: Dr. Wang Houser
[2016-11-19 17:59] LABS: Hematocrit 33.5 VOL% (35.7-47.0); Hemoglobin 11.5 GM/DL (12.0-16.0)
--- NOTE | 2016-11-19 21:11 | General Surgery Consult Note ---
Assessment and Plan (1) Rectal bleeding Status: Acute Assessment and plan: I do not think that the patient's abdominal pain and bleeding represent ischemia to the bowel. I think a gastric ulcer, gastritis, or diverticular bleeding would be more likely. The bleeding seems to have resolved but the patient is still having intermittent abdominal pain. This could be due to her hernia in the midline but there is no evidence of bowel compromise, incarceration, or strangulation on physical exam or imaging. I will continue to follow this for now. The patient is already on a PPI twice daily. We will continue this and see how she does overnight tonight. Current Visit: Yes History of Present Illness Chief complaint: abdominal pain with hematochezia History of present illness: Ms. Junior is a 80 year old female with multiple medical problems admitted with abdominal pain and hematochezia. She was seen by gastroenterology and responded appropriately to a blood transfusion. Her hematochezia has settled down some but now she is still having intermittent abdominal pain that comes and goes in waves. She has not had any nausea or vomiting tonight. Home Medications Medication Instructions Recorded Confirmed Type Insulin Detemir [Levemir FlexPen] 45 unit SUBCUT BEDTIME #0 07/10/14 11/17/16 History Cyanocobalamin Inj [Vitamin B12 1,000 mcg SUBCUT Q30D 09/22/15 11/17/16 History Inj] Omeprazole [Prilosec] 20 mg PO QAM 09/22/15 11/17/16 History Insulin Aspart [NovoLOG FlexPen] 10 unit SUBCUT TID W/MEALS 10/11/15 11/17/16 History Albuterol Neb [Proventil Neb] 2.5 mg RESP TX RT Q4H PRN 08/17/16 11/17/16 Rx Alum/Mag/Simeth Max Str Liquid 30 ml PO Q4H PRN 08/17/16 11/17/16 Rx [Mylanta Max Strength Liquid] Aspirin EC Tab 81 mg PO QAM tablet 08/17/16 11/17/16 Rx Atorvastatin [Lipitor] 10 mg PO BEDTIME tablet 08/17/16 11/17/16 Rx Labetalol Tab [Trandate Tab] 100 mg PO BID tablet 08/17/16 11/17/16 Rx Levothyroxine Tab [Synthroid Tab] 50 mcg PO QAM tablet 08/17/16 11/17/16 Rx Meclizine [Antivert] 25 mg PO QPM PRN tablet 08/17/16 11/17/16 Rx Memantine [Namenda] 10 mg PO BID tablet 08/17/16 11/17/16 Rx Methenamine Hippurate [Hiprex] 1 gm PO BID tablet 08/17/16 11/17/16 Rx Montelukast Tab [Singulair Tab] 10 mg PO BEDTIME tablet 08/17/16 11/17/16 Rx Solifenacin [Vesicare] 10 mg PO QAM tablet 08/17/16 11/17/16 Rx Linagliptin [Tradjenta] 5 mg PO DAILY 09/11/16 11/17/16 History Acetaminophen Tab [Tylenol Tab] 650 mg PO Q6H PRN tablet 09/21/16 11/17/16 Rx Apixaban [Eliquis] 2.5 mg PO BID #60 tablet 09/21/16 11/17/16 Rx Bumetanide Tab [Bumex Tab] 1 mg PO BID DIURETIC #60 tablet 09/21/16 11/17/16 Rx Docusate Sodium Cap [Colace Cap] 100 mg PO BID capsule 09/21/16 11/17/16 Rx Potassium Chloride Cap/Tab [K Dur] 20 meq PO BID tablet 09/21/16 11/17/16 Rx Valsartan [Diovan] 320 mg PO DAILY tablet 09/21/16 11/17/16 Rx Amlodipine Besylate 5 mg PO DAILY 11/17/16 11/17/16 History Escitalopram Oxalate [Lexapro] 5 mg PO DAILY 11/17/16 11/17/16 History Febuxostat [Uloric] 40 mg PO DAILY 11/17/16 11/17/16 History Polyethylene Glycol Powder 17 gm PO Q24H PRN 11/17/16 11/17/16 History [Miralax] Allergies Allergy/AdvReac Type Severity Reaction Status Date / Time ofloxacin [From Floxin] Allergy Unknown/Unable Verified 08/11/16 13:39 to obtain Sulfa (Sulfonamide Allergy ANAPHYLAXIS Verified 08/11/16 13:39 Antibiotics) tape AdvReac Swelling Uncoded 08/11/16 13:39 of Lip/Tongue/Throat Medical,Surgical,& Family Hx - Medical History Cardio: History of: Cardiac Dysrhythmia (Mobitz 2 block), CHF, CAD, Hypertension , Pacemaker (August 2016 - dual chamber), PVD (blood clots in legs in past) Psychological: History of: Anxiety Disorders Neurology: History of: Migraine, 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 Recurrent DVTs) Renal: History of: Renal (Kidney) Cancer (previous right nephrectomy from cancer ), Renal Failure (stage 3) Genitourinary: History of: Bladder Problem (neurogenic bladder), Problems ( renal cell carcinoma) Gastrointestinal: History of: GERD Musculoskeletal: History of: Osteoporosis, Musculoskeletal Problems (arhtritis) Hematology: History of: Anemia, Blood Transfusion Reaction (chills), Clotting Problems Reproductive: History of: Breast Cancer (14 years ago,PARTIAL RIGHT MASTECTOMY) Other: History of: Anesthesia Reactions (stopped breathing with knee surgery), Cancer (breast and renal cell cancer), Skin Problems (BRUISES EASILY(FROM COUMADIN)) - Surgical History Cardiac Surgeries: Sugical HX of: Cardiac Catheterization Thoracic Surgeries: Surgical HX of;: Kidney (Renal Surgery) (right kidney removal) Patient denies;: Organ Transplant HEENT Surgeries: Surgical HX of: Eye Surgery (cataract removalS) Patient denies: Thyroid Surgery, Tonsilectomy & Adenoidectomy Abdominal Surgeries: Surgical HX of: Abdominal Surgery, Appendectomy, Cholecystectomy, EGD Patient denies: Colonoscopy, Hernia Repair Reproductive Surgeries: Surgical HX of;: Breast Surgery, Gynecologic Surgery, Hysterectomy, Tubal Ligation Orthopedic Surgeries: Surgical HX of;: Total Knee Replacement (right knee replacement) - Family History Family History: Reports;: Family Cancer (daddy), Family Diabetes (MOM,BRO), Family Hypertension (mom and dad,BRO), Family Stroke (dad) Denies;: Family Anesthesia Reaction, Family Heart Disease, Family Psychiatric Problems - Social History Smoking Status: Never smoker Frequency of Alcohol Use: None Type of Drug Use: None - Constitutional Constitutional: Present: as per HPI - EENT Nose, mouth and throat: Present: as per HPI - Cardiovascular Cardiovascular: Present: as per HPI - Respiratory Respiratory: Present: as per HPI - Gastrointestinal Gastrointestinal: Present: as per HPI - Genitourinary Genitourinary: Present: as per HPI - Musculoskeletal Musculoskeletal: Present: as per HPI - Neurological Neurological: Present: as per HPI - Endocrine Endocrine: Present: as per HPI Hematologic/Lymphatic: Present: as per HPI Exam - Constitutional Vitals: Period Temp Pulse Resp BP Sys/Duffy Pulse Ox Last 24 Hr 97.2 F-98.3 F 58-97 16-20 110-138/34-93 90-100 General appearance: no acute distress, morbidly obese - Head Head exam: Present: normal inspection, normocephalic - Eye Eye exam: Present: EOMI Pupils: Present: TEOFILO - ENT ENT exam: Present: normal exam Mouth exam: Present: normal external inspection, normal voice - Neck Neck exam: Present: normal inspection, trachea midline - Respiratory Respiratory exam: Present: clear to auscultation bilaterally. Absent: accessory muscle use, chest wall tenderness - Cardiovascular Cardiovascular exam: Present: RRR. Absent: systolic murmur, tachycardia - GI/Abdominal GI/Abdominal exam: Present: tenderness (mild tenderness in the midline at the superior border of the prior incision. No firmness or skin changes present), soft - Extremities Exam Extremities exam: Present: normal inspection, normal capillary refill - Back Exam Back exam: Present: normal inspection - Neurological Exam Neurological exam: Present: alert, oriented X3 Speech: Present: normal - Skin Skin exam: Present: normal color, warm Quality Measures - VTE Contraindication to Pharmacological VTE Prophylaxis: Active Bleeding Results - Labs CBC & BMP: 11/19/16 17:44 11/19/16 01:33 - Diagnostic Findings Procedure: CT Abdomen and Pelvis: image reviewed by me, report reviewed by me
[2016-11-19] MEDS: ATORVASTATIN 10 MG TABLET PO SCH (21:51)
[2016-11-19] MEDS: MONTELUKAST 10 MG TABLET PO SCH (21:51)
[2016-11-20 01:33] LABS: Hematocrit 32.9 VOL% (35.7-47.0); Hemoglobin 11.1 GM/DL (12.0-16.0)
[2016-11-20 05:26] LABS: Basophils # 0.1 10*3/uL (0.0-0.2); Basophils % 0.7 % (0.0-0.8); Eosinophils # 0.1 10*3/uL (0.0-0.87); Eosinophils % 1.5 % (0.00-10.9); Hematocrit 32.9 VOL% (35.7-47.0); Immature Granulocytes % 0.4 %; Immature Granulocytes Absolute 0.03 #; Lymphocytes # 2.4 10*3/uL (1.4-4.0); Lymphocytes % 34.9 % (21.3-54.2); Mean Corpuscular HGB Conc 33.4 GM/DL (32-36); Mean Corpuscular Hemoglobin 30 PG (27-34); Mean Corpuscular Volume 88.9 FL (87-102); Mean Platelet Volume 9.8 FL (9.6-12.0); Monocytes # 0.5 10*3/uL (0.11-0.8); Monocytes % 6.8 % (1.7-12.7); Neutrophils # 3.8 10*3/uL (1.4-7.4); Neutrophils % 55.7 % (38.7-73.9); Red Cell Distribution Width 14.5 % (9.3-17.3); White Blood Count 6.8 T/CUMM (4-12)
[2016-11-20 05:27] LABS: Platelet Count 66 T/CUMM (130-400)
[2016-11-20 05:42] LABS: Hypochromasia 1+; Platelet Estimate Decreased
[2016-11-20 05:58] LABS: Calcium 8.2 MG/DL (8.5-10.1); Osmolality,Calculated 304.6 MOS/KG (273-304); Potassium 4.4 MMOL/L (3.5-5.1)
[2016-11-20 07:21] LABS: Hematocrit 32.7 VOL% (35.7-47.0); Hemoglobin 10.9 GM/DL (12.0-16.0)
--- NOTE | 2016-11-20 08:24 | Family Practice Progress Note ---
Family Practice - PN: Subj Interval history: Patient states she is feeling some better has not bled now over 24 hours. She denies any nausea or vomiting. Her BUN was quite elevated on admission was down to 55 today. Her hematocrit is stable. She will require endoscopy at some point. Exam (Progress Note) - Constitutional Vitals: Period Temp Pulse Resp BP Sys/Duffy Pulse Ox Last 24 Hr 97.6 F-98.3 F 58-81 16-18 104-138/34-81 92-98 Exam: Objective a well-developed white female no acute distress. She is able give good history. She appears comfortable. Cardiovascular: Heart rates regular without murmurs or gallops. Respiratory: The lungs clear to auscultation bilaterally. Abdomen: Abdomen soft but there is some right upper quadrant tenderness directly. There is no rebound or guarding noted. Results - Labs CBC & BMP: 11/20/16 07:02 11/20/16 05:09 Lab Results: I have reviewed the past 24 hour labs Assessment and Plan (1) Rectal bleeding Status: Acute Assessment and plan: 11/20/2016: Patient's hematocrit remained stable. Patient will require endoscopy at some point. I will consult physical therapy. I think we can stop her IV fluids. Current Visit: Yes Quality Measures - VTE Contraindication to Pharmacological VTE Prophylaxis: Active Bleeding
[2016-11-20] MEDS: INSULIN REGULAR 100 UNIT/ML SUBCUT SCH ×4 (08:26→22:57)
[2016-11-20] MEDS: SODIUM CHLORIDE 0.9% 1,000 ML IV SCH (08:27)
[2016-11-20] MEDS: DOCUSATE SODIUM 100 MG CAPSULE PO SCH ×3 (09:02→20:37)
[2016-11-20] MEDS: FEBUXOSTAT 80 MG TABLET PO SCH (09:09)
[2016-11-20] MEDS: ESCITALOPRAM 10 MG TABLET PO SCH (09:09)
[2016-11-20] MEDS: METHENAMINE HIPPURATE 1 GM TABLET PO SCH ×2 (09:09→20:36)
[2016-11-20] MEDS: amLODIPine 5 MG TABLET PO SCH (09:09)
[2016-11-20] MEDS: VALSARTAN 160 MG TABLET PO SCH (09:09)
[2016-11-20] MEDS: LEVOTHYROXINE 50 MCG TABLET PO SCH (09:09)
[2016-11-20] MEDS: POTASSIUM CHLORIDE 20 MEQ TABLET PO SCH ×2 (09:10→20:37)
[2016-11-20] MEDS: LABETALOL 100 MG TABLET PO SCH ×2 (09:10→20:36)
[2016-11-20] MEDS: SOLIFENACIN 5 MG TABLET PO SCH (09:14)
[2016-11-20] MEDS: PANTOPRAZOLE 40 MG VIAL IV SCH ×2 (09:14→20:36)
--- NOTE | 2016-11-20 09:54 | Physician Query Form ---
CLICK EDIT DOCUMENT TO SELECT QUERY ANSWER --> OK --> SIGN Chelo Hess RN Clinical Cloth Carrier W) [phone] (f) [phone] [email or web address]: Make your selection(s) from the choices in EACH section by typing an "x" and enter comments in the comment section. Please use your independent medical judgment in providing your response. This request does not imply that any particular answer is desired or expected. CLINICAL INDICATORS: (Providers should not edit this section) Based on lab results of creatinine on admission of 2.80 with a GFR of 18 and decreased to 1.70. Pt. treated with IV fluids of Normal Saline. Pt. has documented CKD stage 3. Clarify which of the following most accurately represents the patient's renal status: ( ) Acute kidney injury (non-traumatic) ( ) Acute renal failure (x ) Acute renal failure with underlying Chronic Kidney Disease (CKD) - please provide stage below ( ) CKD - please provide stage below ( ) Other, please specify: ( ) Clinically unable to determine Chronic Kidney Disease Stages Source: National Kidney Disease Foundation ( ) Stage I (eGFR > or = 90) ( ) Stage II (eGFR 60 - 89) (x ) Stage III (eGFR 30 - 59) ( ) Stage IV (eGFR 15 - 29) ( ) Stage V (eGFR < 15 or dialysis) COMMENTS: PLEASE ALSO DOCUMENT RESPONSE IN PROGRESS NOTES AND/OR DISCHARGE SUMMARY Use of terms such as suspected, likely, or probable (associated with a specific diagnosis that is being evaluated, monitored, or treated as if it exists) are acceptable and can be restated in the discharge summary if not ruled out. MTDD
--- NOTE | 2016-11-20 09:58 | Physician Query Form ---
CLICK EDIT DOCUMENT TO SELECT QUERY ANSWER --> OK --> SIGN Chelo Hess RN Clinical Retail Merchandising Specialist W) [phone] (f) [phone] [email or web address] PROVIDERS: Make your selection(s) from the choices in EACH section by typing an "x" and enter comments in the comment section. Please use your independent medical judgment in providing your response. This request does not imply that any particular answer is desired or expected. CLINICAL INDICATORS: (Providers should not edit this section) Pt. admitted with rectal bleeding. Based on documentation of "Symptomatic anemia likely related to acute blood loss". H/H of 11/18 on admission. Pt. transfused with 4 units PRBC's. H/H up to . Diagnosis: Acute blood loss anemia Please clarify the following: (x ) The above diagnosis was monitored, evaluated, and/or treated and is a confirmed diagnosis ( ) The above diagnosis was ruled out ( ) Other, please specify: ( ) Clinically unable to determine COMMENTS: PLEASE ALSO DOCUMENT RESPONSE IN PROGRESS NOTES AND/OR DISCHARGE SUMMARY Use of terms such as suspected, likely, or probable (associated with a specific diagnosis that is being evaluated, monitored, or treated as if it exists) are acceptable and can be restated in the discharge summary if not ruled out. MTDD
--- NOTE | 2016-11-20 10:31 | Gastrointestinal Progress Note ---
Assessment and Plan (1) Hematochezia Status: Acute Assessment and plan: 11/20-no further rectal bleeding since Sunday. Has received total of 4 units of packed red blood cells since admission. No prior history of colonoscopy. Last known EGD in August of last year with esophageal stricture with dilation. H& H stable at present time it has also needed. CT findings noted as below. Plan an addendum to followed by Dr. Linares. Current Visit: No (2) Abdominal pain Status: Acute Assessment and plan: 11/20-complaints of abdominal pain on yesterday with nausea and vomiting with CT findings noted as below. Dr. Viveros is consulted with no further intervention planned at this present time. Continue to monitor. Plan an addendum follow Dr. Linares. Current Visit: No Gastroenterology - PN: Subj Interval history: CC: Rectal bleed Patient is seen awake and alert with family at bedside. States she had an uneventful night. She is denying any abdominal pain or overt bleeding at this time. States that the last rectal bleeding that she had was on Sunday and has had none since this time. She does state that her stools have been dark in color for several months and denies any iron supplements or Pepto-Bismol use with his. She has received a total of 4 units of packed red blood cells since admission with her H&H currently holding at . Stool studies have been negative however she was 4+ positive for occult blood in her stools. She has never had a colonoscopy in the past but states that she had an EGD approximately 6 months ago however only records noted in facility database was from August of last year with findings of esophageal stricture and dilation. She is complaining of increased dysphagia to solids as well. 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 She reported an increase in abdominal pain on yesterday therefore CT without contrast was done with no acute findings, however notation of large ventral hernia containing bowel. Dr. Viveros consulted with patient however feels that this time she is nonsurgical. Abdomen is soft, nontender. ROS: Denies shortness of breath or chest pain Exam (Progress Note) - Constitutional Vitals: Period Temp Pulse Resp BP Sys/Duffy Pulse Ox Last 24 Hr 97.6 F-98.3 F 58-81 16-18 104-138/51-81 92-98 General appearance: normal weight, no acute distress - Head Head exam: Present: normal inspection, normocephalic - Eye Eye exam: Present: other (Lids and conjunctive are unremarkable). Absent: scleral icterus - ENT ENT exam: Present: normal exam, normal oropharynx - Neck Neck exam: Present: normal inspection - Respiratory Respiratory exam: Present: clear to auscultation bilaterally. Absent: rales, rhonchi, wheezes - Cardiovascular Cardiovascular exam: Present: regular rate and rhythm. Absent: diastolic murmur , JVD, systolic murmur - GI/Abdominal GI/Abdominal exam: Present: normal bowel sounds, soft. Absent: ascites, distended, mass, organomegaly, tenderness - Extremities Exam Extremities exam: Present: normal inspection, full ROM - Back Exam Back exam: Present: normal inspection - Neurological Exam Neurological exam: Present: alert, oriented X3 - Psychiatric Psychiatric exam: Present: normal affect, normal mood - Skin Skin exam: Present: normal color, warm, dry Results - Labs CBC & BMP: 11/20/16 07:02 11/20/16 05:09 Lab Results: I have reviewed the past 24 hour labs
[2016-11-20] MEDS ORDERED: ZINC OXIDE PASTE 113 GM TUBE TOP PRN (11:19)
[2016-11-20 12:05] LABS: Hematocrit 34.3 VOL% (35.7-47.0); Hemoglobin 11.7 GM/DL (12.0-16.0)
--- NOTE | 2016-11-20 12:05 | General Surgery Progress Note ---
Assessment and Plan (1) Rectal bleeding Status: Acute Assessment and plan: The patient's abdominal tenderness is improving. This could be some sort of gastritis or peptic ulcer disease or could be pain related to her abdominal wall hernia. I would not recommend any surgical intervention at this time. She is improving overall. Current Visit: Yes Subjective Patient reports: Present: no new complaints, feels better, pain is less, afebrile. Absent: nausea, vomiting Exam - Constitutional Vitals: Period Temp Pulse Resp BP Sys/Duffy Pulse Ox Last 24 Hr 97.6 F-98.3 F 74-81 16-18 104-130/51-64 92-98 General appearance: no acute distress, morbidly obese - Head Head exam: Present: normal inspection, normocephalic - Eye Eye exam: Present: EOMI. Absent: scleral icterus Pupils: Present: TEOFILO - ENT ENT exam: Present: normal exam Mouth exam: Present: normal external inspection, normal voice - Neck Neck exam: Present: normal inspection, trachea midline - Respiratory Respiratory exam: Present: clear to auscultation bilaterally. Absent: accessory muscle use, chest wall tenderness - Cardiovascular Cardiovascular exam: Present: RRR. Absent: systolic murmur, tachycardia - GI/Abdominal GI/Abdominal exam: Present: hypoactive bowel sounds, soft. Absent: tenderness, rebound - Back Exam Back exam: Present: normal inspection - Neurological Exam Neurological exam: Present: alert Speech: Present: normal - Skin Skin exam: Present: normal color, warm Results - Labs CBC & BMP: 11/20/16 07:02 11/20/16 05:09 Quality Measures - VTE Contraindication to Pharmacological VTE Prophylaxis: Active Bleeding
--- NOTE | 2016-11-20 16:12 | Cardiology Progress Note ---
<Katrin Tineo - Last Filed: 11/20/16 16:09> Assessment and Plan (1) Bright red blood per rectum Status: Acute Assessment and plan: SEE PLAN OF CARE LISTED BELOW. Current Visit: Yes (2) Blood loss anemia Status: Acute Assessment and plan: SEE PLAN OF CARE LISTED BELOW. Current Visit: Yes (3) Congestive heart failure Status: Chronic Assessment and plan: SEE PLAN OF CARE LISTED BELOW. Current Visit: No Qualifiers: Congestive heart failure type: diastolic Congestive heart failure chronicity: chronic Qualified Code(s): I50.32 - Chronic diastolic (congestive ) heart failure (4) Coronary artery disease Status: Chronic Assessment and plan: SEE PLAN OF CARE LISTED BELOW. Current Visit: Yes Qualifiers: Coronary Disease-Associated Artery/Lesion type: [place] artery [place] vs. transplanted heart: [place] heart Associated angina: without angina Qualified Code(s): I25.10 - Atherosclerotic heart disease of [place] coronary artery without angina pectoris (5) History of DVT (deep vein thrombosis) Status: Chronic Assessment and plan: SEE PLAN OF CARE LISTED BELOW. Current Visit: No (6) Hyperlipidemia Status: Chronic Assessment and plan: SEE PLAN OF CARE LISTED BELOW. Current Visit: Yes (7) Hypertension Status: Chronic Assessment and plan: SEE PLAN OF CARE LISTED BELOW. Current Visit: Yes Qualifiers: Hypertension type: essential hypertension Qualified Code(s): I10 - Essential (primary) hypertension (8) Aortic stenosis Status: Chronic Assessment and plan: SEE PLAN OF CARE LISTED BELOW. Current Visit: No Qualifiers: Cardiac valve disease etiology: nonrheumatic Qualified Code(s): I35.0 - Nonrheumatic aortic (valve) stenosis (9) USP (current) use of anticoagulants Status: Chronic Assessment and plan: SEE PLAN OF CARE LISTED BELOW. Current Visit: No (10) Morbid obesity Status: Chronic Assessment and plan: SEE PLAN OF CARE LISTED BELOW. Current Visit: No Cardiology - PN: Subj Interval history: [facility] Operator: Dr. Reno Summary Mrs. Junior is a 80 year old female with a history of DVT 2. She was then recommended anticoagulation for life. 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 Duggan saw the patient and placed a dual-chamber pacemaker. She has been residing at [facility] and doing well with therapy she states her heart is doing well but approximately 3 weeks ago she developed bright red blood per rectum is had several episodes. She has received 4 units of packed red blood cells. Eliquis is being held. Hopefully this will only need to be held temporarily. GI is currently evaluating patient. Recommend reinitiation of anticoagulation once source of rectal bleeding has been identified and treated. November 20, 2016 Patient was seen and examined on 2E. She is doing well and without complaints. She denies any bright red blood per rectum today. She reports that her last bloody bowel movement was Sunday afternoon. H&H is stable today. Stool is 4 + positive for occult blood. Abdominal CT did not reveal any acute findings. Dr. Viveros has been consulted. However, he does not feel she is in need of surgery at this time. At this point, patient is stable from a cardiology standpoint. We will continue to hold anticoagulation until GI workup is completed. I will further discuss with Dr. Lindquist and await his additional recommendations. ASSESSMENT/PLAN: 1. RECTAL BLEED - Workup planned per GI. H&H is stable. Continue to hold anticoagulation at this time. 2. HISTORY OF DVT - SCDs have been ordered. 3. BLOOD LOSS ANEMIA -patient has received 4 units of packed red blood cells this hospitalization. We will continue to monitor with daily CBC. GI workup underway. 4. MORBID OBESITY - Weight loss encouraged. 5. LONG-TERM USE OF ANTICOAGULANTS - Anticoagulation being hold pending GI workup. 6. HISTORY OF CONGESTIVE HEART FAILURE - No overt heart failure this hospitalization. 7. HISTORY OF CORONARY ARTERY DISEASE - Without anginal complaints. Stable at present. 8. AORTIC STENOSIS - Chronic. Exam (Progress Note) - Constitutional Vitals: Period Temp Pulse Resp BP Sys/Duffy Pulse Ox Last 24 Hr 97.6 F-98 F 74-76 16-20 104-130/50-64 92-98 Exam: General: Appears well with no apparent distress. Pleasant and cooperative. Appears comfortable. Morbidly obese. HEENT: PERRL, normocephalic, atraumatic. Conjunctiva moist and clear, sclerae anicteric Neck: No JVD/HJR, no thyromegaly or lymphadenopathy noted. No carotid bruit appreciated Cardiac: Regular rate and rhythm. Lungs: Clear to auscultation without accessory muscle use to assist the respiratory pattern. Abdomen: Soft, bowel sounds normoactive. Nontender and nondistended. No abdominal bruit or thrill noted. No masses noted. Extremities: No clubbing, cyanosis noted. No edema noted. Upper extremity pulses 2+. Lower extremity pulses 2+. Capillary refill less than 3 seconds. Skin: No unusual lesions or rashes. No skin breakdown appreciated. Neuro: Awake, alert and oriented 3. Moves all extremities well without hemiparesis or paralysis. No essential tremor is appreciated. Result/EKG - Labs CBC & BMP: 11/20/16 11:58 11/20/16 05:09 Lab Results: I have reviewed the past 24 hour labs Labs: Laboratory Results - last 24 hr 11/18/16 11/19/16 11/19/16 11:53 15:45 17:44 WBC RBC Hgb 11.5 L Hct 33.5 L MCV MCH MCHC RDW Plt Count MPV Neut % (Auto) Lymph % (Auto) Reeves % (Auto) Eos % (Auto) Baso % (Auto) Neut # (Auto) Lymph # (Auto) Reeves # (Auto) Eos # (Auto) Baso # (Auto) Immature Gran % Nucleated RBC % Immature Gran # Nucleated RBCs # Platelet Estimate Immature Plt Fraction Hypochromasia Morphology Comment Sodium Potassium Chloride Carbon Dioxide Anion Gap BUN Creatinine GFR Calculation BUN/Creatinine Ratio Glucose POC Glucose 129 H Calculated Osmolality Calcium Crossmatch See Detail 11/20/16 11/20/16 11/20/16 00:51 05:09 05:09 WBC 6.8 RBC 3.70 L Hgb 11.1 L 11.0 L Hct 32.9 L 32.9 L MCV 88.9 MCH 30 MCHC 33.4 RDW 14.5 Plt Count 66 L MPV 9.8 Neut % (Auto) 55.7 Lymph % (Auto) 34.9 Reeves % (Auto) 6.8 Eos % (Auto) 1.5 Baso % (Auto) 0.7 Neut # (Auto) 3.8 Lymph # (Auto) 2.4 Reeves # (Auto) 0.5 Eos # (Auto) 0.1 Baso # (Auto) 0.1 Immature Gran % 0.4 Nucleated RBC % 0.0 Immature Gran # 0.03 Nucleated RBCs # 0.00 Platelet Estimate Decreased Immature Plt Fraction 1.4 Hypochromasia 1+ Morphology Comment Sodium 146 H Potassium 4.4 Chloride 116 H Carbon Dioxide 21 Anion Gap 13.4 BUN 55 H Creatinine 1.70 H GFR Calculation 33 BUN/Creatinine Ratio 32.00 H Glucose 107 H POC Glucose Calculated Osmolality 304.6 H Calcium 8.2 L Crossmatch 11/20/16 11/20/16 11/20/16 07:02 07:46 11:46 WBC RBC Hgb 10.9 L Hct 32.7 L MCV MCH MCHC RDW Plt Count MPV Neut % (Auto) Lymph % (Auto) Reeves % (Auto) Eos % (Auto) Baso % (Auto) Neut # (Auto) Lymph # (Auto) Reeves # (Auto) Eos # (Auto) Baso # (Auto) Immature Gran % Nucleated RBC % Immature Gran # Nucleated RBCs # Platelet Estimate Immature Plt Fraction Hypochromasia Morphology Comment Sodium Potassium Chloride Carbon Dioxide Anion Gap BUN Creatinine GFR Calculation BUN/Creatinine Ratio Glucose POC Glucose 109 H 142 H Calculated Osmolality Calcium Crossmatch 11/20/16 11:58 WBC RBC Hgb 11.7 L Hct 34.3 L MCV MCH MCHC RDW Plt Count MPV Neut % (Auto) Lymph % (Auto) Reeves % (Auto) Eos % (Auto) Baso % (Auto) Neut # (Auto) Lymph # (Auto) Reeves # (Auto) Eos # (Auto) Baso # (Auto) Immature Gran % Nucleated RBC % Immature Gran # Nucleated RBCs # Platelet Estimate Immature Plt Fraction Hypochromasia Morphology Comment Sodium Potassium Chloride Carbon Dioxide Anion Gap BUN Creatinine GFR Calculation BUN/Creatinine Ratio Glucose POC Glucose Calculated Osmolality Calcium Crossmatch Quality Measures - VTE Contraindication to Pharmacological VTE Prophylaxis: Active Bleeding <Ethan Lindquist - Last Filed: 11/20/16 18:09> Cardiology - PN: Subj Interval history: Cardiology addendum Patient examined and chart reviewed discussed with nurse Katrin Tineo. Recurrent GI bleed on Eliquis. Has received 4 units to date. Telemetry shows normal pacing Plan endoscopy in a.m. Exam (Progress Note) - Constitutional Vitals: Period Temp Pulse Resp BP Sys/Duffy Pulse Ox Last 24 Hr 96.0 F-98 F 74-77 16-20 104-144/50-64 91-98 Result/EKG - Labs CBC & BMP: 11/20/16 11:58 11/20/16 05:09 Labs: Laboratory Results - last 24 hr 11/18/16 11/19/16 11/20/16 11:53 17:44 00:51 WBC RBC Hgb 11.5 L 11.1 L Hct 33.5 L 32.9 L MCV MCH MCHC RDW Plt Count MPV Neut % (Auto) Lymph % (Auto) Reeves % (Auto) Eos % (Auto) Baso % (Auto) Neut # (Auto) Lymph # (Auto) Reeves # (Auto) Eos # (Auto) Baso # (Auto) Immature Gran % Nucleated RBC % Immature Gran # Nucleated RBCs # Platelet Estimate Immature Plt Fraction Hypochromasia Morphology Comment Sodium Potassium Chloride Carbon Dioxide Anion Gap BUN Creatinine GFR Calculation BUN/Creatinine Ratio Glucose POC Glucose Calculated Osmolality Calcium Crossmatch See Detail 11/20/16 11/20/16 11/20/16 05:09 05:09 07:02 WBC 6.8 RBC 3.70 L Hgb 11.0 L 10.9 L Hct 32.9 L 32.7 L MCV 88.9 MCH 30 MCHC 33.4 RDW 14.5 Plt Count 66 L MPV 9.8 Neut % (Auto) 55.7 Lymph % (Auto) 34.9 Reeves % (Auto) 6.8 Eos % (Auto) 1.5 Baso % (Auto) 0.7 Neut # (Auto) 3.8 Lymph # (Auto) 2.4 Reeves # (Auto) 0.5 Eos # (Auto) 0.1 Baso # (Auto) 0.1 Immature Gran % 0.4 Nucleated RBC % 0.0 Immature Gran # 0.03 Nucleated RBCs # 0.00 Platelet Estimate Decreased Immature Plt Fraction 1.4 Hypochromasia 1+ Morphology Comment Sodium 146 H Potassium 4.4 Chloride 116 H Carbon Dioxide 21 Anion Gap 13.4 BUN 55 H Creatinine 1.70 H GFR Calculation 33 BUN/Creatinine Ratio 32.00 H Glucose 107 H POC Glucose Calculated Osmolality 304.6 H Calcium 8.2 L Crossmatch 11/20/16 11/20/16 11/20/16 07:46 11:46 11:58 WBC RBC Hgb 11.7 L Hct 34.3 L MCV MCH MCHC RDW Plt Count MPV Neut % (Auto) Lymph % (Auto) Reeves % (Auto) Eos % (Auto) Baso % (Auto) Neut # (Auto) Lymph # (Auto) Reeves # (Auto) Eos # (Auto) Baso # (Auto) Immature Gran % Nucleated RBC % Immature Gran # Nucleated RBCs # Platelet Estimate Immature Plt Fraction Hypochromasia Morphology Comment Sodium Potassium Chloride Carbon Dioxide Anion Gap BUN Creatinine GFR Calculation BUN/Creatinine Ratio Glucose POC Glucose 109 H 142 H Calculated Osmolality Calcium Crossmatch 11/20/16 16:43 WBC RBC Hgb Hct MCV MCH MCHC RDW Plt Count MPV Neut % (Auto) Lymph % (Auto) Reeves % (Auto) Eos % (Auto) Baso % (Auto) Neut # (Auto) Lymph # (Auto) Reeves # (Auto) Eos # (Auto) Baso # (Auto) Immature Gran % Nucleated RBC % Immature Gran # Nucleated RBCs # Platelet Estimate Immature Plt Fraction Hypochromasia Morphology Comment Sodium Potassium Chloride Carbon Dioxide Anion Gap BUN Creatinine GFR Calculation BUN/Creatinine Ratio Glucose POC Glucose 118 H Calculated Osmolality Calcium Crossmatch
[2016-11-20 18:00] LABS: Hematocrit 33.2 VOL% (35.7-47.0); Hemoglobin 11.1 GM/DL (12.0-16.0)
[2016-11-20] MEDS: MONTELUKAST 10 MG TABLET PO SCH (20:37)
[2016-11-20] MEDS: ATORVASTATIN 10 MG TABLET PO SCH (20:37)
[2016-11-21 00:47] LABS: Hematocrit 33.2 VOL% (35.7-47.0); Hemoglobin 11.2 GM/DL (12.0-16.0)
[2016-11-21 06:06] LABS: Basophils % 0.5 % (0.0-0.8); Eosinophils # 0.1 10*3/uL (0.0-0.87); Eosinophils % 1.8 % (0.00-10.9); Hematocrit 32.3 VOL% (35.7-47.0); Hemoglobin 10.9 GM/DL (12.0-16.0); Immature Granulocytes % 0.5 %; Immature Granulocytes Absolute 0.03 #; Lymphocytes # 2.7 10*3/uL (1.4-4.0); Mean Corpuscular HGB Conc 33.7 GM/DL (32-36); Mean Corpuscular Hemoglobin 30 PG (27-34); Mean Corpuscular Volume 88.5 FL (87-102); Mean Platelet Volume 9.9 FL (9.6-12.0); Monocytes # 0.6 10*3/uL (0.11-0.8); Monocytes % 10.2 % (1.7-12.7); Neutrophils # 2.8 10*3/uL (1.4-7.4); Red Blood Count 3.65 MC/CUMM (3.8-5.5); Red Cell Distribution Width 14.1 % (9.3-17.3); White Blood Count 6.3 T/CUMM (4-12)
[2016-11-21 06:07] LABS: Platelet Count 64 T/CUMM (130-400)
[2016-11-21 06:26] LABS: Giant Platelets Few; Hypochromasia 1+; Microcytosis 1+; Platelet Estimate Decreased
[2016-11-21 06:35] LABS: Magnesium 2.6 MG/DL (1.8-2.4); Osmolality,Calculated 296.8 MOS/KG (273-304); Potassium 4.3 MMOL/L (3.5-5.1)
[2016-11-21 06:55] LABS: Osmolality,Calculated 297.8 MOS/KG (273-304); Potassium 4.3 MMOL/L (3.5-5.1)
--- NOTE | 2016-11-21 07:40 | Family Practice Progress Note ---
Family Practice - PN: Subj Interval history: Patient states she is still having a little abdominal pain though it has improved. She has not seen any blood in her stool but after her prep she did have some dark stool. She has heme positive stool. Exam (Progress Note) - Constitutional Vitals: Period Temp Pulse Resp BP Sys/Duffy Pulse Ox Last 24 Hr 96.0 F-98.6 F 70-80 18-20 91-144/45-66 91-96 Exam: Objective a well-developed white female no acute distress. She is able give good history. She appears comfortable. Cardiovascular: Heart rates regular without murmurs or gallops. Respiratory: The lungs clear to auscultation bilaterally. Abdomen: Abdomen soft but there is some right upper quadrant tenderness directly. There is no rebound or guarding noted. Results - Labs CBC & BMP: 11/21/16 05:27 11/21/16 05:27 Lab Results: I have reviewed the past 24 hour labs Assessment and Plan (1) Rectal bleeding Status: Acute Assessment and plan: 11/20/2016: Patient's hematocrit remained stable. Patient will require endoscopy at some point. I will consult physical therapy. I think we can stop her IV fluids. 11/21/2016: Patient scheduled for EGD this morning. Current Visit: Yes Quality Measures - VTE Contraindication to Pharmacological VTE Prophylaxis: Active Bleeding
--- NOTE | 2016-11-21 09:35 | Cardiology Progress Note ---
<Katrin Tineo - Last Filed: 11/21/16 09:24> Assessment and Plan (1) Bright red blood per rectum Status: Acute Assessment and plan: SEE PLAN OF CARE LISTED BELOW. Current Visit: Yes (2) Blood loss anemia Status: Acute Assessment and plan: SEE PLAN OF CARE LISTED BELOW. Current Visit: Yes (3) Congestive heart failure Status: Chronic Assessment and plan: SEE PLAN OF CARE LISTED BELOW. Current Visit: No Qualifiers: Congestive heart failure type: diastolic Congestive heart failure chronicity: chronic Qualified Code(s): I50.32 - Chronic diastolic (congestive ) heart failure (4) Coronary artery disease Status: Chronic Assessment and plan: SEE PLAN OF CARE LISTED BELOW. Current Visit: Yes Qualifiers: Coronary Disease-Associated Artery/Lesion type: [place] artery [place] vs. transplanted heart: syc[place] heart Associated angina: without angina Qualified Code(s): I25.10 - Atherosclerotic heart disease of [place] coronary artery without angina pectoris (5) History of DVT (deep vein thrombosis) Status: Chronic Assessment and plan: SEE PLAN OF CARE LISTED BELOW. Current Visit: No (6) Hyperlipidemia Status: Chronic Assessment and plan: SEE PLAN OF CARE LISTED BELOW. Current Visit: Yes (7) Hypertension Status: Chronic Assessment and plan: SEE PLAN OF CARE LISTED BELOW. Current Visit: Yes Qualifiers: Hypertension type: essential hypertension Qualified Code(s): I10 - Essential (primary) hypertension (8) Aortic stenosis Status: Chronic Assessment and plan: SEE PLAN OF CARE LISTED BELOW. Current Visit: No Qualifiers: Cardiac valve disease etiology: nonrheumatic Qualified Code(s): I35.0 - Nonrheumatic aortic (valve) stenosis (9) retirement (current) use of anticoagulants Status: Chronic Assessment and plan: SEE PLAN OF CARE LISTED BELOW. Current Visit: No (10) Morbid obesity Status: Chronic Assessment and plan: SEE PLAN OF CARE LISTED BELOW. Current Visit: No Cardiology - PN: Subj Interval history: [employer]: Dr. [place] SUMMARY Mrs. Junior is a 80 year old female with a history of DVT 2. She was then recommended anticoagulation for life. 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 Duggan saw the patient and placed a dual-chamber pacemaker. She has been residing at [facility] and doing well with therapy she states her heart is doing well but approximately 3 weeks ago she developed bright red blood per rectum is had several episodes. She has received 4 units of packed red blood cells. Eliquis is being held. Hopefully this will only need to be held temporarily. GI is currently evaluating patient. Recommend reinitiation of anticoagulation once source of rectal bleeding has been identified and treated. NOVEMBER 20, 2016 Patient was seen and examined on 2E. She is doing well and without complaints. She denies any bright red blood per rectum today. She reports that her last bloody bowel movement was Sunday afternoon. H&H is stable today. Stool is 4 + positive for occult blood. Abdominal CT did not reveal any acute findings. Dr. Viveros has been consulted. However, he does not feel she is in need of surgery at this time. At this point, patient is stable from a cardiology standpoint. We will continue to hold anticoagulation until GI workup is completed. I will further discuss with Dr. Lindquist and await his additional recommendations. NOVEMBER 21, 2016 Patient was seen and examined on 2 E. She is planned for EGD later this morning. She is n.p.o. She does report having a bowel movement yesterday. She reports dark stool. She continues to have mild abdominal pain. Anticoagulation remains on hold. H&H is stable this morning at 11.2 and 33.2. Vital signs are stable. Creatinine 1.8 this morning. Defer management of this to attending. I will further discuss with Dr. Lindquist and await his additional recommendations. ASSESSMENT/PLAN: 1. RECTAL BLEED - EGD this morning. H&H is stable. Continue to hold anticoagulation at this time until GI workup is complete. 2. HISTORY OF DVT - SCDs while anticoagulation is being held.Hope to reinitiate anticoagulation when GI bleeding resolves. 3. BLOOD LOSS ANEMIA - Patient has received 4 units of packed red blood cells this hospitalization. We will continue to monitor with daily CBC. GI workup underway. 4. MORBID OBESITY - Weight loss encouraged. 5. LONG-TERM USE OF ANTICOAGULANTS - Anticoagulation being hold pending GI workup. 6. HISTORY OF CONGESTIVE HEART FAILURE - No overt heart failure this hospitalization. 7. HISTORY OF CORONARY ARTERY DISEASE - Without anginal complaints. Stable at present. 8. AORTIC STENOSIS - Chronic. 9. RENAL INSUFFICIENCY - Chronicity of this is unknown. Creatinine this morning 1.8. Continue to monitor with daily BMP. Management per attending. Exam (Progress Note) - Constitutional Vitals: Period Temp Pulse Resp BP Sys/Duffy Pulse Ox Last 24 Hr 96.0 F-98.6 F 70-80 18-20 91-144/45-66 91-96 Exam: General: Appears well with no apparent distress. Pleasant and cooperative. Appears comfortable. Morbidly obese. HEENT: PERRL, normocephalic, atraumatic. Conjunctiva moist and clear, sclerae anicteric Neck: No JVD/HJR, no thyromegaly or lymphadenopathy noted. No carotid bruit appreciated Cardiac: Regular rate and rhythm. Lungs: Clear to auscultation without accessory muscle use to assist the respiratory pattern. Abdomen: Soft, bowel sounds normoactive. Nontender and nondistended. No abdominal bruit or thrill noted. No masses noted. Extremities: No clubbing, cyanosis noted. No edema noted. Upper extremity pulses 2+. Lower extremity pulses 2+. Capillary refill less than 3 seconds. Skin: No unusual lesions or rashes. No skin breakdown appreciated. Neuro: Awake, alert and oriented 3. Moves all extremities well without hemiparesis or paralysis. No essential tremor is appreciated. Result/EKG - Labs CBC & BMP: 11/21/16 05:27 11/21/16 05:27 Lab Results: I have reviewed the past 24 hour labs Labs: Laboratory Results - last 24 hr 11/20/16 11/20/16 11/20/16 11:46 11:58 16:43 WBC RBC Hgb 11.7 L Hct 34.3 L MCV MCH MCHC RDW Plt Count MPV Neut % (Auto) Lymph % (Auto) [place] % (Auto) Eos % (Auto) Baso % (Auto) Neut # (Auto) Lymph # (Auto) [place] # (Auto) Eos # (Auto) Baso # (Auto) Immature Gran % Nucleated RBC % Immature Gran # Nucleated RBCs # Platelet Estimate Giant Platelets Immature Plt Fraction Hypochromasia Microcytosis Morphology Comment Sodium Potassium Chloride Carbon Dioxide Anion Gap BUN Creatinine GFR Calculation BUN/Creatinine Ratio Glucose POC Glucose 142 H 118 H Calculated Osmolality Calcium Magnesium 11/20/16 11/20/16 11/21/16 17:41 21:23 00:33 WBC RBC Hgb 11.1 L 11.2 L Hct 33.2 L 33.2 L MCV MCH MCHC RDW Plt Count MPV Neut % (Auto) Lymph % (Auto) [place] % (Auto) Eos % (Auto) Baso % (Auto) Neut # (Auto) Lymph # (Auto) [place] # (Auto) Eos # (Auto) Baso # (Auto) Immature Gran % Nucleated RBC % Immature Gran # Nucleated RBCs # Platelet Estimate Giant Platelets Immature Plt Fraction Hypochromasia Microcytosis Morphology Comment Sodium Potassium Chloride Carbon Dioxide Anion Gap BUN Creatinine GFR Calculation BUN/Creatinine Ratio Glucose POC Glucose 188 H Calculated Osmolality Calcium Magnesium 11/21/16 11/21/16 11/21/16 05:27 05:27 05:27 WBC 6.3 RBC 3.65 L Hgb 10.9 L Hct 32.3 L MCV 88.5 MCH 30 MCHC 33.7 RDW 14.1 Plt Count 64 L MPV 9.9 Neut % (Auto) 44.0 Lymph % (Auto) 43.0 [place] % (Auto) 10.2 Eos % (Auto) 1.8 Baso % (Auto) 0.5 Neut # (Auto) 2.8 Lymph # (Auto) 2.7 [place] # (Auto) 0.6 Eos # (Auto) 0.1 Baso # (Auto) 0.0 Immature Gran % 0.5 Nucleated RBC % 0.0 Immature Gran # 0.03 Nucleated RBCs # 0.00 Platelet Estimate Decreased Giant Platelets Few Immature Plt Fraction 2.2 Hypochromasia 1+ Microcytosis 1+ Morphology Comment Sodium 144 144 Potassium 4.3 4.3 Chloride 114 H 114 H Carbon Dioxide 24 23 Anion Gap 10.3 11.3 BUN 47 H 44 H Creatinine 1.80 H 1.80 H GFR Calculation 30 30 BUN/Creatinine Ratio 26.00 H 24.00 H Glucose 104 102 POC Glucose Calculated Osmolality 297.8 296.8 Calcium 8.0 L 8.0 L Magnesium 2.6 H 11/21/16 07:33 WBC RBC Hgb Hct MCV MCH MCHC RDW Plt Count MPV Neut % (Auto) Lymph % (Auto) [place] % (Auto) Eos % (Auto) Baso % (Auto) Neut # (Auto) Lymph # (Auto) [place] # (Auto) Eos # (Auto) Baso # (Auto) Immature Gran % Nucleated RBC % Immature Gran # Nucleated RBCs # Platelet Estimate Giant Platelets Immature Plt Fraction Hypochromasia Microcytosis Morphology Comment Sodium Potassium Chloride Carbon Dioxide Anion Gap BUN Creatinine GFR Calculation BUN/Creatinine Ratio Glucose POC Glucose 121 H Calculated Osmolality Calcium Magnesium Quality Measures - VTE Contraindication to Pharmacological VTE Prophylaxis: Active Bleeding <Ethan Lindquist - Last Filed: 11/21/16 17:10> Cardiology - PN: Subj Interval history: Cardiology addendum Patient examined chart reviewed and discussed with nurse Katrin Tineo RN. EGD today showed mild gastritis was otherwise normal. O2 sat 93% on 2 L Blood pressure 114/56 Regular rhythm soft systolic murmur as before Decreased breath sounds but clear Impression Recurrent GI bleed on Eliquis. Status post 4 unit transfusion and holding Plan Colonoscopy in a.m. Exam (Progress Note) - Constitutional Vitals: Period Temp Pulse Resp BP Sys/Duffy Pulse Ox Last 24 Hr 96.7 F-98.6 F 70-80 16-20 91-138/41-66 92-100 Result/EKG - Labs CBC & BMP: 11/21/16 05:27 11/21/16 05:27 Labs: Laboratory Results - last 24 hr 11/19/16 11/20/16 11/20/16 Unknown 16:43 17:41 WBC RBC Hgb 11.1 L Hct 33.2 L MCV MCH MCHC RDW Plt Count MPV Neut % (Auto) Lymph % (Auto) [place] % (Auto) Eos % (Auto) Baso % (Auto) Neut # (Auto) Lymph # (Auto) [place] # (Auto) Eos # (Auto) Baso # (Auto) Immature Gran % Nucleated RBC % Immature Gran # Nucleated RBCs # Platelet Estimate Giant Platelets Immature Plt Fraction Hypochromasia Microcytosis Morphology Comment Sodium Potassium Chloride Carbon Dioxide Anion Gap BUN Creatinine GFR Calculation BUN/Creatinine Ratio Glucose POC Glucose 118 H Calculated Osmolality Calcium Magnesium O & P Concentrate Exam See comments 11/20/16 11/21/16 11/21/16 21:23 00:33 05:27 WBC 6.3 RBC 3.65 L Hgb 11.2 L 10.9 L Hct 33.2 L 32.3 L MCV 88.5 MCH 30 MCHC 33.7 RDW 14.1 Plt Count 64 L MPV 9.9 Neut % (Auto) 44.0 Lymph % (Auto) 43.0 [place] % (Auto) 10.2 Eos % (Auto) 1.8 Baso % (Auto) 0.5 Neut # (Auto) 2.8 Lymph # (Auto) 2.7 [place] # (Auto) 0.6 Eos # (Auto) 0.1 Baso # (Auto) 0.0 Immature Gran % 0.5 Nucleated RBC % 0.0 Immature Gran # 0.03 Nucleated RBCs # 0.00 Platelet Estimate Decreased Giant Platelets Few Immature Plt Fraction 2.2 Hypochromasia 1+ Microcytosis 1+ Morphology Comment Sodium Potassium Chloride Carbon Dioxide Anion Gap BUN Creatinine GFR Calculation BUN/Creatinine Ratio Glucose POC Glucose 188 H Calculated Osmolality Calcium Magnesium O & P Concentrate Exam 11/21/16 11/21/16 11/21/16 05:27 05:27 07:33 WBC RBC Hgb Hct MCV MCH MCHC RDW Plt Count MPV Neut % (Auto) Lymph % (Auto) [place] % (Auto) Eos % (Auto) Baso % (Auto) Neut # (Auto) Lymph # (Auto) [place] # (Auto) Eos # (Auto) Baso # (Auto) Immature Gran % Nucleated RBC % Immature Gran # Nucleated RBCs # Platelet Estimate Giant Platelets Immature Plt Fraction Hypochromasia Microcytosis Morphology Comment Sodium 144 144 Potassium 4.3 4.3 Chloride 114 H 114 H Carbon Dioxide 24 23 Anion Gap 10.3 11.3 BUN 47 H 44 H Creatinine 1.80 H 1.80 H GFR Calculation 30 30 BUN/Creatinine Ratio 26.00 H 24.00 H Glucose 104 102 POC Glucose 121 H Calculated Osmolality 297.8 296.8 Calcium 8.0 L 8.0 L Magnesium 2.6 H O & P Concentrate Exam 11/21/16 11/21/16 11/21/16 11:40 13:47 16:50 WBC RBC Hgb Hct MCV MCH MCHC RDW Plt Count MPV Neut % (Auto) Lymph % (Auto) [place] % (Auto) Eos % (Auto) Baso % (Auto) Neut # (Auto) Lymph # (Auto) [place] # (Auto) Eos # (Auto) Baso # (Auto) Immature Gran % Nucleated RBC % Immature Gran # Nucleated RBCs # Platelet Estimate Giant Platelets Immature Plt Fraction Hypochromasia Microcytosis Morphology Comment Sodium Potassium Chloride Carbon Dioxide Anion Gap BUN Creatinine GFR Calculation BUN/Creatinine Ratio Glucose POC Glucose 138 H 137 H 223 H Calculated Osmolality Calcium Magnesium O & P Concentrate Exam
[2016-11-21] MEDS: PANTOPRAZOLE 40 MG VIAL IV SCH ×2 (10:49→21:28)
[2016-11-21] MEDS: INSULIN REGULAR 100 UNIT/ML SUBCUT SCH ×3 (10:52→18:07)
[2016-11-21] MEDS ORDERED: ETOMIDATE 20 MG/10 ML VIAL IV ONE (12:44)
--- NOTE | 2016-11-21 12:48 | History and Physical Update ---
History and Physical Update - History and Physical H&P was reviewed, the patient examined and there: are no changes in the patients condition since last H&P was completed. - Physical Exam Mental Status: alert and oriented Heart: regular rate and rhythm Lung: clear to auscultation Abdomen: within normal limits Vitals: within normal limits
--- NOTE | 2016-11-21 12:55 | Operative Note ---
Date of procedure: 11/21/16 Pre-op diagnosis: GI bleed, dark stools Procedure: Procedure: Esophagogastroduodenoscopy Brief clinical abstract: 80-year-old female is admitted with weakness and recent dark stools. She had documented occult blood in her stools. She was on Eliquis at home prior to admission with last dose over 3 days ago. Indication for procedure: GI bleed Endoscopic findings:[After informed consent was obtained, the patient was placed in the left lateral decubitus position. The gastroscope was inserted in the upper esophagus under direct vision with no resistance encountered. Esophageal mucosa appeared normal with squamocolumnar junction sharply demarcated at the diaphragmatic indentation. The endoscope was advanced in the stomach which was carefully examined including retroflexed view of the cardia and fundus. There was some patchy subepithelial hemorrhage in the proximal fundus but no ulcers or bleeding site identified. The pyloric channel, duodenal bulb, second and third portion of the duodenum appeared normal. Ampulla was visualized with normal appearance. The endoscope was removed and patient appeared to tolerate the procedure well. Impression: Mild gastritis-otherwise normal EGD Recommendations: Would recommend colonoscopy as she has never had this done in the past. Plan to do tomorrow if she agrees. Anesthesia: MAC Surgeon / Physician: Wang Linares Estimated blood loss: none Specimens: none sent Condition: stable Disposition: post procedure unit Results - Labs CBC & BMP: 11/21/16 05:27 11/21/16 05:27 Discharge Plan - Discharge Medications No Action Insulin Detemir [Levemir FlexPen] 45 unit SUBCUT BEDTIME #0 Cyanocobalamin Inj [Vitamin B12 Inj] 1,000 mcg SUBCUT Q30D Omeprazole [Prilosec] 20 mg PO QAM Insulin Aspart [NovoLOG FlexPen] 10 unit SUBCUT TID W/MEALS Albuterol Neb [Proventil Neb] 2.5 mg RESP TX RT Q4H PRN PRN Reason: Shortness Of Breath/Wheezing Alum/Mag/Simeth Max Str Liquid [Mylanta Max Strength Liquid] 30 ml PO Q4H PRN PRN Reason: Dyspepsia Atorvastatin [Lipitor] 10 mg PO BEDTIME tablet Labetalol Tab [Trandate Tab] 100 mg PO BID tablet Levothyroxine Tab [Synthroid Tab] 50 mcg PO QAM tablet Memantine [Namenda] 10 mg PO BID tablet Methenamine Hippurate [Hiprex] 1 gm PO BID tablet Montelukast Tab [Singulair Tab] 10 mg PO BEDTIME tablet Solifenacin [Vesicare] 10 mg PO QAM tablet Apixaban [Eliquis] 2.5 mg PO BID #60 tablet Docusate Sodium Cap [Colace Cap] 100 mg PO BID capsule Valsartan [Diovan] 320 mg PO DAILY tablet Escitalopram Oxalate [Lexapro] 5 mg PO DAILY Febuxostat [Uloric] 40 mg PO DAILY Polyethylene Glycol Powder [Miralax] 17 gm PO Q24H PRN PRN Reason: Constipation Aspirin EC Tab 81 mg PO QAM tablet Meclizine [Antivert] 25 mg PO QPM PRN tablet PRN Reason: Dizziness Linagliptin [Tradjenta] 5 mg PO DAILY Acetaminophen Tab [Tylenol Tab] 650 mg PO Q6H PRN tablet PRN Reason: Fever > 100.4 Or Headache Bumetanide Tab [Bumex Tab] 1 mg PO BID DIURETIC #60 tablet Potassium Chloride Cap/Tab [K Dur] 20 meq PO BID tablet Amlodipine Besylate 5 mg PO DAILY - Follow Up or Referral - Forms/Instructions
--- NOTE | 2016-11-21 12:58 | Anesthesia Post-Op ---
Anesthesia Post OP - Post Ansesthetic Evaluation Patient seen in post op: Yes Resp: within normal limits CV: within normal limits Mental: within normal limits Temp: within normal limits [id number]: within normal limits Nausea and Vomiting: within normal limits Pain: within normal limits
[2016-11-21] MEDS: FEBUXOSTAT 80 MG TABLET PO SCH (13:50)
[2016-11-21] MEDS: POTASSIUM CHLORIDE 20 MEQ TABLET PO SCH ×2 (13:51→21:28)
[2016-11-21] MEDS: ESCITALOPRAM 10 MG TABLET PO SCH (13:51)
[2016-11-21] MEDS: METHENAMINE HIPPURATE 1 GM TABLET PO SCH ×2 (13:51→21:28)
[2016-11-21] MEDS: LEVOTHYROXINE 50 MCG TABLET PO SCH (13:51)
[2016-11-21] MEDS: amLODIPine 5 MG TABLET PO SCH (13:52)
[2016-11-21] MEDS: VALSARTAN 160 MG TABLET PO SCH (13:52)
[2016-11-21] MEDS: LABETALOL 100 MG TABLET PO SCH ×2 (13:52→21:28)
[2016-11-21] MEDS: DOCUSATE SODIUM 100 MG CAPSULE PO SCH (13:52)
[2016-11-21] MEDS: SOLIFENACIN 5 MG TABLET PO SCH (14:03)
[2016-11-21] MEDS ORDERED: POLYETHYLENE GLYCOL POWDER 255 GM BOTTLE PO ONE (18:00)
[2016-11-21] MEDS: ATORVASTATIN 10 MG TABLET PO SCH (21:28)
[2016-11-21] MEDS: MONTELUKAST 10 MG TABLET PO SCH (21:28)
[2016-11-22] MEDS: INSULIN REGULAR 100 UNIT/ML SUBCUT SCH ×5 (04:24→21:11)
[2016-11-22] MEDS ORDERED: MAGNESIUM CITRATE 300 ML BOTTLE PO ONE (06:00)
[2016-11-22 06:40] LABS: Basophils % 0.5 % (0.0-0.8); Eosinophils # 0.1 10*3/uL (0.0-0.87); Eosinophils % 1.8 % (0.00-10.9); Hematocrit 31.6 VOL% (35.7-47.0); Hemoglobin 10.6 GM/DL (12.0-16.0); Immature Granulocytes % 0.6 %; Immature Granulocytes Absolute 0.04 #; Lymphocytes # 2.1 10*3/uL (1.4-4.0); Lymphocytes % 31.9 % (21.3-54.2); Mean Corpuscular HGB Conc 33.5 GM/DL (32-36); Mean Corpuscular Hemoglobin 30 PG (27-34); Mean Corpuscular Volume 89.3 FL (87-102); Mean Platelet Volume 10.6 FL (9.6-12.0); Monocytes # 0.9 10*3/uL (0.11-0.8); Monocytes % 13.3 % (1.7-12.7); Neutrophils # 3.4 10*3/uL (1.4-7.4); Neutrophils % 51.9 % (38.7-73.9); Red Blood Count 3.54 MC/CUMM (3.8-5.5); Red Cell Distribution Width 14.1 % (9.3-17.3); White Blood Count 6.6 T/CUMM (4-12)
[2016-11-22 06:50] LABS: Platelet Count 61 T/CUMM (130-400)
[2016-11-22 06:59] LABS: Magnesium 2.3 MG/DL (1.8-2.4); Osmolality,Calculated 296.7 MOS/KG (273-304); Potassium 4.5 MMOL/L (3.5-5.1)
[2016-11-22 07:18] LABS: Anisocytosis 2+; Macrocytosis 2+; Ovalocytes Few; Platelet Estimate Decreased
--- NOTE | 2016-11-22 08:08 | Family Practice Progress Note ---
Family Practice - PN: Subj Interval history: Patient states she had a decent night was certain was irritated by her prep for colonoscopy today. She denies any chest pain or shortness of breath. Exam (Progress Note) - Constitutional Vitals: Period Temp Pulse Resp BP Sys/Duffy Pulse Ox Last 24 Hr 96.7 F-98.6 F 72-78 16-23 113-143/41-63 93-100 Exam: Objective a well-developed white female no acute distress. She is able give good history. She appears comfortable. Cardiovascular: Heart rates regular without murmurs or gallops. Respiratory: The lungs clear to auscultation bilaterally. Abdomen: Abdomen soft but there is some right upper quadrant tenderness directly. There is no rebound or guarding noted. Results - Labs CBC & BMP: 11/22/16 05:46 11/22/16 05:46 Lab Results: I have reviewed the past 24 hour labs Assessment and Plan (1) Rectal bleeding Status: Acute Assessment and plan: 11/20/2016: Patient's hematocrit remained stable. Patient will require endoscopy at some point. I will consult physical therapy. I think we can stop her IV fluids. 11/21/2016: Patient scheduled for EGD this morning. 11/22/2016: Patient for C scope today. Current Visit: Yes Quality Measures - VTE Contraindication to Pharmacological VTE Prophylaxis: Active Bleeding
[2016-11-22] MEDS: amLODIPine 5 MG TABLET PO SCH (08:28)
[2016-11-22] MEDS ORDERED: ETOMIDATE 20 MG/10 ML VIAL IV ONE (12:30)
[2016-11-22] MEDS ORDERED: PROPOFOL 200 MG/20 ML VIAL IV ONE (12:30)
[2016-11-22] MEDS ORDERED: LIDOCAINE 2% 5 ML VIAL ONE (12:30)
--- NOTE | 2016-11-22 12:48 | Anesthesia Post-Op ---
Anesthesia Post OP - Post Ansesthetic Evaluation Patient seen in post op: Yes Resp: within normal limits CV: within normal limits Mental: within normal limits Temp: within normal limits [id number]: within normal limits Nausea and Vomiting: within normal limits Pain: within normal limits
--- NOTE | 2016-11-22 12:50 | Operative Note ---
Date of procedure: 11/22/16 Pre-op diagnosis: GI bleed Procedure: Procedure note: Colonoscopy with snare polypectomy Physician: Dr. Bertram Linares Brief clinical abstract: 80-year-old female is admitted with GI bleeding. She had negative source for bleeding noted on upper endoscopy yesterday. Endoscopic findings: After informed consent was obtained, the patient was placed in the left lateral decubitus position. Digital rectal exam was performed with no palpable abnormalities felt. Pediatric videocolonoscope was inserted into the rectum and advanced to the cecum without difficulty. Withdrawal time was over 6 minutes duration. Bowel prep was of good quality. Vascular pattern throughout the colon appeared normal. No blood was seen. In the mid ascending colon there was an approximately 6 mm polyp noted removed with snare using coagulation current. Distal to this no other polyps were seen. A moderate number of diverticuli within the descending and sigmoid colon. The endoscope was withdrawn in the rectum with retroflex view showing no abnormality. The endoscope was removed and patient appeared to tolerate the procedure well. Impression: #1 ascending colon polyp #2 left colon diverticulosis Plan: Advance diet. Would not evaluate GI bleeding further unless recurrent and consider small bowel evaluation. Anesthesia: MAC Surgeon / Physician: Wang Linares Estimated blood loss: minimal Specimens: other (Ascending colon polyp) Condition: stable Disposition: post procedure unit Results - Labs CBC & BMP: 11/22/16 05:46 11/22/16 05:46 Discharge Plan - Discharge Medications No Action Insulin Detemir [Levemir FlexPen] 45 unit SUBCUT BEDTIME #0 Cyanocobalamin Inj [Vitamin B12 Inj] 1,000 mcg SUBCUT Q30D Omeprazole [Prilosec] 20 mg PO QAM Insulin Aspart [NovoLOG FlexPen] 10 unit SUBCUT TID W/MEALS Albuterol Neb [Proventil Neb] 2.5 mg RESP TX RT Q4H PRN PRN Reason: Shortness Of Breath/Wheezing Alum/Mag/Simeth Max Str Liquid [Mylanta Max Strength Liquid] 30 ml PO Q4H PRN PRN Reason: Dyspepsia Atorvastatin [Lipitor] 10 mg PO BEDTIME tablet Labetalol Tab [Trandate Tab] 100 mg PO BID tablet Levothyroxine Tab [Synthroid Tab] 50 mcg PO QAM tablet Memantine [Namenda] 10 mg PO BID tablet Methenamine Hippurate [Hiprex] 1 gm PO BID tablet Montelukast Tab [Singulair Tab] 10 mg PO BEDTIME tablet Solifenacin [Vesicare] 10 mg PO QAM tablet Apixaban [Eliquis] 2.5 mg PO BID #60 tablet Docusate Sodium Cap [Colace Cap] 100 mg PO BID capsule Valsartan [Diovan] 320 mg PO DAILY tablet Escitalopram Oxalate [Lexapro] 5 mg PO DAILY Febuxostat [Uloric] 40 mg PO DAILY Polyethylene Glycol Powder [Miralax] 17 gm PO Q24H PRN PRN Reason: Constipation Aspirin EC Tab 81 mg PO QAM tablet Meclizine [Antivert] 25 mg PO QPM PRN tablet PRN Reason: Dizziness Linagliptin [Tradjenta] 5 mg PO DAILY Acetaminophen Tab [Tylenol Tab] 650 mg PO Q6H PRN tablet PRN Reason: Fever > 100.4 Or Headache Bumetanide Tab [Bumex Tab] 1 mg PO BID DIURETIC #60 tablet Potassium Chloride Cap/Tab [K Dur] 20 meq PO BID tablet Amlodipine Besylate 5 mg PO DAILY - Follow Up or Referral - Forms/Instructions
--- NOTE | 2016-11-22 13:15 | Operative Note ---
Date of procedure: 11/22/16 Pre-op diagnosis: Lower GI bleed Anesthesia: MAC Surgeon / Physician: Wang Linares Estimated blood loss: minimal Specimens: other (Colonic ulcers) Condition: stable Disposition: post procedure unit Results - Labs CBC & BMP: 11/22/16 05:46 11/22/16 05:46 Discharge Plan - Discharge Medications No Action Insulin Detemir [Levemir FlexPen] 45 unit SUBCUT BEDTIME #0 Cyanocobalamin Inj [Vitamin B12 Inj] 1,000 mcg SUBCUT Q30D Omeprazole [Prilosec] 20 mg PO QAM Insulin Aspart [NovoLOG FlexPen] 10 unit SUBCUT TID W/MEALS Albuterol Neb [Proventil Neb] 2.5 mg RESP TX RT Q4H PRN PRN Reason: Shortness Of Breath/Wheezing Alum/Mag/Simeth Max Str Liquid [Mylanta Max Strength Liquid] 30 ml PO Q4H PRN PRN Reason: Dyspepsia Atorvastatin [Lipitor] 10 mg PO BEDTIME tablet Labetalol Tab [Trandate Tab] 100 mg PO BID tablet Levothyroxine Tab [Synthroid Tab] 50 mcg PO QAM tablet Memantine [Namenda] 10 mg PO BID tablet Methenamine Hippurate [Hiprex] 1 gm PO BID tablet Montelukast Tab [Singulair Tab] 10 mg PO BEDTIME tablet Solifenacin [Vesicare] 10 mg PO QAM tablet Apixaban [Eliquis] 2.5 mg PO BID #60 tablet Docusate Sodium Cap [Colace Cap] 100 mg PO BID capsule Valsartan [Diovan] 320 mg PO DAILY tablet Escitalopram Oxalate [Lexapro] 5 mg PO DAILY Febuxostat [Uloric] 40 mg PO DAILY Polyethylene Glycol Powder [Miralax] 17 gm PO Q24H PRN PRN Reason: Constipation Aspirin EC Tab 81 mg PO QAM tablet Meclizine [Antivert] 25 mg PO QPM PRN tablet PRN Reason: Dizziness Linagliptin [Tradjenta] 5 mg PO DAILY Acetaminophen Tab [Tylenol Tab] 650 mg PO Q6H PRN tablet PRN Reason: Fever > 100.4 Or Headache Bumetanide Tab [Bumex Tab] 1 mg PO BID DIURETIC #60 tablet Potassium Chloride Cap/Tab [K Dur] 20 meq PO BID tablet Amlodipine Besylate 5 mg PO DAILY - Follow Up or Referral - Forms/Instructions
[2016-11-22] MEDS: VALSARTAN 160 MG TABLET PO SCH (15:21)
[2016-11-22] MEDS: ESCITALOPRAM 10 MG TABLET PO SCH (15:22)
[2016-11-22] MEDS: PANTOPRAZOLE 40 MG VIAL IV SCH ×2 (15:22→21:10)
[2016-11-22] MEDS: METHENAMINE HIPPURATE 1 GM TABLET PO SCH ×2 (15:22→21:10)
[2016-11-22] MEDS: POTASSIUM CHLORIDE 20 MEQ TABLET PO SCH ×2 (15:22→21:10)
[2016-11-22] MEDS: LABETALOL 100 MG TABLET PO SCH ×2 (15:23→21:10)
[2016-11-22] MEDS: LEVOTHYROXINE 50 MCG TABLET PO SCH (15:23)
[2016-11-22] MEDS: FEBUXOSTAT 80 MG TABLET PO SCH (15:23)
[2016-11-22] MEDS: SOLIFENACIN 5 MG TABLET PO SCH (15:23)
--- NOTE | 2016-11-22 15:36 | Cardiology Progress Note ---
Kamar Arias April RN, am scribing for, and in the presence of, Ethan Lindquist MD 15:35. Assessment and Plan (1) Blood loss anemia Status: Acute Current Visit: Yes (2) Bright red blood per rectum Status: Acute Current Visit: Yes (3) Coronary artery disease Status: Chronic Current Visit: Yes Qualifiers: Coronary Disease-Associated Artery/Lesion type: [place] artery [place] vs. transplanted heart: [place] heart Associated angina: without angina Qualified Code(s): I25.10 - Atherosclerotic heart disease of [place] coronary artery without angina pectoris (4) Hyperlipidemia Status: Chronic Current Visit: Yes (5) Hypertension Status: Chronic Current Visit: Yes Qualifiers: Hypertension type: essential hypertension Qualified Code(s): I10 - Essential (primary) hypertension (6) MCC (current) use of anticoagulants Status: Acute Current Visit: No (7) Aortic stenosis Status: Chronic Current Visit: Yes Qualifiers: Cardiac valve disease etiology: nonrheumatic Qualified Code(s): I35.0 - Nonrheumatic aortic (valve) stenosis (8) Congestive heart failure Status: Chronic Current Visit: No Qualifiers: Congestive heart failure type: diastolic Congestive heart failure chronicity: chronic Qualified Code(s): I50.32 - Chronic diastolic (congestive ) heart failure (9) History of DVT (deep vein thrombosis) Status: Chronic Current Visit: No (10) Morbid obesity Status: Chronic Current Visit: Yes Cardiology - PN: Subj Interval history: 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 Junior is a 80 year old female with a history of DVT 2. She was then recommended anticoagulation for life. 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 Duggan saw the patient and placed a dual-chamber pacemaker. She has been residing at [facility] and doing well with therapy she states her heart is doing well but approximately 3 weeks ago she developed bright red blood per rectum is had several episodes. She has received 4 units of packed red blood cells. Eliquis is being held. Hopefully this will only need to be held temporarily. GI is currently evaluating patient. Recommend reinitiation of anticoagulation once source of rectal bleeding has been identified and treated. NOVEMBER 20, 2016 Patient was seen and examined on 2E. She is doing well and without complaints. She denies any bright red blood per rectum today. She reports that her last bloody bowel movement was Sunday afternoon. H&H is stable today. Stool is 4 + positive for occult blood. Abdominal CT did not reveal any acute findings. Dr. Viveros has been consulted. However, he does not feel she is in need of surgery at this time. At this point, patient is stable from a cardiology standpoint. We will continue to hold anticoagulation until GI workup is completed. I will further discuss with Dr. Lindquist and await his additional recommendations. NOVEMBER 21, 2016 Patient was seen and examined on 2 E. She is planned for EGD later this morning. She is n.p.o. She does report having a bowel movement yesterday. She reports dark stool. She continues to have mild abdominal pain. Anticoagulation remains on hold. H&H is stable this morning at 11.2 and 33.2. Vital signs are stable. Creatinine 1.8 this morning. Defer management of this to attending. I will further discuss with Dr. Lindquist and await his additional recommendations. November 22, 2016: Ms. Junior was seen on 2 E. She is scheduled for colonoscopy this morning. She is n.p.o. She states she did not sleep very well last night due to the bowel prep for colonoscopy. She denies any chest pain or shortness of breath at this time. She denies any further blood in her stool. Her anticoagulation is still on hold. Today's labs: WBC 6.6 hemoglobin 10.6 hematocrit 31.6 platelet count 61 Sodium 145 potassium 4.5 chloride 116 CO2 22 BUN 33 creatinine 1.80 Magnesium 2.3 glucose 137 ASSESSMENT/PLAN: 1. RECTAL BLEED -colonoscopy this morning. H&H is stable. Continue to hold anticoagulation at this time until GI workup is complete. 2. HISTORY OF DVT - SCDs while anticoagulation is being held. Hope to reinitiate anticoagulation when GI bleeding resolves. 3. BLOOD LOSS ANEMIA - Patient has received 4 units of packed red blood cells this hospitalization. We will continue to monitor with daily CBC. GI workup underway. 4. MORBID OBESITY - Weight loss encouraged. 5. LONG-TERM USE OF ANTICOAGULANTS - Anticoagulation being hold pending GI workup. 6. HISTORY OF CONGESTIVE HEART FAILURE - No overt heart failure this hospitalization. 7. HISTORY OF CORONARY ARTERY DISEASE - Without anginal complaints. Stable at present. 8. AORTIC STENOSIS - Chronic. 9. RENAL INSUFFICIENCY - Chronicity of this is unknown. Creatinine this morning 1.8. Continue to monitor with daily BMP. Management per attending. Cardiology addendum Patient examined chart reviewed and discussed with nurse Krupa Galvin RN. EGD was negative for source of bleeding. Colonoscopy showed one a sending colon polyp which was biopsied and left colon diverticulosis. Weight 110 kg. Blood pressure 126/56 Regular rhythm with soft systolic murmur Decreased breath sounds but clear Abdomen nontender No leg edema Impression Recurrent GI bleed status post 4 unit transfusion Status post dual-chamber pacemaker August 2016 for Mobitz second-degree heart block History of DVT 2 previously on Eliquis. Aortic stenosis Mild gastritis by EGD Status post ascending colon polyp snare today Creatinine 1.8 BUN 33 potassium 4.5 Obesity 110.7 kg H&H 10.6 and 31.6 respectively after 4 unit transfusion Exam (Progress Note) - Constitutional Vitals: Period Temp Pulse Resp BP Sys/Duffy Pulse Ox Last 24 Hr 96.7 F-98.6 F 72-78 16-23 113-143/41-63 93-100 General appearance: no acute distress, morbidly obese - Head Head exam: Absent: abrasion, hematoma - Eye Eye exam: Absent: periorbital swelling, laceration to eyelids Pupils: Present: TEOFILO - Neck Neck exam: Absent: lymphadenopathy, tenderness - Respiratory Respiratory exam: Present: clear to auscultation bilaterally. Absent: accessory muscle use, chest wall tenderness - Cardiovascular Cardiovascular exam: Present: regular rate and rhythm. Absent: rubs - GI/Abdominal GI/Abdominal exam: Present: normal bowel sounds, soft. Absent: distended, tenderness - Extremities Exam Extremities exam: Absent: calf tenderness, edema - Neurological Exam Neurological exam: Present: alert, oriented X3 - Psychiatric Psychiatric exam: Present: normal affect, normal mood - Skin Skin exam: Present: warm, dry Result/EKG - Labs CBC & BMP: 11/22/16 05:46 11/22/16 05:46 Lab Results: I have reviewed the past 24 hour labs Labs: Laboratory Results - last 24 hr 11/19/16 11/21/16 11/21/16 Unknown 11:40 13:47 WBC RBC Hgb Hct MCV MCH MCHC RDW Plt Count MPV Neut % (Auto) Lymph % (Auto) [place] % (Auto) Eos % (Auto) Baso % (Auto) Neut # (Auto) Lymph # (Auto) [place] # (Auto) Eos # (Auto) Baso # (Auto) Immature Gran % Nucleated RBC % Immature Gran # Nucleated RBCs # Platelet Estimate Immature Plt Fraction Anisocytosis Macrocytosis Ovalocytes Sodium Potassium Chloride Carbon Dioxide Anion Gap BUN Creatinine GFR Calculation BUN/Creatinine Ratio Glucose POC Glucose 138 H 137 H Calculated Osmolality Calcium Magnesium O & P Concentrate Exam See comments 11/21/16 11/21/16 11/22/16 16:50 20:27 05:46 WBC 6.6 RBC 3.54 L Hgb 10.6 L Hct 31.6 L MCV 89.3 MCH 30 MCHC 33.5 RDW 14.1 Plt Count 61 L MPV 10.6 Neut % (Auto) 51.9 Lymph % (Auto) 31.9 [place] % (Auto) 13.3 H Eos % (Auto) 1.8 Baso % (Auto) 0.5 Neut # (Auto) 3.4 Lymph # (Auto) 2.1 [place] # (Auto) 0.9 H Eos # (Auto) 0.1 Baso # (Auto) 0.0 Immature Gran % 0.6 Nucleated RBC % 0.0 Immature Gran # 0.04 Nucleated RBCs # 0.00 Platelet Estimate Decreased Immature Plt Fraction 3.2 Anisocytosis 2+ Macrocytosis 2+ Ovalocytes Few Sodium Potassium Chloride Carbon Dioxide Anion Gap BUN Creatinine GFR Calculation BUN/Creatinine Ratio Glucose POC Glucose 223 H 194 H Calculated Osmolality Calcium Magnesium O & P Concentrate Exam 11/22/16 11/22/16 05:46 07:16 WBC RBC Hgb Hct MCV MCH MCHC RDW Plt Count MPV Neut % (Auto) Lymph % (Auto) [place] % (Auto) Eos % (Auto) Baso % (Auto) Neut # (Auto) Lymph # (Auto) [place] # (Auto) Eos # (Auto) Baso # (Auto) Immature Gran % Nucleated RBC % Immature Gran # Nucleated RBCs # Platelet Estimate Immature Plt Fraction Anisocytosis Macrocytosis Ovalocytes Sodium 145 Potassium 4.5 Chloride 116 H Carbon Dioxide 22 Anion Gap 11.5 BUN 33 H Creatinine 1.80 H GFR Calculation 30 BUN/Creatinine Ratio 18.00 Glucose 137 H POC Glucose 171 H Calculated Osmolality 296.7 Calcium 8.0 L Magnesium 2.3 O & P Concentrate Exam - EKG EKG results: interpreted by me EKG shows: sinus rhythm Quality Measures - VTE Contraindication to Pharmacological VTE Prophylaxis: Active Bleeding ILexa Thomas, MD, personally performed the services described in this documentation, ascribed by Krupa Galvin RN in my presence, and it is both accurate and complete 535 .
[2016-11-22] MEDS: ATORVASTATIN 10 MG TABLET PO SCH (21:10)
[2016-11-22] MEDS: MONTELUKAST 10 MG TABLET PO SCH (21:10)
[2016-11-23 07:43] VITALS: BP 145/67
--- NOTE | 2016-11-23 08:03 | Discharge Summary ---
Hospital Course - Hospital Course Hospital Course: Patient 80-year-old white female admitted to the emergency room with GI bleeding. Patient had both bright blood and melanotic stool. Patient required 4 units of packed red blood cell transfusions. She was seen in consultation by GI and had an EGD and colonoscopy. Patient was found to have acute gastritis also was found to have a colonic polyp and diverticular disease but no clear sign of bleeding. The patient's bleeding had subsided several days prior to the studies. Patient's hematocrit stabilized and she will be referred back to [facility] bed for ongoing physical therapy. I think she needs to restart her Eliquis. Diagnosis - Discharge Diagnosis (1) Rectal bleeding Status: Acute Discharge Plan - Discharge Data Disposition: Disch/Xfer to Snf Condition at Discharge: Stable Discharge Diet: advance to your usual diet Activity: resume usual activities as tolerated, as per physical therapy Hygiene: may shower Weight Bearing at Discharge: weight bear as tolerated Contact your physician if you experience:: fever over 101, Bleeding - Discharge Medications New Zinc Oxide Paste [Desitin Paste] 1 applic TOP PRN PRN applic PRN Reason: Diaper Rash Continue Insulin Detemir [Levemir FlexPen] 45 unit SUBCUT BEDTIME #0 Cyanocobalamin Inj [Vitamin B12 Inj] 1,000 mcg SUBCUT Q30D Omeprazole [Prilosec] 20 mg PO QAM Insulin Aspart [NovoLOG FlexPen] 10 unit SUBCUT TID W/MEALS Albuterol Neb [Proventil Neb] 2.5 mg RESP TX RT Q4H PRN PRN Reason: Shortness Of Breath/Wheezing Alum/Mag/Simeth Max Str Liquid [Mylanta Max Strength Liquid] 30 ml PO Q4H PRN PRN Reason: Dyspepsia Atorvastatin [Lipitor] 10 mg PO BEDTIME tablet Labetalol Tab [Trandate Tab] 100 mg PO BID tablet Levothyroxine Tab [Synthroid Tab] 50 mcg PO QAM tablet Memantine [Namenda] 10 mg PO BID tablet Methenamine Hippurate [Hiprex] 1 gm PO BID tablet Montelukast Tab [Singulair Tab] 10 mg PO BEDTIME tablet Solifenacin [Vesicare] 10 mg PO QAM tablet Apixaban [Eliquis] 2.5 mg PO BID #60 tablet Valsartan [Diovan] 320 mg PO DAILY tablet Escitalopram Oxalate [Lexapro] 5 mg PO DAILY Febuxostat [Uloric] 40 mg PO DAILY Polyethylene Glycol Powder [Miralax] 17 gm PO Q24H PRN PRN Reason: Constipation Meclizine [Antivert] 25 mg PO QPM PRN tablet PRN Reason: Dizziness Linagliptin [Tradjenta] 5 mg PO DAILY Acetaminophen Tab [Tylenol Tab] 650 mg PO Q6H PRN tablet PRN Reason: Fever > 100.4 Or Headache Bumetanide Tab [Bumex Tab] 1 mg PO BID DIURETIC #60 tablet Potassium Chloride Cap/Tab [K Dur] 20 meq PO BID tablet Amlodipine Besylate 5 mg PO DAILY Discontinued Aspirin EC Tab 81 mg PO QAM tablet No Action Docusate Sodium Cap [Colace Cap] 100 mg PO BID capsule - Follow Up or Referral - Forms/Instructions Exam - Constitutional Vitals: Period Temp Pulse Resp BP Sys/Duffy Pulse Ox Last 24 Hr 97.4 F-98.6 F 71-92 16-20 94-145/41-67 92-100 Exam: Objective a well-developed white female no acute distress. She is able give good history. She appears comfortable. Cardiovascular: Heart rates regular without murmurs or gallops. Respiratory: The lungs clear to auscultation bilaterally. Abdomen: Abdomen soft and she has no palpable tenderness this morning. There is no rebound or guarding noted. Discharge Results Procedures and tests throughout hospitalization: Pending Orders 11/18/16 Occult Blood, Stool Routine 11/18/16 11:53 Red Blood Cells Leuko Red Routine Type and Screen Routine 11/19/16 01:32 Blood Culture Routine Labs on day of discharge: Labs from last 24 hours 11/23/16 11/22/16 11/22/16 07:18 20:32 15:40 POC Glucose 174 H 145 H 170 H 11/22/16 11:48 POC Glucose 159 H Preliminary micro results at discharge 11/19/16 01:32 Blood Culture - Preliminary Blood No growth at 3 days 11/19/16 01:32 Blood Culture - Preliminary Blood No growth at 3 days DS: Provider Date of admission: 11/17/16 22:32 Primary care physician: . No PCP Attending physician on admission: Edenilson Peck MD Consults: 11/17/16 22:33 Consult to Case Mgmt/Social Srvs [CONS] Routine Reason for Case Mgmt/Social Srvs: Discharge Planning 11/17/16 22:36 Consult to Physician [CONS] Routine Comment: Lower GI bleeding Consulting Provider: Wellington Brand V Person Notified: DR BRAND Date Notified: 11/18/16 Time Notified: 09:07 11/18/16 09:24 Consult to Physician [CONS] Routine Comment: Status post pacemaker placement Consulting Provider: Staci Duggan 11/19/16 15:54 Consult to Physician [CONS] Routine Comment: Eval for ischemia/obstruction, tx as indicated Consulting Provider: Harman Fuentes Consulting Provider Notified: Yes Person Notified: DR FUENTES Date Notified: 11/19/16 Time Notified: 15:59 11/20/16 08:20 Consult to Physical Therapy [CONS] Routine Reason for Physical Therapy: Evaluate and Treat Discharging clinician: Edenilson Peck MD Expected date of discharge: 11/23/16
[2016-11-23] MEDS: PANTOPRAZOLE 40 MG VIAL IV SCH (08:27)
[2016-11-23] MEDS: VALSARTAN 160 MG TABLET PO SCH (08:28)
[2016-11-23] MEDS: METHENAMINE HIPPURATE 1 GM TABLET PO SCH (08:28)
[2016-11-23] MEDS: INSULIN REGULAR 100 UNIT/ML SUBCUT SCH (08:28)
[2016-11-23] MEDS: LABETALOL 100 MG TABLET PO SCH (08:29)
[2016-11-23] MEDS: SOLIFENACIN 5 MG TABLET PO SCH (08:29)
[2016-11-23] MEDS: ESCITALOPRAM 10 MG TABLET PO SCH (08:29)
[2016-11-23] MEDS: LEVOTHYROXINE 50 MCG TABLET PO SCH (08:30)
[2016-11-23] MEDS: amLODIPine 5 MG TABLET PO SCH (08:30)
[2016-11-23] MEDS: POTASSIUM CHLORIDE 20 MEQ TABLET PO SCH (08:30)
[2016-11-23] MEDS: FEBUXOSTAT 80 MG TABLET PO SCH (08:30)
--- NOTE | 2016-11-23 14:52 | Cardiology Progress Note ---
Assessment and Plan (1) Blood loss anemia Status: Acute (2) Bright red blood per rectum Status: Acute (3) Coronary artery disease Status: Chronic Qualifiers: Coronary Disease-Associated Artery/Lesion type: [place] artery [place] vs. 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 Status: Acute (7) Aortic stenosis Status: Chronic Qualifiers: Cardiac valve disease etiology: nonrheumatic Qualified Code(s): I35.0 - Nonrheumatic aortic (valve) stenosis (8) Congestive heart failure Status: Chronic Qualifiers: Congestive heart failure type: diastolic Congestive heart failure chronicity: chronic Qualified Code(s): I50.32 - Chronic diastolic (congestive ) heart failure (9) History of DVT (deep vein thrombosis) Status: Chronic (10) Morbid obesity Status: Chronic Cardiology - PN: Subj Interval history: Cardiology note 80-year-old woman status post recurrent GI bleed with 4 unit transfusion. EGD showed mild gastritis. Colonoscopy showed one a sending colon polyp which was biopsied and diverticulosis. Patient has recurrent DVT, sedentary, obesity and would benefit from chronic anticoagulation. We will discuss with Dr. Linares and Dr. Peck, but I would favor continued anticoagulation Blood pressure 134/70 O2 sat 95% Plan Agree with discharge Exam (Progress Note) - Constitutional Vitals: Period Temp Pulse Resp BP Sys/Duffy Pulse Ox Last 24 Hr 97.4 F-98.6 F 72-82 16-20 110-145/51-67 92-96 Result/EKG - Labs CBC & BMP: 11/22/16 05:46 11/22/16 05:46 Labs: Laboratory Results - last 24 hr 11/22/16 11/22/16 11/23/16 15:40 20:32 07:18 POC Glucose 170 H 145 H 174 H Quality Measures - VTE Contraindication to Pharmacological VTE Prophylaxis: Active Bleeding
--- NOTE | 2016-11-24 12:18 | Pathology Report from [facility] ---
[facility] ACCESSION # : [id number] PATIENT NAME : Nay Junior ORDERING DR : PRANAV CASTANON MD CLINICAL HX: Anemia - GI Bleed POST-OP DX: Colon polyp SPECIMEN INFO: Ascending colon polyp GROSS DESCRIPTION: The specimen is received in formalin labeled with the patients name and consists of a 0.4 x 0.3 cm dang tissue fragment. Submitted in one cassette. DIAGNOSIS FOR NAY JUNIOR: ASCENDING COLON POLYP, BIOPSY: Tubulovillous adenoma. COLLECTED DATE: 11/22/2016 [facility] REPORT DATE: 11/24/2016 ELECTRONICALLY SIGNED BY: Sherry Truong M.D. 11/24/2016 - 8:25:01 [facility]
== END 2016-11-23 10:50 | DRG 378 ==
LOC: EDBD → EDUNIT# → N.ED 19:06 → N.EDINP 22:32 → N.TELEN 22:49 → N.2E 11-20 15:06
PROVIDERS: ADMIT Family Medicine; ATTEND Internal Medicine

== ENCOUNTER 2017-07-14 18:26 | Inpatient (IN) ==
[2017-07-14] MEDS ORDERED: PANTOPRAZOLE 40 MG VIAL IV STA (18:50)
[2017-07-14] MEDS ORDERED: ONDANSETRON 4 MG/2 ML VIAL IV STA (18:50)
[2017-07-14] MEDS ORDERED: methylPREDNISolone SOD SUC 125 MG/2 ML VIAL IV STA (18:50)
[2017-07-14] MEDS ORDERED: cefTRIAXone 2,000 MG in SODIUM CHLORIDE 0.9% 100 ML IV ONE (18:52)
[2017-07-14] MEDS ORDERED: ALBUTEROL 2.5 MG/3 ML NEB RESP TX SCH (19:00)
[2017-07-14 19:10] LABS: Basophils # 0.1 10*3/uL (0.0-0.2); Basophils % 0.6 % (0.0-0.8); Eosinophils # 0.1 10*3/uL (0.0-0.87); Eosinophils % 0.8 % (0.00-10.9); Hematocrit 37.2 VOL% (35.7-47.0); Hemoglobin 11.9 GM/DL (12.0-16.0); Immature Granulocytes % 0.6 %; Immature Granulocytes Absolute 0.06 #; Lymphocytes # 1.5 10*3/uL (1.4-4.0); Lymphocytes % 15.6 % (21.3-54.2); Mean Corpuscular Hemoglobin 28 PG (27-34); Mean Corpuscular Volume 87.7 FL (87-102); Mean Platelet Volume 9.4 FL (9.6-12.0); Monocytes # 0.4 10*3/uL (0.11-0.8); Monocytes % 4.2 % (1.7-12.7); Neutrophils # 7.4 10*3/uL (1.4-7.4); Neutrophils % 78.2 % (38.7-73.9); Platelet Count 200 T/CUMM (130-400); Red Blood Count 4.24 MC/CUMM (3.8-5.5); White Blood Count 9.5 T/CUMM (4-12)
[2017-07-14 19:27] LABS: PT Patient Result 10.9 SECS; Partial Thromboplastin Time 26.2 SECS (0-40)
[2017-07-14 19:28] LABS: Albumin 3.3 G/DL (3.4-5.0); Bilirubin,Total 0.6 MG/DL (0.2-1.0); Calcium 8.5 MG/DL (8.5-10.1); Osmolality,Calculated 286.4 MOS/KG (273-304); Potassium 4.8 MMOL/L (3.5-5.1); Total Protein 7.1 G/DL (6.4-8.3)
[2017-07-14 19:29] LABS: Troponin I Only < 0.015 NG/ML (0.00-0.045)
[2017-07-14] MEDS ORDERED: PANTOPRAZOLE 40 MG VIAL IV ONE (19:41)
[2017-07-14] MEDS ORDERED: ONDANSETRON 4 MG/2 ML VIAL ONE (19:41)
[2017-07-14] MEDS ORDERED: methylPREDNISolone SOD SUC 125 MG/2 ML VIAL ONE (19:42)
[2017-07-14] MEDS ORDERED: FUROSEMIDE 40 MG/4 ML VIAL IV STA (19:59)
[2017-07-14] MEDS ORDERED: FUROSEMIDE 40 MG/4 ML VIAL ONE (20:52)
[2017-07-14] MEDS ORDERED: cefTRIAXone 1,000 MG VIAL ONE (20:52)
[2017-07-14 21:47] LABS: Apearance,Urine CLEAR (Clear); Bilirubin,Urine Negative (Negative); Blood, Urine Negative (Negative); Glucose,Urine (UA) Negative (Negative); Ketones,Urine Negative (Negative); Mucus,Urine Occasional /LPF (Occasional); Nitrite,Urine Negative (Negative); Protein,Urine Negative; RBC,Urine <1 /HPF (0-4); Squamous Epithelial Cell,Urine Occasional /HPF (0-10); Urine Color Yellow (Yellow); Urine Specific Gravity 1.012 (1.001-1.035); Urine Urobilinogen < 2.0 EU/DL (0.2-1.0); WBC,Urine 2 /HPF (0-6)
[2017-07-14] MEDS ORDERED: ALBUTEROL/IPRATROPIUM 3 ML NEB RESP TX PRN (22:55)
[2017-07-14] MEDS ORDERED: GLUCAGON 1 MG VIAL IM PRN (22:55)
[2017-07-14] MEDS ORDERED: ONDANSETRON 4 MG/2 ML VIAL IV PRN (22:55)
[2017-07-14] MEDS ORDERED: DEXTROSE 50% 25 GM/50 ML VIAL IV PRN (22:55)
[2017-07-14] MEDS: INSULIN GLARGINE 100 UNIT/ML SUBCUT SCH (23:48)
[2017-07-14] MEDS: INSULIN REGULAR 100 UNIT/ML SUBCUT SCH (23:49)
[2017-07-15 07:33] LABS: Basophils % 0.2 % (0.0-0.8); Hematocrit 38.9 VOL% (35.7-47.0); Hemoglobin 12.4 GM/DL (12.0-16.0); Immature Granulocytes % 1.1 %; Immature Granulocytes Absolute 0.07 #; Lymphocytes # 1.1 10*3/uL (1.4-4.0); Lymphocytes % 17.4 % (21.3-54.2); Mean Corpuscular HGB Conc 31.9 GM/DL (32-36); Mean Corpuscular Hemoglobin 28 PG (27-34); Mean Corpuscular Volume 86.3 FL (87-102); Mean Platelet Volume 9.4 FL (9.6-12.0); Monocytes % 0.6 % (1.7-12.7); Neutrophils # 5.2 10*3/uL (1.4-7.4); Neutrophils % 80.7 % (38.7-73.9); Platelet Count 229 T/CUMM (130-400); Red Blood Count 4.51 MC/CUMM (3.8-5.5); Red Cell Distribution Width 13.9 % (9.3-17.3); White Blood Count 6.4 T/CUMM (4-12)
[2017-07-15] MEDS: FUROSEMIDE 40 MG/4 ML VIAL IV SCH ×2 (07:49→16:10)
[2017-07-15] MEDS: amLODIPine 5 MG TABLET PO SCH ×2 (07:50→08:35)
[2017-07-15] MEDS: FEBUXOSTAT 80 MG TABLET PO SCH ×2 (07:50→08:35)
[2017-07-15] MEDS: INSULIN REGULAR 100 UNIT/ML SUBCUT SCH ×4 (07:50→22:10)
[2017-07-15] MEDS ORDERED: methylPREDNISolone SOD SUC 125 MG/2 ML VIAL IV SCH (08:00)
[2017-07-15 08:09] LABS: Calcium 8.4 MG/DL (8.5-10.1); Osmolality,Calculated 291.4 MOS/KG (273-304)
[2017-07-15] MEDS ORDERED: MECLIZINE 25 MG TABLET PO PRN (10:10)
[2017-07-15] MEDS ORDERED: ACETAMINOPHEN 325 MG TABLET PO PRN (10:10)
[2017-07-15] MEDS ORDERED: POLYETHYLENE GLYCOL POWDER 17 GM PACK PO PRN (10:10)
[2017-07-15] MEDS ORDERED: ALUMINUM/MAGNES/SIMETH MAX STR 30 ML UDCUP PO PRN (10:10)
[2017-07-15] MEDS ORDERED: NF- (Mirabegron [Myrbetriq] 25 MG) PO SCH (10:15)
[2017-07-15] MEDS: methylPREDNISolone SOD SUC 40 MG/1 ML VIAL IV SCH ×2 (10:59→22:08)
[2017-07-15] MEDS: DOCUSATE SODIUM 100 MG CAPSULE PO SCH (11:12)
[2017-07-15] MEDS: LEVOTHYROXINE 50 MCG TABLET PO SCH (11:13)
[2017-07-15] MEDS: CYANOCOBALAMIN 1000 MCG/1 ML VIAL SUBCUT SCH (11:13)
[2017-07-15] MEDS: INSULIN LISPRO 100 UNIT/ML SUBCUT SCH ×2 (11:36→16:08)
[2017-07-15] MEDS: SOLIFENACIN 5 MG TABLET PO SCH (11:37)
[2017-07-15] MEDS: ESCITALOPRAM 10 MG TABLET PO SCH (11:37)
[2017-07-15] MEDS: APIXABAN 2.5 MG TABLET PO SCH ×2 (11:38→22:08)
[2017-07-15] MEDS: LABETALOL 200 MG TABLET PO SCH ×2 (11:38→22:07)
[2017-07-15] MEDS: sitaGLIPtin 25 MG TABLET PO SCH (11:38)
[2017-07-15] MEDS: MEMANTINE 10 MG TABLET PO SCH ×2 (11:38→22:06)
[2017-07-15] MEDS: POTASSIUM CHLORIDE 20 MEQ TABLET PO SCH (11:38)
[2017-07-15] MEDS ORDERED: INSULIN GLARGINE 100 UNIT/ML SUBCUT SCH (21:00)
[2017-07-15] MEDS: ATORVASTATIN 20 MG TABLET PO SCH (22:05)
[2017-07-15] MEDS: METHENAMINE HIPPURATE 1 GM TABLET PO SCH (22:06)
[2017-07-15] MEDS: MONTELUKAST 10 MG TABLET PO SCH (22:06)
[2017-07-15] MEDS: cefTRIAXone 2,000 MG in SYRINGE 1 EACH IV SCH (22:08)
[2017-07-15] MEDS: INSULIN GLARGINE 100 UNIT/ML SUBCUT SCH (22:32)
[2017-07-16 05:29] LABS: Basophils % 0.1 % (0.0-0.8); Eosinophils % 0.1 % (0.00-10.9); Hematocrit 35.5 VOL% (35.7-47.0); Hemoglobin 11.1 GM/DL (12.0-16.0); Immature Granulocytes % 0.7 %; Immature Granulocytes Absolute 0.09 #; Lymphocytes % 8.2 % (21.3-54.2); Mean Corpuscular HGB Conc 31.3 GM/DL (32-36); Mean Corpuscular Hemoglobin 28 PG (27-34); Mean Corpuscular Volume 88.5 FL (87-102); Mean Platelet Volume 10.8 FL (9.6-12.0); Monocytes # 0.2 10*3/uL (0.11-0.8); Neutrophils # 10.7 10*3/uL (1.4-7.4); Neutrophils % 88.9 % (38.7-73.9); Platelet Count 181 T/CUMM (130-400); Red Blood Count 4.01 MC/CUMM (3.8-5.5); Red Cell Distribution Width 14.3 % (9.3-17.3)
[2017-07-16 06:01] LABS: Calcium 8.2 MG/DL (8.5-10.1); Osmolality,Calculated 293.5 MOS/KG (273-304); Potassium 5.2 MMOL/L (3.5-5.1)
[2017-07-16 06:04] LABS: Microcytosis 1+; Ovalocytes Few
[2017-07-16 06:05] LABS: Platelet Estimate Adequate
[2017-07-16] MEDS ORDERED: MORPHINE 4 MG/1 ML VIAL IV PRN (07:27)
[2017-07-16] MEDS ORDERED: NITROGLYCERIN SL 0.4 MG TABLET SL PRN (08:08)
[2017-07-16 08:57] LABS: Lactic Acid 1.7 MMOL/L (0.4-2.0)
[2017-07-16] MEDS ORDERED: FEBUXOSTAT 80 MG TABLET PO SCH (09:00)
[2017-07-16 09:02] LABS: Troponin I Only < 0.015 NG/ML (0.00-0.045)
[2017-07-16] MEDS: INSULIN REGULAR 100 UNIT/ML SUBCUT SCH ×4 (09:24→20:25)
[2017-07-16] MEDS: FUROSEMIDE 40 MG/4 ML VIAL IV SCH ×2 (09:25→17:16)
[2017-07-16] MEDS: INSULIN LISPRO 100 UNIT/ML SUBCUT SCH ×4 (09:25→17:16)
[2017-07-16] MEDS: FEBUXOSTAT 80 MG TABLET PO SCH (09:26)
[2017-07-16] MEDS: sitaGLIPtin 25 MG TABLET PO SCH (09:26)
[2017-07-16] MEDS: PANTOPRAZOLE 40 MG TABLET PO SCH (09:26)
[2017-07-16] MEDS: LEVOTHYROXINE 50 MCG TABLET PO SCH (09:26)
[2017-07-16] MEDS: POTASSIUM CHLORIDE 20 MEQ TABLET PO SCH ×2 (09:27→09:33)
[2017-07-16] MEDS: APIXABAN 2.5 MG TABLET PO SCH ×2 (09:27→20:24)
[2017-07-16] MEDS: MEMANTINE 10 MG TABLET PO SCH ×2 (09:28→20:24)
[2017-07-16] MEDS: ESCITALOPRAM 10 MG TABLET PO SCH (09:28)
[2017-07-16] MEDS: METHENAMINE HIPPURATE 1 GM TABLET PO SCH ×2 (09:28→20:24)
[2017-07-16] MEDS: methylPREDNISolone SOD SUC 40 MG/1 ML VIAL IV SCH ×3 (09:29→21:21)
[2017-07-16] MEDS: SOLIFENACIN 5 MG TABLET PO SCH (09:29)
[2017-07-16] MEDS: amLODIPine 5 MG TABLET PO SCH (09:30)
[2017-07-16] MEDS: VALSARTAN 160 MG TABLET PO SCH (09:32)
[2017-07-16] MEDS: LABETALOL 200 MG TABLET PO SCH ×2 (09:32→20:24)
[2017-07-16 12:00] LABS: Troponin I Only < 0.015 NG/ML (0.00-0.045)
[2017-07-16 15:00] LABS: Troponin I Only < 0.015 NG/ML (0.00-0.045)
[2017-07-16 17:19] LABS: Troponin I Only < 0.015 NG/ML (0.00-0.045)
[2017-07-16] MEDS: ATORVASTATIN 20 MG TABLET PO SCH (20:24)
[2017-07-16] MEDS: INSULIN GLARGINE 100 UNIT/ML SUBCUT SCH (20:24)
[2017-07-16] MEDS: MONTELUKAST 10 MG TABLET PO SCH (20:24)
[2017-07-16] MEDS: cefTRIAXone 2,000 MG in SYRINGE 1 EACH IV SCH (20:29)
[2017-07-17 06:56] LABS: Basophils % 0.1 % (0.0-0.8); Hematocrit 36.3 VOL% (35.7-47.0); Hemoglobin 11.4 GM/DL (12.0-16.0); Immature Granulocytes % 0.5 %; Immature Granulocytes Absolute 0.06 #; Lymphocytes % 16.3 % (21.3-54.2); Mean Corpuscular HGB Conc 31.4 GM/DL (32-36); Mean Corpuscular Hemoglobin 28 PG (27-34); Mean Corpuscular Volume 88.1 FL (87-102); Mean Platelet Volume 9.5 FL (9.6-12.0); Monocytes # 0.7 10*3/uL (0.11-0.8); Monocytes % 5.9 % (1.7-12.7); Neutrophils # 9.3 10*3/uL (1.4-7.4); Neutrophils % 77.2 % (38.7-73.9); Platelet Count 213 T/CUMM (130-400); Red Blood Count 4.12 MC/CUMM (3.8-5.5); Red Cell Distribution Width 14.2 % (9.3-17.3)
[2017-07-17 07:16] LABS: Albumin 3.2 G/DL (3.4-5.0); Bilirubin,Total 0.5 MG/DL (0.2-1.0); Calcium 8.2 MG/DL (8.5-10.1); Osmolality,Calculated 300.3 MOS/KG (273-304); Potassium 4.2 MMOL/L (3.5-5.1); Total Protein 6.4 G/DL (6.4-8.3)
[2017-07-17] MEDS: INSULIN REGULAR 100 UNIT/ML SUBCUT SCH ×4 (08:03→21:56)
[2017-07-17] MEDS: INSULIN LISPRO 100 UNIT/ML SUBCUT SCH ×3 (09:27→17:18)
[2017-07-17] MEDS: CYANOCOBALAMIN 1000 MCG/1 ML VIAL SUBCUT SCH (09:28)
[2017-07-17] MEDS: MEMANTINE 10 MG TABLET PO SCH ×2 (09:28→21:55)
[2017-07-17] MEDS: LEVOTHYROXINE 50 MCG TABLET PO SCH (09:28)
[2017-07-17] MEDS: BUMETANIDE 1 MG TABLET PO SCH ×2 (09:28→17:18)
[2017-07-17] MEDS: amLODIPine 5 MG TABLET PO SCH (09:28)
[2017-07-17] MEDS: POTASSIUM CHLORIDE 20 MEQ TABLET PO SCH (09:28)
[2017-07-17] MEDS: VALSARTAN 160 MG TABLET PO SCH (09:28)
[2017-07-17] MEDS: LABETALOL 200 MG TABLET PO SCH ×2 (09:29→21:55)
[2017-07-17] MEDS: DOCUSATE SODIUM 100 MG CAPSULE PO SCH (09:29)
[2017-07-17] MEDS: ESCITALOPRAM 10 MG TABLET PO SCH (09:29)
[2017-07-17] MEDS: sitaGLIPtin 25 MG TABLET PO SCH (09:29)
[2017-07-17] MEDS: PANTOPRAZOLE 40 MG TABLET PO SCH (09:29)
[2017-07-17] MEDS: APIXABAN 2.5 MG TABLET PO SCH ×2 (09:29→21:55)
[2017-07-17] MEDS: METHENAMINE HIPPURATE 1 GM TABLET PO SCH ×2 (09:29→21:55)
[2017-07-17] MEDS: FEBUXOSTAT 80 MG TABLET PO SCH (09:30)
[2017-07-17] MEDS: SOLIFENACIN 5 MG TABLET PO SCH (09:30)
[2017-07-17] MEDS: methylPREDNISolone SOD SUC 40 MG/1 ML VIAL IV SCH ×2 (09:30→21:55)
[2017-07-17] MEDS: INSULIN GLARGINE 100 UNIT/ML SUBCUT SCH (21:53)
[2017-07-17] MEDS: cefTRIAXone 2,000 MG in SYRINGE 1 EACH IV SCH (21:54)
[2017-07-17] MEDS: MONTELUKAST 10 MG TABLET PO SCH (21:55)
[2017-07-17] MEDS: ATORVASTATIN 20 MG TABLET PO SCH (21:56)
[2017-07-18] MEDS: INSULIN REGULAR 100 UNIT/ML SUBCUT SCH ×4 (08:25→20:29)
[2017-07-18] MEDS: INSULIN LISPRO 100 UNIT/ML SUBCUT SCH ×3 (08:25→16:08)
[2017-07-18] MEDS: methylPREDNISolone SOD SUC 40 MG/1 ML VIAL IV SCH ×3 (09:43→21:44)
[2017-07-18] MEDS: DOCUSATE SODIUM 100 MG CAPSULE PO SCH (09:43)
[2017-07-18] MEDS: LEVOTHYROXINE 50 MCG TABLET PO SCH (09:43)
[2017-07-18] MEDS: BUMETANIDE 1 MG TABLET PO SCH ×2 (10:06→15:53)
[2017-07-18] MEDS: ESCITALOPRAM 10 MG TABLET PO SCH (10:06)
[2017-07-18] MEDS: amLODIPine 5 MG TABLET PO SCH (10:07)
[2017-07-18] MEDS: LABETALOL 200 MG TABLET PO SCH ×2 (10:07→20:35)
[2017-07-18] MEDS: PANTOPRAZOLE 40 MG TABLET PO SCH (10:07)
[2017-07-18] MEDS: POTASSIUM CHLORIDE 20 MEQ TABLET PO SCH (10:07)
[2017-07-18] MEDS: VALSARTAN 160 MG TABLET PO SCH (10:07)
[2017-07-18] MEDS: APIXABAN 2.5 MG TABLET PO SCH (10:07)
[2017-07-18] MEDS: FEBUXOSTAT 80 MG TABLET PO SCH (10:07)
[2017-07-18] MEDS: sitaGLIPtin 25 MG TABLET PO SCH (10:07)
[2017-07-18] MEDS: METHENAMINE HIPPURATE 1 GM TABLET PO SCH ×2 (10:07→20:30)
[2017-07-18] MEDS: SOLIFENACIN 5 MG TABLET PO SCH (10:08)
[2017-07-18] MEDS: MEMANTINE 10 MG TABLET PO SCH ×2 (10:08→20:30)
[2017-07-18] MEDS: ATORVASTATIN 20 MG TABLET PO SCH (20:30)
[2017-07-18] MEDS: MONTELUKAST 10 MG TABLET PO SCH (20:30)
[2017-07-18] MEDS: INSULIN GLARGINE 100 UNIT/ML SUBCUT SCH (20:30)
[2017-07-18] MEDS: cefTRIAXone 2,000 MG in SYRINGE 1 EACH IV SCH (20:32)
[2017-07-19 06:59] LABS: Calcium 8.5 MG/DL (8.5-10.1); Osmolality,Calculated 302.3 MOS/KG (273-304); Potassium 4.3 MMOL/L (3.5-5.1)
[2017-07-19] MEDS: INSULIN REGULAR 100 UNIT/ML SUBCUT SCH ×4 (09:08→20:36)
[2017-07-19] MEDS: INSULIN LISPRO 100 UNIT/ML SUBCUT SCH ×3 (09:08→16:57)
[2017-07-19] MEDS: sitaGLIPtin 25 MG TABLET PO SCH (09:09)
[2017-07-19] MEDS: amLODIPine 5 MG TABLET PO SCH (09:09)
[2017-07-19] MEDS: PANTOPRAZOLE 40 MG TABLET PO SCH (09:09)
[2017-07-19] MEDS: MEMANTINE 10 MG TABLET PO SCH ×2 (09:09→20:38)
[2017-07-19] MEDS: POTASSIUM CHLORIDE 20 MEQ TABLET PO SCH (09:09)
[2017-07-19] MEDS: FEBUXOSTAT 80 MG TABLET PO SCH (09:10)
[2017-07-19] MEDS: LABETALOL 200 MG TABLET PO SCH ×2 (09:10→20:38)
[2017-07-19] MEDS: BUMETANIDE 1 MG TABLET PO SCH ×2 (09:10→16:57)
[2017-07-19] MEDS: METHENAMINE HIPPURATE 1 GM TABLET PO SCH ×2 (09:10→20:37)
[2017-07-19] MEDS: SOLIFENACIN 5 MG TABLET PO SCH (09:10)
[2017-07-19] MEDS: ESCITALOPRAM 10 MG TABLET PO SCH (09:11)
[2017-07-19] MEDS: methylPREDNISolone SOD SUC 40 MG/1 ML VIAL IV SCH ×3 (09:14→21:21)
[2017-07-19] MEDS: LEVOTHYROXINE 50 MCG TABLET PO SCH (09:55)
[2017-07-19] MEDS: VALSARTAN 160 MG TABLET PO SCH (09:55)
[2017-07-19] MEDS ORDERED: SODIUM CHLORIDE 0.9% 100 ML IV ONE (19:53)
[2017-07-19] MEDS: MONTELUKAST 10 MG TABLET PO SCH (20:37)
[2017-07-19] MEDS: ATORVASTATIN 20 MG TABLET PO SCH (20:37)
[2017-07-19] MEDS: INSULIN GLARGINE 100 UNIT/ML SUBCUT SCH (20:38)
[2017-07-19] MEDS: cefTRIAXone 2,000 MG in SYRINGE 1 EACH IV SCH (20:38)
[2017-07-20] MEDS: INSULIN REGULAR 100 UNIT/ML SUBCUT SCH ×3 (08:34→16:43)
[2017-07-20] MEDS: VALSARTAN 160 MG TABLET PO SCH ×2 (09:04→14:09)
[2017-07-20] MEDS: POTASSIUM CHLORIDE 20 MEQ TABLET PO SCH ×2 (09:04→14:10)
[2017-07-20] MEDS: amLODIPine 5 MG TABLET PO SCH ×2 (09:04→14:10)
[2017-07-20] MEDS: METHENAMINE HIPPURATE 1 GM TABLET PO SCH ×3 (09:04→20:47)
[2017-07-20] MEDS: sitaGLIPtin 25 MG TABLET PO SCH ×2 (09:04→14:10)
[2017-07-20] MEDS: MEMANTINE 10 MG TABLET PO SCH ×3 (09:04→20:47)
[2017-07-20] MEDS: ESCITALOPRAM 10 MG TABLET PO SCH (09:04)
[2017-07-20] MEDS: INSULIN LISPRO 100 UNIT/ML SUBCUT SCH ×3 (09:04→16:35)
[2017-07-20] MEDS: BUMETANIDE 1 MG TABLET PO SCH ×2 (09:04→16:35)
[2017-07-20] MEDS: FEBUXOSTAT 80 MG TABLET PO SCH ×2 (09:05→14:11)
[2017-07-20] MEDS: PANTOPRAZOLE 40 MG TABLET PO SCH ×2 (09:05→14:11)
[2017-07-20] MEDS: SOLIFENACIN 5 MG TABLET PO SCH ×2 (09:05→14:10)
[2017-07-20] MEDS: LABETALOL 200 MG TABLET PO SCH ×3 (09:05→20:47)
[2017-07-20] MEDS: LEVOTHYROXINE 50 MCG TABLET PO SCH ×2 (09:05→14:10)
[2017-07-20] MEDS: methylPREDNISolone SOD SUC 40 MG/1 ML VIAL IV SCH (10:50)
[2017-07-20] MEDS ORDERED: LIDOCAINE 1% 5 ML VIAL ONE (12:38)
[2017-07-20] MEDS ORDERED: ETOMIDATE 20 MG/10 ML VIAL IV ONE (12:38)
[2017-07-20] MEDS ORDERED: FLUCONAZOLE 200 MG TABLET PO ONE (12:50)
[2017-07-20] MEDS: INSULIN GLARGINE 100 UNIT/ML SUBCUT SCH (20:48)
[2017-07-20] MEDS: ATORVASTATIN 20 MG TABLET PO SCH (20:48)
[2017-07-20] MEDS: cefTRIAXone 2,000 MG in SYRINGE 1 EACH IV SCH (20:53)
[2017-07-21] MEDS: methylPREDNISolone SOD SUC 40 MG/1 ML VIAL IV SCH ×3 (00:57→21:37)
[2017-07-21] MEDS: MONTELUKAST 10 MG TABLET PO SCH ×2 (00:58→20:36)
[2017-07-21] MEDS: INSULIN REGULAR 100 UNIT/ML SUBCUT SCH ×6 (00:58→23:38)
[2017-07-21] MEDS: INSULIN LISPRO 100 UNIT/ML SUBCUT SCH ×4 (08:37→16:16)
[2017-07-21] MEDS: SOLIFENACIN 5 MG TABLET PO SCH (08:37)
[2017-07-21] MEDS: sitaGLIPtin 25 MG TABLET PO SCH (08:38)
[2017-07-21] MEDS: METHENAMINE HIPPURATE 1 GM TABLET PO SCH ×2 (08:38→20:36)
[2017-07-21] MEDS: BUMETANIDE 1 MG TABLET PO SCH ×2 (08:38→16:16)
[2017-07-21] MEDS: amLODIPine 5 MG TABLET PO SCH (08:38)
[2017-07-21] MEDS: POTASSIUM CHLORIDE 20 MEQ TABLET PO SCH (08:38)
[2017-07-21] MEDS: LABETALOL 200 MG TABLET PO SCH ×2 (08:38→20:36)
[2017-07-21] MEDS: FLUCONAZOLE 100 MG TABLET PO SCH (08:38)
[2017-07-21] MEDS: PANTOPRAZOLE 40 MG TABLET PO SCH (08:38)
[2017-07-21] MEDS: VALSARTAN 160 MG TABLET PO SCH (08:38)
[2017-07-21] MEDS: FEBUXOSTAT 80 MG TABLET PO SCH (08:38)
[2017-07-21] MEDS: MEMANTINE 10 MG TABLET PO SCH ×2 (08:39→20:36)
[2017-07-21] MEDS: LEVOTHYROXINE 50 MCG TABLET PO SCH (08:39)
[2017-07-21] MEDS: DOCUSATE SODIUM 100 MG CAPSULE PO SCH ×2 (09:27→09:45)
[2017-07-21] MEDS: ATORVASTATIN 20 MG TABLET PO SCH (20:36)
[2017-07-21] MEDS: INSULIN GLARGINE 100 UNIT/ML SUBCUT SCH (20:36)
[2017-07-21] MEDS: cefTRIAXone 2,000 MG in SYRINGE 1 EACH IV SCH (20:38)
[2017-07-22 06:59] LABS: Basophils % 0.1 % (0.0-0.8); Hematocrit 41.9 VOL% (35.7-47.0); Hemoglobin 13.8 GM/DL (12.0-16.0); Immature Granulocytes % 1.1 %; Immature Granulocytes Absolute 0.13 #; Lymphocytes # 1.1 10*3/uL (1.4-4.0); Lymphocytes % 8.6 % (21.3-54.2); Mean Corpuscular HGB Conc 32.9 GM/DL (32-36); Mean Corpuscular Hemoglobin 28 PG (27-34); Mean Corpuscular Volume 84.8 FL (87-102); Monocytes # 0.4 10*3/uL (0.11-0.8); Monocytes % 3.3 % (1.7-12.7); Neutrophils # 10.8 10*3/uL (1.4-7.4); Neutrophils % 86.9 % (38.7-73.9); Platelet Count 208 T/CUMM (130-400); Red Blood Count 4.94 MC/CUMM (3.8-5.5); Red Cell Distribution Width 13.5 % (9.3-17.3); White Blood Count 12.4 T/CUMM (4-12)
[2017-07-22 07:26] LABS: Albumin 3.2 G/DL (3.4-5.0); Bilirubin,Total 0.6 MG/DL (0.2-1.0); Calcium 8.5 MG/DL (8.5-10.1); Osmolality,Calculated 300.5 MOS/KG (273-304); Potassium 3.8 MMOL/L (3.5-5.1); Total Protein 6.3 G/DL (6.4-8.3)
[2017-07-22] MEDS: METHENAMINE HIPPURATE 1 GM TABLET PO SCH ×2 (08:45→21:24)
[2017-07-22] MEDS: LABETALOL 200 MG TABLET PO SCH ×2 (08:45→21:24)
[2017-07-22] MEDS: SOLIFENACIN 5 MG TABLET PO SCH (08:45)
[2017-07-22] MEDS: VALSARTAN 160 MG TABLET PO SCH (08:45)
[2017-07-22] MEDS: POTASSIUM CHLORIDE 20 MEQ TABLET PO SCH (08:46)
[2017-07-22] MEDS: FEBUXOSTAT 80 MG TABLET PO SCH (08:46)
[2017-07-22] MEDS: FLUCONAZOLE 100 MG TABLET PO SCH (08:46)
[2017-07-22] MEDS: PANTOPRAZOLE 40 MG TABLET PO SCH (08:46)
[2017-07-22] MEDS: LEVOTHYROXINE 50 MCG TABLET PO SCH (08:46)
[2017-07-22] MEDS: amLODIPine 5 MG TABLET PO SCH (08:46)
[2017-07-22] MEDS: MEMANTINE 10 MG TABLET PO SCH ×2 (08:46→21:24)
[2017-07-22] MEDS: INSULIN LISPRO 100 UNIT/ML SUBCUT SCH ×3 (08:46→16:02)
[2017-07-22] MEDS: BUMETANIDE 1 MG TABLET PO SCH ×2 (08:46→15:52)
[2017-07-22] MEDS: sitaGLIPtin 25 MG TABLET PO SCH (08:46)
[2017-07-22] MEDS: INSULIN REGULAR 100 UNIT/ML SUBCUT SCH ×4 (08:47→21:25)
[2017-07-22] MEDS: methylPREDNISolone SOD SUC 40 MG/1 ML VIAL IV SCH (09:40)
[2017-07-22] MEDS: INSULIN GLARGINE 100 UNIT/ML SUBCUT SCH (21:24)
[2017-07-22] MEDS: MONTELUKAST 10 MG TABLET PO SCH (21:24)
[2017-07-23 07:20] LABS: Basophils % 0.2 % (0.0-0.8); Hematocrit 41.8 VOL% (35.7-47.0); Hemoglobin 14.1 GM/DL (12.0-16.0); Immature Granulocytes % 1.6 %; Immature Granulocytes Absolute 0.29 #; Lymphocytes # 1.8 10*3/uL (1.4-4.0); Lymphocytes % 9.9 % (21.3-54.2); Mean Corpuscular HGB Conc 33.7 GM/DL (32-36); Mean Corpuscular Hemoglobin 28 PG (27-34); Mean Corpuscular Volume 83.4 FL (87-102); Mean Platelet Volume 10.1 FL (9.6-12.0); Monocytes # 1.3 10*3/uL (0.11-0.8); Monocytes % 7.2 % (1.7-12.7); Neutrophils # 14.6 10*3/uL (1.4-7.4); Neutrophils % 81.1 % (38.7-73.9); Platelet Count 200 T/CUMM (130-400); Red Blood Count 5.01 MC/CUMM (3.8-5.5); Red Cell Distribution Width 13.4 % (9.3-17.3)
[2017-07-23 07:43] LABS: Alanine Aminotransferase 15 U/L (13-56); Albumin 3.2 G/DL (3.4-5.0); Alkaline Phosphatase 92 U/L (45-117); Aspartate Amino Transferase < 3 U/L (0-37); Blood Urea Nitrogen 80 MG/DL (7-18); Calcium 8.3 MG/DL (8.5-10.1); Glucose 164 MG/DL (74-106); Osmolality,Calculated 302.7 MOS/KG (273-304); Potassium 3.8 MMOL/L (3.5-5.1); Sodium 138 MMOL/L (136-145); Total Protein 6.1 G/DL (6.4-8.3)
[2017-07-23] MEDS: LEVOTHYROXINE 50 MCG TABLET PO SCH (09:38)
[2017-07-23] MEDS: POTASSIUM CHLORIDE 20 MEQ TABLET PO SCH (09:38)
[2017-07-23] MEDS: SOLIFENACIN 5 MG TABLET PO SCH (09:38)
[2017-07-23] MEDS: FLUCONAZOLE 100 MG TABLET PO SCH (09:38)
[2017-07-23] MEDS: NYSTATIN 500,000 UNIT/5 ML UDCUP SWISH/SWAL SCH ×4 (09:38→21:15)
[2017-07-23] MEDS: INSULIN REGULAR 100 UNIT/ML SUBCUT SCH ×4 (09:39→22:06)
[2017-07-23] MEDS: MEMANTINE 10 MG TABLET PO SCH ×2 (09:39→21:15)
[2017-07-23] MEDS: FEBUXOSTAT 80 MG TABLET PO SCH (09:39)
[2017-07-23] MEDS: VALSARTAN 160 MG TABLET PO SCH (09:39)
[2017-07-23] MEDS: LABETALOL 200 MG TABLET PO SCH ×2 (09:39→21:15)
[2017-07-23] MEDS: METHENAMINE HIPPURATE 1 GM TABLET PO SCH ×2 (09:39→21:15)
[2017-07-23] MEDS: sitaGLIPtin 25 MG TABLET PO SCH (09:39)
[2017-07-23] MEDS: PANTOPRAZOLE 40 MG TABLET PO SCH (09:39)
[2017-07-23] MEDS: INSULIN LISPRO 100 UNIT/ML SUBCUT SCH ×3 (09:40→16:41)
[2017-07-23] MEDS: BUMETANIDE 1 MG TABLET PO SCH (10:14)
[2017-07-23] MEDS ORDERED: TUBERCULIN SKIN TEST 0.1 ML SYRINGE INTRADERM ONE (10:38)
[2017-07-23] MEDS: MONTELUKAST 10 MG TABLET PO SCH (21:15)
[2017-07-23] MEDS: INSULIN GLARGINE 100 UNIT/ML SUBCUT SCH (21:15)
[2017-07-24 06:27] LABS: Basophils % 0.3 % (0.0-0.8); Eosinophils # 0.1 10*3/uL (0.0-0.87); Eosinophils % 0.3 % (0.00-10.9); Hematocrit 40.8 VOL% (35.7-47.0); Hemoglobin 13.4 GM/DL (12.0-16.0); Immature Granulocytes % 1.9 %; Immature Granulocytes Absolute 0.28 #; Lymphocytes # 2.5 10*3/uL (1.4-4.0); Mean Corpuscular HGB Conc 32.8 GM/DL (32-36); Mean Corpuscular Hemoglobin 28 PG (27-34); Mean Corpuscular Volume 85.2 FL (87-102); Mean Platelet Volume 10.1 FL (9.6-12.0); Monocytes # 1.5 10*3/uL (0.11-0.8); Monocytes % 9.8 % (1.7-12.7); Neutrophils # 10.4 10*3/uL (1.4-7.4); Neutrophils % 70.7 % (38.7-73.9); Platelet Count 170 T/CUMM (130-400); Red Blood Count 4.79 MC/CUMM (3.8-5.5); Red Cell Distribution Width 13.6 % (9.3-17.3); White Blood Count 14.8 T/CUMM (4-12)
[2017-07-24 07:09] LABS: Osmolality,Calculated 303.3 MOS/KG (273-304); Potassium 3.7 MMOL/L (3.5-5.1)
[2017-07-24] MEDS: INSULIN REGULAR 100 UNIT/ML SUBCUT SCH (08:11)
[2017-07-24] MEDS: FEBUXOSTAT 80 MG TABLET PO SCH (09:29)
[2017-07-24] MEDS: PANTOPRAZOLE 40 MG TABLET PO SCH (09:30)
[2017-07-24] MEDS: METHENAMINE HIPPURATE 1 GM TABLET PO SCH (09:30)
[2017-07-24] MEDS: SOLIFENACIN 5 MG TABLET PO SCH (09:30)
[2017-07-24] MEDS: POTASSIUM CHLORIDE 20 MEQ TABLET PO SCH (09:30)
[2017-07-24] MEDS: MEMANTINE 10 MG TABLET PO SCH (09:30)
[2017-07-24] MEDS: sitaGLIPtin 25 MG TABLET PO SCH (09:30)
[2017-07-24] MEDS: FLUCONAZOLE 100 MG TABLET PO SCH (09:30)
[2017-07-24] MEDS: LEVOTHYROXINE 50 MCG TABLET PO SCH (09:30)
[2017-07-24] MEDS: NYSTATIN 500,000 UNIT/5 ML UDCUP SWISH/SWAL SCH (09:30)
[2017-07-24] MEDS: INSULIN LISPRO 100 UNIT/ML SUBCUT SCH (09:31)
[2017-07-24] MEDS: DOCUSATE SODIUM 100 MG CAPSULE PO SCH (09:31)
[2017-07-24] MEDS: VALSARTAN 160 MG TABLET PO SCH (09:31)
[2017-07-24] MEDS: LABETALOL 200 MG TABLET PO SCH (09:31)
[2017-07-24 11:34] VITALS: BP 109/59
== END 2017-07-24 11:20 | DRG 291 ==
LOC: EDUNIT# → EDBD → N.ED 18:26 → N.EDINP 20:22 → N.5E 21:03
PROVIDERS: ADMIT Family Medicine; ATTEND Family Medicine